=== PATIENT | male | born 1975 | race Caucasian/White ===

== ENCOUNTER 2022-02-25 16:25 | Outpatient (CLI) | payer OTHER, SELFPAY ==
--- OUTSIDE RECORDS SUMMARY | 2022-03-08 08:38 | XMS_ITS | Encounter Summary ---
:1975 Author Organization [facility] Address [address] [place] [address]. [place] [address] Care Team Providers Name Role Phone Peggy Hammer MD Primary Care Provider Alvaro Denise MD Unavailable [phone] Reason for Visit Reason Onset Date Comments Medication Question 03/29/2021 Encounter Details Date Type Department Care Team Description 03/29/2021 Telephone [facility] Ear Vijay Denise edication Question [facility] Clinic Alvaro ojeda MD [address] [place] [address] [place], [place] [phone] (Wo rk) [address] [phone] Social History Tobacco Use Types Packs/Day Years Used Date Passive Smoke Exposure - Cigarettes, Cigars 0.5 10 Started: 12/28/1993 Never Smoker Smokeless Tobacco: Never Used Comments: weekends Alcohol Use Standard Drinks/Week Comments Yes 0 (1 standard drink = 0.6 oz pure alcoho l) 1-2 drinks a a week Alcohol Habits Answer Date Recorded How often do you have a drink containing alcohol? Not asked How many drinks containing alcohol do you have on a Not aske d typical day when you are drinking? How often do you have six or more drinks on one Not asked occasion? Comment: 1-2 drinks a a week 09/09/2019 Sex Assigned at Date Recorded Not on file documented as of this encounter Miscellaneous Notes Telephone Encounter - Marixa Nazario LPN - 03/29/2021 12:[address] Hodge to refill meds. Sent Augmentin to his pharmacy. Marixa Nazario LPN Telephone Encounter - Gustavo Roca - 03/29/2021 7:46 AM CDT Health Call Center Phone Message May a detailed message be left on voicemail: yes Reason for Call: Medication Question or concern regarding medication Prescription Clarification Name of Medication: ANTIBODIES FOR SINUS INFECTION or AMOXICILLIN Prescribing Provider: AYESHA Pharmacy: [id number] [place], [place] - [address] [facility]. What on the order needs clarification? Pt has developed a sinus infection since Friday and would like rx for it. Please follow-up. Action Taken: Other: ent Travel Screening: Not Applicable documented in this encounter Plan of Treatment Not on filedocumented as of this encounter Visit Diagnoses Diagnosis Mucocele of frontal sinus Other diseases of nasal cavity and sinus es documented in this encounter Care Teams Ends Down Checker Relationship Specialty Start Date End Date Peggy Hammer MD PCP - General Family Practice 09/10/19 [facility] [facility] [address] [place] [address] Ayesha-Alvaro Hammond Assigned Surgical Provider MD Kaushik [address] [place] [address] [address] [place] [address] documented as of this encounter
--- OUTSIDE RECORDS SUMMARY | 2022-03-08 08:38 | XMS_ITS | Clinical Summary ---
:1975 Author Organization [facility] [place] [address] Care Team Providers Name Role Phone Nadja Manjarrez MD Primary Care Provider Allergies No known active allergies Medications Medication Sig Dispensed Refills Start Date End Date Status buPROPion Take 150 mg by mouth 0 Active (WELLBUTRIN SR; 2 times daily. ZYBAN) 150 mg Indications: SMOKING Sustained-Release CESSATION tabletIndications: smoking cessation gabapentin Take 1 capsule by 30 capsule 0 06/12/2019 Active (NEURONTIN) 100 mg mouth 3 times daily capsule ibuprofen (ADVIL; Take 1 tablet by 60 tablet 1 06/12/2019 Active MOTRIN) 600 mg mouth 3 times daily tablet with food multivitamin (MVI) 0 A ctive tablet omega by Not Applicable 0 Ac tive 4-fht-dwh-fish oil route. (FISH OIL) 100-160-1,000 mg cap varenicline Take 1 mg by mouth. 0 09/10/2018 Active (CHANTIX) 1 mg tablet HYDROcodone-acetami Take 1 tablet at 3 tablet 0 01/12/2020 Active nophen, 5-325 mg, bedtime as needed (NORCO) per for severe back tabletIndications: pain. Max Acute myofascial acetaminophen dose: strain of lumbar 4000 mg in 24 hrs. 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 Tobacco use disorder 02/04/2008 Hypospadias 02/04/2008 Immunizations Name Administration Dates Next Due Td (Age >=7 Years) 06/30/2001 Family History Medical History Relation Name Comments Hypertension Maternal Grandfather Cancer-prostate Paternal Grandfather prostate re moved-70 Relation Name Status Comments Maternal Grandfather Paternal Grandfather Social History Tobacco Use Types Packs/Day Years Used Date Current Every Day Smoker Cigarettes 0.25 Bernardo t: 05/30/2012 Smokeless Tobacco: Never Used Tobacco Cessation: Ready to Quit: No Comments: advised to quit Alcohol Use Standard Drinks/Week Comments Yes 0 (1 standard drink = 0.6 oz pure alcoho l) once every two weeks-rare Sex Assigned at Date Recorded Not on file Obstetrics History Last Filed Vital Signs Vital Sign Reading Time Taken Comments Blood Pressure 122/78 09/09/2018 9:55 AM CDT Pulse 74 09/09/2018 9:55 AM CDT Temperature 37.1 ??C (98.7 ??F) 09/09/2018 9:55 AM CDT Respiratory Rate 18 05/27/2018 12:22 PM BUS PERSON Oxygen Saturation 98% 09/09/2018 9:55 AM CDT Inhaled Oxygen Concentration - - Weight 86.5 kg (190 lb 12.8 oz) 05/27/2018 12:22 PM BUS PERSON Height 180.3 cm (5' 11) 05/27/2018 12:22 PM BUS PERSON Body Mass Index 26.61 05/27/2018 12:22 PM BUS PERSON Plan of Treatment Health Maintenance Due Date Last Done Comments COVID-19 vaccine series (#1) 1975 Tdap 1987 Depression screening for age 12+ 1988 Tetanus booster 06/30/2011 06/30/2001 BMI (ht and wt on same day) for 05/27/2019 05/27/2018 age 18+ Colonoscopy through age 75 2021 Lipids for age 45-75 2021 02/04/2008, 02/04/2008, 07/23/2006, Additional history exists Influenza for age 9-49 02/28/2022 Hepatitis C screening for age Completed 02/09/2008, 2007, 18-79 02/04/2008 Results Not on filefrom Last 3 Months Advance Directives Latest Code Status on File Code Status Date Activated Date Inactivated Comments Full Code 06/17/2012 6:07 AM 06/24/2012 4:24 PM Care Teams Examination Supervisor Relationship Specialty Start Date End Date Nadja Manjarrez MD PCP - General 06/15/12
--- OUTSIDE RECORDS SUMMARY | 2022-03-08 08:38 | XMS_ITS | Encounter Summary ---
:1975 Author Organization [place] Address [address] [place] [address] Care Team Providers Name Role Phone Peggy Hammer MD Primary Care Provider Alvaro Denise MD Unavailable Reason for Visit Reason Onset Date Comments Medication Request 05/15/2021 amoxicillin-clavulan ate (AUGMENTIN) 875-125 MG tablet Encounter Details Date Type Department Care Team Description 05/15/2021 Telephone [facility] Ear Vijay Denise edication Request Nose and Throat Clinic Alvaro ojeda MD (amoxicillin-clavulana [place] [address] [facility] te (AUGMENTIN) 875-125 909 [facility] 396 MG tablet) 4th [address] [place], [place] [address] [phone] Social History Tobacco Use Types Packs/Day Years [...] Telephone Encounter - Marixa Nazario LPN - 05/15/2021 3:20 PM CST Per last OV- standing order for antibiotics. Reordered medication and ok'd by Mia BARRAGAN. Marixa Nazario LPN ING CLERK Telephone Encounter - Lili Trejo - 05/15/2021 7:52 AM CST [facility] Phone Message May a detailed message be left on voicemail: yes Reason for Call: Medication Refill Request Has the patient contacted the pharmacy for the refill? Yes Name of medication being requested: amoxicillin-clavulanate (AUGMENTIN) 875-125 MG tablet Provider who prescribed the medication: dr etienne Pharmacy: [facility] [address] Date medication is needed: now-pt feels like he is getting sinus condition that he has in the past. He is stuffed up, etc. Please call the pt with the status. Thanks. Action Taken: Message routed to: [facility] driss ent` Travel Screening: Not Applicable ING CLERK documented in this encounter Plan of Treatment Not on filedocumented as of this encounter Visit Diagnoses Diagnosis Mucocele of frontal sinus Other diseases of nasal cavity and sinus es documented in this encounter Care Teams [employer] Mill Supervisor Relationship Specialty Start Date End Date Peggy Hammer MD PCP - General Family Practice 09/10/19 [facility] [address] [place] [address] Ayesha-Alvaro Hammond Assigned Surgical Provider MD Kaushik [address] [facility] [address] [place] [address] documented as of this encounter
--- OUTSIDE RECORDS SUMMARY | 2022-03-08 08:38 | XMS_ITS | Encounter Summary ---
:1975 Author Organization [place] Address [address] [place] [address] Care Team Providers Name Role Phone Peggy Hammer MD Primary Care Provider Alvaro Denise MD Unavailable [phone] Reason for Visit Reason Comments Medication Refill AMOXICILLIN-CLAV 875-125MG T AB Encounter Details Date Type Department Care Team Description 05/12/2021 Refill [facility] Ear Vijay Denise edication Refill Nose and Throat Clinic Alvaro ojeda MD (AMOXICILLIN-CLAV [place] [address] [facility] 875-125MG TAB) [address] [facility] [address] [place] [address] [place], [place] [phone] (Wo rk) [address] [phone] Social History Tobacco Use Types Packs/Day Years [...] this encounter Miscellaneous Notes Telephone Encounter - Crista Willams RN - 05/14/2021 11:58 AM CST AMOXICILLIN-CLAV 875-125MG TAB Last Written Prescription Date: 03/29/2021 Last Fill Quantity: 20, # refills: 0 Last Office Visit : 08/31/2020 Future Office visit: None Routing refill request to provider for review/approval because: Drug not on the [facility], P or Health refill protocol or controlled substance Crista Willams RN Central Triage Red Flags/Med Refills DRIER OPERATOR documented in this encounter Plan of Treatment Not on filedocumented as of this encounter Visit Diagnoses Diagnosis Mucocele of frontal sinus Other diseases of nasal cavity and sinus es documented in this encounter Care Teams Lpn Rn Relationship Specialty Start Date End Date Peggy Hammer MD PCP - General Family Practice 09/10/19 [facility] [address] [place] [address] Alvaro Denise Assigned Surgical Provider MD Kaushik [address] [place] [address] [address] [place] [address] documented as of this encounter
--- OUTSIDE RECORDS SUMMARY | 2022-03-08 08:38 | XMS_ITS | Clinical Summary ---
:1975 Author Organization [place] Address [address] [place] [address] Care Team Providers Name Role Phone Peggy Hammer MD Primary Care Provider Alvaro Denise MD Unavailable [phone] Allergies No known active allergies Medications Medication Sig Dispensed Refills Start Date End Date Status FISH OIL 0 Active fluticasone (FLONASE) [place] 1 spray 15 mL 0 06/14/2019 Active 50 MCG/ACT nasal spray into both nostrils daily acetaminophen Take 2 tablets 50 tablet 0 09/10/2019 Active (TYLENOL) 325 MG (650 mg) by mouth tabletIndications: every 4 hours as Mucocele of frontal needed for mild sinus pain varenicline (CHANTIX 1 wk before you 0 09/11/2018 Active DEBORAH) 0.5 MG X 11 & 1 stop smoking take MG X 42 tablet 0.5mg daily on days 1-3, 0.5mg 2 times each day on days 4-7, then 1mg 2 times daily Multiple Take 1 tablet by 0 Act bertha Vitamins-Minerals mouth daily (MULTIVITAMIN ADULT PO) VITAMIN D, Take by mouth 0 Activ e CHOLECALCIFEROL, PO daily acetaminophen Take 2 tablets 100 tablet 0 06/02/2020 Active (TYLENOL) 325 MG (650 mg) by mouth tabletIndications: S/P every 4 hours as nasal septoplasty needed for other (mild pain) oxyCODONE (ROXICODONE) Take 1 tablet (5 15 tablet 0 06/05/2020 Active 5 MG mg) by mouth tabletIndications: S/P every 6 hours as nasal septoplasty needed (Moderate to Severe Pain) amoxicillin-clavulanat Take 1 tablet by 20 tablet 0 05/15/2021 Active e (AUGMENTIN) 875-125 mouth 2 times MG tabletIndications: daily Mucocele of frontal sinus Active Problems Problem Noted Date 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 Overview: Added automatically from request for jena montague [id number] CARDIOVASCULAR SCREENING; LDL GOAL LESS THAN 160 02/01 Immunizations Name Administration Dates Next Due TDAP Vaccine (Adacel) 02/01/2011 Family History Medical History Relation Comments Bleeding Disorder Maternal Grandmother Blood Disease Maternal Grandmother Cancer Maternal Grandmother Cerebrovascular Disease Maternal Grandmother Breast Cancer Paternal Grandmother Cancer Paternal Grandmother uterine Cerebrovascular Disease Paternal Grandmother Relation Status Comments Father Alive Maternal Grandfather Maternal Grandmother Mother Alive Paternal Grandfather Alive Paternal Grandmother Alive Social History Tobacco Use Types Packs/Day Years Used Date Passive Smoke Exposure - Cigarettes, Cigars 0.5 10 Started: 12/28/1993 Never Smoker Smokeless Tobacco: Never Used Tobacco Cessation: Ready to Quit: Yes Comments: weekends Alcohol Use Standard Drinks/Week Comments [...] Assigned at Date Recorded Not on file Last Filed Vital Signs Vital Sign Reading Time Taken Comments Blood Pressure 134/78 06/02/2020 5:51 PM WEB SERVICES DEVELOPER Pulse 72 08/31/2020 1:40 PM WEB SERVICES DEVELOPER Temperature 36.9 ??C (98.4 ??F) 08/31/2020 1:40 PM WEB SERVICES DEVELOPER Respiratory Rate 16 06/02/2020 5:51 PM WEB SERVICES DEVELOPER Oxygen Saturation 98% 08/31/2020 1:40 PM WEB SERVICES DEVELOPER Inhaled Oxygen Concentration - - Weight 83.5 kg (184 lb) 08/31/2020 1:40 PM WEB SERVICES DEVELOPER Height 182.9 cm (6') 08/31/2020 1:40 PM WEB SERVICES DEVELOPER Body Mass Index 24.95 08/31/2020 1:40 PM WEB SERVICES DEVELOPER Plan of Treatment Health Maintenance Due Date Last Done Comments ADVANCE CARE PLANNING 1975 ANNUAL REVIEW OF HM ORDERS 1976 CT COLONOGRAPHY 1976 FIT-DNA (Cologuard) 1975 FIT 1975 FLEX SIG 1975 COVID-19 Vaccine (#1) 1975 COLONOSCOPY 1986 COLORECTAL CANCER SCREENING 1986 HIV SCREENING 1991 HEPATITIS C SCREENING 1994 PREVENTIVE CARE VISIT 02/02/2012 02/01/2011 LIPID 02/02/2016 02/01/2011 DTAP/TDAP/TD IMMUNIZATION 02/01/2021 02/01/2011 (2 - Td or Tdap) PHQ-2 (once per calendar 06/30/2021 08/31/2020, 06/15/2020, year) 04/13/2020, Additional history exists INFLUENZA VACCINE (#1) 2022 04/11/2019, 04/25/2018, 03/30/2018, Additional history exists HEPATITIS B IMMUNIZATION Aged Out 07/08/2013, 03/02/2013, No longer eligible 06/12/2012 based on patient 's age to complete this topic IPV IMMUNIZATION Aged Out No longer eligi ble based on patient 's age to complete this topic MENINGITIS IMMUNIZATION Aged Out No longe r eligible based on patient 's age to complete this topic Pneumococcal Vaccine: Aged Out No longer eligible Pediatrics (0 to 5 Years) based on patient's age and At-Risk Patients (6 to to co mplete this topic 64 Years) Medical Devices Implanted Type Area Smoke Room Operator Device Shelf Model / Identifier Expiration Serial / Lot Date Stent Frontal Sinus [place] Lg Stent Left: OLYMPUS MANUEL 02/29/2024 [id number] / Implanted: Qty: 1 on 09/10/2019 by Alvaro Chong MD at [facility] Sinus / [id number] Description: Left Frontal Sinus Insurance Payer Benefit Plan / Subscriber ID Effective Dates Phone Addre ss Type Group UCARE UCARE INDIVIDUAL [id number] 2019-Present [phone] [address] [place] [address] Care Teams Stone Derrickman And Rigger Relationship Specialty Start Date End Date Peggy Hammer MD PCP - General Family Practice 09/10/19 [facility] [address] [place] [address] Alvaro Denise Assigned Surgical Provider MD Kaushik [address] [place] [address] [address] [place], [place] [id number]
--- OUTSIDE RECORDS SUMMARY | 2022-03-08 08:39 | XMS_ITS | Encounter Summary ---
:1975 Author Organization [place] Address [address] [place] [address] Care Team Providers Name Role Phone Peggy Hammer MD Primary Care Provider Alvaro Denise MD Unavailable [phone] Reason for Visit Reason Onset Date Comments Refill Request 06/05/2020 oxyCODONE (ROXICODON E) 5 MG tablet Encounter Details Date Type Department Care Team Description 06/05/2020 Telephone [facility] Ear Eugenia Denise efill Request Nose and Throat Clinic Alvaro ojeda MD (oxyCODONE [place] [address] [facility] (ROXICODONE) 5 MG [address] [facility] [address] tablet ) [address] [place], [place] [address] [phone] Social History Tobacco Use Types Packs/Day Years [...] Assigned at Date Recorded Not on file COVID-19 Exposure Response Date Recorded In the last month, have you been in contact with No / Unsure 06/02/2020 1:27 PM SHIPMASTER someone who was confirmed or suspected to have Coronavirus / COVID-19? documented as of this encounter Miscellaneous Notes Telephone Encounter - Joanie Zuniga - 06/05/2020 8:48 AM CST [facility] Call Center Phone Message May a detailed message be left on voicemail: yes Reason for Call: Medication Refill Request Has the patient contacted the pharmacy for the refill? Yes Name of medication being requested: oxyCODONE (ROXICODONE) 5 MG tablet Provider who prescribed the medication: Jose Godfrey MD Pharmacy: [facility][id number] [place], [place] - [address] [facility] Date medication is needed: HEATHER Pt called stating he is still in some pain and was wondering if he could get this Rx refilled. Please advise, thank you! Action Taken: Message routed to: [facility] ENT Travel Screening: Not Applicable MASTER documented in this encounter Plan of Treatment Not on filedocumented as of this encounter Visit Diagnoses Not on filedocumented in this encounter Care Teams Matrix Worker Relationship Specialty Start Date End Date Peggy Hammer MD PCP - General Family Practice 09/10/19 [facility] [address] [place] [address] Alvaro Denise Assigned Surgical Provider MD Kaushik [address] [facility] [address] [place] [address] documented as of this encounter
--- OUTSIDE RECORDS SUMMARY | 2022-03-08 08:39 | XMS_ITS | Encounter Summary ---
:1975 Author Organization [facility] Address [address] [place] [address] Care Team Providers Name Role Phone Peggy Hammer MD Primary Care Provider Alvaro Denise MD Unavailable [phone] Encounter Details Date Type Department Care Team Description 08/31/[address] [facility] Ear Vijay Denise ucocele of frontal Nose and Throat Alvaro Faulkner MD sinus (Primary Dx) Clinic [address] [place] [address] [id number] [phone] Social History Tobacco Use Types Packs/Day Years [...] been in contact with No / Unsure 08/31/2020 1:38 PM CONTROL AREA OPERATOR someone who was confirmed or suspected to have Coronavirus / COVID-19? documented as of this encounter Last Filed Vital Signs Vital Sign Reading Time Taken Comments Blood Pressure - - Pulse 72 08/31/2020 1:40 PM CONTROL AREA OPERATOR Temperature 36.9 ??C (98.4 ??F) 08/31/2020 1:40 PM CONTROL AREA OPERATOR Respiratory Rate - - Oxygen Saturation 98% 08/31/2020 1:40 PM CONTROL AREA OPERATOR Inhaled Oxygen Concentration - - Weight 83.5 kg (184 lb) 08/31/2020 1:40 PM CONTROL AREA OPERATOR Height 182.9 cm (6') 08/31/2020 1:40 PM CONTROL AREA OPERATOR Body Mass Index 24.95 08/31/2020 1:40 PM CONTROL AREA OPERATOR documented in this encounter Patient Instructions Patient InstructionsRossana Berrios LPN - 08/31/2020 1:40 PM CST 1. You were seen in the ENT Clinic today by . If you have any questions or concerns after your appointment, please call - Option 1: ENT Clinic: [phone] 2. Please call us if you are have any questions or concerns. If you begin to have signs of infection(sinusitis) we may have to proceed with surgery, call us right away. Rossana Gonzales LPN [facility] [phone] ROL AREA OPERATOR documented in this encounter Progress Notes Alvaro Denise MD - 08/31/2020 1:40 PM CST DX: LEFT FRONTAL SINUS MUCOCELE TREATMENT:.??1.??Stealth-guided endoscopic transnasal incision and drainage of left frontal sinus mucocele. 2. Left maxillary antrostomy.??3. ??Placement of Rain stent ON 09/10/2019 4. SEPTOPLASTY AND REVISION LEFT FRONTAL SINUS DRAF 2 PROCEDURE ON 06/02/2020 History of Present Illness: Patient here for follow-up. He is doing well. No symptoms. MEDICATIONS: Current Outpatient Medications Medication Sig Dispense Refill ??? acetaminophen (TYLENOL) 325 MG tablet Take 2 tablets (650 mg) by mouth every 4 hours as needed for other (mild pain) 100 tablet 0 ??? acetaminophen (TYLENOL) 325 MG tablet Take 2 tablets (650 mg) by mouth every 4 hours as needed for mild pain 50 tablet 0 ??? FISH OIL ??? fluticasone (FLONASE) 50 MCG/ACT nasal spray [place] 1 spray into both nostrils daily 15 mL 0 ??? Multiple Vitamins-Minerals (MULTIVITAMIN ADULT PO) Take 1 tablet by mouth daily ??? oxyCODONE (ROXICODONE) 5 MG tablet Take 1 tablet (5 mg) by mouth every 6 hours as needed (Moderate to Severe Pain) 15 tablet 0 ? ? varenicline (CHANTIX DEBORAH) 0.5 MG X 11 & 1 MG X 42 tablet 1 wk before you stop smoking take 0.5mg daily on days 1-3, 0.5mg 2 times each day on days 4-7, then 1mg 2 times daily ??? VITAMIN D, CHOLECALCIFEROL, PO Take by mouth daily ALLERGIES: No Known Allergies HABITS/SOCIAL HISTORY: Unchanged PAST MEDICAL HISTORY: Past Medical History: Diagnosis Date ??? Gastroesophageal reflux disease 09/06/2018 FAMILY HISTORY: Family History Problem Relation Age of Onset ??? Blood Disease Maternal Grandmother ??? Cancer Maternal Grandmother ??? Cerebrovascular Disease Maternal Grandmother ??? Bleeding Disorder Maternal Grandmother ??? Breast Cancer Paternal Grandmother ??? Cancer Paternal Grandmother uterine ??? Cerebrovascular Disease Paternal Grandmother REVIEW OF SYSTEMS: 12 point ROS was negative other than the symptoms noted above in the HPI. NasalEndoscopy: Consent for nasal endoscopy was obtained, and we confirmed correctness of procedure and identity of patient. Nasal endoscopy was indicated due to frontal mucocele. The nose was topically decongested and anesthetized. The fiberoptic laryngoscope was passed under endoscopic vision. The turbinates were normal. The inferior and middle meati were clear bilaterally without purulence, masses, or polyps. The nasopharynx was clear. The left frontal outflow tract is once more obstructed by scar tissue. IMPRESSION AND PLAN: Today we had a long discussion with the patient regarding the next steps. At this point, surgically, he will need a frontal sinus cranialization procedure. We discussed the procedure, complications and benefits. We also discussed observation and early management of sinusitis. The p atient wants to observe for now. Will be happy to prescribe antibiotics if symptoms of sinus infections. Alvaro Denise MD, M.D. Otolaryngology- Head & Neck Surgery [phone] ROL AREA OPERATOR documented in this encounter Plan of Treatment Not on filedocumented as of this encounter Procedures Procedure Name Priority Date/Time Associated Diagnosis Comme nts AR NASAL ENDOSCOPY,DX Routine 08/31/2020 4:17 PM CONTROL AREA OPERATOR Mucocele of frontal sinus documented in this encounter Visit Diagnoses Diagnosis Mucocele of frontal sinus - Primary Other diseases of nasal cavity and sinus es documented in this encounter Care Teams Photonic Laboratory Technician Relationship Specialty Start Date End Date Peggy Hammer MD PCP - General Family Practice 09/10/19 [facility] [address] [place] [address] Alvaro Denise Assigned Surgical Provider MD [facility] [address] [facility] [place] [address] [place] [address] documented as of this encounter
--- OUTSIDE RECORDS SUMMARY | 2022-03-08 08:39 | XMS_ITS | Encounter Summary ---
:1975 Author Organization [facility] Address [address] [place] [address] Care Team Providers Name Role Phone Peggy Hammer MD Primary Care Provider Alvaro Denise MD Unavailable [phone] Encounter Details Date Type Department Care Team Description 05/30/2020 Travel Social History Tobacco Use Types Packs/Day Years [...] been in contact with No / Unsure 05/30/2020 9:57 AM FINANCIAL AID COORDINATOR someone who was confirmed or suspected to have Coronavirus / COVID-19? documented as of this encounter Plan of Treatment Not on filedocumented as of this encounter Visit Diagnoses Not on filedocumented in this encounter Care Teams Graphic Arts Instructor Relationship Specialty Start Date End Date Peggy Hammer MD PCP - General Family Practice 09/10/19 [facility] [address] [place] [address] Alvaro Denise Assigned Surgical Provider MD Kaushik [address] [place] [address] [address] [place], [place] [id number] documented as of this encounter
--- OUTSIDE RECORDS SUMMARY | 2022-03-08 08:39 | XMS_ITS | Encounter Summary ---
:1975 Author Organization [facility] Address [address] [place] [address]. 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] Uu Periop Procedures HC NASAL ENDOSCOPY, DIAGNOSTIC HC NASAL/SINUS ENDOSCOPY DIAG, W MAX SINUSOSCOPY [facility] NASAL/SPHENOID SINUS ENDOSCOPY,DX HC NASAL/SINUS SCOPE W BIOPSY POLYPECT OR DEBRIDEMENT HC NASAL/SINUS SCOPE W CONTROL NASAL HEMORRHAGE [address] HC NASAL/SINUS SCOPY,SURG TE AR DUCT HC NASAL/SINUS SCOPY,RMV LUIS BULL [facility] NASAL/SINUS ENDOSC W/LIG SPHENOPALATINE ARTERY HC NASAL/SINUS ENDOSC TOT W/FRNT SINS EXPL TISS REMOVAL HC NASAL SCOPY,REMV PART ETHMOID HC NASAL SCOPY,[place] [address] HC NASAL SCOPY,OPEN MAXILL SINUS HC NASAL/SINUS ENDOSC TOTAL WITH SPHENOIDOTOMY HC NASAL/SINUS ENDOSC W/ETHM;TOTAL W/SPHENDTMY W/SPHEN TISS REMOVAL HC NASAL/SINUS SCOPE W REMOVAL TISSUE MAX SINUS HC NASAL SCOPY,EXPLOR FRONTAL SINUS HC NASAL/SINUS SCOPE W SPHEN OIDOTOMY HC NASAL SCOPY,REMV TISS SPHENOID HC NASAL/SINUS ENDOSCOPY,REPAIR CSF LEAK,ETHMOID ZZC NASAL SCOPY,REPR CSF LEAK,SPHENOID HC NASAL SCOPY,MED/INF ORBIT DECOMPRES ZZC NASAL SCOPY,MED+INF ORBIT DECOMPRES ZZ[facility] NASAL SCOPY,OPTIC NERV D ECOMPRESS HC NASAL/SINUS ENDOSCOPY,W/DILAT MAXILLARY SINUS OSTIUM HC NASAL/SINUS ENDOSCOPY,W/DILAT FRONTAL SINUS OSTIUM HC NASAL/SINUS ENDOSCOPY,W/DILAT SPHENOID SINUS OSTIUM ZZC NASAL/SINUS ENDOSC; W/FR ONTAL & SPHEN SINUS DILATION HC STEREOTACTIC COMP ASSIST PROC, CRANIAL, EXTRADURAL Stealth guided revision endoscopic sinus surgery, revision draft two with septoplasty Referral ID Status Reason Start Date Expiration Date Visits Requ ested Visits Authorized [id number] 1 1 Encounter Details Date Type Department Care Team Description 06/02/2020 [facility] Same Day Alvaro Faulkner MD Mucocele of frontal sinus Surgery [address] [facility] [address] [place] [address] [place], [place] [phone] [id number] Social History Tobacco Use Types Packs/Day Years [...] with No / Unsure 06/02/2020 1:27 PM OIL OPERATOR someone who was confirmed or suspected to have Coronavirus / COVID-19? documented as of this encounter Last Filed Vital Signs Vital Sign Reading Time Taken Comments Blood Pressure 134/78 06/02/2020 5:51 PM OIL OPERATOR Pulse 68 06/02/2020 5:51 PM OIL OPERATOR Temperature 36.5 ??C (97.7 ??F) 06/02/2020 5:51 PM OIL OPERATOR Respiratory Rate 16 06/02/2020 5:51 PM OIL OPERATOR Oxygen Saturation 99% 06/02/2020 5:51 PM OIL OPERATOR Inhaled Oxygen Concentration - - Weight 80.6 kg (177 lb 11.1 oz) 06/02/2020 1:42 PM OIL OPERATOR Height 182.2 cm (5' 11.75) 06/02/2020 1:42 PM OIL OPERATOR Body Mass Index 24.27 06/02/2020 1:42 PM OIL OPERATOR documented in this encounter Discharge Instructions Discharge InstructionsChiara King RN - 06/02/2020 5:53 PM OIL OPERATOR [facility] Same-Day Surgery Adult Discharge Orders & Instructions For 24 hours after surgery 1. Get plenty of rest. A responsible adult must stay with you for at least 24 hours after you leave the hospital. 2. Do not drive or use heavy equipment. If you have weakness or tingling, don't drive or use heavy equipment until this feeling goes away. 3. Do not drink alcohol. 4. Avoid strenuous or risky activities. Ask for help when climbing stairs. 5. You may feel lightheaded. IF so, sit for a few minutes before standing. Have someone help you getup. 6. If you have nausea (feel sick to your stomach): Drink only clear liquids such as apple juice, kyree tiffanie, broth or 7-Up. Rest may also help. Be sure to drink enough fluids. Move to a regular diet asyou feel able. 7. You may have a slight fever. Call the doctor if your fever is over 100??F (37.7??C) (taken under the tongue) or lasts longer than 24 hours. 8. You may have a dry mouth, a sore throat, muscle aches or trouble sleeping. These should go away after 24 hours. 9. Do not make important or legal decisions. Call your doctor for any of the followin. Signs of infection (fever, growing tenderness at the surgery site, a large amount of drainage or bleeding, severe pain, foul-smelling drainage, redness, swelling). 2. It has been over 8 to 10 hours since surgery and you are still not able to urinate (pass water). 3. Headache for over 24 hours. 4. Numbness, tingling or weakness the day after surgery (if you had spinal anesthesia). To contact a doctor, call Dr Daniels's office at [phone] during office hours or: ??? After hours and weekends call [phone] and ask for the resident environmental remediation specialist for ENT (answered 24hours a day) ??? Emergency Department: [facility]: [phone] (TTY for hearing impaired: [phone]) [facility]: [phone] (TTY for hearing impaired: [phone]) OPERATOR documented in this encounter Medications at Time of Discharge Medication Sig Dispensed Refills Start Date End Date acetaminophen (TYLENOL) Take 2 tablets (650 100 tablet 0 09/2019 325 MG tabletIndications: mg) by mouth every S/P nasal septoplasty 4 hours as needed for other (mild pain) acetaminophen (TYLENOL) Take 2 tablets (650 50 tablet 0 325 MG tabletIndications: mg) by mouth every Mucocele of frontal sinus 4 hours as needed for mild pain FISH OIL 0 fluticasone (FLONASE) 50 [place] 1 spray into 15 mL 0 MCG/ACT nasal spray both nostrils daily Multiple Take 1 tablet by 0 Vitamins-Minerals mouth daily (MULTIVITAMIN ADULT PO) varenicline (CHANTIX DEBORAH) 1 wk before you 0 09/11 0.5 MG X 11 & 1 MG X 42 stop smoking take tablet 0.5mg daily on days 1-3, 0.5mg 2 times each day on days 4-7, then 1mg 2 times daily VITAMIN D, Take by mouth daily 0 CHOLECALCIFEROL, PO sodium chloride (OCEAN) [place] 2 sprays in 1 Bottle 3 06/0206/23/2020 0.65 % nasal nostril every 2 sprayIndications: S/P hours (while awake) nasal septoplasty for 21 days Use in EACH nostril. oxyCODONE (ROXICODONE) 5 Take 1 tablet (5 10 tablet 0 06/0206/05/2020 MG tabletIndications: S/P mg) by mouth every nasal septoplasty 6 hours as needed (Moderate to Severe Pain) documented as of this encounter Miscellaneous Notes Op Note - Jose Godfrey MD - 06/02/2020 4:38 PM CST Date 06/02/2020 SURGEON: Alvaro Hodge MD ? REWIND OPERATOR SURGEON: Jose Godfrey MD PREOPERATIVE DIAGNOSES: 1. Septal deviation. 2. frontal sinus opacification 3. Nasal congestion. ? POSTOPERATIVE DIAGNOSES: 1. Septal deviation. 2. frontal sinus opacification 3. Nasal congestion. ? OPERATIVE PROCEDURES: 1. Septoplasty. 2. stealth guided frontal sinusotomy ? ANESTHESIA: General endotracheal. ? SPECIMENS REMOVED: None. ? COMPLICATIONS: None. ? ESTIMATED BLOOD LOSS: Approximately 30 mL. ? INDICATIONS: Patient is a 44 year old male who presented to clinic with difficulty breathing throughhis nose and hx of trauma with prior surgery and frontal sinus opacification suspicious for mucocele. After describing risks benefits and alternatives the patient elected to proceed. ? FINDINGS: Intraoperatively, the patient had a deviation of the septum to the right. frontal sinus had thin scar blocking the frontal sinus ostomy and this was canalized. ? DESCRIPTION: The patient was brought into the operating room and placed on the operating table in a supine position. A member of the Department of Anesthesia was present and intubated the patient without difficulty. The tube was secured, and the table was turned 180 degrees. Approximately 6 mL of 1% lidocaine with epinephrine was injected into the septum bilaterally. Afrin pledgets were placed for hemostasis and decongestion. The patient was then prepped and draped in our normal sterile fashion. Image guidance was utilized and registered for the frontal sinus portion. A time-out was taken to correctly identify the patient and procedure. The Afrin pledgets were removed. A #15 blade was used to make a left-sided sergei-transfixion incision. The septal cartilage was identified, and a mucoperichondrial flap was then elevated on the patient's left side all the way back to the bony cartilaginous junction. The junction was then with a [place] elevator. Once this wascompleted, an incision was made in the anterior portion of the septal cartilage, making sure to leave a 1 cm anterior strut. A mucoperichondrial flap was then elevated on the patient's right side. There was a large perforation that occurred over the patients right septal deviation. The deviated portion of the septum was then removed. The patient's left flap was intact. The right side had a moderate sized mid septal rent. The septal flaps were then secured and coapted back together using a 4-0 plain gut on a Vadim needle for a quilting stitch. The incision was closed using a 4-0 chromic. We then turned our attention to performing the frontal sinusotomy. using 0 and 30 degree scopes and image guidance the left nasal cavity was inspected. Scarring was seen and divided the frontal recess was then seen and the frontal sinus ostomy was seen to have a band of scar blocking the outflow. Using curved suction this was opened. There was no post obstructive fluid and the frontal sinus was irrigated. This ended the procedure. Mccullough splints were placed and sutured. Dr. Hodge was present for the entirety of the procedure. Jose Godfrey MD OPERATOR Associated attestation - Alvaro Denise MD - 06/07/2020 1:07 PM OIL OPERATOR Physician Attestation I was present for the entire procedure between opening and closing. Alvaro Denise Date of Service (when I saw the patient): 06/07/20 documented in this encounter Plan of Treatment Not on filedocumented as of this encounter Procedures Procedure Name Priority Date/Time Associated Comments Diagnosis GLUCOSE BY METER Routine 06/02/2020 1:47 PM Mucocele of fronta l Results for this OIL OPERATOR sinus procedure are i n the results section. OPTICAL TRACKING Routine 06/02/2020 1:29 PM Mucocele of fronta l SYSTEM ENDOSCOPIC OIL OPERATOR sinus SINUS SURGERY documented in this encounter Results Glucose by meter (06/02/2020 1:47 PM OIL OPERATOR) P athologist Signature Glucose 87 70 - 99 06/02/2020 POINT OF CARE mg/dL 1:54 PM OIL OPERATOR TEST, GLUCOSE Specimen Anatomical Collection Method Collection Time Receive d Time (Source) Location / / Volume Laterality 06/02/2020 1:47 PM 0 1:54 OIL OPERATOR PM OIL OPERATOR [facility] Performing Organization Address City/State/ZIP Code Phon e Number [facility] POINT OF CARE TEST, GLUCOSE POINT OF CARE TEST, GLUCOSE documented in this encounter Visit Diagnoses Diagnosis Mucocele of frontal sinus - Primary Other diseases of nasal cavity and sinus es S/P nasal septoplasty Other postprocedural status documented in this encounter Admitting Diagnoses Diagnosis Mucocele of frontal sinus Other diseases of nasal cavity and sinus es documented in this encounter Administered Medications Inactive Administered Medications - up to 3 most recent administrations Medication Order MAR Action Action Date Dose Rate Site HYDROmorphone (PF) (DILAUDID) Given 06/02/2020 5:35 PM OIL OPERATOR 0.3 m g injection 0.3-0.5 mg 0.3-0.5 mg, Intravenous, EVERY 5 MIN PRN, other, acute pain. ??May administer if Respiratory Rate is greater than 10, Starting on Fri06/02/20 at 1658, Max cumulative dose = 2 mg If fentaNYL (SUBLIMAZE) is also ordered, use HYDROmorphone (DILAUDID) if pain control insufficient with fentaNYL (SUBLIMAZE) or a longer acting agent is needed. For ordered IV doses 0.1-4 mg give IV Push undiluted. Administer each 2mg over 2-5 minutes., PACU naloxone (NARCAN) injection 0.2 mg 0.2 mg, Intravenous, EVERY 2 MIN PRN, op ioid reversal, Starting on Fri06/02/20 at 1700, For 24 hours, Administer intraveno us route when available and notify provider when administered. For unintended sedati on or respiratory depression if all of the below criteria are met: ~ respiratory ra te LESS than or EQUAL to 8. ~SaO2 less than 92% and or/end-tidal CO2 is greater than 50. ~ the patient is receiving an opioid, has unintended sedations assessed as EVA S (-3), and is currently not on mechanical ventilation. RASS scale moderate (-3) is movement or eye opening to voice but no eye contact. Patient Monitoring Once the patient has demonstrated a response to the naloxone, continue to monitor respiratory rate, depth, oxygen saturation and end-tidal CO2 (if available) every 15 mi nutes x 2, then every 30 minutes x 2, then every 1 hour x 1 after each naloxone dose. Consider tr ansfer to ICU if patient respiratory parameters have not improved after 4 nalox one doses. For ordered IV doses 0.1-2mg give IVP. Give each 0.4mg over 15 seconds in emergency situations. For non-emergent situations further dilu te in 9mL of NS to facilitate titration of response., Post-procedure naloxone (NARCAN) injection 0.2 mg 0.2 mg, Intramuscular, EVERY 2 MIN PRN, opioid reversal, Starting on Fri06/02/20 at 1700, For 24 hours, Administer intramuscular if an int ravenous route is not available and notify provider when administered. For u nintended sedation or respiratory depression if all of the below criteria ar e met: ~ respiratory rate LESS than or EQUAL to 8. ~SaO2 less than 92% and or/end-tidal CO2 is greater than 50. ~ the patient is receiving an opioid , has unintended sedations assessed as RASS (-3), and is currently not on mechanical ventilation. RASS scale moderate (-3) is movement or eye opening to voice but no eye contact. Patient Monitoring Once the patient has demonstrated a response to the naloxone, c ontinue to monitor respiratory rate, depth, oxygen saturati on and end-tidal CO2 (if available) every 15 minutes x 2, then every 30 minutes x 2, then every 1 hour x 1 after each naloxone dose. Consider transfer to ICU if patient respiratory parameters have not improved after 4 naloxone doses. For ord ered IV doses 0.1-2mg give IVP. Give each 0.4mg over 15 seconds in emergency situa tions. For non-emergent situations further dilute in 9mL of NS to facilitate titration of respons e., Post-procedure naloxone (NARCAN) injection 0.4 mg 0.4 mg, Intravenous, EVERY 2 MIN PRN, op ioid reversal, Starting on Fri06/02/20 at 1700, For 24 hours, Administer intraveno us route when available and notify provider when administered. For unintended sedati on or respiratory depression if all of the below criteria are met: ~ respiratory rate LESS than o r EQUAL to 8. ~ SaO2 less than 92% and or/end-tidal CO2 is greater than 50. ~ th e patient is receiving an opioid, has unintended sedation assessed as RASS (-4) or (-5) and patient is currently not on mechanical ventilation. RASS scale (-4) is deep sedation with no response to voice but movement or eye op ening to physical stimulation. RASS scale (-5) is unarousable. Patient Monitoring Once the patie nt has demonstrated a response to the naloxone, continue to monitor respirat ory rate, depth, oxygen saturation and end-tidal CO2 (if available) every 15 m inutes x 2, then every 30 minutes x 2, then every 1 hour x 1 after each naloxone dose. Consider transfer to ICU if patient respiratory parameters blair ve not improved after 4 naloxone doses. For ordered IV doses 0.1-2mg give IVP. Give each 0.4mg ove r 15 seconds in emergency situations. For non-emergent situations further dilute in 9mL of NS to facilitate titration of response., Post-procedure naloxone (NARCAN) injection 0.4 mg 0.4 mg, Intramuscular, EVERY 2 MIN PRN, opioid reversal, Starting on Fri06/02/20 at 1700, For 24 hours, Administer intramuscular if an int ravenous route is not available and notify provider when administered. For u nintended sedation or respiratory depression if all of the below criteria ar e met: ~ respiratory rate LESS than or EQUAL to 8. ~ SaO2 less camelia n 92% and or/end-tidal CO2 is greater than 50. ~ the patient is receiving an opioid , has unintended sedation assessed as RASS (-4) or (-5) and patient is currently not on mechanica l ventilation. RASS scale (-4) is deep sedation with no response to voice but mo vement or eye opening to physical stimulation. RASS scale (-5) is unarousable. Patient Monitoring Once the patient has demonstrated a response to the naloxone, c ontinue to monitor respiratory rate, depth, oxygen saturati on and end-tidal CO2 (if available) every 15 minutes x 2, then every 30 minutes x 2, then every 1 hour x 1 after each naloxone dose. Consider transfer to ICU if patient respiratory parameters have not improved after 4 naloxone doses. For ord ered IV doses 0.1-2mg give IVP. Give each 0.4mg over 15 seconds in emergency situa tions. For non-emergent situations further dilute in 9mL of NS to facilitate titration of respons e., Post-procedure documented in this encounter Active and Recently Administered Medications Times are shown in OIL OPERATOR. Scheduled Medication Order 05/31/2020 06/01/2020 06/02/2020 dexamethasone (DECADRON) injection 10 mg (COMPLETED) 1530 (Given - Provider: Luzmaria Pelayo APRN CRNA) 10 mg, Intravenous, ONCE, Administer ove r 1 Minutes, 06/02/20 at 1400, For 1 dose, Give dose upon induction. For IV doses 1-20 mg, give IV Push undiluted over 1 minute., Pre-procedure Continuous Medication Order 05/31/2020 06/01/2020 06/02/2020 lactated ringers infusion (CANCELED) 1448 (New Bag - Provider: Luzmaria Pelayo APRN CRNA)1600 (Anesthesia Volume Adjustment - Provider: Luzmaria Pelayo APRN CRNA)1650 (Anesthesia Volume Adjustment - Provider: Luzmaria Pelayo APRN CRNA) at 25 mL/hr, Intravenous, CONTINUOUS, IF patient NOT on dialysis., Pre- procedure, Starting Fri06/02/20 at 1400, Until Fri06/02/20 at 1654 Provider ordered ALTERNATE pre op antibiotic. (CANCELED) 1510 (Given - Provider: Luzmaria Pelayo APRN CRNA) CONTINUOUS, Starting Fri06/02/20 at 1400 , Until Fri06/02/20 at 1654, Pre-procedure PRN Medication Order 05/31/2020 06/01/2020 06/02/2020 HYDROmorphone (PF) (DILAUDID) injection 0.3-0.5 mg (CANCELED) 1735 (Given - Provider: Svetlana Manjarrez, LAUREL) 0.3-0.5 mg, Intravenous, EVERY 5 MIN PRN , other, acute pain. ??May administer if Respiratory Rate is greater than 10, Starting Fri06/02/20 at 1658, Max cumulative dose = 2 mg If fentaNYL (SUBLIMAZE) is also ordered, use HYDROmorphone (DILAUDI D) if pain control insufficient with fentaNYL (SUBLIMAZE) or a longer acting agent is needed. For ordered IV doses 0.1-4 mg give IV Push undiluted. Administer each 2mg over 2-5 minutes., PACU lidocaine 1% with EPINEPHrine 1:100,000 injection (CANCELED) 1515 (Given - Provider: Jose Godfrey MD) PRN, Starting Fri06/02/20 at 1515, Intra-procedure naloxone (NARCAN) injection 0.2 mg 0.2 mg, Intravenous, EVERY 2 MIN PRN, op ioid reversal, Starting Fri06/02/20 at 1700, For 24 hours, Administer intravenous route when available and notify provider when administered. For unintended sedat ion or respiratory depression if all of the below criteria are met: ~ respiratory rate LESS than or EQUAL to 8. ~SaO2 less than 92% and or/end-tidal CO2 is greater than 50. ~ the patient is receiving an opioid, has unintended sedations assess ed as RASS (-3), and is currently not on mechanical ventilation. RASS scale moderate (-3) is movement or eye opening to voice but no eye contact. Patient Monitori ng Once the patient has demonstrated a r esponse to the naloxone, continue to monitor respiratory rate, depth, oxygen saturation and end-tidal CO2 (if available) every 15 minutes x 2, then every 30 minut es x 2, then every 1 hour x 1 after each naloxone dose. Consider transfer to ICU if patient respiratory parameters have not improved after 4 naloxone doses. For ordered IV doses 0.1-2mg give IVP. Give e ach 0.4mg over 15 seconds in emergency s ituations. For non-emergent situations further dilute in 9mL of NS to facilitate titration of response., Post-procedure naloxone (NARCAN) injection 0.2 mg 0.2 mg, Intramuscular, EVERY 2 MIN PRN, opioid reversal, Starting Fri06/02/20 at 1700, For 24 hours, Administer intramuscular if an intravenous route is not available and notify provider when administer ed. For unintended sedation or respirato ry depression if all of the below criteria are met: ~ respiratory rate LESS than or EQUAL to 8. ~SaO2 less than 92% and or/end-tidal CO2 is greater than 50. ~ the patient is receiving an opioid, has uni ntended sedations assessed as RASS (-3), and is currently not on mechanical ventilation. RASS scale moderate (-3) is movement or eye opening to voice but no eye c ontact. Patient Monitoring Once the umer ent has demonstrated a response to the naloxone, continue to monitor respiratory rate, depth, oxygen saturation and end-tidal CO2 (if available) every 15 minutes x 2, then every 30 minutes x 2, then hayley ry 1 hour x 1 after each naloxone dose. Consider transfer to ICU if patient respiratory parameters have not improved after 4 naloxone doses. For ordered IV doses 0.1-2mg give IVP. Give each 0.4mg over 1 5 seconds in emergency situations. For non-emergent situations further dilute in 9mL of NS to facilitate titration of response., Post-procedure naloxone (NARCAN) injection 0.4 mg 0.4 mg, Intravenous, EVERY 2 MIN PRN, op ioid reversal, Starting Fri06/02/20 at 1700, For 24 hours, Administer intravenous route when available and notify provider when administered. For unintended sedat ion or respiratory depression if all of the below criteria are met: ~ respiratory rate LESS than or EQUAL to 8. ~ SaO2 less than 92% and or/end-tidal CO2 is greater than 50. ~ the patient is receiving a n opioid, has unintended sedation assess ed as RASS (-4) or (-5) and patient is currently not on mechanical ventilation. RASS scale (-4) is deep sedation with no response to voice but movement or eye ope isrrael to physical stimulation. RASS scale (-5) is unarousable. Patient Monitoring Once the patient has demonstrated a response to the naloxone, continue to monitor respiratory rate, depth, oxygen saturat ion and end-tidal CO2 (if available) hayley ry 15 minutes x 2, then every 30 minutes x 2, then every 1 hour x 1 after each naloxone dose. Consider transfer to ICU if patient respiratory parameters have not improved after 4 naloxone doses. For ord ered IV doses 0.1-2mg give IVP. Give each 0.4mg over 15 seconds in emergency situations. For non-emergent situations further dilute in 9mL of NS to facilitate titration of response., Post-procedure naloxone (NARCAN) injection 0.4 mg 0.4 mg, Intramuscular, EVERY 2 MIN PRN, opioid reversal, Starting Fri06/02/20 at 1700, For 24 hours, Administer intramuscular if an intravenous route is not available and notify provider when administer ed. For unintended sedation or respirato ry depression if all of the below criteria are met: ~ respiratory rate LESS than or EQUAL to 8. ~ SaO2 less than 92% and or/end-tidal CO2 is greater than 50. ~ th e patient is receiving an opioid, has un intended sedation assessed as RASS (-4) or (-5) and patient is currently not on mechanical ventilation. RASS scale (-4) is deep sedation with no response to voice but movement or eye opening to physical stimulation. RASS scale (-5) is unarousable. Patient Monitoring Once the patient has demonstrated a response to the naloxone, continue to monitor respiratory rat e, depth, oxygen saturation and end-tida l CO2 (if available) every 15 minutes x 2, then every 30 minutes x 2, then every 1 hour x 1 after each naloxone dose. Consider transfer to ICU if patient respirat ory parameters have not improved after 4 naloxone doses. For ordered IV doses 0.1-2mg give IVP. Give each 0.4mg over 15 seconds in emergency situations. For non-emergent situations further dilute in 9mL of NS to facilitate titration of response., Post-procedure oxymetazoline (AFRIN) 0.05 % spray (CANCELED) 1532 (Given - Provider: Jose Godfrey MD - Comment: Topically applied with cottonoids) PRN, Starting Fri06/02/20 at 1532, Intra-procedure documented in this encounter Care Teams Manager Mall Relationship Specialty Start Date End Date Peggy Hammer MD PCP - General Family Practice 09/10/19 [facility] [address] [place] [address] Ayesha-Alvaro Hammond Assigned Surgical Provider MD Kaushik [address] [facility] [address] [place] [address] documented as of this encounter
--- OUTSIDE RECORDS SUMMARY | 2022-03-08 08:39 | XMS_ITS | Encounter Summary ---
:1975 Author Organization [facility] Address [address] [place] [address]. [place] [address] Care Team Providers Name Role Phone Peggy Hammer MD Primary Care Provider Alvaro Denise MD Unavailable [phone] Encounter Details Date Type Department Care Team Description 05/12/2020 Orders Only [facility] Howie, Encounter for [address] Alvaro Faulkner [place] [id number] [address] [facility] viral diseases [phone] (Primary Dx) [place], [place] [id number] (Wo rk) Social History Tobacco Use Types Packs/Day Years [...] been in contact with No / Unsure 05/11/2020 9:36 AM POSTER someone who was confirmed or suspected to have Coronavirus / COVID-19? documented as of this encounter Plan of Treatment Not on filedocumented as of this encounter Results Asymptomatic COVID-19 Virus (Coronavirus) by PCR (05/30/2020 10:10 AM POSTER) [facility] Method Time Signature COVID-19 Nasopharyngeal 05/30/2020 [facility] Virus PCR to 10:04 AM [facility] - [facility] AND [facility] [place] COVID-19 Not Detected 05/30/2020 [facility] Virus PCR to 9:31 PM [facility] RESEARCH AND [facility] - DIAGNOSTIC Result LABORATORY, [facility] Comment: Collection of multiple specimens from th e same patient may be necessary to detect the virus. The possibility of a f alse negative should be considered if the patient's recent exposure or clinica l presentation suggests 2019 nCOV infection and diagnostic tests for other causes of illness are negative. Repeat testing may be considered in this setting. Patient sample was heat inactivated and amplified using the HDPCR SARS-CoV-2 assay ([employer] The HDPCRTM BRYCE S-CoV-2 assay is a reverse 3d technologist real-time polymerase chain reaction (qRT-PCR) test intended for the qualitative detection of nucleic aci d from SARS-CoV-2 in human nasopharyngeal swabs, oropharyngeal swabs, anterior nasal swabs, mid-turbinate nasal swabs a s well as nasal aspirate, nasal wash, and bronchoalveolar lavage (BAL) specime ns from individuals who are suspected of COVID-19 by their healthcare provider . A negative result does not rule out the presence of real-time PCR inhibitors in the specimen or COVID-19 RNA in lavell ntrations below the limit of detection of the assay. The possibility of a fals e negative should be considered if the patients recent exposure or clinical pr esentation suggests COVID-19. Additional testing or repeat testing req uires consultation with the laboratory. Nasopharyngeal specimen is the preferred choice for swab-based SARS CoV2 testing. When collection of a nasopharyn geal swab is not possible the following are acceptable alternatives: an oropharyngeal (OP) specimen collected by a healthcare professional, or a nasal mid-turbinate (NMT) swab collected by a healthcare professional or by onsite self-collection (using a flocked tapered swab), or an anterior nares specimen collected by a healthcare profe ssional or by onsite self-collection (using a round foam swab). (Centers for Disease Control) Testing performed by [facility] ([facility]) [address] [facility] [address] The test performance characteristics wer e determined by [facility]. It has not been cleared or approved by the FDA. The laboratory is regulated under the Cl inical Laboratory Improvement Amendments of 1988 (CLIA-88) as qualifie d to perform high-complexity testing. This test is used for clinical purposes. It should not be regarded as investigational or for research. Specimen (Source) Anatomical Collection Method Collection Time Re ceived Time Location / / Volume Laterality Specimen from 05/30/2020 10:10 05/30/2020 nasopharyngeal AM POSTER 10:11 AM POSTER structure (specimen) Alvaro Denise MD LAB - MICRO GENERAL OR DERABLES Performing Organization Address City/State/ZIP Code Phon e Number [facility] [address] [phone] DIAGNOSTIC LABORATORY, [facility] [address] [phone] [facility] [[email or web address]] AND [facility] documented in this encounter Visit Diagnoses Diagnosis Encounter for screening for other viral diseases - Primary documented in this encounter Care Teams Meat Process Worker Relationship Specialty Start Date End Date Peggy Hammer MD PCP - General Family Practice 09/10/19 [facility] [address] [place] [address] Alvaro Denise Assigned Surgical Provider MD Kaushik [address] [place] [address] [address] [place], [place] [id number] documented as of this encounter
--- OUTSIDE RECORDS SUMMARY | 2022-03-08 08:39 | XMS_ITS | Encounter Summary ---
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 documented as of this encounter Plan of Treatment Not on filedocumented as of this encounter Visit Diagnoses Not on filedocumented in this encounter Care Teams Psychology Clinician Relationship Specialty Start Date End Date Peggy Hammer MD PCP - General Family Practice 09/10/19 [facility] [address] [place] [address] Alvaro Denise Assigned Surgical Provider MD Kaushik [address] [place] [address] documented as of this encounter
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
--- OUTSIDE RECORDS SUMMARY | 2022-03-08 08:39 | XMS_ITS | Encounter Summary ---
:1975 Author Organization [facility] Address [address] [place] [address]. 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 documented as of this encounter Plan of Treatment Not on filedocumented as of this encounter Visit Diagnoses Diagnosis S/P nasal septoplasty Other postprocedural status documented in this encounter Care Teams Academic Support Specialist Relationship Specialty Start Date End Date Peggy Hammer MD PCP - General Family Practice 09/10/19 [facility] [address] [place] [address] Alvaro Denise Assigned Surgical Provider MD Kaushik [address] [place] [place] [address] documented as of this encounter
--- OUTSIDE RECORDS SUMMARY | 2022-03-08 08:39 | XMS_ITS | Encounter Summary ---
:1975 Author Organization [facility] Address [address] [place] [address] Care Team Providers Name Role Phone Peggy Hammer MD Primary Care Provider Alvaro Denise MD Unavailable [phone] Encounter Details Date Type Department Care Team Description 05/31/2020 Travel Social History Tobacco Use Types Packs/Day [...] been in contact with No / Unsure 05/31/2020 3:01 PM GENETICIST someone who was confirmed or suspected to have Coronavirus / COVID-19? documented as of this encounter Plan of Treatment Not on filedocumented as of this encounter Visit Diagnoses Not on filedocumented in this encounter Care Teams Teacher Resource Relationship Specialty Start Date End Date Peggy Hammer MD PCP - General Family Practice 09/10/19 [facility] [address] [address] Alvaro Denise Assigned Surgical Provider MD Kaushik [address] [place] [address] [address] [place], [place] [address] documented as of this encounter
--- OUTSIDE RECORDS SUMMARY | 2022-03-08 08:39 | XMS_ITS | Encounter Summary ---
:1975 Author Organization [facility] Address [address] [place] [address] Care Team Providers Name Role Phone Peggy Hammer MD Primary Care Provider Alvaro Denise MD Unavailable [phone] Encounter Details Date Type Department Care Team Description 06/15/2020 Travel Social History Tobacco Use Types Packs/Day [...] been in contact with No / Unsure 06/15/2020 3:21 PM SUTURE WINDER HAND someone who was confirmed or suspected to have Coronavirus / COVID-19? documented as of this encounter Plan of Treatment Not on filedocumented as of this encounter Visit Diagnoses Not on filedocumented in this encounter Care Teams Technical Support Technician Relationship Specialty Start Date End Date Peggy Hammer MD PCP - General Family Practice 09/10/19 [facility] [id number] [address] Alvaro Denise Assigned Surgical Provider MD Kaushik [address] [place] [address] [address] [place], [place] [address] documented as of this encounter
--- OUTSIDE RECORDS SUMMARY | 2022-03-08 08:39 | XMS_ITS | Encounter Summary ---
:1975 Author Organization [facility] Address [address] [place] [address]. [place] [address] Care Team Providers Name Role Phone Peggy Hammer MD Primary Care Provider Alvaro Denise MD Unavailable [phone] Encounter Details Date Type Department Care Team Description 05/18/2020 Telephone [facility] Ear Nose [facility] MD Kaushik [address] [place], [place] [id number] [place] [address] Floor [place] [phone] Social History Tobacco Use Types Packs/Day Years [...] with No / Unsure 05/11/2020 9:36 AM FLEXIBLE SHAFT WINDER someone who was confirmed or suspected to have Coronavirus / COVID-19? documented as of this encounter Miscellaneous Notes Telephone Encounter - Rossana Berrios LPN - 05/18/2020 9:26 AM CST Residential Lawn Specialist called patient in regards to recent voicemail that was left. Residential Lawn Specialist stated he would be contacted in the next week regarding arrival times for surgery. He was agreeable. Patient also stated that he has not gotten a call regarding scheduling a covid test prior to surgery. Residential Lawn Specialist called COVID lineand was on hold for about 6 minutes. Residential Lawn Specialist scheduled patient COVID test at [facility] for 05/30/2020 at 1000. Patient was agreeable to this time. Rossana Gonzales LPN IBLE SHAFT WINDER documented in this encounter Plan of Treatment Not on filedocumented as of this encounter Visit Diagnoses Not on filedocumented in this encounter Care Teams Occ Therapy Asst Relationship Specialty Start Date End Date Peggy Hammer MD PCP - General Family Practice 09/10/19 [facility] [address] [place] [address] Alvaro Denise Assigned Surgical Provider MD Kaushik [address] [place] [address] [address] [place] [address] documented as of this encounter
--- OUTSIDE RECORDS SUMMARY | 2022-03-08 08:39 | XMS_ITS | Encounter Summary ---
:1975 Author Organization [place] Address [address] [place] [address] Care Team Providers Name Role Phone Peggy Hammer MD Primary Care Provider Alvaro Denise MD Unavailable [phone] Encounter Details Date Type Department Care Team Description 05/30/2020 [facility] Only [facility] Lab Encoun ter for screening [place] for other viral diseases [address] [place] [place] [address] [phone] Social History Tobacco Use Types Packs/Day Years [...] with No / Unsure 06/02/2020 1:27 PM FACILITY SUPERVISOR someone who was confirmed or suspected to have Coronavirus / COVID-19? documented as of this encounter Plan of Treatment Not on filedocumented as of this encounter Procedures Procedure Name Priority Date/Time Associated Diagnosis Comme nts COVID-19 VIRUS Routine 05/30/2020 10:10 AM Encounter for Resul ts for this (CORONAVIRUS) BY FACILITY SUPERVISOR screening for other proc edure are in PCR viral diseases the results section. documented in this encounter Results Asymptomatic COVID-19 Virus (Coronavirus) by PCR (05/30/2020 10:10 AM FACILITY SUPERVISOR) [facility] Method Time Signature COVID-19 Nasopharyngeal 05/30/2020 [facility] Virus PCR to 10:04 AM [place] [facility] AND SURGERY OLA COVID-19 Not Detected 05/30/2020 [facility] Virus PCR to 9:31 PM [facility] - DIAGNOSTIC Result LABORATORY, [facility] Comment: Collection of multiple specimens from [...] and amplified using the HDPCR SARS-CoV-2 assay (Pluck.). The HDPCRTM BRYCE S-CoV-2 assay is a reverse beet end supervisor real-time polymerase chain reaction (qRT-PCR) test intended [...] (Centers for Disease Control) Testing performed by [facility] ([facility]) [address] [facility] [address] The test performance characteristics wer e determined [...] Specimen from 05/30/2020 10:10 05/30/2020 nasopharyngeal AM FACILITY SUPERVISOR 10:11 AM FACILITY SUPERVISOR structure (specimen) Alvaro Denise MD LAB - MICRO GENERAL OR DERABLES Performing Organization Address City/State/ZIP Code Phon e Number [place] [address] DIAGNOSTIC LABORATORY, [facility] [address] [phone] [facility] AND [facility] documented in this encounter Visit Diagnoses Diagnosis Encounter for screening for other viral diseases documented in this encounter Care Teams Surveyor Chain Helper Relationship Specialty Start Date End Date Peggy Hammer MD PCP - General Family Practice 09/10/19 [facility] [address] [place] [address] Alvaro Denise Assigned Surgical Provider MD Kaushik [address] [facility] [address] [place], [place] [address] documented as of this encounter
--- OUTSIDE RECORDS SUMMARY | 2022-03-08 08:39 | XMS_ITS | Encounter Summary ---
:1975 Author Organization [place] Address [address] [place] [address] Care Team Providers Name Role Phone Peggy Hammer MD Primary Care Provider Alvaro Denise MD Unavailable [phone] Reason for Referral Medication Prior Authorization (Routine) - Closed Specialty Diagnoses / Procedures Referred By Contact Refer red To Contact Diagnoses S/P nasal septoplasty Vadim Lester MD [address] [place] [id number] Referral ID Status Reason Start Date Expiration Date Visits Requ ested Visits Authorized [id number] Closed 1 1 LS AUDITOR Encounter Details Date Type Department Care Team Description 06/05/2020 Orders Only [facility] Ear Liliana Urrutia, S/ P nasal septoplasty [facility] RN [address] [address] Social History Tobacco Use Types Packs/Day [...] with No / Unsure 06/02/2020 1:27 PM SKILLS AUDITOR someone who was confirmed or suspected to have Coronavirus / COVID-19? documented as of this encounter Plan of Treatment Not on filedocumented as of this encounter Visit Diagnoses Diagnosis S/P nasal septoplasty Other postprocedural status documented in this encounter Care Teams Milk Vendor Relationship Specialty Start Date End Date Peggy Hammer MD PCP - General Family Practice 09/10/19 [facility] [address] [place] [address] Alvaro Denise Assigned Surgical Provider MD Kaushik [address] [facility] [address] [place], [place] [id number] documented as of this encounter
--- OUTSIDE RECORDS SUMMARY | 2022-03-08 08:39 | XMS_ITS | Encounter Summary ---
:1975 Author Organization [place] Address [address] [place] [address]. [place] [address] Care Team Providers Name Role Phone Peggy Hammer MD Primary Care Provider Alvaro Denise MD Unavailable [phone] Reason for Visit Reason Comments RECHECK 2 week post op Encounter Details Date Type Department Care Team Description 06/15/2020 Office Visit [facility] Ear Vijay Denise ucocele of frontal Nose and Throat Alvaro Faulkner MD sinus (Primary Dx) Clinic [address] [place] [id number] [phone] Social History Tobacco Use Types Packs/Day Years [...] with No / Unsure 06/15/2020 3:21 PM LUMBER SORTER someone who was confirmed or suspected to have Coronavirus / COVID-19? documented as of this encounter Last Filed Vital Signs Vital Sign Reading Time Taken Comments Blood Pressure - - Pulse 78 06/15/2020 3:49 PM LUMBER SORTER Temperature 36.9 ??C (98.5 ??F) 06/15/2020 3:49 PM LUMBER SORTER Respiratory Rate - - Oxygen Saturation 98% 06/15/2020 3:49 PM LUMBER SORTER Inhaled Oxygen Concentration - - Weight - - Height 182.9 cm (6') 06/15/2020 3:49 PM LUMBER SORTER Body Mass Index - - documented in this encounter Patient Instructions Patient InstructionsRossana Berrios LPN - 06/15/2020 3:40 PM CST 1. You were seen in the ENT Clinic today by . If you have any questions or concerns after your appointment, please call - Option 1: ENT Clinic: [phone] 2. Plan to return to clinic 08/31/[address] [facility] Otolaryngology [phone] ER SORTER documented in this encounter Progress Notes Alvaro Denise MD - 06/15/2020 3:40 PM CST DX: LEFT FRONTAL SINUS MUCOCELE TREATMENT:.??1.??Stealth-guided endoscopic transnasal incision and drainage of left frontal sinus mucocele. 2. Left maxillary antrostomy.??3. ??Placement of [place] stent.??ON 09/10/2019 4. Septoplasty and revision left frontal sinus draf 2 procedure on 06/02/2020 History of Present Illness: Patient here for his first post-operative visit. He is doing well. Nasalcongestion as expected. No other issues MEDICATIONS: Current Outpatient Medications Medication Sig Dispense [...] ??? fluticasone (FLONASE) 50 MCG/ACT nasal spray [place] 1 spray into both nostrils daily 15 mL 0 ??? Multiple Vitamins-Minerals (MULTIVITAMIN ADULT PO) Take 1 tablet by mouth daily ??? oxyCODONE (ROXICODONE) 5 MG tablet Take 1 tablet (5 mg) by mouth every 6 hours as needed (Moderate to Severe Pain) 15 tablet 0 ??? sodium chloride (OCEAN) 0.65 % nasal spray [place] 2 sprays in nostril every 2 hours (while awake)for 21 days Use in EACH nostril. 1 Bottle 3 ? ? varenicline (CHANTIX DEBORAH) 0.5 MG [...] the symptoms noted above in the HPI. Nasal Endoscopy: Consent for fiberoptic laryngoscopy was obtained, and we confirmed correctness of procedure and identity of patient. Nasal endoscopy was indicated due to frontal sinus mucocele. The nose was topically decongested and anesthetized. The nasal endoscope was passed under endoscopic vision. The septum is now more on the midline. No septal perforations. I was able to visualize the left frontal sinus opening. No purulence IMPRESSION AND PLAN: S/P septoplasty and revision draf 2. Doing well. Splints removed.Good nasal airflow. Left frontal sinus outflow tract is open.Plan to Follow-up in 2 months Alvaro Denise MD, M.D. Otolaryngology- Head & Neck Surgery [phone] ER SORTER documented in this encounter Nursing Notes Radha King - 06/15/2020 3:40 PM CST Chief Complaint Patient presents with ??? RECHECK 2 week post op Pulse 78, temperature 98.5 ??F (36.9 ??C), temperature source Temporal, height 1.829 m (6'), SpO2 98%. Radha King, EMT ER SORTER documented in this encounter Plan of Treatment Not on filedocumented as of this encounter Procedures Procedure Name Priority Date/Time Associated Diagnosis Comme nts [place] NASAL ENDOSCOPY,DX Routine 06/16/2020 1:40 PM LUMBER SORTER Mucocele of frontal sinus documented in this encounter Visit Diagnoses Diagnosis Mucocele of frontal sinus - Primary Other diseases of nasal cavity and sinus es documented in this encounter Care Teams Manager Mechanical Relationship Specialty Start Date End Date Peggy Hammer MD PCP - General Family Practice 09/10/19 [facility] [address] [place] [address] Alvaro Denise Assigned Surgical Provider MD Kaushik [address] [facility] [address] [place] [address] documented as of this encounter
--- OUTSIDE RECORDS SUMMARY | 2022-03-08 08:39 | XMS_ITS | Encounter Summary ---
:1975 Author Organization [place] Address [address] [place] [address] Care Team Providers Name Role Phone Peggy Hammer MD Primary Care Provider Alvaro Denise MD Unavailable [phone] Encounter Details Date Type Department Care Team Description 06/02/2020 Travel Social History Tobacco Use Types Packs/Day [...] with No / Unsure 06/02/2020 1:27 PM AUTOMOTIVE COLLISION REPAIR INSTRUCTOR someone who was confirmed or suspected to have Coronavirus / COVID-19? documented as of this encounter Plan of Treatment Not on filedocumented as of this encounter Visit Diagnoses Not on filedocumented in this encounter Care Teams Hot Pipe Gauger Relationship Specialty Start Date End Date Peggy Hammer MD PCP - General Family Practice 09/10/19 [facility] [address], [place] [address] Alvaro Denise Assigned Surgical Provider MD Kaushik [address] [place] [address] 396 [place], [place] [address] documented as of this encounter
--- OUTSIDE RECORDS SUMMARY | 2022-03-08 08:39 | XMS_ITS | Encounter Summary ---
:1975 Author Organization [place] Address [address] [place] [address]. [place] [address] Care Team Providers Name Role Phone Peggy Hammer MD Primary Care Provider Alvaro Denise MD Unavailable [phone] Reason for Visit Auth/Cert Specialty Diagnoses / [...] HC NASAL SCOPY,[place] [address] HC NASAL SCOPY,OPEN MAXILL SINUS HC NASAL/SINUS [...] Expiration Date Visits Requ ested Visits Authorized [id number] 1 1 Encounter Details Date Type Department Care Team Description 06/02/2020 Surgery [facility] Andre Denise guided revision Per[facility]Op Services Alvaro Faulkner MD endoscopic sinus [address] [place], [place] [address] 396 two with septoplasty [phone] [place], [place] [address] (Wo rk) Surgery Details Date/Time Status Location OR Service Patient Case Case Traum a Class Class Type Case? 06/02/20 3:05 Posted [facility] OR [facility] OR Otolaryngology Same Day PM 01 Surgery Panel 1 Procedure LRB Anes Op Region Wound Class Commen ts Stealth guided revision Bilateral General Nose II-Clean Con taminated endoscopic sinus surgery, revision draft two with septoplasty Surgeon Surgeon Role Service Panel Alvaro Denise MD Primary Otolaryngology 1 Jose Godfrey MD Resident - Assisting 1 Special Needs Current BMI: BMI Readings from Last 1 En counters: 04/13/20 : 24.55 kg/m?? documented in this encounter Social History Tobacco [...] with No / Unsure 06/02/2020 1:27 PM STONE RUBBER someone who was confirmed or suspected to have Coronavirus / COVID-19? documented as of this encounter Last Filed Vital Signs Vital Sign Reading Time Taken Comments Blood Pressure 134/78 06/02/2020 5:51 PM STONE RUBBER Pulse 68 06/02/2020 5:51 PM STONE RUBBER Temperature 36.5 ??C (97.7 ??F) 06/02/2020 5:51 PM STONE RUBBER Respiratory Rate 16 06/02/2020 5:51 PM STONE RUBBER Oxygen Saturation 99% 06/02/2020 5:51 PM STONE RUBBER Inhaled Oxygen Concentration - - Weight 80.6 kg (177 lb 11.1 oz) 06/02/2020 1:42 PM STONE RUBBER Height 182.2 cm (5' 11.75) 06/02/2020 1:42 PM STONE RUBBER Body Mass Index 24.27 06/02/2020 1:42 PM STONE RUBBER documented in this encounter Discharge Instructions Discharge InstructionsChiara King RN - 06/02/2020 5:53 PM STONE RUBBER [facility] Same-Day Surgery Adult Discharge Orders & [...] a doctor, call Dr Daniels's office at [phone] during office hours or: ??? After hours and weekends call [phone] and ask for the resident control systems drafting officer for ENT (answered 24hours a day) ??? Emergency Department: [facility]: [phone] (TTY for hearing impaired: [phone]) [facility]: [phone] (TTY for hearing impaired: [phone]) E RUBBER documented in this encounter Medications at Time [...] pain FISH OIL 0 fluticasone (FLONASE) 50 [place] 1 spray into 15 mL 0 MCG/ACT [...] daily 0 CHOLECALCIFEROL, PO sodium chloride (OCEAN) [place] 2 sprays in 1 Bottle 3 06/0206/23/2020 [...] Date 06/02/2020 SURGEON: Alvaro Hodge MD ? SETUP TECHNICIAN SURGEON: Jose Godfrey MD PREOPERATIVE DIAGNOSES: 1. [...] junction. The junction was then with a [place] elevator. Once this wascompleted, an incision was [...] for the entirety of the procedure. Jose Gofdrey MD E RUBBER Associated attestation - Alvaro Denise MD - 06/07/2020 1:07 PM STONE RUBBER Physician Attestation I was present for the entire procedure between opening and closing. Alvaro Denise Date of Service (when I saw the patient): 06/07/20 documented in this encounter Plan of Treatment Not on filedocumented as of this encounter Procedures Procedure Name Priority Date/Time Associated Comments Diagnosis GLUCOSE BY METER Routine 06/02/2020 1:47 PM Mucocele of fronta l Results for this STONE RUBBER sinus procedure are i n the results section. OPTICAL TRACKING Routine 06/02/2020 1:29 PM Mucocele of fronta l SYSTEM ENDOSCOPIC STONE RUBBER sinus SINUS SURGERY documented in this encounter Results Glucose by meter (06/02/2020 1:47 PM STONE RUBBER) P athologist Signature Glucose 87 70 - 99 06/02/2020 POINT OF CARE mg/dL 1:54 PM STONE RUBBER TEST, GLUCOSE Specimen Anatomical Collection Method Collection Time Receive d Time (Source) Location / / Volume Laterality 06/02/2020 1:47 PM 0 1:54 STONE RUBBER PM STONE RUBBER Alvaro Denise MD LAB - BEAKER POCT Performing Organization Address City/State/ZIP Code Phon e Number [facility] POINT OF CARE TEST, GLUCOSE POINT OF CARE TEST, GLUCOSE documented in this encounter Visit Diagnoses Diagnosis Mucocele of frontal sinus - Primary Other diseases of nasal cavity and sinus es S/P nasal septoplasty Other postprocedural status Mucocele of frontal sinus Other diseases of nasal cavity and sinus es documented in this encounter Admitting Diagnoses Diagnosis Mucocele of frontal sinus Other diseases of nasal cavity and sinus es documented in this encounter Administered Medications Inactive Administered Medications - up to 3 most recent administrations Medication Order MAR Action Action Date Dose Rate Site HYDROmorphone (PF) (DILAUDID) Given 06/02/2020 5:35 PM STONE RUBBER 0.3 m g injection 0.3-0.5 mg 0.3-0.5 [...] minutes., PACU lidocaine 1% with EPINEPHrine 1:100,000 Given 06/02/2020 3:15 PM STONE RUBBER 6 mLs injection PRN, Starting on Fri06/02/20 at 1515, Intra-procedure naloxone (NARCAN) injection [...] to facilitate titration of respons e., Post-procedure oxymetazoline (AFRIN) 0.05 % spray Given 06/02/2020 3:32 PM STONE RUBBER 10 mLs PRN, Starting on Fri06/02/20 at 1532, Intra-procedure documented in this encounter Active and Recently Administered Medications Times are shown in STONE RUBBER. Scheduled Medication Order 05/31/2020 06/01/2020 06/02/2020 dexamethasone (DECADRON) injection 10 mg (COMPLETED) 1530 (Given - Provider: Luzmaria Pelayo APRN CRNA) 10 mg, Intravenous, ONCE, Administer ove r 1 Minutes, Fri06/02/20 at 1400, For 1 dose, Give [...] mg (CANCELED) 1735 (Given - Provider: Svetlana Manjarrez RN) 0.3-0.5 mg, Intravenous, EVERY 5 MIN PRN [...] Post-procedure oxymetazoline (AFRIN) 0.05 % spray (CANCELED) 3866 (Given - Provider: Jose Godfrey MD - Comment: Topically applied with cottonoids) PRN, Starting 06/02/20 at 1532, Intra-procedure documented in this encounter Care Teams Supervisor Sewer Maintenance Relationship Specialty Start Date End Date Peggy Hammer MD PCP - General Family Practice 09/10/19 [facility] [address] [place] [address] Ayesha-Alvaro Hammond Assigned Surgical Provider MD Kaushik [address] [place] [address] [address] [place] [address] documented as of this encounter
--- OUTSIDE RECORDS SUMMARY | 2022-03-08 08:40 | XMS_ITS | Encounter Summary ---
:1975 Author Organization [place] Address [address] [place] [address] Care Team Providers Name Role Phone No Ref-Primary, Physician Primary Care Provider Encounter Details Date Type Department Care Team Description 07/08/2019 Prep for Procedure [facility] Eliecer, Muco jennifer of frontal and Throat LAUREL Khanna sinus (Primary Dx) [address] [place] [address] [address] [place] [address] Social History Tobacco Use Types Packs/Day Years Used Date Passive Smoke Exposure - Never Smoker Cigarettes Smokeless Tobacco: Never Used Comments: weekends Alcohol Use Standard Drinks/Week Comments Yes 0 (1 standard drink = 0.6 oz pure alcoho l) Sex Assigned at Date Recorded Not on file documented as of this encounter Plan of Treatment Not on filedocumented as of this encounter Visit Diagnoses Diagnosis Mucocele of frontal sinus - Primary Other diseases of nasal cavity and sinus es documented in this encounter Care Teams Electromagnet Crane Operator Relationship Specialty Start Date End Date No Ref-Primary, Physician PCP - General 06/13/19 09/09/19 documented as of this encounter
--- OUTSIDE RECORDS SUMMARY | 2022-03-08 08:40 | XMS_ITS | Encounter Summary ---
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 of nausea and vo miting management. If not resolved in 15 minutes, then go to step 2 [prochlorperazine (COMPAZINE) if ordered]. Irritant. For ordered IV doses 0.1-4 mg, give IV Push undiluted over 2-5 minutes., PACU/Phase II ondansetron (ZOFRAN-ODT) ODT tab 4 mg(Linked Group 1) 4 mg, Oral, EVERY 30 MIN PRN, nausea, vo miting, Starting Fri09/10/19 at 1915, For 2 doses, MAX total dose = 8 mg, including OR dosing. This is step 1 of nausea and vomiting management. If not resolved i n 15 minutes, then go to step 2 [prochlo rperazine (COMPAZINE) if ordered]. With dry hands, peel back foil backing and gently remove tablet. Do not push oral disintegrating tablet through foil backing. A dminister immediately on tongue and oral disintegrating tablet dissolves in seconds, then swallow with saliva. Liquid not required., PACU/Phase II ORAL Pain Medications - may administer as ordered by surgeon for take home use CONTINUOUS PRN, Starting Fri09/10/19 at 1915, Until Fri09/10/19 at 2237, May administer oral pain medications as ordered by surgeon for take home use. Discontinue IV pain medication prior to administration of oral pain medication., PACU/Phase II oxyCODONE (ROXICODONE) tablet 5 mg 1941 (Given - Provider: Yamel Diggs RN) 5 mg, Oral, EVERY 4 HOURS PRN, moderate to severe pain, Starting Fri09/10/19 at 1915, Max: 5 mg for opioid-na??ve patient., Post-procedure oxymetazoline (AFRIN) 0.05 % spray (CANCELED) 1508 (Given - Provider: Ho Velez MD - Comment: Soaked in cottnoids and applied PRN throughout the case) PRN, Starting Fri09/10/19 at 1508, Intra-procedure prochlorperazine (COMPAZINE) injection 10 mg 10 mg, Intravenous, EVERY 6 HOURS PRN, n ausea, vomiting, Administer over 1-2 Minutes, Starting Fri09/10/19 at 1915, This is Step 2 of nausea and vomiting management. If nausea not resolved in 15 minutes , give metoclopramide (REGLAN) if ordere d [step 3 of nausea and vomiting management]. For ordered IV doses 0.1-10 mg, give IV Push undiluted. Each 5mg over 1 minute., PACU/Phase II Linked Groups Order Group 1: ondansetron (ZOFRAN-ODT) ODT tab 4 mgJump to med 4 mg, Oral, EVERY 30 MIN PRN, nausea, vo miting, Starting Fri09/10/19 at 1915, For 2 doses
MAX total dose = 8 mg, including OR dosing. This is step 1 of nausea and vomiting management. If not resolved in 15 minutes, the n go to step 2 [prochlorperazine (COMPAZINE) if ordered]. With dry hands, peel back foil backing and gently remove tablet. Do not push oral disintegr ating tablet through foil backing. Admin ister immediately on tongue and oral disintegrating tablet dissolves in seconds, then swallow with saliva. Liquid not required.
PACU/Phase II Or ondansetron (ZOFRAN) injection 4 mgJump to med 4 mg, Intravenous, EVERY 30 MIN PRN, cathy sea, vomiting, Administer over 2-5 Minutes, Starting 09/10/19 at 1915, For 2 doses
MAX total dose = 8 mg, including OR dosing. This is step 1 of nause a and vomiting management. If not resolved in 15 minutes, then go to step 2 [prochlorperazine (COMPAZINE) if ordered]. Irritant. For ordered IV doses 0.1-4 mg, give IV Push undiluted over 2-5 minutes.
PACU/Phase II documented in this encounter Care Teams Lead Security Officer Relationship Specialty Start Date End Date Peggy Hammer MD PCP - General Family Practice 09/10/19 [facility] [address] [place] [address] documented as of this encounter
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
--- OUTSIDE RECORDS SUMMARY | 2022-03-08 08:40 | XMS_ITS | Encounter Summary ---
:1975 Author Organization [facility] Address [address] [place] [address] Care Team Providers Name Role Phone Peggy Hammer MD Primary Care Provider Encounter Details Date Type Department Care Team Description 09/30/2019 Travel Social History Tobacco Use Types Packs/Day [...] been in contact with No / Unsure 09/30/2019 11:33 AM CDT someone who was confirmed or suspected to have Coronavirus / COVID-19? documented as of this encounter Plan of Treatment Not on filedocumented as of this encounter Visit Diagnoses Not on filedocumented in this encounter Care Teams Driver Relationship Specialty Start Date End Date Peggy Hammer MD PCP - General Family Practice 09/10/19 [facility] [address] [place] [address] documented as of this encounter
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
--- OUTSIDE RECORDS SUMMARY | 2022-03-08 08:40 | XMS_ITS | Encounter Summary ---
:1975 Author Organization [facility] Address [address] [place] [address] Care Team Providers Name Role Phone Peggy Hammer MD Primary Care Provider Reason for Visit Reason Comments Post-op Visit DOS 09/10/19 with Ayesha Encounter Details Date Type Department Care Team Description 09/30/2019 Office Visit [facility] Ear Nose and [place], Marisol Gunter Mucocele of frontal Throat MD Temi sinus (Primary Dx) 9 [facility] [address] [place] [address] 4th Floor [place], [place] [address] [phone] Social History Tobacco Use Types Packs/Day Years [...] Taken Comments Blood Pressure - - Pulse - - Temperature 36.6 ??C (97.9 ??F) 09/30/2019 11:36 AM CDT Respiratory Rate - - Oxygen Saturation - - Inhaled Oxygen Concentration - - Weight 87.1 kg (192 lb) 09/30/2019 11:36 AM CDT Height 182.9 cm (6') 09/30/2019 11:36 AM CDT Body Mass Index 26.04 09/30/2019 11:36 AM CDT documented in this encounter Progress Notes Marisol Justin MD - 09/30/2019 11:30 AM CDT CC: Patient is status post endoscopic transnasal incision and drainage of a left frontal sinus mucocele with placement of stent as well as a left maxillary antrostomy on September 10, 2019 HPI: Patient returns to clinic today for his first postoperative visit. Surgery was done by . Patient reports that his recovery has been very smooth so far. He did have some issues with pain control for the first 2 to 3 days after surgery. Once he was able to get enough pain medications his pain has been controllable and he is not currently needing any pain medications. He has been rinsing his nose with salt water rinses 2-3 times a day. About 2 days ago he did get a very large bloody clot in the left side. He did not feel like this improved a lot of his pressure sensation in his face. PE: GEN : nad NOSE: Nose is clean.Mccullough splints were removed bilaterally. Overall the nasal mucosa looks healthy upfront. A/P: patient appears to be healing as expected after his procedure. I instructed him to continue to rinsehis nose twice a day for the next 2 to 3 weeks. We will arrange a phone follow-up with Dr. Hodge in 3 weeks. He did have some questions about the stent that was placed. I would recommend that he speak to his suregonabout that at his next follow-up. I spent a total of 10 minutes [id number] with Fabio Hodgson during today's office visit. Over 50%of this time was spent counseling the patient on and/or coordinating care as documented in my assessment and plan. documented in this encounter Nursing Notes Chandrika Alvares - 09/30/2019 11:30 AM CDT Chief Complaint Patient presents with ??? Post-op Visit DOS 09/10/19 with Ayesha Temperature 97.9 ??F (36.6 ??C), temperature source Temporal, height 1.829 m (6'), weight 87.1 kg (192 lb). Chandrika Alvares, EMT documented in this encounter Plan of Treatment Not on filedocumented as of this encounter Visit Diagnoses Diagnosis Mucocele of frontal sinus - Primary Other diseases of nasal cavity and sinus es documented in this encounter Care Teams News Editor Relationship Specialty Start Date End Date Peggy Hammer MD PCP - General Family Practice 09/10/19 [facility] [address] [place] [address] documented as of this encounter
--- OUTSIDE RECORDS SUMMARY | 2022-03-08 08:40 | XMS_ITS | Encounter Summary ---
:1975 Author Organization [facility] Address [address] [place] [address] Care Team Providers Name Role Phone No Ref-Primary, Physician Primary Care Provider Encounter Details Date Type Department Care Team Description 06/14/2019 Orders Only [facility] [place], Mary Cuevas MD Throat [address] [facility] [address] [facility] [address] [place] [address] 4th Floor [place], [place] [address] [phone] Social History Tobacco Use Types Packs/Day Years [...] on filedocumented in this encounter Care Teams Director Employment Relationship Specialty Start Date End Date No Ref-Primary, Physician PCP - General 06/13/19 09/09/19 documented as of this encounter
--- OUTSIDE RECORDS SUMMARY | 2022-03-08 08:40 | XMS_ITS | Encounter Summary ---
:1975 Author Organization [facility] Address [address] [place] [address] Care Team Providers Name Role Phone No Ref-Primary, Physician Primary Care Provider Reason for Visit Reason Onset Date Comments Schedule Surgery 07/28/2019 Encounter Details Date Type Department Care Team Description 07/28/2019 Telephone [facility] Ear Nose and Ayesha-Manish, S chedule Surgery Throat Alvaro Faulkner MD [address] [place] [address] 4th Floor [address] [place] [address] [id number] [phone] Social History Tobacco Use Types Packs/Day Years Used Date Passive Smoke Exposure - Never Smoker Cigarettes Smokeless Tobacco: Never Used Comments: weekends Alcohol Use Standard Drinks/Week Comments Yes 0 (1 standard drink = 0.6 oz pure alcoho l) Sex Assigned at Date Recorded Not on file documented as of this encounter Miscellaneous Notes Telephone Encounter - Annie Alvares - 07/30/2019 12:52 PM CST Patient was contacted and talked to regarding scheduling surgery with Dr. Hodge at [facility]. Pre-op H&P will be completed by PCP. Patient will call and get this scheduled within 30 days. Patient will return for post op appointment with Dr. Hodge, 3 weeks post op. Surgery packet was given in clinic. Additional appt/imaging: Patient has CT sinus morning of surgery. Sent to Kassidy/Daphne in Prior Authorization on 07/09/2019 Additional comments: Will wait for a phone call from [facility] for arrival and to review instructions. Annie Alvares Perioperative Coordinator Department of Otolaryngology Office: [phone] RCYCLE FABRICATOR Telephone Encounter - Annie Alvares - 07/29/2019 9:37 AM CST Talked with patient regarding scheduling surgery. Patient would like as soon as possible in August after September 07, 2019. I did inform him that I will continue to work on it, we are just waiting for an operating room to open up because Dr. Hodge is avaialble. Patient was understanding and will wait to hear back from us in regards to scheduling. Annie Alvares Perioperative Coordinator Department of Otolaryngology Office: [phone] RCYCLE FABRICATOR Telephone Encounter - Annie Alvares - 07/28/2019 4:43 PM CST Left message regarding scheduling surgery with Dr. Hodge. Call back number provided, . Annie Alvares Perioperative Coordinator Department of Otolaryngology Office: [phone] RCYCLE FABRICATOR documented in this encounter Plan of Treatment Not on filedocumented as of this encounter Visit Diagnoses Not on filedocumented in this encounter Care Teams Buffer Chrome Relationship Specialty Start Date End Date No Ref-Primary, Physician PCP - General 06/13/19 09/09/19 documented as of this encounter
--- OUTSIDE RECORDS SUMMARY | 2022-03-08 08:40 | XMS_ITS | Encounter Summary ---
:1975 Author Organization [facility] Address [address] [place] [address] Care Team Providers Name Role Phone Peggy Hammer MD Primary Care Provider Reason for Referral Diagnostic Imaging CT Scan (Routine) - Closed Specialty Diagnoses / Procedures Referred By Contact Refer red To Contact Radiology. 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] Uu Periop Procedures HC NASAL/SINUS ENDOSCOPY DIAG, W MAX SINUSOSCOPY C NASAL/SPHENOID SINUS ENDOSCOPY,DX HC NASAL ENDOSCOPY, DIAGNOSTIC stealth guided endoscopic transnasal incision and drainage of left frontal sinus mucocele 500 [place] [address] Phone: Fax: Referral ID Status Reason Start Date Expiration Date Visits Requ ested Visits Authorized [id number] 1 1 Encounter Details Date Type Department Care Team Description 09/10/2019 Hospital Encounter Bhavya Denise, Mucocele of frontal [facility] Imaging Alvaro Faulkner MD sinus [address] [id number] [place], [place] [phone] [id number] Social History Tobacco Use Types Packs/Day Years [...] on file documented as of this encounter Medications at Time of Discharge Medication Sig Dispensed Refills Start Date End Date acetaminophen (TYLENOL) Take 2 tablets (650 50 tablet 0 325 MG mg) by mouth every 4 tabletIndications: hours as needed for Mucocele of frontal mild pain sinus FISH OIL 0 fluticasone (FLONASE) 50 [place] 1 spray into 15 mL 0 MCG/ACT [...] as needed for sinus pain oxymetazoline (AFRIN [place] 2 sprays in 14.7 mL 0 09/10/19 [...] irrigation. sinus documented as of this encounter Plan of Treatment Not on filedocumented as of this encounter Procedures Procedure Name Priority Date/Time Associated Diagnosis Comme nts CT SINUS W/O Routine 09/10/2019 9:47 AM Mucocele of frontal Re sults for this CONTRAST CDT sinus procedure are i n the results section. documented in this encounter Results CT Sinus w/o Contrast (09/10/2019 9:47 AM CDT) Anatomical Region Laterality Modality Sinus, SUBRAD CT NEURO, SUBRAD CT NEURO, UMP CT NEURO, Computed Tomography RAD CT Specimen (Source) Anatomical Location Collection Method / Collectio n Time Received Time / Laterality Volume Impressions 09/10/2019 11:24 AM CDT Impression: Redemonstration of surgical repair of fr ontal sinus and maxillary sinus wall fractures. No significant nghia nge since last study. Unchanged completely opacified and sligh tly expanded frontal sinus which is compatible with a mucocele. AURE JAQUEZ MD Narrative 09/10/2019 11:[address] imaging for purposes of stereotactic evaluation Provided History: Mucocele of frontal si nus ICD-10: Mucocele of frontal sinus Comparison: 07/08/2019 Technique: CT imaging performed with axi al, sagittal, and coronal reconstructed images obtained without in travenous contrast. Contrast: None Findings: Bilateral lamina papyracea deformities f rom prior blowout fractures. Left ethmoid air cells are basically not visualized due to medial bowing of the deformed lamina papyracea. Right ethmoid air cells are small in size due to medial bowing of th e right lamina papyracea. There is dehiscence along [...] a ppearance is unchanged since prior study. This is most compatible wit h a mucocele formation. Maxillary sinuses: Prior fractures of an terior brannon of the maxillary sinuses, status post repair with surgica l plates and screws bilaterally. The hardware is in place. M inimal polypoid mucosal thickening along the floor of the left m axillary sinus is new, previously seen polypoid mucosal thicken ing in the right maxillary sinus floor has resolved. Sphenoid sinus is clear. There is right-sided nasal septal deviat ion. Otherwise nasal cavity is within normal limits. Mastoid air cells are clear. There is bi lateral enophthalmos due to prior maxillary sinus and ethmoid air ce ll lateral wall fractures. The ostiomeatal units appear patent bila terally. Procedure Note Aure Jaquez MD - 09/10/[address] imaging for purposes of stere otactic evaluation Provided History: Mucocele of frontal si nus ICD-10: Mucocele of frontal sinus Comparison: 07/08/2019 Technique: CT imaging performed with axi al, sagittal, and coronal reconstructed images obtained without in travenous contrast. Contrast: None Findings: Bilateral lamina papyracea deformities f rom prior blowout fractures. Left ethmoid air cells are basically not visualized due to medial bowing of the deformed lamina papyracea. Right ethmoid air cells are small in size due to medial bowing of th e right lamina papyracea. There is dehiscence along [...] a ppearance is unchanged since prior study. This is most compatible wit h a mucocele formation. Maxillary sinuses: Prior fractures of an terior brannon of the maxillary sinuses, status post repair with surgica l plates and screws bilaterally. The hardware is in place. M inimal polypoid mucosal thickening along the floor of the left m axillary sinus is new, previously seen polypoid mucosal thicken ing in the right maxillary sinus floor has resolved. Sphenoid sinus is clear. There is right-sided [...] fractures. No significant nghia nge since last study. Unchanged completely opacified and sligh tly expanded frontal sinus which is compatible with a mucocele. AURE JAQUEZ MD Alvaro Denise MD IMG CT ORDERABLES documented in this encounter Visit Diagnoses Diagnosis Mucocele of frontal sinus Other diseases of nasal cavity and sinus es documented in this encounter Care Teams Glassware Maker Relationship Specialty Start Date End Date Peggy Hammer MD PCP - General Family Practice 09/10/19 [facility] [address] [place] [address] documented as of this encounter
--- OUTSIDE RECORDS SUMMARY | 2022-03-08 08:40 | XMS_ITS | Encounter Summary ---
:1975 Author Organization [facility] Address [address] [place] [address]. [place] [address] Care Team Providers Name Role Phone Peggy Hammer MD Primary Care Provider Reason for Referral Diagnostic Imaging CT Scan (Routine) - Closed Specialty Diagnoses / Procedures Referred By Contact Refer red To Contact Radiology. Diagnoses Mucocele of frontal sinus Alvaro Denise Ct Scan Procedures CT Sinus w/o Contrast MD Kaushik [address] [place], [place] [address] [place] [address] Phone: Fax: Referral ID Status Reason Start Date Expiration Date Visits Requ ested Visits Authorized [id number] Closed 12/09/2019 12/08/2020 1 1 Reason for Visit Reason Comments RECHECK 3 month follow up Encounter Details Date Type Department Care Team Description 12/09/2019 Office Visit [facility] Nose and [facility] Denise ucocele of frontal Throat Alvaro Faulkner MD sinus (Primary Dx) [facility] [address] [facility] 4th Floor [address] [place] [address] [phone] (Wo rk) Social History Tobacco Use Types [...] been in contact with No / Unsure 12/09/2019 3:59 PM CDT someone who was confirmed or suspected to have Coronavirus / COVID-19? documented as of this encounter Last Filed Vital Signs Vital Sign Reading Time Taken Comments Blood Pressure - - Pulse 67 12/09/2019 4:01 PM CDT Temperature 37.2 ??C (99 ??F) 12/09/2019 4:01 PM CDT Respiratory Rate - - Oxygen Saturation 98% 12/09/2019 4:01 PM CDT Inhaled Oxygen Concentration - - Weight 86.6 kg (191 lb) 12/09/2019 4:01 PM CDT Height - - Body Mass Index 25.9 09/30/2019 11:36 AM CDT documented in this encounter Patient Instructions Patient InstructionsSchJey leong RN - 12/09/2019 4:00 PM CDT 1. You were seen in the ENT Clinic today by Dr. Hodge. If you have any questions or concerns afteryour appointment, please call - Option 1: ENT Clinic: [phone] - Option 2: Jey (Dr. Hodge's Nurse): [phone] 2. Plan to return to clinic in [address] sinus prior to your appointment Jey Gonzáles RN [facility]- Otolaryngology [phone] documented in this encounter Progress Notes Alvaro Denise MD - 12/09/2019 4:00 PM CDT Dx: Left frontal sinus mucocele TREATMENT:. 1. Stealth-guided endoscopic transnasal incision and drainage of left frontal sinus mucocele. 2. Left maxillary antrostomy. 3. Placement of Ferriday stent. ON 09/10/2019 History of Present Illness: Patient here for follow-up after surgery on 09/10/19. He states being asymptomatic. The nasal crusting has subsided. No facial pain. No visual changes MEDICATIONS: Current Outpatient Medications Medication Sig Dispense Refill ??? acetaminophen (TYLENOL) 325 MG tablet Take 2 tablets (650 mg) by mouth every 4 hours as needed for mild pain 50 tablet 0 ??? FISH OIL ??? fluticasone (FLONASE) 50 MCG/ACT nasal spray [place] 1 spray into both nostrils daily 15 mL 0 ??? ondansetron (ZOFRAN-ODT) 4 MG ODT tab Take 1-2 tablets (4-8 mg) by mouth every 8 hours as neededfor nausea 4 tablet 0 ??? oxymetazoline (AFRIN NASAL SPRAY) 0.05 % nasal spray [place] 2 sprays in nostril every 6 hours as needed for congestion DO NOT CONFUSE WITH OCEAN SALINE SPRAY. Use Afrin spray as needed for epistaxis. Do NOT use for than 5 consecutive days. 14.7 mL 0 ??? sodium chloride (OCEAN) 0.65 % nasal spray 2 sprays every 2-3 hours while awake for and as needed for nasal irrigation. 30 mL 0 ??? amoxicillin-clavulanate (AUGMENTIN) 875-125 MG tablet Take 1 tablet by mouth 2 times daily (Patient not taking: Reported on 09/30/2019) 20 tablet 0 ??? HYDROcodone-Acetaminophen (VICODIN) 5-300 MG TABS Take 1 tablet by mouth every 6 hours as needed(pain) (Patient not taking: Reported on 09/30/2019) 6 tablet 0 ??? oxyCODONE (ROXICODONE) 5 MG tablet Take 1 tablet (5 mg) by mouth every 6 hours as needed for severe pain (Patient not taking: Reported on 09/30/2019) 30 tablet 0 ALLERGIES: No Known Allergies HABITS/SOCIAL HISTORY: Unchanged PAST MEDICAL HISTORY: No past medical history on file. FAMILY HISTORY: Family History Problem Relation Age of Onset ??? Blood Disease Maternal Grandmother ??? Breast Cancer Paternal Grandmother ??? Cancer Paternal Grandmother uterine REVIEW OF SYSTEMS: 12 point ROS was negative other than the symptoms noted above in the HPI. PHYSICAL EXAMINATION: Constitutional: The patient was unaccompanied, well-groomed, and in no acute distress. Skin: Normal: warm and pink without rash Neurologic: Alert and oriented x 3. CN's III-XII within normal limits. Voice normal. Psychiatric: The patient's affect was calm, cooperative, and appropriate. Communication: Normal; communicates verbally, normal voice quality. Respiratory: Breathing comfortably without stridor or exertion of accessory muscles. Eyes: Pupils were equal and reactive. Extraocular movement intact. Nose: Sinuses were non-tender. Anterior rhinoscopy revealed midline septum and absence of purulence or polyps. Nasal Endoscopy: Consent for nasal endoscopy was obtained, and we confirmed correctness of procedureand identity of patient. Nasal endoscopy was indicated due to frontal sinus mucocele. The nose was topically decongested and anesthetized. The fiberoptic laryngoscope was passed under endoscopic vision. The turbinates were normal. The inferior and middle meati were clear bilaterally without purulence,masses, or polyps. The nasopharynx was clear. The rein stent is easily visualized on the left. It isopen, clean and functioning. IMPRESSION AND PLAN: Follow-up in [address] Will decide at that time on removing the stent Thank you very much for the opportunity to participate in the care of your patient. Alvaro Denise MD, M.D. Otolaryngology- Head & Neck Surgery [phone] documented in this encounter Nursing Notes Chandrika Alvares - 12/09/2019 4:00 PM CDT Chief Complaint Patient presents with ??? RECHECK 3 month follow up Pulse 67, temperature 99 ??F (37.2 ??C), weight 86.6 kg (191 lb), SpO2 98 %. AARON Abdi documented in this encounter Plan of Treatment Not on filedocumented as of this encounter Procedures Procedure Name Priority Date/Time Associated Diagnosis Comme [facility] NASAL ENDOSCOPY, Routine 12/09/2019 4:33 PM CDT Mucocele of frontal DIAGNOSTIC sinus documented in this encounter Results CT Sinus w/o Contrast (02/10/2020 3:56 PM CDT) Anatomical Region Laterality Modality Sinus, SUBRAD CT NEURO, SUBRAD CT NEURO, UMP CT NEURO, Computed Tomography RAD CT Specimen (Source) Anatomical Location Collection Method / Collectio n Time Received Time / Laterality Volume Impressions 02/10/2020 4:27 PM CDT Impression: ?? 1. ??Decreased mucocele post left fronta l sinus drain placement. 2. ??Otherwise stable posttraumatic and reconstructive changes to the paranasal sinuses. 3. ??Stable anterior discontinuity along the anterior cribriform plate. I have personally reviewed the examinati on and initial interpretation and I agree with the findings. WILSON MARROQUIN MD Narrative 02/10/2020 4:[address] SINUS W/O CONTRAST 02/10/2020 3:56 PM Provided History: Mucocele of frontal si nus ICD-10: Mucocele of frontal sinus Comparison: 09/10/2019 Technique: ??Using thin collimation mult idetector helical acquisition technique, axial, coronal, and sagittal thin section CT images were reconstructed through the paranasal sinu ses. Images were reviewed in bone and soft tissue windows. Findings: Stable posttraumatic and reconstructive changes of the sinuses. Bilateral lamina papyracea deformities f rom prior blowout fractures. Left ethmoid air cells are nearly comple tely absent secondary to posttraumatic medial bowing of the nelda a papyracea. Diminutive right ethmoid air cells due to posttraumatic m edial bowing of the right lamina papyracea. Intact postsurgical ch anges of reconstruction of the anterior maxillary brannon and right zygom atic process of the right maxillary bone. Maxillary sinuses are cl ear. Mild mucosal thickening of the remnant ethmoid air cells. Post s urgical changes of reconstruction of the frontal lobe with near complete opacification of the frontal sinuses. Left frontal sinus drain tip terminates anterior to the middle left turbinate. Decreased expansion of the left frontal sinus locule, now measures 11 mm in maxi mum diameter, previously 15 mm. The ostiomeatal units appear patent bila terally. Posttraumatic fragmentation of the superior orbital wa lls anteriorly, stable. Stable discontinuity on the anterior cribriform plate. Normal retromaxillary and pterygopalatin e fat. The adenoid tonsils in the nasopharynx a re unremarkable. Procedure Note Wilson Marroquin MD - 02/10/2020Form atting of this note might be different from the original. CT SINUS W/O CONTRAST 02/10/2020 3:56 PM Provided History: Mucocele of frontal si nus ICD-10: Mucocele of frontal sinus Comparison: 09/10/2019 Technique: Using thin collimation multid etector helical acquisition technique, axial, coronal, and sagittal thin section CT images were reconstructed through the paranasal sinu ses. Images were reviewed in bone and soft tissue windows. Findings: Stable posttraumatic and reconstructive changes of the sinuses. Bilateral lamina papyracea deformities f rom prior blowout fractures. Left ethmoid air cells are nearly comple tely absent secondary to posttraumatic medial bowing of the nelda a papyracea. Diminutive right ethmoid air cells due to posttraumatic m edial bowing of the right lamina papyracea. Intact postsurgical ch anges of reconstruction of the anterior maxillary brannon and right zygom atic process of the right maxillary bone. Maxillary sinuses are cl ear. Mild mucosal thickening of the remnant ethmoid air cells. Post s urgical changes of reconstruction of the frontal lobe with near complete opacification of the frontal sinuses. Left frontal sinus drain tip terminates anterior to the middle left turbinate. Decreased expansion of the left frontal sinus locule, now measures 11 mm in maxi mum diameter, previously 15 mm. The ostiomeatal units appear patent bila terally. Posttraumatic fragmentation of the superior orbital wa lls anteriorly, stable. Stable discontinuity on the anterior cribriform plate. Normal retromaxillary and pterygopalatin e fat. The adenoid tonsils in the nasopharynx a re unremarkable. Impression: 1. Decreased mucocele post left frontal sinus drain placement. 2. Otherwise stable posttraumatic and re constructive changes to the paranasal sinuses. 3. Stable anterior discontinuity along t he anterior cribriform plate. I have personally reviewed the examinati on and initial interpretation and I agree with the findings. WILSON MARROQUIN MD Alvaro Denise MD IMG CT ORDERABLES documented in this encounter Visit Diagnoses Diagnosis Mucocele of frontal sinus - Primary Other diseases of nasal cavity and sinus es Mucocele of frontal sinus Other diseases of nasal cavity and sinus es documented in this encounter Care Teams Gravity Meter Operator Relationship Specialty Start Date End Date Peggy Hammer MD PCP - General Family Practice 09/10/19 [facility] [address] [place] [address] documented as of this encounter
--- OUTSIDE RECORDS SUMMARY | 2022-03-08 08:40 | XMS_ITS | Encounter Summary ---
:1975 Author Organization [facility] Address [address] [place] [address] Care Team Providers Name Role Phone Peggy Hammer MD Primary Care Provider Encounter Details Date Type Department Care Team Description 09/10/2019 Travel Social History Tobacco Use Types Packs/Day [...] on filedocumented in this encounter Care Teams Bulk Sugar Handler Relationship Specialty Start Date End Date Peggy Hammer MD PCP - General Family Practice 09/10/19 [facility] [address] [place] [address] documented as of this encounter
--- OUTSIDE RECORDS SUMMARY | 2022-03-08 08:40 | XMS_ITS | Encounter Summary ---
:1975 Author Organization [facility] Address [address] [place] [address] Care Team Providers Name Role Phone Peggy Hammer MD Primary Care Provider Encounter Details Date Type Department Care Team Description 02/10/2020 Travel Social History Tobacco Use Types Packs/Day [...] been in contact with No / Unsure 02/10/2020 3:47 PM CDT someone who was confirmed or suspected to have Coronavirus / COVID-19? documented as of this encounter Plan of Treatment Not on filedocumented as of this encounter Visit Diagnoses Not on filedocumented in this encounter Care Teams Alcoholic Counselor Relationship Specialty Start Date End Date Peggy Hammer MD PCP - General Family Practice 09/10/19 [facility] [address] [place], [place] [id number] documented as of this encounter
--- OUTSIDE RECORDS SUMMARY | 2022-03-08 08:40 | XMS_ITS | Encounter Summary ---
:1975 Author Organization [facility] Address [address] [place] [address]. [place] [address] Care Team Providers Name Role Phone Peggy Hammer MD Primary Care Provider Reason for Visit Reason Comments RECHECK follow up Encounter Details Date Type Department Care Team Description 02/10/2020 [facility] Ayesha-Vijay Hammond ucocele of frontal Throat Alvaro Faulkner MD sinus (Primary Dx) [address] [facility] [address] [facility] 4th Floor [address] [place] [address] [phone] (Wo rk) Social History Tobacco Use Types [...] Sign Reading Time Taken Comments Blood Pressure 121/79 02/10/2020 4:20 PM CDT Pulse 67 02/10/2020 4:20 PM CDT Temperature 37.1 ??C (98.7 ??F) 02/10/2020 4:20 PM CDT Respiratory Rate 12 02/10/2020 4:20 PM CDT Oxygen Saturation 97% 02/10/2020 4:20 PM CDT Inhaled Oxygen Concentration - - Weight 87.1 kg (192 lb) 02/10/2020 4:20 PM CDT Height 182.9 cm (6') 02/10/2020 4:20 PM CDT Body Mass Index 26.04 02/10/2020 4:20 PM CDT documented in this encounter Patient Instructions Patient InstructionsRossana Berrios LPN - 02/10/2020 4:20 PM CDT 1. You were seen in the ENT Clinic today by . If you have any questions or concerns after your appointment, please call - ENT Clinic: [phone] 2. Plan to return to clinic 2 months Rossana Gonzales LPN [facility] Otolaryngology [phone] documented in this encounter Progress Notes Alvaro Denise MD - 02/10/2020 4:20 PM CDT DX: LEFT FRONTAL SINUS MUCOCELE TREATMENT:. 1.??Stealth-guided endoscopic transnasal incision and drainage of left frontal sinus mucocele. 2. Left maxillary antrostomy. 3. ??Placement of [place] stent. ON 09/10/2019 History of Present Illness: Patient doing well, no symptoms. Had CT sinus today. MEDICATIONS: Current Outpatient Medications Medication Sig Dispense Refill ??? acetaminophen (TYLENOL) 325 MG tablet Take 2 tablets (650 mg) by mouth every 4 hours as needed for mild pain 50 tablet 0 ??? FISH OIL ??? fluticasone (FLONASE) 50 MCG/ACT nasal spray [place] 1 spray into both nostrils daily 15 mL 0 ? ? varenicline (CHANTIX DEBORAH) 0.5 MG X 11 & 1 MG X 42 tablet 1 wk before you stop smoking take 0.5mg daily on days 1-3, 0.5mg 2 times each day on days 4-7, then 1mg 2 times daily ALLERGIES: No Known Allergies HABITS/SOCIAL HISTORY: [...] without stridor or exertion of accessory muscles. Head/Face: Normocephalic and atraumatic. No lesions or scars. No sinus tenderness. Salivary glands - Normal size, no tenderness, swelling, or palpable masses Eyes: Pupils were equal and reactive. Extraocular movement intact. Nose: Sinuses were non-tender. Anterior rhinoscopy revealed midline septum and absence of purulence or polyps. Oral Cavity: Normal tongue, floor of mouth, buccal mucosa, and palate. No lesions or masses on inspection or palpation. Oropharynx: Normal mucosa, palate symmetric with normal elevation. No abnormal lymph tissue in the oropharynx. Neck: Supple with normal laryngeal and tracheal landmarks. The parotid beds were without masses. No palpable thyroid. Normal range of motion Lymphatic: There is no palpable lymphadenopathy in the neck. Nasal Endoscopy: Consent for nasal endoscopy was obtained, and we confirmed correctness of procedureand identity of patient. Nasal endoscopy was indicated due to frontal mucocele. The nose was topically decongested and anesthetized. The nasal endoscope was passed under endoscopic vision. The turbinates were normal. The inferior and middle meati were clear bilaterally without purulence, masses, or polyps. I can see the stent on the left side. The stent was removed today under endoscopic visualization. He did have a vaso-vagal reaction after stent removal. He recovered quickly. CT sinus today: 1. Decreased mucocele post left frontal sinus drain placement. 2. Otherwise stable posttraumatic and reconstructive changes to the paranasal sinuses. 3. Stable anterior discontinuity along the anterior cribriform plate. ?? IMPRESSION AND PLAN: S/p incision drainage and draf frontal sinus procedure. The stent was removed today. Plan: Follow-up in 2 months. Thank you very much for the opportunity to participate in the care of your patient. Alvaro Denise MD, M.D. Otolaryngology- Head & Neck Surgery [phone] documented in this encounter Nursing Notes Phillip Chaudhari LPN - 02/10/2020 4:20 PM CDT Chief Complaint Patient presents with ??? RECHECK follow up Blood pressure 121/79, pulse 67, temperature 98.7 ??F (37.1 ??C), resp. rate 12, height 1.829 m (6'), weight 87.1 kg (192 lb), SpO2 97 %. Phillip Chaudhari LPN documented in this encounter Plan of Treatment Not on filedocumented as of this encounter Procedures Procedure Name Priority Date/Time Associated Diagnosis Comme [facility] NASAL ENDOSCOPY, Routine 02/11/2020 2:40 PM CDT Mucocele of frontal DIAGNOSTIC sinus documented in this encounter Visit Diagnoses Diagnosis Mucocele of frontal sinus - Primary Other diseases of nasal cavity and sinus es documented in this encounter Care Teams Head Waitress Relationship Specialty Start Date End Date Peggy Hammer MD PCP - General Family Practice 09/10/19 [facility] [address] [place] [address] documented as of this encounter
--- OUTSIDE RECORDS SUMMARY | 2022-03-08 08:40 | XMS_ITS | Encounter Summary ---
:1975 Author Organization [facility] Address [address] [place] [address] Care Team Providers Name Role Phone No Ref-Primary, Physician Primary Care Provider [phone] Encounter Details Date Type Department Care Team Description 09/07/2019 Prep for [facility] N[facility] and Eliecer, Tressa amato RN Throat [address] [place] [address] 4th [place] [address] Social History Tobacco Use Types [...] on filedocumented in this encounter Care Teams Balloon Tester Relationship Specialty Start Date End Date No Ref-Primary, Physician PCP - General 06/13/19 09/09/19 documented as of this encounter
--- OUTSIDE RECORDS SUMMARY | 2022-03-08 08:40 | XMS_ITS | Encounter Summary ---
:1975 Author Organization [facility] Address [address] [place] [address] Care Team Providers Name Role Phone No Ref-Primary, Physician Primary Care Provider [phone] Encounter Details Date Type Department Care Team Description 07/08/2019 Travel Social History Tobacco Use Types Packs/Day [...] on filedocumented in this encounter Care Teams Cotton Program Technician Relationship Specialty Start Date End Date No Ref-Primary, Physician PCP - General 06/13/19 09/09/19 documented as of this encounter
--- OUTSIDE RECORDS SUMMARY | 2022-03-08 08:40 | XMS_ITS | Encounter Summary ---
:1975 Author Organization [facility] Address [address] [place] [address] Care Team Providers Name Role Phone No Ref-Primary, Physician Primary Care Provider Encounter Details Date Type Department Care Team Description 06/14/2019 Travel Social History Tobacco Use Types Packs/Day [...] on filedocumented in this encounter Care Teams Plastic Tool Maker Relationship Specialty Start Date End Date No Ref-Primary, Physician PCP - General 06/13/19 09/09/19 documented as of this encounter
--- OUTSIDE RECORDS SUMMARY | 2022-03-08 08:40 | XMS_ITS | Encounter Summary ---
:1975 Author Organization [facility] Address [address] [place] [address]. [place] [address] Care Team Providers Name Role Phone Peggy Hammer MD Primary Care Provider Alvaro Denise MD Unavailable Reason for Visit Diagnostic Imaging CT Scan (Routine) - Closed Specialty Diagnoses / Procedures Referred By Contact Refer red To Contact Radiology. Diagnoses Mucocele of frontal sinus Alvaro Denise Ct Procedures CT Sinus w/o Contrast MD Kaushik [address] [place] [address] [address] [place], [place] [address] [place] [address] Phone: Fax: Referral ID Status Reason Start Date Expiration Date Visits Requ ested Visits Authorized [id number] Closed 04/13/2020 04/13/2021 1 1 Encounter Details Date Type Department Care Team Description 05/11/2020 Ancillary [facility] Pili Denise renato of frontal Procedure Imaging Center CT V[facility] sinus Clinic [address] [place], [place] 1[address] [place] [address] [phone] [address] (Work) [phone] Social History Tobacco Use Types Packs/Day Years [...] with No / Unsure 05/11/2020 9:36 AM INTERNAL COMBUSTION ENGINE ASSEMBLER someone who was confirmed or suspected to have Coronavirus / COVID-19? documented as of this encounter Plan of Treatment Not on filedocumented as of this encounter Procedures Procedure Name Priority Date/Time Associated Diagnosis Comme nts CT SINUS W/O Routine 05/11/2020 10:02 AM Mucocele of frontal R esults for this CONTRAST INTERNAL COMBUSTION ENGINE ASSEMBLER sinus procedure are i n the results section. documented in this encounter Results CT Sinus w/o Contrast (05/11/2020 10:02 AM INTERNAL COMBUSTION ENGINE ASSEMBLER) Anatomical Region Laterality Modality Sinus, SUBRAD CT NEURO, SUBRAD CT NEURO, UMP CT NEURO, Computed Tomography RAD CT Specimen (Source) Anatomical Location Collection Method / Collectio n Time Received Time / Laterality Volume Impressions 05/11/2020 12:10 PM INTERNAL COMBUSTION ENGINE ASSEMBLER Impression: 1. Limited imaging performed primarily f or the purposes of stereotactic localization. 2. Posttraumatic surgical repair of the frontal sinus with interval removal of the frontal sinus drain. Stab le residual tissue in the left frontal sinus with unchanged adjacent co rtical erosion of the inner and outer tables. I have personally reviewed the examinati on and initial interpretation and I agree with the findings. WILSON MARROQUIN MD Narrative 05/11/2020 12:10 PM INTERNAL COMBUSTION ENGINE ASSEMBLER Stealth CT imaging for purposes of stereotactic evaluation Provided History: Mucocele of frontal si nus ICD-10: Mucocele of frontal sinus Comparison: CT head 02/10/2020, 07/08/2019, 06/13/2019. Technique: CT imaging performed with axi al, sagittal, and coronal reconstructed images obtained without in travenous contrast. Findings: Limited imaging for stereotactic localiz ation. No overt mass effect, midline shift, or acute intracranial hem orrhage. The ventricles are not enlarged, and there is no evidence o f hydrocephalus. Posttraumatic surgical repair changes of the face. Plate and screw fixation along the maxillary sinuses danelle aterally as well as the right zygomatic process. Surgical mesh extends along the frontal sinus with stable bony erosion along the left inner and outer tables with complete opacification of the sinus. Scl erosis of the right frontal sinus. Frontal sinus measures 11 mm in m aximal diameter, unchanged. Interval removal of left frontal sinus d rain. 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 Compression of the ri ght ethmoid air cells with near absence of the left ethmoid air pamela ls. Maxillary sinuses are clear. Mastoid air cells are clear. The ostiomeatal units are patent bilater ally. Stable bony fragments of the superior orbital brannon. Stable defor mity and discontinuity of the anterior curve formed plate. Orbits are normal. Procedure Note Wilson Marroquin MD - 05/11/2020Form atting of this note might be different from the original. Stealth CT imaging for purposes of stere otactic evaluation Provided History: Mucocele of frontal si nus ICD-10: Mucocele of frontal sinus Comparison: CT head 02/10/2020, 07/08/2019, 06/13/2019. Technique: CT imaging performed with axi al, sagittal, and coronal reconstructed images obtained without in travenous contrast. Findings: Limited imaging for stereotactic localiz ation. No overt mass effect, midline shift, or acute intracranial hem orrhage. The ventricles are not enlarged, and there is no evidence o f hydrocephalus. Posttraumatic surgical repair changes of the face. Plate and screw fixation along the maxillary sinuses danelle aterally as well as the right zygomatic process. Surgical mesh extends along the frontal sinus with stable bony erosion along the left inner and outer tables with complete opacification of the sinus. Scl erosis of the right frontal sinus. Frontal sinus measures 11 mm in m aximal diameter, unchanged. Interval removal of left frontal sinus d rain. 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 Compression of the ri ght ethmoid air cells with near absence of the left ethmoid air pamela ls. Maxillary sinuses are clear. Mastoid air cells are clear. The ostiomeatal units are patent bilater ally. Stable bony fragments of the superior orbital brannon. Stable defor mity and discontinuity of the anterior curve formed plate. Orbits are normal. Impression: 1. Limited imaging performed primarily f or the purposes of stereotactic localization. 2. Posttraumatic surgical repair of the frontal sinus with interval removal of the frontal sinus drain. Stab le residual tissue in the left frontal sinus with unchanged adjacent co rtical erosion of the inner and outer tables. I have personally reviewed the examinati on and initial interpretation and I agree with the findings. WILSON MARROQUIN MD Alvaro Denise MD IMG CT ORDERABLES documented in this encounter Visit Diagnoses Diagnosis Mucocele of frontal sinus Other diseases of nasal cavity and sinus es documented in this encounter Care Teams Student Teaching Coordinator Relationship Specialty Start Date End Date Peggy Hammer MD PCP - General Family Practice 09/10/19 [facility] [address] [place] [address] Alvaro Denise Assigned Surgical Provider MD Kaushik [address] [facility] [address] [place], [place] [address] documented as of this encounter
--- OUTSIDE RECORDS SUMMARY | 2022-03-08 08:40 | XMS_ITS | Encounter Summary ---
:1975 Author Organization [facility] Address [address] [place] [address] Care Team Providers Name Role Phone Peggy Hammer MD Primary Care Provider Encounter Details Date Type Department Care Team Description 10/21/2019 Virtual Visit [facility] Ear Nose and Ayesha-Hammond, Mucocele of frontal Throat Alvaro Faulkner MD sinus (Primary Dx) [address] [facility] [address] [facility] 4th Floor [facility] [address] [place] [address] [phone] Social History Tobacco Use Types Packs/Day Years [...] / COVID-19? documented as of this encounter Patient Instructions Patient Jey Hathaway RN - 10/21/2019 2:20 PM CDT 1. You were seen in the ENT Clinic today by Dr. Hodge. If you have any questions or concerns afteryour appointment, please call - Option 1: ENT Clinic: [phone] - Option 2: Jey (Dr. Hodge's Nurse): [phone] 2. Plan to return to clinic 12/08 at 4pm Jey Gonzáles RN [facility]- Otolaryngology [phone] documented in this encounter Progress Notes Alvaro Denise MD - 10/21/2019 2:20 PM CDT Fabio Hodgson is a 44 year old male who is being evaluated via a billable telephone visit. The patient has been notified of following: This telephone visit will be conducted via a call between you and your physician/provider. We have found that certain health care needs can be provided without the need for a physical exam. This service lets us provide the care you need with a short phone conversation. If a prescription is necessary we can send it directly to your pharmacy. If lab work is needed we can place an order for that and you can then stop by our lab to have the test done at a later time. Telephone visits are billed at different rates depending on your insurance coverage. During this emergency period, for some insurers they may be billed the same as an in-person visit. Please reach out to your insurance provider with any questions. If during the course of the call the physician/provider feels a telephone visit is not appropriate, you will not be charged for this service. Patient has given verbal consent for Telephone visit? Yes How would you like to obtain your AVS? Milindt Phone call duration: 12 minutes yngology Clinic at your request. History of Present Illness: Patient s/p Draft II procedure on 09/10/2019 with placement of [place] stent. He is doing really well. No pain, no discomfort. Occasional Nasal crusts coming out. MEDICATIONS: Current Outpatient Medications Medication Sig Dispense Refill ??? acetaminophen (TYLENOL) 325 MG tablet Take 2 tablets (650 mg) by mouth every 4 hours as needed for mild pain 50 tablet 0 ??? amoxicillin-clavulanate (AUGMENTIN) 875-125 MG tablet Take 1 tablet by mouth 2 times daily (Patient not taking: Reported on 09/30/2019) 20 tablet 0 ??? FISH OIL ??? fluticasone (FLONASE) 50 MCG/ACT nasal spray [place] 1 spray into both nostrils daily 15 mL 0 ??? HYDROcodone-Acetaminophen (VICODIN) 5-300 MG TABS Take 1 tablet by mouth every 6 hours as needed(pain) (Patient not taking: Reported on 09/30/2019) 6 tablet 0 ??? ondansetron (ZOFRAN-ODT) 4 MG ODT tab Take 1-2 tablets (4-8 mg) by mouth every 8 hours as neededfor nausea 4 tablet 0 ??? oxyCODONE (ROXICODONE) 5 MG tablet Take 1 tablet (5 mg) by mouth every 6 hours as needed for severe pain (Patient not taking: Reported on 09/30/2019) 30 tablet 0 ??? oxymetazoline (AFRIN NASAL SPRAY) 0.05 % nasal spray [place] 2 sprays in nostril every 6 hours as needed for congestion DO NOT CONFUSE WITH OCEAN SALINE SPRAY. Use Afrin spray as needed for epistaxis. Do NOT use for than 5 consecutive days. 14.7 mL 0 ??? sodium chloride (OCEAN) 0.65 % nasal spray 2 sprays every 2-3 hours while awake for and as needed for nasal irrigation. 30 mL 0 ALLERGIES: No Known Allergies PAST MEDICAL HISTORY: No past medical history on file. FAMILY HISTORY: Family History Problem Relation Age of Onset ??? Blood Disease Maternal Grandmother ??? Breast Cancer Paternal Grandmother ??? Cancer Paternal Grandmother uterine REVIEW OF SYSTEMS: 12 point ROS was negative other than the symptoms noted above in the HPI. IMPRESSION AND PLAN: Patient doing well. Will plan to see him in mid November for nasal endoscopy for evaluation of his stent. Will possibly removed in clinic if possible Alvaro Denise MD, M.D. Otolaryngology- Head & Neck Surgery [phone] documented in this encounter Plan of Treatment Not on filedocumented as of this encounter Visit Diagnoses Diagnosis Mucocele of frontal sinus - Primary Other diseases of nasal cavity and sinus es documented in this encounter Care Teams Director Of Athletics Relationship Specialty Start Date End Date Peggy Hammer MD PCP - General Family Practice 09/10/19 [facility] [address] [place] [address] documented as of this encounter
--- OUTSIDE RECORDS SUMMARY | 2022-03-08 08:40 | XMS_ITS | Encounter Summary ---
:1975 Author Organization [place] Address [address] [place] [address]. [place] [address] Care Team Providers Name Role Phone Peggy [...] drainage of left frontal sinus mucocele [address] [place] [address] Phone: Fax: Referral ID Status Reason Start Date Expiration Date Visits Requ ested Visits Authorized [id number] 1 1 Encounter Details Date Type Department Care Team Description 09/10/2019 Hospital Encounter [facility] Howie, Mucocele of frontal sinus; [facility] Same Day Alvaro Faulkner MD Mucocele of frontal sinus Surgery [address] [facility] [address] [place] [address] [place], [place] [phone] Social History Tobacco Use Types Packs/Day Years [...] Sign Reading Time Taken Comments Blood Pressure 144/89 09/10/2019 8:20 PM CDT Pulse 97 09/10/2019 7:30 PM CDT Temperature 36.8 ??C (98.3 ??F) 09/10/2019 8:20 PM CDT Respiratory Rate 14 09/10/2019 8:20 PM CDT Oxygen Saturation 98% 09/10/2019 8:20 PM CDT Inhaled Oxygen Concentration - - Weight 90.3 kg (199 lb 1.2 oz) 09/10/2019 10:02 AM CDT Height 182.9 cm (6') 09/10/2019 10:02 AM CDT Body Mass Index 27 09/10/2019 10:02 AM CDT documented in this encounter Discharge Instructions Discharge InstructionsTori Krishnamurthy RN - 09/10/2019 7:59 PM CDT [facility], [place] Same-Day Surgery Adult Discharge Orders & Instructions [...] call. To contact a doctor, call Dr Kim' office at [phone] or: ' [phone] and ask for the resident freezer person for ENT (this is the hospital and is answered 24 hours a day) ' Emergency Department: [facility]: [phone] (TTY for hearing impaired: [phone]) documented in this encounter Medications at Time of Discharge Medication Sig Dispensed Refills Start Date End Date acetaminophen (TYLENOL) Take 2 tablets (650 50 tablet 0 325 MG mg) by mouth every 4 tabletIndications: hours as needed for Mucocele of frontal mild pain sinus FISH OIL 0 fluticasone (FLONASE) 50 [place] 1 spray into 15 mL 0 MCG/ACT [...] as needed for sinus pain oxymetazoline (AFRIN [place] 2 sprays in 14.7 mL 0 09/10/19 [...] 2. Left maxillary antrostomy 3. Placement of Yermo stent. PRIMARY SURGEON: Alvaro Kim MD AB INITIO ETL DEVELOPER SURGEON: Ho Velez MD, Resident ANESTHESIA: General. [...] and draped in theusual clean fashion. The [employer] Dx image guidance system was registered and used [...] The middle turbinate was medialized using a [place]. A left maxillary antrostomy was first performed. [...] orbit on the left in the stenotic ione outflow tract. The nasal root and ascending [...] placed around the exposed bone, and a Yermo stent was placed inside the opening into [...] COMPLICATIONS: None. IMPLANTS: Stent, left frontal sinus, Yermo. Dr. Alvaro Kim was present and scrubbed for all portions of the case. ALVARO KIM MD As dictated by HO VELEZ MD MT: ADAN Name: FABIO HOFFMAN Account: [id number] : 1975 Procedure Date: 09/10/2019 Document: [id number] Carlos, Alvaro Kim MD, was present during the entire procedure between opening and closing. Associated attestation - Alvaro Kim MD - 09/15/2019 9:51 AM CDT Physician Attestation Carlos was present for the entire procedure between opening and closing. 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 Complications: None. Implants: Implant Name Type Inv. Item Serial No. Pedal Assembler Lot No. LRB No. Used Action STENT FRONTAL SINUS RAINS LG Stent STENT FRONTAL SINUS RAINS LG [employer] [facility] [id number] Left 1 Implanted documented in this encounter [...] CDT sinus ENDONASAL SURGERY LAB RESULT - [facility] 08/19/2019 12:00 AM SCAN EMBLEM DRAWER IN LAB RESULT - [facility] 08/19/2019 12:00 AM SCAN EMBLEM DRAWER IN EKG CARDIAC - [facility] 08/19/2019 12:00 AM SCAN EMBLEM DRAWER IN documented in this encounter Results Glucose by meter (09/10/2019 10:06 AM CDT) P athologist Signature Glucose 90 70 - 99 09/10/2019 POINT OF CARE mg/dL 11:35 AM CDT TEST, GLUCOSE Comment: /RN Notified Specimen Anatomical Collection Method Collection Time Receive d Time (Source) Location / / Volume Laterality 09/10/2019 10:06 09/10/2019 AM CDT 11:35 AM CDT Alvaro LEE - JAIRO POCT Performing Organization Address City/State/ZIP Code Phon e Number FV POINT OF CARE TEST, GLUCOSE POINT OF CARE TEST, GLUCOSE LAB RESULT - HIM SCAN (08/19/2019 12:00 AM EMBLEM DRAWER IN) Specimen (Source) Anatomical Location Collection Method / Collectio n Time Received Time / Laterality Volume 08/19/2019 Narrative This result has an attachment that is no t available. Provider Outside NON-BEAKER LAB TESTING LAB RESULT - HIM SCAN (08/19/2019 12:00 AM EMBLEM DRAWER IN) Specimen (Source) Anatomical Location Collection Method / Collectio n Time Received Time / Laterality Volume 08/19/2019 Narrative This result has an attachment that is no t available. Provider Outside NON-BEAKER LAB TESTING EKG CARDIAC - HIM SCAN (08/19/2019 12:00 AM EMBLEM DRAWER IN) Specimen (Source) Anatomical Location Collection Method / [...] Fri09/10/19 at 1930, Until Fri09/10/19 at 2237 meperidine (DEMEROL) injection 12.5 mg 12.5 mg, [...] Max: 5 mg for opioid-na??ve patient., Post-procedure prochlorperazine (COMPAZINE) injection 1 0 mg 10 [...] 09/10/2019 acetaminophen (TYLENOL) tablet 975 mg (COMPLETED) 1036 (Given - Provider: Ronit Lobo RN) 975 [...] Pre-procedure gabapentin (NEURONTIN) capsule 300 mg (COMPLETED) 1036 (Given - Provider: Ronit Lobo RN) 300 mg, Oral, ONCE, Fri09/10/19 at 1030, For 1 dose, Give ONLY ONCE in pre-op. Confirm that patient has not already received a PRE OP dose of gabapentin (NEURONTIN). This dose is in addition to patient's home medication dose, if any., Pre-procedure Continuous Medication Order 09/08/2019 09/09/2019 09/10/2019 lactated ringers infusion 190 ( Rate/Dose Verify - Provider: Yamel Diggs RN) at 100 mL/hr, Intravenous, CONTINUOUS, C ontinue until IV catheter is weaned, PACU/Phase II, Starting Fri09/10/19 at 1930, Until Fri09/10/19 at 2237 PRN Medication Order 09/08/2019 09/09/2019 09/10/2019 HYDROmorphone (PF) (DILAUDID) injection 0.3-0.5 mg 0.3-0.5 mg, Intravenous, EVERY 10 MIN UT N, Starting Fri09/10/19 at 1915, Until Fri09/10/19 at 2236, other, acute pain. May administer if Respiratory [...] lidocaine 1% with EPINEPHrine 1:100,000 injection (CANCELED) 1514 (Given - Provider: Ho Velez MD)1814 (Given - Provider: Alvaro Kim MD) PRN, Starting Fri09/10/19 at 1514, Intra-procedure [...] Starting Fri09/10/19 at 1915, Until Fri09/10/19 at 2236, May administer oral pain medications as ordered [...] 30 MIN PRN, nausea, vo miting, Starting 09/10/19 at 1915, For 2 doses
[...] II documented in this encounter Care Teams Glassware Maker Relationship Specialty Start Date End Date Peggy Hammer MD PCP - General [facility] 09/10/19 [facility] [address] [place] [address] documented as of this encounter
--- OUTSIDE RECORDS SUMMARY | 2022-03-08 08:40 | XMS_ITS | Encounter Summary ---
:1975 Author Organization [place] Address [address] [place] [address]. [place] [address] Care Team Providers Name Role Phone Peggy Hammer MD Primary Care Provider Encounter Details Date Type Department Care Team Description 04/13/[address] [facility] V[place]ren, Muco jennifer of frontal Ear Nose and Throat Bisi amato RN sinus (Primary Dx) Clinic [address] [place] [address] [place] [address] [phone] Social History Tobacco Use Types Packs/Day Years [...] been in contact with No / Unsure 04/13/2020 3:37 PM CDT someone who was confirmed or suspected to have Coronavirus / COVID-19? documented as of this encounter Plan of Treatment Not on filedocumented as of this encounter Visit Diagnoses Diagnosis Mucocele of frontal sinus - Primary Other diseases of nasal cavity and sinus es documented in this encounter Care Teams Police Justice Relationship Specialty Start Date End Date Peggy Hammer MD PCP - General Family Practice 09/10/19 [facility] [address] [place] [address] documented as of this encounter
--- OUTSIDE RECORDS SUMMARY | 2022-03-08 08:40 | XMS_ITS | Encounter Summary ---
:1975 Author Organization [place] Address [address] [place] [address] Care Team Providers Name Role Phone Peggy Hammer MD Primary Care Provider Reason for Visit Diagnostic Imaging CT Scan (Routine) - Closed Specialty Diagnoses / Procedures Referred By Contact Refer red To Contact Radiology. Diagnoses Mucocele of frontal sinus Alvaro Denise Ct Scan Procedures CT Sinus w/o Contrast MD Kaushik [address] [place] [address] [address] [place], [place] [address] [place] [address] Phone: Fax: Referral ID Status Reason Start Date Expiration Date Visits Requ ested Visits Authorized [id number] Closed 12/09/2019 12/08/2020 1 1 Encounter Details Date Type Department Care Team Description 02/10/2020 [facility] Yoni Denise le of frontal Procedure Center CT Alvaro Faulkner MD sinus [address] [facility] [address] [place], [place] [address] Social History Tobacco Use Types Packs/Day [...] Diagnosis Comme nts CT SINUS W/O Routine 02/10/2020 3:56 PM Mucocele of frontal Re sults for this [...] es documented in this encounter Care Teams Environmental Conservation Officer Relationship Specialty Start Date End Date Peggy Hammer MD PCP - General Family Practice 09/10/19 [facility] [address] [place] [address] documented as of this encounter
--- OUTSIDE RECORDS SUMMARY | 2022-03-08 08:40 | XMS_ITS | Encounter Summary ---
:1975 Author Organization [place] Address [address] [place] [address] Care Team Providers Name Role Phone No Ref-Primary, Physician Primary Care Provider [phone] Reason for Visit Reason Onset Date Comments Clinic Care Coordination - Follow-up 09/09/2019 Encounter Details Date Type Department Care Team Description 09/09/2019 Telephone [facility] Ear Nose and Jey Gonzáles Cli mariia Care Coordination Throat RN - Follow-up [address] [place] [address] Social History Tobacco Use Types Packs/Day [...] this encounter Miscellaneous Notes Telephone Encounter - Jey Gonzáles RN - 09/09/2019 3:49 PM CDT Voicemail received from pt asking if Dr. Hodge would be fixing his deviated septum during his procedure tomorrow. Consulted with Dr. Hodge; states if he needs to correct it to gain access he will, otherwise this would need to be a separate procedure. Pt called back; no answer. Voicemail left with details above. Direct line given for additional questions/concerns. Jey Gonzáles SHELL SORTER documented in this encounter Plan of Treatment Not on filedocumented as of this encounter Visit Diagnoses Not on filedocumented in this encounter Care Teams Heating And Ventilating Worker Relationship Specialty Start Date End Date No Ref-Primary, Physician PCP - General 06/13/19 09/09/19 documented as of this encounter
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
--- OUTSIDE RECORDS SUMMARY | 2022-03-08 08:40 | XMS_ITS | Encounter Summary ---
:1975 Author Organization [place] Address [address] [place] [address]. [place] [address] Care Team Providers Name Role Phone Peggy Hammer MD Primary Care Provider Encounter Details Date Type Department Care Team Description 04/14/2020 Telephone [facility] Ear Nose [facility], [facility] Clinic MD Kaushik [address] [place] [phone] Social History Tobacco Use Types Packs/Day Years [...] Telephone Encounter - Rossana Berrios LPN - 04/14/2020 10:17 AM CDT Interventional Sale Consultant called patient and notified him that stealth guided CT scan has been scheduled for 05/11/2020at 0940. Patient agreed to time and date. Rossana Gonzales LPN documented in this encounter Plan of Treatment Not on filedocumented as of this encounter Visit Diagnoses Not on filedocumented in this encounter Care Teams Cook Pickled Meat Relationship Specialty Start Date End Date Peggy Hammer MD PCP - General Family Practice 09/10/19 [facility] [address] [place] [address] documented as of this encounter
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
--- OUTSIDE RECORDS SUMMARY | 2022-03-08 08:40 | XMS_ITS | Encounter Summary ---
:1975 Author Organization [facility] Address [address] [place] [address] Care Team Providers Name Role Phone Peggy Hammer MD Primary Care Provider Encounter Details Date Type Department Care Team Description 09/14/2019 Telephone [facility] Ear Nose an d Throat Jey Gonzáles, LAUREL [address] [place] [address] [phone] Social History Tobacco Use Types Packs/Day [...] Telephone Encounter - Jey Gonzáles RN - 09/14/2019 9:53 AM CDT ENT Discharge Follow-Up Responsible Attending Physician: Dr. Hodge Date of Discharge: 09/09 Discharge to: Home Current Status: Pt is a 44 y/o Male s/p stealth guided endoscopic transnasal incision and drainage of left frontal sinus mucocele, placement of rain stent on 09/09. Reports pre-op symptoms improved. Operative pain is decreasing. Ambulating without assistance. Pain well controlled with current meds, ample supply. Reports incision CDI without signs of infection. Denies redness, swelling, increased tenderness, or elevated temp. Denies current bowel or bladder issues. No visible sutures/casey in place. Discharge instructions and medication use were reviewed. bagging salvager/physician relations specialist number given: [phone] or after hours and w/e - [phone]. Patient verbalized understanding and agreement with current plan. Follow up appointments/imaging/tests needed: Pt reports increased pain with the inability to sleep d/t pain. After consulting with Dr. Hodge, arefill of Oxycodone was sent to local pharmacy. Direct line given for additional questions/concerns. Jey Gonzáles RN BSN documented in this encounter Plan of Treatment Not on filedocumented as of this encounter Visit Diagnoses Diagnosis Mucocele of frontal sinus - Primary Other diseases of nasal cavity and sinus es documented in this encounter Care Teams Land Resource Specialist Relationship Specialty Start Date End Date Peggy Hammer MD PCP - General Family Practice 09/10/19 [facility] [address] [place] [address] documented as of this encounter
--- OUTSIDE RECORDS SUMMARY | 2022-03-08 08:40 | XMS_ITS | Encounter Summary ---
:1975 Author Organization [facility] Address [address] [place] [address]. [place] [address] Care Team Providers Name Role Phone Peggy Hammer MD Primary Care Provider Reason for Referral Diagnostic Imaging CT Scan (Routine) - Closed Specialty Diagnoses / Procedures Referred By Contact Refer red To Contact Radiology. Diagnoses Mucocele of frontal sinus Alvaor Denise [facility] Procedures CT Sinus w/o Contrast MD Kaushik [address] [place] [address] [address] [place], [place] [address] [place] [address] Phone: Fax: Referral ID Status Reason Start Date Expiration Date Visits Requ ested Visits Authorized [id number] Closed 04/13/2020 04/13/2021 1 1 Reason for Visit Reason Comments RECHECK 2 month follow up Encounter Details Date Type Department Care Team Description 04/13/[address] [facility] Ear Vijay Denise ucocele of frontal Nose and Throat Alvaro Faulkner MD sinus (Primary Dx) Clinic [address] [place] [address] [phone] Social History Tobacco Use Types Packs/Day Years [...] Taken Comments Blood Pressure - - Pulse 74 04/13/2020 3:56 PM CDT Temperature 36.6 ??C (97.9 ??F) 04/13/2020 3:56 PM CDT Respiratory Rate - - Oxygen Saturation 99% 04/13/2020 3:56 PM CDT Inhaled Oxygen Concentration - - Weight 82.1 kg (181 lb) 04/13/2020 3:56 PM CDT Height 182.9 cm (6') 04/13/2020 3:56 PM CDT Body Mass Index 24.55 04/13/2020 3:56 PM CDT documented in this encounter Patient Instructions Patient InstructionsGoRossana severino LPN - 04/13/2020 4:00 PM CDT 1. You were seen in the ENT Clinic today by . If you have any questions or concerns after your appointment, please call - Option 1: ENT Clinic: [phone] 2. Plan to get CT in april 3. Plan for surgery in may Rossana Gonzales LPN [facility] Otolaryngology [phone] Or LAUREL Mathews Vat [facility] Otolaryngology [phone] documented in this encounter Progress Notes Alvaro Denise MD - 04/13/2020 4:00 PM CDT DX: LEFT FRONTAL SINUS MUCOCELE TREATMENT:.??1.??Stealth-guided endoscopic transnasal incision and drainage of left frontal sinus mucocele. 2. Left maxillary antrostomy.??3. ??Placement of [place] stent.??ON 09/10/2019 Stent removed on 02/10/2020 History of Present Illness: Patient doing well, Asymptomatic. Here for follow-up regarding draf 11 procedure in August, MEDICATIONS: Current Outpatient Medications Medication Sig Dispense Refill ??? acetaminophen (TYLENOL) 325 MG tablet Take 2 tablets (650 mg) by mouth every 4 hours as needed for mild pain 50 tablet 0 ??? FISH OIL ??? fluticasone (FLONASE) 50 MCG/ACT nasal spray [place] 1 spray into both nostrils daily 15 mL 0 ? ? varenicline (CHANTIX DEBORAH) 0.5 MG X 11 & 1 MG X 42 tablet 1 wk before you stop smoking take 0.5mg daily on days 1-3, 0.5mg 2 times each day on days 4-7, then 1mg 2 times daily ALLERGIES: No Known Allergies HABITS/SOCIAL HISTORY: Reviewed and unchanged PAST MEDICAL HISTORY: Past Medical History: Diagnosis [...] in the neck. Nasal Endoscopy: Consent for Nasal endoscopy was obtained, and we confirmed correctness of procedureand identity of patient. Nasal endoscopy was indicated due to recent sinus surgery. The nose was topically decongested and anesthetized. I used a fiberoptic laryngoscope. It was passed under endoscopic vision. The turbinates were normal. The inferior and middle meati were clear bilaterally without purulence, masses, or polyps. The nasopharynx was clear. The Eustachian tubes were clear. The outflow tract created is open. I do see which appears to be a thin membrane obstructing the frontal sinus drainage. I don't see purulence. IMPRESSION AND PLAN: Patient is doing well. Frontal sinus outflow tract partially open. Recommendingrevision of frontal sinus draf. Will obtain CT prior to surgery. Thank you very much for the opportunity to participate in the care of your patient. Alvaro Denise MD, M.D. Otolaryngology- Head & Neck Surgery [phone] documented in this encounter Nursing Notes Radha King - 04/13/2020 4:00 PM CDT Chief Complaint Patient presents with ??? RECHECK 2 month follow up Pulse 74, temperature 97.9 ??F (36.6 ??C), height 1.829 m (6'), weight 82.1 kg (181 lb), SpO2 99 %. Radha King, EMT documented in this encounter Plan of Treatment Not on filedocumented as of this encounter Procedures Procedure Name Priority Date/Time Associated Diagnosis Comme nts [place] NASAL ENDOSCOPY,DX Routine 04/14/2020 8:08 AM CDT Mucocele of frontal sinus documented in this encounter Results CT Sinus w/o Contrast (05/11/2020 10:02 AM BRIAR CUTTER) Anatomical Region Laterality Modality Sinus, SUBRAD CT NEURO, SUBRAD CT NEURO, UMP CT NEURO, Computed Tomography RAD CT Specimen (Source) Anatomical Location Collection Method / Collectio n Time Received Time / Laterality Volume Impressions 05/11/2020 12:10 PM BRIAR CUTTER Impression: 1. Limited imaging performed primarily f [...] WILSON MARROQUIN MD Narrative 05/11/2020 12:10 PM BRIAR CUTTER Stealth CT imaging for purposes of stereotactic [...] es documented in this encounter Care Teams Applied Psychology Teacher Relationship Specialty Start Date End Date Peggy Hammer MD PCP - General Family Practice 09/10/19 [facility] [address], [place] [address] documented as of this encounter
--- OUTSIDE RECORDS SUMMARY | 2022-03-08 08:40 | XMS_ITS | Encounter Summary ---
:1975 Author Organization [facility] Address [address] [place] [address] Care Team Providers Name Role Phone No Ref-Primary, Physician Primary Care Provider Reason for Visit Reason Onset Date Comments Appointment 06/15/2019 Encounter Details Date Type Department Care Team Description 06/15/2019 Telephone [facility] Ear Nose and Ayesha-Cheryl Hammond Appointment Throat MD Kaushik [address] [place] [address] [address] [place] [address] [phone] Social History Tobacco Use Types Packs/Day Years Used Date Passive Smoke Exposure - Never Smoker Cigarettes Smokeless Tobacco: Never Used Comments: weekends Alcohol Use Standard Drinks/Week Comments Yes 0 (1 standard drink = 0.6 oz pure alcoho l) Sex Assigned at Date Recorded Not on file documented as of this encounter Miscellaneous Notes Telephone Encounter - Martha Miguel - 06/15/2019 8:42 AM CST Called patient and left a VM. Informed him that he is scheduled for a CT scan and an ED follow up appointment with Dr. Hodge on 07/08/2019. I also informed him that the doctors would like for him to obtain an MRI prior to this appointment; and provided the [facility] # as he lives closer to that location. Provided my direct line to call back with any questions. TH CAREERS INSTRUCTOR documented in this encounter Plan of Treatment Not on filedocumented as of this encounter Visit Diagnoses Not on filedocumented in this encounter Care Teams Car Dryer Relationship Specialty Start Date End Date No Ref-Primary, Physician PCP - General 06/13/19 09/09/19 documented as of this encounter
--- OUTSIDE RECORDS SUMMARY | 2022-03-08 08:40 | XMS_ITS | Encounter Summary ---
:1975 Author Organization [facility] Address [address] [place] [address] Care Team Providers Name Role Phone Peggy Hammer MD Primary Care Provider Encounter Details Date Type Department Care Team Description 04/13/2020 Travel Social History Tobacco Use Types Packs/Day [...] on filedocumented in this encounter Care Teams Water Purification Chemist Relationship Specialty Start Date End Date Peggy Hammer MD PCP - General Family Practice 09/10/19 [facility] [address] [place], [place] [id number] documented as of this encounter
--- OUTSIDE RECORDS SUMMARY | 2022-03-08 08:40 | XMS_ITS | Encounter Summary ---
:1975 Author Organization [facility] Address [address] [place] [address] Care Team Providers Name Role Phone No Ref-Primary, Physician Primary Care Provider [phone] Encounter Details Date Type Department Care Team Description 06/15/2019 Orders Only [facility] Nose and [place], Mary Cuevas MD Acute non-recurrent Throat [address] [facility] frontal sinusitis [address] [facility] [address] (Primary Dx) 4th [place] [address] [phone] Social History Tobacco Use Types Packs/Day Years [...] as of this encounter Visit Diagnoses Diagnosis Acute non-recurrent frontal sinusitis - Primary documented in this encounter Care Teams Regional Airline Pilot Relationship Specialty Start Date End Date No Ref-Primary, Physician PCP - General 06/13/19 09/09/19 documented as of this encounter
--- OUTSIDE RECORDS SUMMARY | 2022-03-08 08:40 | XMS_ITS | Encounter Summary ---
:1975 Author Organization [facility] Address [address] [place] [address] Care Team Providers Name Role Phone Peggy Hammer MD Primary Care Provider Alvaro Denise MD Unavailable [phone] Encounter Details Date Type Department Care Team Description 05/11/2020 Travel Social History Tobacco Use Types Packs/Day [...] with No / Unsure 05/11/2020 9:36 AM FIELD SPECIALIST someone who was confirmed or suspected to have Coronavirus / COVID-19? documented as of this encounter Plan of Treatment Not on filedocumented as of this encounter Visit Diagnoses Not on filedocumented in this encounter Care Teams Information Systems Security Officer Relationship Specialty Start Date End Date Peggy Hammer MD PCP - General Family Practice 09/10/19 [facility] [address], [place] [address] Alvaro Denise Assigned Surgical Provider MD Kaushik [address] [place] [address] [address] [place], [place] [address] documented as of this encounter
--- OUTSIDE RECORDS SUMMARY | 2022-03-08 08:40 | XMS_ITS | Encounter Summary ---
:1975 Author Organization [facility] Address [address] [place] [address]. [place] [address] Care Team Providers Name Role Phone No Ref-Primary, Physician Primary Care Provider Reason for Visit Reason Onset Date Comments Previsit 07/08/2019 Encounter Details Date Type Department Care Team Description 07/08/2019 PRE VISIT [facility] and Ayesha-Hammond, E awa Previsit Throat MD Kaushik [address] [facility] [address] [facility] [address] [place], [place] [address] [place] [address] 5[address] [phone] Social History Tobacco Use Types Packs/Day Years Used Date Passive Smoke Exposure - Never Smoker Cigarettes Smokeless Tobacco: Never Used Comments: weekends Alcohol Use Standard Drinks/Week Comments Yes 0 (1 standard drink = 0.6 oz pure alcoho l) Sex Assigned at Date Recorded Not on file documented as of this encounter Miscellaneous Notes Telephone Encounter - Yamel Nassar - 06/15/2019 9:24 AM CST FUTURE VISIT INFORMATION FUTURE VISIT INFORMATION: ?? Date: 07/08/19 ?? Time: 4:40 PM, CT 4 PM ?? Location: [facility] REFERRAL INFORMATION: ?? Referring provider: Dr. Chad Thao ?? Referring providers clinic: [facility] - ED ?? Reason for visit/diagnosis: Acute sinusitis RECORDS REQUESTED FROM: Clinic name Comments Records Status Imaging Status [facility] - ED 06/14/19 - ED OV with Dr. Anusha Dixon (Consult done by Dr. Tammy Lou with Dr. Radford for ENT) [facility] - ED 06/13/19 - ED [facility] 07/08/19 - CT Sinus W/WO 06/13/19 - CT Orbital W [facility] [place] 10/16/18 - ENT OV with JUDY [facility] 01/08/1995 - OP Note for Facial Reconstruction with Dr. Ranulfo Gutierrez 06/15 Sent to Scan * 06/15/19 9:42 AM Faxed Urgent request to [facility] for Op note from 1994 facial reconstruction - Yamel * 06/15/19 11:44 AM Received fax from [facility] with OP Note, sent to HIM to be scanned into chart - Yamel VISION PROGRAM DIRECTOR documented in this encounter Plan of Treatment Not on filedocumented as of this encounter Visit Diagnoses Not on filedocumented in this encounter Care Teams Superintendent Concrete Mixing Plant Relationship Specialty Start Date End Date No Ref-Primary, Physician PCP - General 06/13/19 09/09/19 documented as of this encounter
--- OUTSIDE RECORDS SUMMARY | 2022-03-08 08:40 | XMS_ITS | Encounter Summary ---
:1975 Author Organization [facility] Address [address] [place] [address]. [place] [address] Care Team Providers Name Role Phone Peggy Hammer MD Primary Care Provider Alvaro Denise MD Unavailable [phone] Reason for Visit Reason Onset Date Comments Schedule Surgery 05/11/2020 Encounter Details Date Type Department Care Team Description 05/11/2020 Telephone [facility] Stacey Denise chedule Surgery Nose and Throat Clinic MD Helena Garza [address] [place] [address] [place], [place] [phone] (Wo rk) [address] [phone] Social History Tobacco Use Types Packs/Day Years [...] with No / Unsure 05/11/2020 9:36 AM MEMORANDUM STATEMENT CLERK someone who was confirmed or suspected to have Coronavirus / COVID-19? documented as of this encounter Miscellaneous Notes Telephone Encounter - Annie Alvares - 05/11/2020 12:13 PM CST Called patient to schedule surgery with Dr. Hodge Date of Surgery: 06/02/2020 Location: [place] [facility] or PCP: PCP Post op: 3 weeks Imaging: Stealth CT scheduled Surgery packet given: Mailed 05/11/2020 with information regarding covid19 testing Surgery teaching completed: Unknown Sent to Prior Authorization Team: 05/11/2020 Additional comments: Patient knows that pre-op RN will call 2-3 days prior and a project controls scheduler will reach out 1-2 weeks priorto scheduled surgery for covid19 testing. Annie Alvares Perioperative Coordinator Department of Otolaryngology P: [phone] RANDUM STATEMENT CLERK documented in this encounter Plan of Treatment Not on filedocumented as of this encounter Visit Diagnoses Not on filedocumented in this encounter Care Teams Acoustical Logging Engineer Relationship Specialty Start Date End Date Peggy Hammer MD PCP - General Family Practice 09/10/19 [facility] [address] [place] [address] Ayesha-Alvaro Hammond Assigned Surgical Provider MD Kaushik [address] [place] [address] 396 [place], [place] [address] documented as of this encounter
--- OUTSIDE RECORDS SUMMARY | 2022-03-08 08:40 | XMS_ITS | Encounter Summary ---
:1975 Author Organization [facility] Address [address] [place] [address] Care Team Providers Name Role Phone Peggy Hammer MD Primary Care Provider Encounter Details Date Type Department Care Team Description 12/09/2019 Travel Social History Tobacco Use Types Packs/Day [...] on filedocumented in this encounter Care Teams Crate Maker Relationship Specialty Start Date End Date Peggy Hammer MD PCP - General Family Practice 09/10/19 [facility] [address] [place] [address] documented as of this encounter
--- OUTSIDE RECORDS SUMMARY | 2022-03-08 08:41 | XMS_ITS | Clinical Summary ---
:1975 Author Organization [facility] Address [address], [place] [address] Care Team Providers Name Role Phone Nadja Manjarrez MD Primary Care Provider Source Comments You are receiving this document as you are listed as the primary care provider,follow-up provider, or the patient has been referred to you for consultation.This is in compliance with the Medicare and Medicaid EHR Incentive Program,which states Providers who transition their patient to another setting of careor provider of care or refers their patient to another provider of care shouldprovide summarycare record for each transition of care or referral. [employer] Allergies No known active allergies Medications Medication Sig Dispensed Refills Start Date End Date Status LORazepam (ATIVAN) 0.5 Take one tablet 30 10 Tablet 0 03/19/20 18 Active MG tabletIndications: minutes to one Fear of flying (HRC) hour prior to travel buPROPion (WELLBUTRIN Take 1 Tablet by 60 Tablet 3 03/19/2018 Active SR) 150 MG 12 hour mouth two times a release tablet day. traZODone (DESYREL) 50 Take 1 Tablet by 30 Tablet 11 03/19/2018 Active MG tablet mouth at bedtime as needed. omega-3 fatty acids Take 2 g by mouth 0 Active (MAXEPA,FISHOIL) 1000 daily. MG capsule Multiple Vitamins-Iron 0 Active (MULTIVITAMIN/IRON OR) Varenicline Tartrate 1 wk before you 53 Tablet 0 09/11/2018 Active (CHANTIXPAK) 0.5 MG X stop smoking take 11 & 1 MG X 42 tablet 0.5mg daily on days 1-3, 0.5mg 2 times each day on days 4-7, then 1mg 2 times daily Additional Information Patient not taking. Reported on 08/04/2019 varenicline (CHANTIX) 1 MG Take 1 Tablet by mouth two 180 Tablet 0 09/10/2018 Active tabletIndications: times a day. Take after Encounter for smoking eating with a full glass cessation counseling (HRC) of water.NOTE:Dispense as maintenance for refills only. omeprazole (PRILOSEC) 20 Take 1 Capsule by mouth 30 Capsule 2 10/16/2018 Active MG capsule daily for 30 days. Take 1 hour before a meal. Cholecalciferol 1.25 MG Take by mouth. 0 Active (89930 UT) TABS Probiotic Product 0 Ac tive (PROBIOTIC DAILY OR) sodium fluoride dental Apply thin ribbon to teeth 60 g 6 06/09/2020 Active (PREVIDENT) 1.1 % gel with toothbrush or mouthpiece tray for at least 1 minute. Spit out gel and rinse mouth thoroughly. Active Problems Problem Noted Date SI (sacroiliac) joint dysfunction 08/23/2016 Overview: R SI joint pain, takes norco 5# tablets sparingly for this, needs to be seen at clinic prior to further refills. Nadja Manjarrez MD 08/23/2016, 11:21 AM Folliculitis 02/23/2016 Hand dysfunction 06/15/2015 Family history of colon cancer 05/08/2015 Corneal rust ring of right eye 03/17/2015 Other musculoskeletal symptoms referable to limbs(729. 89) 08/26/2014 Fear of flying 07/08/2013 Chronic low back pain 05/05/2012 Resolved Problems Problem Noted Date Resolved Date Centralized Behavioral Health Case Management 08/30/2014 09/09/2014 Overview: Background: Diagnosis: Alcohol abuse, Chronic Low Back Pain, Tobacco Dependence Current situation: Patient agreed to beh avioral health care coordination and healthy lifestyle education information. Providers outside of [facility]: [facility] Reha vbilitation Goals/Recommendations: Outpatient Behavioral Health Case Manage r Contact Information: TOM Stock/[facility] Action Plan: Identify Patients behaviora l health care goals, give education/coaching and resources to achieve his goals, coordinate care with providers as needed. Tobacco dependence 05/05/2012 06/26/2016 Immunizations Name Administration Dates Next Due Flu Vac (3+ yrs) 03/30/2018, 05/05/2012, 04/30/2011 HepA Adult (19+ yrs) 06/26/2016, 07/08/2013 HepB Adult (Engerix-B, 20+ yrs, 3 dose 07/08/2013, 3, 06/12/2012 series) Influenza IIV4 (Quadrivalent) 0.5mL 06/26/2016, 05/08/2015 (06724) Influenza, Unspecified Formulation 05/02/2017, 05/14/2013 Td 06/30/2001 Tdap 02/01/2011 Family History Medical History Relation Name Comments Cancer, Colon Father Cancer, Colon Maternal Grandfather Cancer, Prostate Maternal Grandfather Cancer, Ovary Maternal Grandmother Bleeding Disorder Other 1 Grandmother no t specified Cancer, Ovary Other 2 Grandmother not specified Relation Name Status Comments Father Alive Mother Alive Brother Alive Maternal Grandfather Alive Natural Maternal Grandmother Alive Surgery Paternal Grandfather Alive Natural Paternal Grandmother Sister Alive Other 1 Other 2 Social History Tobacco Use Types Packs/Day Years Used Date Smoking Tobacco: Former Cigarettes Quit : 04/13/2019 Smokeless Tobacco: Never Tobacco Cessation: Counseling Given: Yes Alcohol Use Standard Drinks/Week Comments Yes 2 (1 standard drink = 0.6 oz pure alcoho l) Sex Assigned at Date Recorded Not on file Last Filed Vital Signs Vital Sign Reading Time Taken Comments Blood Pressure 130/81 09/10/2018 11:41 AM CDT Pulse 81 07/24/2021 10:10 AM MANAGER COMMERCIAL SALES Temperature 37.2 ??C (98.9 ??F) 09/10/2018 11:09 AM CDT Respiratory Rate 18 06/24/2018 8:10 AM MANAGER COMMERCIAL SALES Oxygen Saturation 99% 07/19/2015 11:35 AM MANAGER COMMERCIAL SALES Inhaled Oxygen Concentration - - Weight 86.6 kg (191 lb) 06/24/2018 8:10 AM MANAGER COMMERCIAL SALES Height 180.3 cm (5' 11) 02/27/2016 3:30 PM CDT Body Mass Index 26.64 02/27/2016 3:30 PM CDT Plan of Treatment Health Maintenance Due Date Last Done Comments COVID-19 Vaccine (#1) 1975 Adult Preventive Visit 08/12/2012 08/12/2011 Colonoscopy 07/19/2020 07/19/2015 DTaP/Tdap/Td (2 - Tdap) 02/01/2021 02/01/2011, 06/30/2001 Cholesterol 08/23/2021 08/23/2016, 08/09/2011 Influenza (#1) 2022 04/11/2019, 04/25/2018, 03/30/2018, Additional history exists Zoster/Shingles (1 of 2) 2026 HepB Completed 07/08/2013, 03/02/2013, 06/12/2012 HepA Aged Out 06/26/2016, 07/08/2013 No longer eligible based on patient 's age to complete this topic HIV Screening (Preventive Completed 06/24/2018 Services) Hep C Screening (Preventive Completed 06/24/2018, 08/12/19 12 Services) HPV Vaccine Aged Out No longer eligib le based on patient 's age to complete this topic Hib Aged Out No longer eligib le based on patient 's age to complete this topic IPV (Polio) Aged Out No longer eligib le based on patient 's age to complete this topic MCV4 Aged Out No longer eligib le based on patient 's age to complete this topic Pneumococcal Aged Out No longer eligib le based on patient 's age to complete this topic Medical Devices Implanted Type Area Ceiling Installer Device Shelf Model / Identifier Expiration Serial / Lot Date [id number] - [id number] DEVICE [employer] [id number] / Implanted: Qty: 1 on 09/08/2014 by Meaghan Rasmussen MD at [facility] Same Day [facility] / [id number] Description: jean pierre passive tendon impla nt Insurance Payer Benefit Plan / Subscriber ID Effective Phone Address T ype Group Dates [facility] COMM FULLY [id number] 2019-Pres Commercial DENTAL PLAN INSURED DENTAL ent UCARE UCARE [id number] 2019-Pres Commer ciakeith INDIVIDUAL AND ent FAMILY Care Teams Cna Relationship Specialty Start Date End Date Nadja Manjarrez MD PCP - General Family Practice 08/20/11 [address] [place], [place] [id number]
--- OUTSIDE RECORDS SUMMARY | 2022-03-08 08:41 | XMS_ITS | Encounter Summary ---
:1975 Author Organization [facility] Address [address] [place] [address] Care Team Providers Name Role Phone No Ref-Primary, Physician Primary Care Provider [phone] Encounter Details Date Type Department Care Team Description 06/13/2019 Travel Social History Tobacco Use Types Packs/Day [...] on filedocumented in this encounter Care Teams Analytical Engineer Relationship Specialty Start Date End Date No Ref-Primary, Physician PCP - General 06/13/19 09/09/19 documented as of this encounter
--- OUTSIDE RECORDS SUMMARY | 2022-03-08 08:41 | XMS_ITS | Encounter Summary ---
:1975 Author Organization [facility] Address [address] [place] [id number] Care Team Providers Name Role Phone Nadja Manjarrez MD Primary Care Provider Reason for Visit Reason Comments Dental Exam none Dental Hygiene Encounter Details Date Type Department Care Team Description 06/09/2020 Office Visit [facility] Svetlana Davis, Amari al Exam (none); Dentistry [facility] Dental Hygiene [address] [place] [phone] Social History Tobacco Use Types Packs/Day Years Used Date Smoking Tobacco: Former Cigarettes Quit : 04/13/2019 Smokeless Tobacco: Never Alcohol Use Standard Drinks/Week Comments Yes 2 (1 standard drink = 0.6 oz pure alcoho l) Sex Assigned at Date Recorded Not on file documented as of this encounter Last Filed Vital Signs Vital Sign Reading Time Taken Comments Blood Pressure - - Pulse 70 06/09/2020 10:21 AM FISHING GUIDE Temperature - - Respiratory Rate - - Oxygen Saturation - - Inhaled Oxygen Concentration - - Weight - - Height - - Body Mass Index - - documented in this encounter Patient Instructions Patient InstructionsSvetlana Davis, [facility] - 06/09/2020 10:10 AM CST Your next hygiene recall is due 06/09/2021 YOUR PERSONAL DENTAL RISK REPORT CARIES (TOOTH DECAY) PERIODONTAL (GUM) DISEASE ORAL CANCER LOW mod high low MOD high low ELEVATED ^ ^ ^ Risk Level: LOW How to Maintain Your Low Risk: Congratulations on your low risk for tooth decay. Making healthy life style choices including brushing twice a day; daily flossing; and healthy dietary choices should help you maintain this low risk. Risk Level: MODERATE Risk Factors: Have had a diagnosis of gum disease either with or without past treatment. Use of tobacco in cigarettes, cigars, or pipes. How to Reduce Your Risk: Consider quitting tobacco habit. Participate in [facility] program ([phone]) or other means of quitting. Risk Level: ELEVATED Risk Factors: Incidence of oral cancer increases with age. Use of tobacco. How to Reduce Your Risk: Consider quitting tobacco habit. Participate in [facility] program ([phone]) or other means of quitting. Fabio, we look forward to seeing you at your next visit! Thank you for choosing [facility]. ING GUIDE documented in this encounter Progress Notes Sirena Lockwood DDS - 06/09/2020 10:10 AM CST HYGIENE PROPHY NOTE COLLABORATIVE AGREEMENT: The patient consents to have charting and prophylaxis by the dental hygienist performed with the understanding that this care is not a substitute for an examination by a dentist. These activities were performed under a collaborating agreement with Alyssia Jara DDS (License #: [id number]) PRESENTATION: Oral Hygiene: Fair Plaque: Generalized, light supra-gingival and sub-gingival Calculus: Localized, moderate supra-gingival , sub-gingival, mandibular anterior and posterior buccal Stain: Localized, light coffee/tea Bleeding: Generalized moderate Gingival tissue: Inflamed and Edematous Mucogingival concerns: Present recession ACTIVITIES: Hand scale, Essential selective polishing and Flossed all contacts PATIENT EDUCATION: Caries risk, Periodontal risk, Oral cancer risk, OHI and Fluoride rinse Patient given 1%-1.5% hydrogen peroxide, rinsed for 60 seconds prior to procedure. NEXT PLANNED HYGIENE VISIT: Hygiene Prophy with exam Svetlana Davis 06/09/2020, 10:58 AM --End of Note-- ING GUIDE Sirena Lockwood DDS - 06/09/2020 10:10 AM CST RECALL EXAM NOTE REASON FOR VISIT/CHIEF COMPLAINT: Fabio is a 45 y.o. male who presents for Dental Exam (none) and Dental Hygiene CHART REVIEW: Reviewed with patient: Medical history, Dental history, Problem list, Periodontal charting and Radiographs SOFT TISSUE, HEAD AND NECK EXAMINATION: Lips: Normal Tongue: Normal Palate: Normal Throat: Normal Floor of the mouth: Normal Mucosa: Normal Head and neck: Normal TMD EVALUATION: Palpation Pain: None Joint Sounds: None Pain with Range of Motion: None OCCLUSAL EXAMINATION: Unchanged COSMETIC CONCERNS: Patient's Perception: Acceptable Dentist's Perception: Acceptable TREATMENT REVIEW AND FOLLOW-UP: Discussed the Dental findings, Prognosis and Treatment options with the patient. All questions answered and informed consent was obtained. Recommended Recall Interval: Examination: 12 months : Recall prophy: 12 months Planned Recall Interval: Examination: 12 months : Recall prophy: 12 months Discussed recession, 24 has the most recession , prescribed Prevident for sensitivity Next Planned Visit: recall Sirena Lockwood DDS 06/09/2020, 10:54 AM --End of Note-- ING GUIDE documented in this encounter Plan of Treatment Not on filedocumented as of this encounter Procedures Procedure Name Priority Date/Time Associated Diagnosis Comme nts TOPICAL FLUORIDE Routine 06/09/2020 10:10 AM Localized gingiva l VARNISH FISHING GUIDE recession PERIODIC ORAL Routine 06/09/2020 10:10 AM Localized gingival EVALUATION FISHING GUIDE recession PROPHYLAXIS-ADULT Routine 06/09/2020 10:10 AM Localized gingiv al RECALL FISHING GUIDE recession documented in this encounter Visit Diagnoses Diagnosis Localized gingival recession - Primary Gingival recession, localized documented in this encounter Care Teams Cow Rider Relationship Specialty Start Date End Date Nadja Manjarrez MD PCP - General Family Practice 08/20/11 [address] [place] [address] documented as of this encounter
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
--- OUTSIDE RECORDS SUMMARY | 2022-03-08 08:41 | XMS_ITS | Encounter Summary ---
:1975 Author Organization [place] Address [address] [place] [address] Care Team Providers Name Role Phone Burak Reynolds MD Primary Care Provider Reason for Referral Office Workup No CT/MRI - Closed Specialty Diagnoses / Procedures Referred By Contact Refer red To Contact Diagnoses Atypical mole Burak Reynolds MD [facility] [phone] [place] [address] [place] [address] Phone: [phone] Fax: Referral ID Status Reason Start Date Expiration Date Visits Requ ested Visits Authorized [id number] Closed 02/01/2011 07/31/2011 1 1 Reason for Visit Reason Comments Physical pt will come fasting Pre Visit Planning - Done 01/31/11 HOSPITALIST PHYSICIAN Encounter Details Date Type Department Care Team Description 02/01/2011 Office Visit [facility] Burak Reynolds g eneral medical examination at a health care facility (Primary Dx); Clinic Emanuel Lee MD Chronic diarrhea; [address] [facility] [address] Need for drmgyrtgep-kjhcvhf-zgtakglpj (T dap) vaccine; [place], [place] CARDIOVASCULA R SCREENING; LDL GOAL LESS THAN 160; [id number] Atypical mole [phone] Social History Tobacco Use Types Packs/Day Years Used Date Passive Smoke Exposure - Never Smoker Cigarettes Smokeless Tobacco: Never Used Comments: weekends Alcohol Use Standard Drinks/Week Comments Yes 0 (1 standard drink = 0.6 oz pure alcoho l) Sex Assigned at Date Recorded Not on file documented as of this encounter Last Filed Vital Signs Vital Sign Reading Time Taken Comments Blood Pressure 128/82 02/01/2011 10:10 AM CDT Pulse 62 02/01/2011 10:10 AM CDT Temperature 36.9 ??C (98.5 ??F) 02/01/2011 10:10 AM CDT Respiratory Rate - - Oxygen Saturation 97% 02/01/2011 10:10 AM CDT Inhaled Oxygen Concentration - - Weight 79.4 kg (175 lb) 02/01/2011 10:10 AM CDT Height 180.3 cm (5' 11) 02/01/2011 10:10 AM CDT Body Mass Index 24.41 02/01/2011 10:10 AM CDT documented in this encounter Patient Instructions Patient InstructionsBurak Reynolds - 02/01/2011 10:42 AM CDT Routine Healthcare for Men Routine checkups can find treatable problems early. For many medical problems, early treatment can help prevent more serious problems. The value of checkups and how often you have them depend mainly onyour age. Your personal and family medical histories are also important. What needs to be checked and how often? The tests listed below are recommended for routine healthcare by the US Preventive Services Task Force (USPSTF) or the [place] [employer] (AAFP). They are the minimum checkup recommendations. Be sure to discuss with your healthcare provider how often you should have physical exams andhow often you need these or other tests. ?? Blood pressure measurement: every 2 years. ?? BMI: Body mass index to screen for overweight and obesity every year. ?? Cholesterol test: if you are age 45 or older. You may start having this test at an earlier age ifyou have a family history of high cholesterol. ?? Abdominal aortic aneurysm: if you are 65 years old and have ever smoked you should have an ultrasound of your abdomen. ?? Fasting blood sugar for type 2 diabetes: every 3 years if you are 45 years old or if your blood pressure, cholesterol, or weight are high or you have a family history of type 2 diabetes. ?? Colorectal cancer test: if you are 50 or older. Recommended tests include: ?? sigmoidoscopy every 5 years with a test for blood in the stool, called the fecal occult blood test (FOBT) or fecal immunochemical test (FIT) every three years. ?? Annual fecal occult blood test (FOBT) or fecal immunochemical test (FIT). ?? Colonoscopy every 10 years. You may need to start colorectal cancer screening earlier if someone in your immediate family has had colon cancer, especially if their cancer occurred before they were 50 years old. ?? Prostate cancer tests: The older way of looking for prostate cancer, the rectal exam, is no longer viewed as the best way to screen for prostate cancer. The PSA (prostate specific antigen) test is widely used to look for prostate cancer, but its use as a routine test is controversial. The test often gives misleading results and can cause undue anxiety, expense, and unnecessary medical procedures. The current recommendations are that men age 75 and older should not be screened for prostate cancer.Younger men should discuss the benefits and harms of the PSA test with their healthcare provider before being tested. ?? Hearing test: if you are 65 or older. ?? Vision test: if you are 65 or older. Remember, these are the minimum recommendations for routine tests. You and your healthcare provider must discuss what is right for you based on your symptoms and your personal and family medical history. Many other tests are often done at routine checkups, but there is no current evidence that they are helpful as routine screening tests for healthy men. Examples of such tests are a CBC (complete blood count) and urine tests. When you have no symptoms of illness, you should discuss the pros and cons ofthese and other tests with your healthcare provider. Each test involves some expense. What shots do I need? The following shots are recommended for adults: ?? Tetanus (Td) booster shot at least every 10 years. If you are under age 65, you should get the Tdap booster to protect you better against whooping cough (pertussis) as well as tetanus. If you are 65or older, this new vaccine has not yet been approved for your age. Because babies are most susceptible to complications from whooping cough, Tdap is especially recommended for adults caring for children, even if it has been less than 10 years since your last booster shot. ?? Flu shot every fall if you are 50 or older, you have a high risk for complications from the flu, you might spread the flu to others who are at high risk, or you just want to decrease your risk of getting the flu. ?? Measles, mumps, and rubella shot (MMR) if you were born after 1955 unless you have already had the shot or the diseases. Depending on when you received your measles shot, you may need a second one. Ask your healthcare provider. ?? Hepatitis A shot if you are at risk, for example, through travel or your job (including service) or if you have liver disease, use illegal drugs, have HIV, or are a man who has sex with men. ?? Hepatitis B shot for all teens and young adults, age 12 to 24 years, who have not had hepatitis or a hepatitis shot and for all adults who are at risk of infection. This includes, for example, men who have liver disease, have sex with other men, have more than 1 sex partner or whose partner has more than 1 partner, have a sexually transmitted infection, abuse IV drugs, or plan to travel where hepatitis B is common. ?? Pneumococcal pneumonia shot if you are age 65 or older. You may need the shot at a younger age ifyou have a high-risk medical condition, such as diabetes or lung, kidney, or heart disease. You may need a second pneumonia shot if you got your first shot when you were younger than 65 and it was morethan 5 years ago. ?? Varicella (chickenpox) if you have never had chickenpox. ?? Zoster (shingles) vaccine: if you are 60 or older, even if you have already had shingles. The vaccine does not always prevent shingles, but, if you have had the shot and then get shingles, it can reduce the pain caused by the infection. What other things I can do to stay healthy? You should expect your healthcare provider to advise you regularly on other ways to stay healthy. Some of these may include: ?? Substance use: Do not use tobacco or illegal drugs. Avoid using alcohol while driving, swimming, boating, etc. ?? Diet and exercise: Try to keep your weight at a comfortable, healthy level. Limit the fat and cholesterol in your diet. Eat a lot of whole grains, fruits, and vegetables. Get regular exercise. ?? Injury prevention: Use lap and shoulder belts when you drive. Use a helmet when you ride a motorcycle or bicycle. If you are around guns or other firearms, practice safe handling. Make sure to keep all firearms in locked cabinets when they are not in use. Install smoke detectors in your home. Set your hot water heater to less than 120??F (49??C). ?? Dental health: Visit your dentist regularly. [place] your teeth with fluoride toothpaste daily. Also floss your teeth daily. ?? Sexual behavior: Prevent sexually transmitted infections by avoiding high- risk sexual behavior. Use latex or polyurethane condoms every time you have sexual contact if you are not in a long-term relationship with just one partner who has no other partners. documented in this encounter Progress Yolanda Flores - 01/31/2011 2:57 PM CDT CC: Fabio Hodgson is an 35 year old male who presents for preventative health visit. Besides routine health maintenance, he would like to discuss intestinal parasites from [place] trip past winter. Had acute illness for a couple weeks at that time. Symptoms improved. Still having intermittent loose stools that he did not have previously. Healthy Habits: Do you get at least three servings of calcium containing foods daily (dairy, green leafy vegetables,etc.)? yes Outside of work or daily activities, how many days per week do you exercise for 30 minutes or longer? 3 Dietary Guidelines for Americans, 2010 USDA's MyPlate Estimated Body mass index is 24.41 kg/(m^2) as calculated from the following: Height as of this encounter: 5' 11(1.803 m). Weight as of this encounter: 175 lb(79.379 kg). Have you had an eye exam in the past two years? no Do you see a dentist twice per year? no Staff Signature Yolanda Turner PHQ-2 Over the last two weeks- Have you been bothered by little interest or pleasure in doing things? No Over the last two weeks- Have you been feeling down, depressed, or hopeless? No ABUSE: Current or Past(Physical, Sexual or Emotional)- No Do you feel safe in your environment - Yes History Substance Use Topics ??? Smoking status: Passive Smoker Types: Cigarettes ??? Smokeless tobacco: Never Used Comment: weekends ??? Alcohol Use: Yes The patient does not drink >3 drinks per day nor >7 drinks per week. Reviewed orders with patient. Reviewed health maintenance and updated orders accordingly - Yes Staff Signature Kevin Holland CMA All Histories reviewed and updated in [facility]. ROS: C: NEGATIVE for fever, chills, change in weight I: concern with mole on left cheek with crusting intermittently and changing mole E: NEGATIVE for vision changes or irritation ENT: NEGATIVE for ear, mouth and throat problems R: NEGATIVE for significant cough or SOB CV: NEGATIVE for chest pain, palpitations or peripheral edema GI: NEGATIVE for nausea, abdominal pain, heartburn, or change in bowel habits male: negative for dysuria, hematuria, decreased urinary stream, erectile dysfunction, urethral discharge M: NEGATIVE for significant arthralgias or myalgia N: NEGATIVE for weakness, dizziness or paresthesias P: NEGATIVE for changes in mood or affect OBJECTIVE: BP 128/82 Pulse 62 Temp(Src) 98.5 ??F (36.9 ??C) (Oral) Ht 5' 11 (1.803 m) Wt 175 lb (79.379 kg) BMI 24.41 kg/m2 SpO2 97% GENERAL APPEARANCE: health, alert and no distress EYES: Eyes grossly normal to inspection, PERRL and conjunctivae and sclerae normal HENT: ear canals and TM's normal, nose and mouth without ulcers or lesions, oropharynx clear and oral mucous membranes moist NECK: no adenopathy, no asymmetry, masses, or scars and thyroid normal to palpation RESP: lungs clear to auscultation - no rales, rhonchi or wheezes CV: regular rates and rhythm, normal S1 S2, no S3 or S4, no murmur, click or rub, no peripheral edema and peripheral pulses strong ABDOMEN: soft, nontender, no hepatosplenomegaly, no masses and bowel sounds normal (male): normal male genitalia without lesions or urethral discharge, no hernia RECTAL: deferred MS: no musculoskeletal defects are noted and gait is age appropriate without ataxia SKIN: left cheek with small irregularly shaped brown mole NEURO: Normal strength and tone, sensory exam grossly normal, mentation intact and speech normal PSYCH: mentation appears normal and affect normal/bright COUNSELING: regular exercise weight management healthy diet/nutrition ATP III Guidelines FRAX Risk Assessment ICSI Preventive Guidelines ASSESSMENT/PLAN: V70.0 Routine general medical examination at a health care facility (primary encounter diagnosis) Comment: Plan: 787.91H Chronic diarrhea Comment: Plan: Ova and parasites Concern with ongoing stool abnormality since [place] trip. V06.1L Need for yokhyttosj-wlrvnqq-rghmfxkdo (Tdap) vaccine Comment: Plan: TDAP (ADACEL AGES 11-64) V81.2LR CARDIOVASCULAR SCREENING; LDL GOAL LESS THAN 160 Comment: Plan: Lipid panel reflex to direct LDL 216.9GB Atypical mole Comment: Plan: DERMATOLOGY REFERRAL On face. documented in this encounter Nursing Notes 02/01/2011 10:15 AM CDT >> KEVIN HOLLAND Fri Feb 01, 2011 10:13 AM Patient presents with: Physical - pt will come fasting Pre Visit Planning - Done - 01/31/11 HOSPITALIST PHYSICIAN Initial BP 128/82 Pulse 62 Temp(Src) 98.5 ??F (36.9 ??C) (Oral) Ht 5' 11 (1.803 m) Wt 175 lb (79.379 kg) BMI 24.41 kg/m2 SpO2 97% Estimated Body mass index is 24.41 kg/(m^2) as calculated from the following: Height as of this encounter: 5' 11(1.803 m). Weight as of this encounter: 175 lb(79.379 kg).. BP completed using cuff size: large Kevin Holland MIXED ANIMAL VETERINARIAN documented in this encounter Plan of Treatment Not on filedocumented as of this encounter Procedures Procedure Name Priority Date/Time Associated Diagnosis Comme nts ADULT DERMATOLOGY Routine 03/01/2011 Atypical mole REFERRAL OVA AND PARASITES Routine 02/01/2011 4:57 Chronic diarrhea Res ults for this ([facility]) PM CDT procedure are i n the results section. LIPID REFLEX TO Routine 02/01/2011 10:48 CARDIOVASCULAR Result s for this DIRECT LDL PANEL AM CDT SCREENING; LDL GOAL proc edure are in LESS THAN 160 the results section. documented in this encounter Results DERMATOLOGY REFERRAL (03/01/2011) Narrative This result has an attachment that is no t available. Burak Reynolds MD REFERRAL Ova and parasites (02/01/2011 4:57 PM CDT) Component Value Ref Test Analysis Performed At [facility] gist Range Method Time Signature Specimen Feces KISMET Description [facility] Parasite Routine parasitology exam negative [facility] Routine Specimen received in preservative [facility] Micro Report FINAL [facility] Status 02/04/2011 [facility] Specimen Anatomical Collection Method Collection Time Receive d Time (Source) Location / / Volume Laterality Stool specimen 02/01/2011 4:57 PM 011 4:58 (specimen) CDT PM CDT Burak Reynolds MD LAB - MICRO GENERAL ORDERABL ES Performing Organization Address City/State/ZIP Code Phon e Number [address] CLINIC LAB [facility] Lipid panel reflex to direct LDL (02/01/2011 10:48 AM CDT) P athologist Signature [facility] 191 0 - 200 [facility] Comment: LDL Cholesterol is the primary guide to therapy. The NCEP recommends further evaluation of: patients with cholesterol greater than 200 mg/dL if additional risk facto rs are present, cholesterol greater than 240 mg/dL, triglycerides greater than 1 50 mg/dL, or HDL less than 40 mg/dL. Triglycerides 71 0 - 150 mg/dL [facility] HDL Cholesterol 74 40 - 110 mg/dL [facility] LDL Cholesterol Calculated 102 0 - 129 mg/dL [facility] Comment: LDL Cholesterol is the primary guide to therapy: LDL-cholesterol goal in high risk patients is <100 mg/dL and in very high risk patients is <70 mg/dL. VLDL-Cholesterol 14 0 - 30 mg/dL [facility] Cholesterol/HDL Ratio 2.6 0.0 - 5.0 [facility] Specimen Anatomical Collection Method Collection Time Receive d Time (Source) Location / / Volume Laterality Blood specimen 02/01/2011 10:48 1 (specimen) AM CDT 10:49 AM CDT Burak Reynolds MD LAB - BLOOD ORDERABLES Performing Organization Address City/State/ZIP Code Phon e Number [facility] [address] [address] [facility] documented in this encounter Visit Diagnoses Diagnosis Routine general medical examination at a health care facility - Primary Chronic diarrhea Diarrhea Need for melezztsxg-hasfhal-ztyevcfig (T dap) vaccine Need for prophylactic vaccination with c ombined kchwlyofkb-rownzmi-eusczkjxf (DTP) vaccine CARDIOVASCULAR SCREENING; LDL GOAL LESS THAN 160 Atypical mole Benign neoplasm of skin, site unspecifie d documented in this encounter Care Teams Corrugated Box 

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
--- OUTSIDE RECORDS SUMMARY | 2022-03-08 08:41 | XMS_ITS | Encounter Summary ---
:1975 Author Organization [facility] Address [address] [place] [address] Care Team Providers Name Role Phone Nadja Manjarrez MD Primary Care Provider Reason for Visit Reason Comments Dental Exam none Encounter Details Date Type Department Care Team Description 07/24/2021 Office Visit [facility] Prisca Davis [facility] Dental Exam (none) Dentistry [id number] [facility] [address] [place], [place] [address] [phone] (Wo rk) Social History Tobacco Use Types [...] Taken Comments Blood Pressure - - Pulse 81 07/24/2021 10:10 AM [employer] Temperature - - Respiratory Rate - - Oxygen Saturation - - Inhaled Oxygen Concentration - - Weight - - Height - - Body Mass Index - - documented in this encounter Patient Instructions Patient InstructionsSvetlana Davis [facility] - 07/24/2021 10:10 AM CST Your next hygiene recall is due 07/24/2022 YOUR PERSONAL DENTAL RISK REPORT CARIES (TOOTH [...] or pipes. How to Reduce Your Risk: Congratulations on quitting tobacco. This can have a positive impact on risk for periodontal (gum) disease. Risk Level: ELEVATED Risk Factors: Incidence of oral cancer increases with age. Use of tobacco. How to Reduce Your Risk: Congratulations on quitting tobacco. This can have a positive impact on risk for oral cancer. Fabio, we look forward to seeing you at your next visit! Thank you for choosing [facility]. [employer] documented in this encounter Progress Notes Sirena Lockwood DDS - 07/24/2021 10:10 AM CST HYGIENE PROPHY NOTE COLLABORATIVE AGREEMENT: The patient consents to have charting, radiographs and prophylaxis by the dental hygienist performed with the understanding that this care is not a substitute for an examination by a dentist. These activities were performed under a collaborating agreement with Meaghan Bey DDS (License #: [id number]) PROCEDURAL PAUSE: Patient identity verified: Yes Treatment plan/site verified with the patient: Yes Instruments/equipment verified: Yes Any medication/allergy contraindications: No PRESENTATION: Oral Hygiene: Fair Plaque: Generalized, light supra-gingival and sub-gingival Calculus: Localized, moderate supra-gingival , sub-gingival and mandibular anterior and Generalized,light supra-gingival and sub-gingival Stain: None Bleeding: Generalized light Gingival tissue: Inflamed and Edematous Mucogingival concerns: Present recession ACTIVITIES: Hand scale, Essential selective polishing and Flossed all contacts PATIENT EDUCATION: Caries risk, Periodontal risk, Oral cancer risk, OHI and Fluoride rinse NEXT PLANNED HYGIENE VISIT: Hygiene Prophy with exam Svetlana Davis RDH 07/24/2021, 10:42 AM --End of Note-- [employer] Sirena Lockwood DDS - 07/24/2021 10:10 AM CST RECALL EXAM NOTE REASON FOR VISIT/CHIEF COMPLAINT: Fabio is a 46 y.o. male who presents for Dental Exam (none) CHART REVIEW: Reviewed with patient: Medical history, [...] 12 months : Recall prophy: 12 months Recession #24 and recession, and wear, Pt not using Prevident and using Sensodyne Next Planned Visit: recall Sirena Lockwood DDS 07/24/2021, 10:39 AM --End of Note-- [employer] documented in this encounter Plan of Treatment Scheduled Orders Name Type Priority Associated Order Schedule Diagnoses PROPHYLAXIS-ADULT Dental Procedures Routine 1 Occ urrences RECALL starting 2021 PERIODIC ORAL Dental Procedures Routine 1 Occurre nces EVALUATION starting 2021 [id number] Dental Procedures Routine 1 Oc currences starting 2021 TOPICAL FLUORIDE Dental Procedures Routine 1 Occu rrences VARNISH starting 2021 documented as of this encounter Procedures Procedure Name Priority Date/Time Associated Diagnosis Comme nts [id number] Routine 07/24/2021 10:10 AM Localized gingi edy [employer] recession PERIODIC ORAL Routine 07/24/2021 10:10 AM Localized gingival EVALUATION [employer] WORK recession PROPHYLAXIS-ADULT Routine 07/24/2021 10:10 AM Localized gingiv al RECALL [employer] WORK recession documented in this encounter Visit Diagnoses Diagnosis Localized gingival recession - Primary Gingival recession, localized documented in this encounter Care 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
--- OUTSIDE RECORDS SUMMARY | 2022-03-08 08:41 | XMS_ITS | Encounter Summary ---
:1975 Author Organization [facility] Address [address] [place] [address]. [place] [address] Care Team Providers Name Role Phone Burak Reynolds MD Primary Care Provider Reason for Visit Reason Onset Date Comments Outreach 10/21/2012 Reattribution Encounter Details Date Type Department Care Team Description 10/21/2012 Telephone [facility] Burak Reynolds, Out[facility] Emanuel PENALOZA (Reattribution) [id number] [place] [id number] [place] [phone] Social History Tobacco Use Types Packs/Day Years Used Date Passive Smoke Exposure - Never Smoker Cigarettes Smokeless Tobacco: Never Used Comments: weekends Alcohol Use Standard Drinks/Week Comments Yes 0 (1 standard drink = 0.6 oz pure alcoho l) Sex Assigned at Date Recorded Not on file documented as of this encounter Miscellaneous Notes Telephone Encounter - Laura Buchanan - 10/21/2012 10:04 AM CDT 10/21/2012 Call Regarding ReattributionPhysical Attempt 1 Message reached pt Comments: Pt states is no longer a [facility] pt documented in this encounter Plan of Treatment Not on filedocumented as of this encounter Visit Diagnoses Not on filedocumented in this encounter 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
--- OUTSIDE RECORDS SUMMARY | 2022-03-08 08:41 | XMS_ITS | Encounter Summary ---
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 orbits. 4. There is incomplete bony covering of the anterior medial wall of the anterior cranial fossa. As a conservative measure further evaluation with contrast- enhanced MRI is suggested. 5. Paranasal sinus mucosal thickening as noted with dependent air-fluid level right maxillary sinus compatible with active sinus disease. Findings were discussed with Dr. Thao at 1:58 AM. Chad Thao MD IMG CT ORDERABLES Creatinine POCT (06/13/2019 11:41 PM PSYCHOLOGIST MILITARY PERSONNEL) athologist Signature Creatinine 1.0 0.66 - 06/13/2019 POINT OF CARE 1.25 mg/dL 11:45 PM PSYCHOLOGIST MILITARY PERSONNEL TEST, HANDHELD METER GFR Estimate 82 >60 06/13/2019 POINT OF CARE mL/min/{1. 11:45 PM PSYCHOLOGIST MILITARY PERSONNEL TEST, HANDHELD 73_m2} METER GFR Estimate If >90 >60 06/13/2019 POINT OF CARE Black mL/min/{1. 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) Unspecified osteomyelitis, other specifi ed site Acute sinusitis, recurrence not specifie d, unspecified location documented in this encounter Administered Medications Inactive Administered Medications - up to 3 most recent administrations Medication Order MAR Action Action Date Dose Rate Site ampicillin-sulbactam (UNASYN) 3 g New Bag 06/14/2019 4:42 AM PSYCHOLOGIST MILITARY PERSONNEL 3 g vial to attach to NS 100 mL bag STAT, 3 g, Intravenous, ONCE, On 06/14/19 at 0303, For 1 dose, Indications: Skin and Soft Tissue Infection iopamidol (ISOVUE-370) solution 500 mL Given 06/13/2019 11:59 PM PSYCHOLOGIST MILITARY PERSONNEL 50 mLs 500 mL, Intravenous, ONCE, On 06/13/19 at 2359, For 1 dose ketorolac (TORADOL) injection 10 mg Given 06/14/2019 12:08 AM PSYCHOLOGIST MILITARY PERSONNEL 10 mg 10 mg, Intravenous, ONCE, On 06/13/19 at 2317, For 1 dose, Can cause pain on injection. If ordered intravenously (IV) : administer through a running maintenance fluid over 1 minute followed by a flush. If patient complains of pain on injection, may dilute 15-30 mg in 5 mL and push over 1 to 2 minutes. lidocaine (LMX4) cream Topical, EVERY 1 HOUR PRN, pain, with VA D insertion or accessing implanted port., Starting on 06/13/19 at 2312, Do NOT give if patient has a history of allergy to any local anesthetic or any nba p roduct. Apply at least 30 minutes prior to VAD insertion or port access. In divided doses as need ed for size of site for insertion with MAX Dose: 2.5 g (?? of 5 g tube) lidocaine 1 % 0.1-1 mL 0.1-1 mL, Other, EVERY 1 HOUR PRN, mild pain with VAD insertion., Starting on 06/13/19 at 2312, Do NOT give if patient has a history of allergy to any local anesthetic or any nba product. MAX dose 1 mL subcu taneous OR intradermal in divided doses as needed for VAD insertion. sodium chloride (PF) 0.9% PF flush 3 mL 3 mL, Intracatheter, EVERY 1 MIN PRN, li ne flush, for peripheral IV flush post IV meds, Starting on 06/13/19 at 2312 sodium chloride (PF) 0.9% PF flush 3 mL 3 mL, Intracatheter, EVERY 8 HOURS, First dose on 06/13/19 at 2314, And Q1H PRN, to lock peripheral IV dormant line. sodium chloride 0.9 % bag 100mL for CT scan Given 05/30 11:59 PM PSYCHOLOGIST MILITARY PERSONNEL 25 mLs flush use Intravenous, 100 mL, ONCE, On Dun[place] 06/13/19 at 2359, For 1 dose, This entry is for use by Radiology to intermittently used as a flush in patients receiving a CT scan. documented in this encounter Active and Recently Administered Medications Times are shown in PSYCHOLOGIST MILITARY PERSONNEL. Scheduled Medication Order 06/12/2019 06/13/2019 06/14/2019 ampicillin-sulbactam (UNASYN) 3 g vial to attach to NS 100 mL ba g 0442 (New Bag - Provider: Carey Krueger RN) STAT, 3 g, Intravenous, ONCE, Mon at 0303, For 1 dose, Indications: Skin and Soft Tissue Infection gadobutrol (GADAVIST) injection 7.5 mL 0409 (Not Given - Provider: Sinai Flowers - Reason: Other) 7.5 mL, Intravenous, ONCE, 06/14/19 at 0359, For 1 dose iopamidol (ISOVUE-370) solution 500 mL (COMPLETED) 2358 (Given - Provider: Anita Leiva) 500 mL, Intravenous, ONCE, [place] 06/13/19 at 2359, For 1 dose ketorolac (TORADOL) injection 10 mg (COMPLETED) 0008 (Given - Provider: Angelica Durham RN) 10 mg, Intravenous, ONCE, Dunbar 06/13/19 a t 2317, For 1 dose, Can cause pain on injection. If ordered intravenously (IV) : administer through a running maintenance fluid over 1 minute followed by a flush. If patient complains of pain on injecti on, may dilute 15-30 mg in 5 mL and push over 1 to 2 minutes. sodium chloride (PF) 0.9% PF flush 3 mL 2314 (Canceled Entry - Provider: Orders Generic Provider - Comment: Automatically canceled at discontinue of medication order) 3 mL, Intracatheter, EVERY 8 HOURS, Firs t dose on 06/13/19 at 2314, And Q1H PRN, to lock peripheral IV dormant line. sodium chloride 0.9 % bag 100mL for CT scan flush use (COMPL ETED) 2358 (Given - Provider: Anita Leiva) Intravenous, 100 mL, ONCE, [place] 06/13/19 at 2359, For 1 dose, This entry is for use by Radiology to intermittently used as a flush in patients receiving a CT scan. PRN Medication Order 06/12/2019 06/13/2019 06/14/2019 lidocaine (LMX4) cream Topical, EVERY 1 HOUR PRN, pain, with VA D insertion or accessing implanted port., Starting 06/13/19 at 2312, Do NOT give if patient has a history of allergy to any local anesthetic or any nba pr oduct. Apply at least 30 minutes prior t o VAD insertion or port access. In divided doses as needed for size of site for insertion with MAX Dose: 2.5 g (?? of 5 g tube) lidocaine 1 % 0.1-1 mL 0.1-1 mL, Other, EVERY 1 HOUR PRN, mild pain with VAD insertion., Starting 06/13/19 at 2312, Do NOT give if patient has a history of allergy to any local anesthetic or any nba product. MAX dose 1 mL subcutaneous OR intradermal in divided doses as needed for VAD insertion. sodium chloride (PF) 0.9% PF flush 3 mL 3 mL, Intracatheter, EVERY 1 MIN PRN, li ne flush, for peripheral IV flush post IV meds, Starting 06/13/19 at 2312 documented in this encounter Care Teams Polisher Balance Screwhead Relationship Specialty Start Date End Date No Ref-Primary, Physician PCP - General 06/13/19 09/09/19 documented as of this encounter
--- OUTSIDE RECORDS SUMMARY | 2022-03-08 08:41 | XMS_ITS | Continuity of Care Document ---
:1975 Author Organization [facility] Address [address] [place] [address] Care Team Providers Name Role Phone [facility] Unavailable Unavailable Procedures Procedure Date NEEDLE LOCALIZATION BY XRAY DRAIN/INJECT, JOINT/BURSA Without Ultrasound Advance Directives Directive Yes / No Effective Date File Name No Information Encounters Encounter Practice Location Reason(s) Diagnoses Date Provider Provide rs Description For Visit Copied on Encounter [facility] Provider: Surgery Surgery Surgery [facility]. [place], [address] [facility] [address] [facility] [place], [place], [place], [id number], [place], [address]. [id number], tel:[phone]. [phone] tel:[phone] Family History Family Member Type Diagnosis Age At Onset No Information Payers Payer name Insurance type Covered green party ID Authorization(s ) [employer] [id number] Social History Type Description Quantity Date Captured Comments Sex Male Smoking Status No Information Chief Complaint And Reason For Visit No Information Reason For Referral Reason For Referral No Information Plan Of Treatment Date Type Action Status No Information History Of Present Illness Encounter Date Complaint History Of Present I llness No Information Functional Status Date Functional Assessment No Information Instructions Date Instruction Additional Informati on No Information Assessments Type Assessment Date No Information Patient Care Teams Name Effective Dates (start - stop) Status M embers No Information
--- OUTSIDE RECORDS SUMMARY | 2022-03-08 08:42 | XMS_ITS | Encounter Summary ---
:1975 Author Organization [employer] Address [address] [place] [address] Care Team Providers Name Role Phone Nadja Manjarrez MD Primary Care Provider Reason for Visit Reason Comments Dental Conversion [facility] to [place] convers ion Encounter Details Date Type Department Care Team Description 12/05/2016 Dental Conversion [facility] [facility] Sirena [facility], [facility] [address] [address] [place], [place] [phone] [address] Social History Tobacco Use Types Packs/Day Years Used Date Smoking Tobacco: Former Cigarettes Quit : 03/30/2015 Smokeless Tobacco: Never Comments: 4-5 cigs/month Alcohol Use Standard Drinks/Week Comments Yes 2.5 (1 standard drink = 0.6 oz pure alco hol) Sex Assigned at Date Recorded Not on file documented as of this encounter Discharge Summaries Interface, In Edr Dental Conversion - 08/23/2013 12:00 AM CST EDR dismissed Clerical Popup Note, entered 08/23/2013: sign tx est--all forms TE SENSING RESEARCH SCIENTIST documented in this encounter Miscellaneous Notes Miscellaneous - Interface, In Edr Dental Conversion - 04/05/2016 12:00 AM CDT 04/05/2016: Online Appt Request: LM for pt to call to sched Miscellaneous - Interface, In Edr Dental Conversion - 01/26/2015 12:00 AM CDT 01/26/2015: Schedule Mgmt Call #2: offered tomorow at 7:10 unable to come in Miscellaneous - Interface, In Edr Dental Conversion - 11/28/2014 12:00 AM CDT 11/28/2014: Schedule Mgmt Call #1: lm about today Miscellaneous - Interface, In Edr Dental Conversion - 08/30/2013 12:00 AM REMOTE SENSING RESEARCH SCIENTIST 08/30/2013: Specialty Referral [facility] 1155am TE SENSING RESEARCH SCIENTIST documented in this encounter Plan of Treatment Not on filedocumented as of this encounter Visit Diagnoses Not on filedocumented in this encounter Care Teams Automation Design Engineer Relationship Specialty Start Date End Date Nadja Manjarrez MD PCP - General Family Practice 08/20/11 [address] [place] [address] documented as of this encounter
--- OUTSIDE RECORDS SUMMARY | 2022-03-08 08:42 | XMS_ITS | Encounter Summary ---
:1975 Author Organization [facility] Address [address], [place] [address] Care Team Providers Name Role Phone Nadja Manjarrez MD Primary Care Provider Reason for Referral Consult/Transfer Care (Routine) - Closed Specialty Diagnoses / Procedures Referred By Contact Refer red To Contact Diagnoses Chronic bilateral low back pain with right-sided sciatica (HRC) SI (sacroiliac) joint dysfunction (HRC) Janina Wu APRN, CNP [address] [place], [place] [address] Referral ID Status Reason Start Date Expiration Date Visits Requ ested Visits Authorized [id number] Closed 07/15/2017 10/14/2018 1 1 Scheduling Instructions Your provider has recommended an appoint ment with [facility] Spine [facility]. You may call [phone] to sc hedule your appointment. If you prefer, a scheduler conveyor will contact you within the nj xt 3 business days to assist you in setting up this appointment. CIL INSPECTOR Reason for Visit Reason Comments BACK PAIN, LOW ongoing for months, but gett ing worse HIP PAIN REFERRAL REQUEST for spine clinic Encounter Details Date Type Department Care Team Description 07/15/2017 Office Visit [facility] Janina Wu Ch ronic bilateral low back pain with right-sided sciatica (Primary Dx); Practice [facility]HA[facility] P[facility]ERS SI (sacroiliac) joint dysfunction [id number] [facility] [address] [place] [address] Social History Tobacco Use Types Packs/Day Years Used Date Smoking Tobacco: Former Cigarettes Quit : 03/30/2015 Smokeless Tobacco: Never Comments: 4-5 cigs/month Alcohol Use Standard Drinks/Week Comments Yes 2 (1 standard drink = 0.6 oz pure alcoho l) Sex Assigned at Date Recorded Not on file documented as of this encounter Last Filed Vital Signs Vital Sign Reading Time Taken Comments Blood Pressure 134/84 07/15/2017 4:07 PM STENCIL INSPECTOR Pulse 82 07/15/2017 4:07 PM STENCIL INSPECTOR Temperature - - Respiratory Rate 16 07/15/2017 4:07 PM STENCIL INSPECTOR Oxygen Saturation - - Inhaled Oxygen Concentration - - Weight - - Height - - Body Mass Index - - documented in this encounter Patient Instructions Patient InstructionsJanina Wu APRN, MICHAEL - 07/15/2017 4:00 PM STENCIL INSPECTOR Images from the original note were not included. Ibuprofen 3-4 tabs (600-800 mg) every 6-8 hours for inflammation. norco for severe pain Flexeril 1 tab up to 3 times a day. Sacroiliac Pain: Exercises Your Care Instructions Here are some examples of typical rehabilitation exercises for your condition. Start each exercise slowly. Ease off the exercise if you start to have pain. Your doctor or physical therapist will tell you when you can start these exercises and which ones will work best for you. How to do the exercises Wtey-ie-tinsw stretch Do not do the twym-ky-lzcxj exercise if it causes or increases back or leg pain. 1. Lie on your back with your knees bent and your feet flat on the floor. You can put a small pillowunder your head and neck if it is more comfortable. 2. Grasp your hands under one knee and bring the knee to your chest, keeping the other foot flat on the floor. 3. Keep your lower back pressed to the floor. Hold for at least 15 to 30 seconds. 4. Relax and lower the knee to the starting position. Repeat with the other leg. 5. Repeat 2 to 4 times with each leg. 6. To get more stretch, keep your other leg flat on the floor while pulling your knee to your chest. Bridging 1. Lie on your back with both knees bent. Your knees should be bent about 90 degrees. 2. Tighten your belly muscles by pulling in your belly button toward your spine. Then push your feetinto the floor, squeeze your buttocks, and lift your hips off the floor until your shoulders, hips, and knees are all in a straight line. 3. Hold for about 6 seconds as you continue to breathe normally, and then slowly lower your hips back down to the floor and rest for up to 10 seconds. 4. Repeat 8 to 12 times. Hip extension 1. Get down on your hands and knees on the floor. 2. Keeping your back and neck straight, lift one leg straight out behind you. When you lift your leg, keep your hips level. Don't let your back twist, and don't let your hip drop toward the floor. 3. Hold for 6 seconds. Repeat 8 to 12 times with each leg. 4. If you feel steady and strong when you do this exercise, you can make it more difficult. To do this, when you lift your leg, also lift the opposite arm straight out in front of you. For example, lift the left leg and the right arm at the same time. (This is sometimes called the bird dog exercise.) Hold for 6 seconds, and repeat 8 to 12 times on each side. Clamshell 1. Lie on your side with a pillow under your head. Keep your feet and knees together and your knees bent. 2. Raise your top knee, but keep your feet together. Do not let your hips roll back. Your legs should open up like a clamshell. 3. Hold for 6 seconds. 4. Slowly lower your knee back down. Rest for 10 seconds. 5. Repeat 8 to 12 times. 6. Switch to your other side and repeat steps 1 through 5. Hamstring wall stretch 1. Lie on your back in a doorway, with one leg through the open door. 2. Slide your affected leg up the wall to straighten your knee. You should feel a gentle stretch down the back of your leg. ?? Do not arch your back. ?? Do not bend either knee. ?? Keep one heel touching the floor and the other heel touching the wall. Do not point your toes. 3. Hold the stretch for at least 1 minute to begin. Then try to lengthen the time you hold the stretch to as long as 6 minutes. 4. Switch legs, and repeat steps 1 through 3. 5. Repeat 2 to 4 times. If you do not have a place to do this exercise in a doorway, there is another way to do it: 1. Lie on your back, and bend one knee. 2. Loop a towel under the ball and toes of that foot, and hold the ends of the towel in your hands. 3. Straighten your knee, and slowly pull back on the towel. You should feel a gentle stretch down the back of your leg. 4. Switch legs, and repeat steps 1 through 3. 5. Repeat 2 to 4 times. Lower abdominal strengthening 1. Lie on your back with your knees bent and your feet flat on the floor. 2. Tighten your belly muscles by pulling your belly button in toward your spine. 3. Lift one foot off the floor and bring your knee toward your chest, so that your knee is straight above your hip and your leg is bent like the letter L. 4. Lift the other knee up to the same position. 5. Lower one leg at a time to the starting position. 6. Keep alternating legs until you have lifted each leg 8 to 12 times. 7. Be sure to keep your belly muscles tight and your back still as you are moving your legs. Be sureto breathe normally. Piriformis stretch 1. Lie on your back with your legs straight. 2. Lift your affected leg, and bend your knee. With your opposite hand, reach across your body, and then gently pull your knee toward your opposite shoulder. 3. Hold the stretch for 15 to 30 seconds. 4. Switch legs and repeat steps 1 through 3. 5. Repeat 2 to 4 times. Follow-up care is a duff part of your treatment and safety. Be sure to make and go to all appointments, and call your doctor if you are having problems. It's also a good idea to know your test results and keep a list of the medicines you take. Where can you learn more? 1. Go to [employer] or [employer]. 2. Enter T635 in the search box. Current as of: September 17, 2016 Content Version: 11.3 ?? [id number] [employer] CIL INSPECTOR documented in this encounter Progress Notes Janina Wu APRN, CNP - 07/15/2017 4:00 PM CST Historical: Chief Complaint Patient presents with ??? BACK PAIN, LOW ongoing for months, but getting worse ??? HIP PAIN ??? REFERRAL REQUEST for spine clinic Band-like Low Back Pain, Follow-up visit: (going into rt hip) How long have you had these symptoms: 6 month(s) Since your last visit has your pain: worsened and how frequent is your pain: Constant How severe is your pain (1-10): 7 and does your pain keep you awake at night? YES What have you tried for pain: Chiropractor: Relief: YES Ice: Relief: No Medications: Advil/Ibuprofen: Relief: YES Rest Relief: YES Do you have radiating pain: YES, into rt hip Since our last visit has the radiating pain become: worse Do you have weakness? No Do you have limited Range of Motion: YES Since your last visit has your Range of Motion:worse Does this limit work or activities? YES Have you had any recent bowel or bladder changes? No Pt has history of fusion. He notes he has some low grade chronic pain and gets flares a couple timesa year. 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 This flare started 8 days ago and despite hisusual treatments it is not resolving like usual and feels different this time. Pain is worse; he really only gets relief laying flat. He gets sciatica into the right upper thigh. No numbness or tingling, no loss of control of bowels or bladder. He is also getting shooting pain up his right back to about the mid thoracic region. He does personal training at the gym; sees a chiropractor on a regular bases, does stretches regularily. Bending forward is difficult and painful, can not get far and has to sit down to get socks on; resuming upright position is also painful. Complete Review of Systems is negative, unless noted in HPI I have personally reviewed the patient's allergies, medications and past medical history in detail and updated the patient record as necessary. Observed: BP 134/84 Pulse 82 Resp 16 Physical Exam: General Appearance: alert, well appearing, in no apparent distress and restless Musculoskeletal: Back, can only bend about 4 inches forward before pain; further back exam deferred today secondary to level of pain Neurolgic: normal speech, no facial droop, alert and oriented x 3 and cranial nerves 2 -12 intact Psychiatric: affect/mood normal, cooperative, normal judgement/insight and memory intact Assessment/Plan: Chronic bilateral low back pain with right-sided sciatica (HRC) - SPINE - MEDICAL CONSULT - HYDROcodone-acetaminophen (NORCO) 5-325 MG tablet; One tab qhs as needed for pain - cyclobenzaprine (FLEXERIL) 10 MG tablet; Take 1 Tab by mouth three times a day as needed for Muscle Spasms for up to 10 days. SI (sacroiliac) joint dysfunction (HRC) - SPINE - MEDICAL CONSULT - HYDROcodone-acetaminophen (NORCO) 5-325 MG tablet; One tab qhs as needed for pain - cyclobenzaprine (FLEXERIL) 10 MG tablet; Take 1 Tab by mouth three times a day as needed for Muscle Spasms for up to 10 days. Please see orders and patient instructions Janina Wu APRN, MICHAEL CIL INSPECTOR documented in this encounter Plan of Treatment Scheduled Referrals Name Type Priority Associated Diagnoses [facility] - MEDICAL Referral Routine Chronic bilateral low Ord ered: 07/15/2017 CONSULT back pain with right-sided scia margarito SI (sacroiliac) joint dysfunction documented as of this encounter Visit Diagnoses Diagnosis Chronic bilateral low back pain with rig ht-sided sciatica (HRC) - Primary SI (sacroiliac) joint dysfunction (HRC) Disorders of sacrum documented in this encounter Care Teams Programming Director Relationship Specialty Start Date End Date Nadja Manjarrez MD PCP - General Family Practice 08/20/11 [address] [place] [address] documented as of this encounter
--- OUTSIDE RECORDS SUMMARY | 2022-03-08 08:42 | XMS_ITS | Encounter Summary ---
:1975 Author Organization [facility] Address [address] [place] [address] Care Team Providers Name Role Phone Nadja Manjarrez MD Primary Care Provider Encounter Details Date Type Department Care Team Description 06/24/2018 Lab Visit [facility]; [address] [facility] Routine screening for STI (s exually transmitted infection) [place], [place] [address] Social History Tobacco Use Types Packs/Day Years Used Date Smoking Tobacco: Some Days Cigarettes L ast attempted to quit: 03/30/2015 Smokeless Tobacco: Never Comments: 4-5 cigs/month Alcohol Use Standard Drinks/Week Comments Yes 2 (1 standard drink = 0.6 oz pure alcoho l) Sex Assigned at Date Recorded Not on file documented as of this encounter Plan of Treatment Not on filedocumented as of this encounter Procedures Procedure Name Priority Date/Time Associated Diagnosis Comme nts HIV 1/2 AG/AB 4TH Routine 06/24/2018 8:31 AM Routine screening Results for this GEN SPECIFICATION WRITER for STI (sexually procedure are in transmitted the results infection) section. CHLAMYDIA & GC, Routine 06/24/2018 8:31 AM Routine screening R esults for this URINE (15 YEARS AND SPECIFICATION WRITER for STI (sexually pro cedure are in OLDER) transmitted the results infection) section. HEPATITIS C Routine 06/24/2018 8:31 AM Routine screening Resu lts for this ANTIBODY, WITH SPECIFICATION WRITER for STI (sexually procedur e are in REFLEX transmitted the results infection) section. HBSAG (HEPATITIS B Routine 06/24/2018 8:31 AM Routine screenin g Results for this SURFACE AG) SPECIFICATION WRITER for STI (sexually procedure are in transmitted the results infection) section. UA MICRO IF Waiting 06/24/2018 8:01 AM Dysuria Results f or this SPECIFICATION WRITER procedure are i n the results section. UA MICRO Waiting 06/24/2018 8:01 AM Results f or this SPECIFICATION WRITER procedure are i n the results section. documented in this encounter Results Chlamydia & GC, Urine (06/24/2018 8:31 AM SPECIFICATION WRITER) [facility] Method Time Signature C.trachomatis Negative NEG [facility] , Urine LABORATORIES Comment: Test Performed by Chief Operating Officer Mediated Amplification N. Gonorrhea, Urine Negative NEG [facility] Comment: Test Performed by Chief Operating Officer Mediated Amplification Specimen Anatomical Collection Method Collection Time Receive d Time (Source) Location / / Volume Laterality 06/24/2018 8:31 AM 8 8:33 SPECIFICATION WRITER AM SPECIFICATION WRITER Narrative [facility] - 06/24/2018 6:[address] Performed at [address] ??[id number] Mary Ribeiro APRN, CNP LAB_1 Performing Organization Address City/[facility]/ZIP Code Phon e Number [facility] [phone] Hepatitis C Antibody, with Reflex (06/24/2018 8:31 AM SPECIFICATION WRITER) [facility] Method [place] Signature Anti-HCV Negative (Non NEGNR [facility] Reactive) LABORATORIES Comment: Antibodies to HCV not detected. Does not exclude the possibility of exposure to HCV. Specimen Anatomical Collection Method Collection Time Receive d Time (Source) Location / / Volume Laterality 06/24/2018 8:31 AM 8 8:33 SPECIFICATION WRITER AM SPECIFICATION WRITER Narrative [facility] - 06/24/2018 12:01 PM SPECIFICATION WRITER Performed at [address] ??[id number] Mary Ribeiro APRN, LEASE ADMINISTRATION ANALYST LAB_1 Performing Organization Address City/[facility]/ZIP [facility] Phon e Number [facility] [phone] HBsAg (Hepatitis B Surface Antigen) (06/24/2018 8:31 AM SPECIFICATION WRITER) [facility] Method Time Signature HBsAg Negative (Non NEGNR [facility] Reactive) LABORATORIES Specimen Anatomical Collection Method Collection Time Receive d Time (Source) Location / / Volume Laterality 06/24/2018 8:31 AM 8 8:33 SPECIFICATION WRITER AM SPECIFICATION WRITER Narrative [facility] - 06/24/2018 12:14 PM SPECIFICATION WRITER Performed at [address] ??[id number] Mary Ribeiro APRN, MICHAEL LAB_1 Performing Organization Address [facility] Code Phon e Number [facility] [phone] HIV 1/2 Ag/Ab 4th Generation (06/24/2018 8:31 AM SPECIFICATION WRITER) [facility] gist Method Time Signature HIV 1/2 AG/AB Negative NEGNR [facility] 4thGEN (Non LABORATORIES Reactive) Comment: HIV-1 p24 Ag and HIV-1/HIV-2 Ab not detected. Specimen Anatomical Collection Method Collection Time Receive d Time (Source) Location / / Volume Laterality 06/24/2018 8:31 AM 8 8:33 SPECIFICATION WRITER AM SPECIFICATION WRITER Narrative [facility] - 06/24/2018 12:02 PM SPECIFICATION WRITER Performed at [address] ??[id number] Mary Ribeiro APRN, CNP LAB_1 Performing Organization Address [facility] Code Phon e Number [facility] [phone] UA MICRO (06/24/2018 8:01 AM SPECIFICATION WRITER) P athologist Signature RBC'S 0-3 0 - 3 /hpf [facility] WBC'S 0-2 0 - 5 /hpf [facility] Epith, Occ /hpf [facility] Bact Occ [facility] Casts 0 /lpf [facility] Specimen Anatomical Collection Method Collection Time Receive d Time (Source) Location / / Volume Laterality 06/24/2018 8:01 AM 8 8:03 SPECIFICATION WRITER AM SPECIFICATION WRITER Narrative [facility] - 06/24/2018 8:[address] Performed at [facility], [address] [facility], [place] [address] Mary Ribeiro APRN, MICHAEL LAB_1 Performing Organization Address City/[facility]/ZIP Code Phon e Number [facility] [phone] (ABNORMAL) UA Micro If (06/24/2018 8:01 AM SPECIFICATION WRITER) [facility] gist Method Time Signature Urine Color Yellow [facility] Urine Clarity Clear [facility] Sp Gr 1.020 1.005 - [facility] 1.030 LAB[facility]IES Leuk Sml (A) NEG [facility] Nitr Negative NEG [facility] pH 6.0 4.5 - 8.0 [facility] Prot Negative NEG mg/dl [facility] Gluc Negative NEG [facility] Ket Negative NEG [facility] Urob 0.2 0.2 - 1.0 [facility] EU/dl LABORATORIES Bili Negative NEG [facility] Blood Neg/Tr NEGTR [facility] Specimen Anatomical Collection Method Collection Time Receive d Time (Source) Location / / Volume Laterality 06/24/2018 8:01 AM 8 8:03 SPECIFICATION WRITER AM SPECIFICATION WRITER Narrative [facility] - 06/24/2018 8:[address] Performed at [facility], [address] [place] [address] Mary Ribeiro APRN, CNP LAB_1 Performing Organization Address City/State/ZIP Code Phon e Number [facility] [phone] documented in this encounter Visit Diagnoses Diagnosis Dysuria Routine screening for STI (sexually harmon smitted infection) Screening examination for venereal disea se documented in this encounter Care Teams Tool Profiling Machine Set Up Operator Relationship Specialty Start Date End Date Nadja Manjarrez MD PCP - General Family Practice 08/20/11 [address] [place] [address] documented as of this encounter
--- OUTSIDE RECORDS SUMMARY | 2022-03-08 08:42 | XMS_ITS | Encounter Summary ---
:1975 [facility] Address [address] [address] Care Team Providers Name Role Phone Nadja Manjarrez MD Primary Care Provider Encounter Details Date Type Department Care Team Description 07/20/2018 shu Miner [phone] Social History Tobacco Use Types Packs/Day Years Used Date Smoking Tobacco: Some Days Cigarettes L ast attempted to quit: 03/30/2015 Smokeless Tobacco: Never Comments: 4-5 cigs/month Alcohol Use Standard Drinks/Week Comments Yes 2 (1 standard drink = 0.6 oz pure alcoho l) Sex Assigned at Date Recorded Not on file documented as of this encounter Progress Notes FAMILY MEDICINESHU PROVIDER - 07/20/2018 12:00 AM CST shu Treatment Plan Diagnosis Viral Sinusitis Visit Date July 20, 2018 Fabio keyters Date of : 77 Provider Rebeka Mccarthy, Physician Guitar Maker Hand Note From Provider Andres Mccarthy, thank you for using Sh[facility]. The prepared treatment plan I have done for you will have you feeling better soon. Please request a callback if you have further concerns or questions. Have a great night. Connor OLIVAREZ Treatment Plan Let???s get you feeling better in the next 24 hours by using a prescription nasal steroid and an effective blend of amxe-uax-[id number] products to kick this viral infection. We???ll work to reduce your pain and inflammation, help drain that irritating mucus and prevent this from worsening. Because this infection is caused by a virus, an antibiotic won???t be effective at helping your pain or treating the virus. I sent your nasal steroid prescription to [facility] . This medication is also available [id number], so you may want to check with your pharmacy to see which option is more cost-friendly. If your symptoms don???t improve after 24 hours, or if you have questions, select Help to Request a Call Back and we???ll adjust your treatment for free. Order(s) Flonase Allergy Relief 50 mcg/actuation spray,suspension [place] 2 spray into both nostrils once a day as needed for 30 days Note: Start with 2 sprays in both nostrils daily for 1 week, then 1-2 sprays daily. Refills: 11 Sent To: [facility] [address] [place] [address] Treatment Plan Self Care Tip Topics Inflammation Relief with Ibuprofen Relieve Facial Pressure with Nasal Steroids How to Take Your Nasal Steroid Cough Expectorant Cough Suppressant Ear Pain Irrigate Your Sinuses What to Expect Let???s work on reducing your pain and inflammation, as well as promoting drainage, to help kick theviral infection and get you feeling more like yourself. Follow the recommendations on the Treatment tab and your symptoms should begin to improve over the next 24 hours. If your symptoms haven???t impro alf after 1 day, select Help to Request a Callback and we???ll adjust your treatment for free. What to Watch Out For Give us a call immediately if you experience: ??? Vision changes ??? Redness occurring in the face ??? Increasing congestion ??? Worsening pain ??? High fevers My Conditions, Orders, Allergies as of July 20, 2018 Standard condition list None Current orders Flonase Allergy Relief (fluticasone) Wellbutrin XL (bupropion HCl) Allergies None [facility] Information [email or web address] We are an online clinic open 20/01. If you have any questions or comments about this visit, please call or email [email or web address] TRIC SEALING MACHINE OPERATOR documented in this encounter Plan of Treatment Not on filedocumented as of this encounter Visit Diagnoses Not on filedocumented in this encounter Care Teams Assistance Specialist Relationship Specialty Start Date End Date Nadja Manjarrez MD PCP - General Family Practice 08/20/11 [address] [place] [address] documented as of this encounter
--- OUTSIDE RECORDS SUMMARY | 2022-03-08 08:42 | XMS_ITS | Encounter Summary ---
:1975 Author Organization [facility] Address [address], [place] [address] Care Team Providers Name Role Phone Nadja Manjarrez MD Primary Care Provider Reason for Visit Reason Comments CONGESTION COUGH Encounter Details Date Type Department Care Team Description 03/19/2018 Office Visit [facility] Milan Swanson Up er respiratory tract infection, unspecified type (Primary Dx); Practice Fred Cunningham, Fear of flying; [address] [facility] Seasonal affective disorder (HRC) [place], [place] [address] [id number] [facility] [phone] [place], [place] [address] Social History Tobacco Use Types Packs/Day Years [...] Sign Reading Time Taken Comments Blood Pressure 113/87 03/19/2018 8:58 AM CDT Pulse 76 03/19/2018 8:58 AM CDT Temperature 36.6 ??C (97.9 ??F) 03/19/2018 8:58 AM CDT Respiratory Rate 18 03/19/2018 8:58 AM CDT Oxygen Saturation - - Inhaled Oxygen Concentration - - Weight 84.8 kg (187 lb) 03/19/2018 8:58 AM CDT Height - - Body Mass Index 26.08 02/27/2016 3:30 PM CDT documented in this encounter Progress Notes Milan Swanson MD - 03/19/2018 9:10 AM CDT Historical: Chief Complaint Patient presents with ??? CONGESTION ??? COUGH Cold/Cough/Flu/Sinus/Sore Throat How long have you had these symptoms? 1 day(s) What cold symptoms are you experiencing?Cough Are you experiencing any wheezing? YES Do you have any new chest pain or shortness of breath? No Are you coughing up any mucus? YES Do you have a history of asthma? No Nose/Sinus/Ear Do you have a runny nose? YES Are you sneezing? YES Are you experiencing any nasal congestion? YES Are you experiencing any headaches?YES Do you have any facial or dental pain? YES Do you have any ear pain? YES Do you have any eye itching or irritation? No Have you had a history of sinus infections? No Have you had a fever? No Have you had any nausea/vomiting/diarrhea? No Are there any treatments you have tried? No Patient is coming in due to concerns of cough and colds. According to the patient, this has been ongoing for the last 24 hours. States that this is getting worse. Denies any episodes of wheezing, chestpain, shortness breath. Denies any myalgias. He is just looking to take a cold medication. Concern #2- seasonal affective disorder. States that he often has episodes of depression and brain fog in the wintertime. States that he is always been a outdoors person states that wintertime to tough for him and his overall mood. He had been on preprogram on in the past and did well while on the medication. Feels episodes of anhedonia currently. He is also having difficulty with falling asleep and decreasedappetite. Denies any thoughts of suicide. Concern #3-fair flying. Has a history of this. Takes Ativan 0.5 mg as needed especially on long flights. He is planning to go to [place] and [facility] this winter and is nervous about flying. He does not take Ativan on a regular basis. Otherwise, has no other subjective complaints. I have personally reviewed the patient's allergies, medications and past medical history in detail and updated the patient record as necessary. Observed: BP 113/87 Pulse 76 Temp 97.9 ??F (36.6 ??C) (Oral) Resp 18 Wt 187 lb (84.8 kg) BMI 26.08 kg/m2 Physical Exam: Gen Appearance: Alert, Cooperative, with average build. Face: No tenderness to palpation along the frontal or maxillary sinuses. Ears: No pain on pulling of the tragus. Canals appear normal. TMs are pearly white. Nose: Clear nasal discharge. Turbinates appear normal. Throat: No enlarged tonsils. Moist mucous membranes. Chest/Respiratory: No pain to palpation. Clear to auscultation bilaterally. Negative wheezing or crackles. Cardiovascular: Normal Rate and Rhythm. Normal S1/S2. No murmurs, rubs, or gallops appreciated. Abdomen: Soft. Non-tender. Normoactive bowel sounds. Extremities: Full Range of Motion in all extremities. Pedal pulses 2+. Psychiatric: Alert. Oriented x2. Normal mood and affect. Denies other visual hallucinations. Denies suicidal or homicidal ideation. PHQ-9 03/19/2018 PHQ-9 Score Total 10 Q1: Loss of Int/Pleas + Q2: Depressed mood + Q3: Sleep problems + Q4: Tired/Low Energy ++ Q5: Appetite change + Q6: Feelings of failure + Q7: Concentration Prob + Q8: Slow or Restless ++ Q9: Thought Self Harm - Date PHQ9 was completed 03/19/2018 RITA-7 Feeling nervous Can't stop worrying Worrying too much Trouble relaxing Restlessness Easily annoyed Feeling afraid How difficult? Total score Assessment/Plan: 1. Upper respiratory tract infection, unspecified type 2. Fear of flying (HRC) 3. Seasonal affective disorder (HRC) discussed with the patient that he can increase his oral fluid intake and take or use ibuprofen/Tylenol as needed for pain/fever. Did give him a prescription for Mucinex to help with his congestion. Jamey going to restart his bupropion due to his seasonal affective disorder. His PHQ9 is elevated today. We will also refill his lorazepam to be used as needed for his fear of flying. Suggest a follow up in 3-4 weeks.. Please see orders and patient instructions Milan Swanson MD This note created using speech-recognition software and may contain unintended word substitutions. documented in this encounter Plan of Treatment Not on filedocumented as of this encounter Visit Diagnoses Diagnosis Upper respiratory tract infection, unspe cified type - Primary Fear of flying (HRC) Other isolated or specific phobias Seasonal affective disorder (HRC) Other specified episodic mood disorder documented in this encounter Care Teams Adult Secondary Education Instructor Relationship Specialty Start Date End Date Nadja Manjarrez MD PCP - General Family Practice 08/20/11 [address] [place] [address] documented as of this encounter
--- OUTSIDE RECORDS SUMMARY | 2022-03-08 08:42 | XMS_ITS | Encounter Summary ---
:1975 Author [facility] Address [address] [address] Care Team Providers Name Role Phone Nadja Manjarrez MD Primary Care Provider Reason for Visit Reason Comments Refill traZODone (DESYREL) 50 MG ta blet [Pharmacy Med Name: TRAZODONE 50 MG TABLET] Encounter Details Date Type Department Care Team Description 07/16/2017 Refill [facility] Nadja Manjarrez MD Refill (traZODone Practice [address] (DESYREL) 50 MG tablet [address] [place], [place] [Pharmacy Med Name: [place], [place] [address] TRAZODONE 50 MG TABLET]) [phone] (Wo rk) Social History Tobacco Use Types Packs/Day Years Used Date Smoking Tobacco: Former Cigarettes Quit : 03/30/2015 Smokeless Tobacco: Never Comments: 4-5 cigs/month Alcohol Use Standard Drinks/Week Comments Yes 2 (1 standard drink = 0.6 oz pure alcoho l) Sex Assigned at Date Recorded Not on file documented as of this encounter Nursing Notes Anahi Rowan - 07/24/2017 2:43 PM CST Patient calling back and patient will call later to schedule. IALTY MOLDER Anahi Rowan - 07/24/2017 2:37 PM CST Left message to call back. IALTY MOLDER Nadja Manjarrez MD - 07/18/2017 12:34 PM CST Refill x one. Patient is due for clinic visit prior to further refills. Nadja Manjarrez MD 07/18/2017, 12:35 PM IALTY MOLDER Jaelyn Garces RN - 07/18/2017 9:06 AM CST Further Assistance Needed on Refill from Clinician RN reviewed. Signed order needed. Previous medication order has . The most recent order on 06/26/2017 Review pended order for accuracy. Sign if appropriate. Document if appointment is needed for furtherrefills. Route to care team to notify patient if needed. Jaelyn Garces RN 07/18/2017, 9:07 AM IALTY MOLDER Interface, Out Surescripts Prov Query - 07/16/2017 2:00 AM CST traZODone (DESYREL) 50 MG tablet [Pharmacy Med Name: TRAZODONE 50 MG TABLET] Antidepressants and Antianxiety -> The most recent order on 06/26/2017. -> Refill x 12 months (until due for an office visit) -> Calculate quantity and refills manually. They could not be estimated due to missing or unreadable information. Last qualifying visit: 07/15/2017 (in Family Practice) Next scheduled visit: None Last ordered by NADJA MANJARREZ: 06/26/2016 (385 days ago) QTY: 30, Refills: 11, Sig: take 1 tab by mouth at bedtime as needed for sleep. (unchanged) Age: 42 Powered by [employer], Reference: [id number], 07/16/2017 2:00:13 AM SPECIALTY MOLDER, Pool: ALANIZ RN ([id number]) IALTY MOLDER documented in this encounter Plan of Treatment Not on filedocumented as of this encounter Visit Diagnoses Not on filedocumented in this encounter Care Teams Spot Washer Relationship Specialty Start Date End Date Nadja Manjarrez MD PCP - General Family Practice 08/20/11 [address] [place] [address] documented as of this encounter
--- OUTSIDE RECORDS SUMMARY | 2022-03-08 08:42 | XMS_ITS | Encounter Summary ---
:1975 Author Organization [facility] Address [address], [place] [address] Care Team Providers Name Role Phone Nadja Manjarrez MD Primary Care Provider Reason for Visit Reason Comments Other has a sore area in the back of his throat that is swollen Encounter Details Date Type Department Care Team Description 10/13/2018 Telephone [facility] Sirena Lockwood O ther (has a sore area Dentistry DDS in the back of his [address] throat that is swollen) [place], [place] [address] [place], [place] [phone] (Wo rk) Social History Tobacco Use Types Packs/Day Years Used Date Smoking Tobacco: Some Days Cigarettes L ast attempted to quit: 03/30/2015 Smokeless Tobacco: Never Comments: 4-5 cigs/month Alcohol Use Standard Drinks/Week Comments Yes 2 (1 standard drink = 0.6 oz pure alcoho l) Sex Assigned at Date Recorded Not on file documented as of this encounter Nursing Notes Mildred Arriaza - 10/13/2018 4:15 PM CDT [facility] he declined the appt Mildred Arriaza - 10/13/2018 9:58 AM CDT EMERGENCY/PROBLEM FOCUS PRIOR VISIT QUESTIONNAIRE 1. Have you ever been seen in our office before? [] No [x] Yes Last Seen: [x] Less than 5 years [] 5 years or more Comments: 2. What is causing your problem? [] Accident [] Lost Amish [] Broken Tooth [] Chipped Tooth [] Toothache Location: [] Upper Left [] Lower Left [] Upper Front [] Lower Front [] Upper Right [] Lower Right Comments: 1 month ago he Noticed that the back of his tongue and the start of his throat area --his taste buds are inflamed and swollen--he takes nothing for pain.he is now FFS and he is concerned wanted to see a DDS 3. What kind of discomfort are you in? [] No Discomfort [] Awake Last Night [] Radiating Pain [] Throbbing Pain Comments: 4. When does the discomfort occur? [] Cold Sensitive [] Constantly [] Pressure Sensitive [] Hot Sensitive [] Occasionally [] Other (fill in comments) Comments: 5. How long has the degree of discomfort lasted? [] Longer Duration [] Other (enter duration in comments) Comments: Are you experiencing any other signs or symptoms? [] Bleeding/Oozing [] Fever [] Other (list other signs/symptoms in comments) Comments: Are you taking medications for this problem? [] No [] Yes (list meds in comments) Comments: 6. Have you been advised to take antibiotics prior to dental treatment? [] No [] Yes Comments: documented in this encounter Plan of Treatment Not on filedocumented as of this encounter Visit Diagnoses Not on filedocumented in this encounter Care Teams Rn Relief Charge Relationship Specialty Start Date End Date Nadja Manjarrez MD PCP - General Family Practice 08/20/11 [address] [place] [address] documented as of this encounter
--- OUTSIDE RECORDS SUMMARY | 2022-03-08 08:42 | XMS_ITS | Encounter Summary ---
:1975 Author [facility] Address [address], [place] [address] Care Team Providers Name Role Phone Nadja Manjarrez MD Primary Care Provider Encounter Details Date Type Department Care Team Description 06/13/2016 Scanned History External to Transferred Record, [facility] Provider Social History Tobacco Use Types Packs/Day Years [...] on filedocumented in this encounter Care Teams Associate Agent Insurance Sales Relationship Specialty Start Date End Date Nadja Manjarrez MD PCP - General Family Practice 08/20/11 [address] [place] [address] documented as of this encounter
--- OUTSIDE RECORDS SUMMARY | 2022-03-08 08:42 | XMS_ITS | Encounter Summary ---
:1975 Author Organization [facility] Address [address], [place] [address] Care Team Providers Name Role Phone Nadja Manjarrez MD Primary Care Provider Reason for Visit Reason Comments CONSULT globus, throat pain Consult/Transfer Care (Routine) - Closed Specialty Diagnoses / Procedures Referred By Contact Refer red To Contact Diagnoses Hand, foot, mouth disease Robert Posadas PA-C [address] [place], [place] [address] Referral ID Status Reason Start Date Expiration Date Visits Requ ested Visits Authorized [id number] Closed 10/13/2018 01/12/2020 1 1 Encounter Details Date Type Department Care Team Description 10/16/2018 Initial Consult Rj Palmer, Marty Stanley us sensation Nose, and Throat SHER Ibarra (HRC) (Primary Dx) [id number] [address] [facility] [phone] [place], [place] [address] Social History Tobacco Use Types Packs/Day Years Used Date Smoking Tobacco: Some Days Cigarettes L ast attempted to quit: 03/30/2015 Smokeless Tobacco: Never Comments: 4-5 cigs/month Alcohol Use Standard Drinks/Week Comments Yes 2 (1 standard drink = 0.6 oz pure alcoho l) Sex Assigned at Date Recorded Not on file documented as of this encounter Patient Instructions Patient InstructionsLanMarty morton PA-C - 10/16/2018 9:30 AM CDT Marty Stanley PA-C Practice Locations: Nurse: Claire [phone] [facility] [address] [facility] - [address] [facility] [address] Appointment [phone] [place] [address] [place] [facility] [address] Please take 20 mg Prilosec 30 min before your evening meal every day for one month. Laryngopharyngeal Reflux (LPR or Silent Reflux) What is Reflux? When we eat something, the food reaches the stomach by traveling down a muscular tube called the esophagus. Once the food reaches the stomach, the stomach adds acid and pepsin (a digestive enzyme) so that the food can be digested. The esophagus has two sphincters (bands of muscle fibers that close off the tube) that help keep the contents of the stomach where they belong. One sphincter is at the topof the esophagus (at the junction with the upper throat) and one is at the bottom of the esophagus (at the junction with the stomach). The term REFLUX means a ???backward return or flow,?? and it usually refers to the backward flow of stomach contents up through the sphincters and into the esophagus or throat. What is GERD and what is LPRD? Some people have an abnormal amount of reflux of stomach acid up through the lower sphincter and into the esophagus. This is referred to as GERD or Gastroesophageal Reflux Disease. If the reflux makesit all the way up through the sphincter and into the back of the throat it is called LPR or Laryngoph aryngeal Reflux. The structures in the throat (pharynx, larynx and trachea) are much more sensitive to stomach acid and digestive enzymes, so smaller amounts of reflux into the area can result in more damage. Why Don???t I have heartburn or stomach problems? This is a question that is often asked by patients with LPR. The fact is that very few patients with LPR experience significant heartburn. Heartburn occurs when the tissue in the esophagus becomes irritated. Most of the reflux events that can damage the throat happen without the patient ever knowing that they are occurring. Common Symptoms of LPR: ??? Hoarseness ??? Dry Throat ??? Chronic (ongoing) cough ??? Asthma-like Symptoms ??? Frequent throat clearing ??? Referred ear pain ??? Burning, pain or sensation in throat ??? Post nasal drip ??? Lump in the throat feeling ??? Singing: Difficulty with high notes, difficulty with soft notes, delayed onsets or decreased clarity ??? Problems while swallowing ??? Bad/bitter taste in mouth (harriett. in morning) Behavioral Strategies: 1. Stress: Take significant steps to reduce stress! Make time in your schedule to do activities thatlower your stress level. Even moderate stress can dramatically increase the amount of reflux. 2. Smoking: If you smoke, STOP! The dramatically causes reflux and many other evils to your body! 3. Tight clothing: Avoid tight belts and other restrictive clothing. 4. Body Weight: Being overweight can dramatically increase reflux. Try to maintain a healthy body weight. 5. Exercise: Exercise regularly. However, avoid exercising immediately after eating. Do not lift heavy things after eating. Sit-ups and abdominal crunches can put pressure on your lower esophageal sphincter and worsen reflux. 6. Nighttime Reflux: Elevating the head of the bed... Do not prop the body up with extra pillows. The may increase reflux by kinking the stomach. Your entire torso must be elevated from the hips up. Doelevate the head of your bed 4-6 inches with books, bricks, or boards to achieve a 10 degree slant. Or, purchase a foam wedge that is made specifically for this purpose. 7. Foods: You should pay close attention to how your system reacts to various foods. Each person will discover which foods cause an increase in reflux. The following foods have been shown to cause reflux in many people. It may be necessary to avoid or minimize some of the following foods: a. Spicy, acidic and tomato-based foods like Stateless or Burkinan food. b. Acidic fruit juices such as orange juice, grapefruit juice, cranberry juice etc. c. Fast foods and other high fat foods. d. Caffeinated beverages (coffee, tea, soft drinks) and chocolate. e. Alcohol, peppermint, nuts. f. Carbonated beverages. g. Limit dairy product consumption, especially late at night. Dairy products digest slowly, which encourages acid reflux. 8. Mealtime: a. Don???t gorge yourself at mealtime. b. Eat sensibly (moderate amount of foods) c. Eat meals several hours before bedtime. d. Avoid bedtime snacks. e. Drink at least six 8 ounce glasses of water each day, but do not drink too much before bedtime. f. If you do eat a spicy meal (e.g. pizza, tacos), don???t have alcohol or caffeine with it. Instead, drink water. g. Learn to moderate the foods that may cause reflux. You don???t have to give up ice cream forever,but if you have had heartburn all day, don???t have a bowl of ice cream just before you go to bed! Learn what your body can and cannot handle. Laryngopharyngeal Reflux (LPR or Silent Reflux) What is Reflux? When we eat something, the food reaches the stomach by traveling down a muscular tube called the esophagus. Once the food reaches the stomach, the stomach adds acid and pepsin (a digestive enzyme) so that the food can be digested. The esophagus has two sphincters (bands of muscle fibers that close off the tube) that help keep the contents of the stomach where they belong. One sphincter is at the topof the esophagus (at the junction with the upper throat) and one is at the bottom of the esophagus (at the junction with the stomach). The term REFLUX means a ???backward return or flow,?? and it usually refers to the backward flow of stomach contents up through the sphincters and into the esophagus or throat. What is GERD and what is LPRD? Some people have an abnormal amount of reflux of stomach acid up through the lower sphincter and into the esophagus. This is referred to as GERD or Gastroesophageal Reflux Disease. If the reflux makesit all the way up through the sphincter and into the back of the throat it is called LPR or Laryngoph aryngeal Reflux. The structures in the throat (pharynx, larynx and trachea) are much more sensitive to stomach acid and digestive enzymes, so smaller amounts of reflux into the area can result in more damage. Why Don???t I have heartburn or stomach problems? This is a question that is often asked by patients with LPR. The fact is that very few patients with LPR experience significant heartburn. Heartburn occurs when the tissue in the esophagus becomes irritated. Most of the reflux events that can damage the throat happen without the patient ever knowing that they are occurring. Common Symptoms of LPR: ??? Hoarseness ??? Dry Throat ??? Chronic (ongoing) cough ??? Asthma-like Symptoms ??? Frequent throat clearing ??? Referred ear pain ??? Burning, pain or sensation in throat ??? Post nasal drip ??? Lump in the throat feeling ??? Singing: Difficulty with high notes, difficulty with soft notes, delayed onsets or decreased clarity ??? Problems while swallowing ??? Bad/bitter taste in mouth (harriett. in morning) Behavioral Strategies: 9. Stress: Take significant steps to reduce stress! Make time in your schedule to do activities thatlower your stress level. Even moderate stress can dramatically increase the amount of reflux. 10. Smoking: If you smoke, STOP! The dramatically causes reflux and many other evils to your body! 11. Tight clothing: Avoid tight belts and other restrictive clothing. 12. Body Weight: Being overweight can dramatically increase reflux. Try to maintain a healthy body weight. 13. Exercise: Exercise regularly. However, avoid exercising immediately after eating. Do not lift heavy things after eating. Sit-ups and abdominal crunches can put pressure on your lower esophageal sphincter and worsen reflux. 14. Nighttime Reflux: Elevating the head of the bed... Do not prop the body up with extra pillows. The may increase reflux by kinking the stomach. Your entire torso must be elevated from the hips up. Do elevate the head of your bed 4-6 inches with books, bricks, or boards to achieve a 10 degree slant.Or, purchase a foam wedge that is made specifically for this purpose. 15. Foods: You should pay close attention to how your system reacts to various foods. Each person will discover which foods cause an increase in reflux. The following foods have been shown to cause reflux in many people. It may be necessary to avoid or minimize some of the following foods: a. Spicy, acidic and tomato-based foods like Stateless or Burkinan food. b. Acidic fruit juices such as orange juice, grapefruit juice, cranberry juice etc. c. Fast foods and other high fat foods. d. Caffeinated beverages (coffee, tea, soft drinks) and chocolate. e. Alcohol, peppermint, nuts. f. Carbonated beverages. g. Limit dairy product consumption, especially late at night. Dairy products digest slowly, which encourages acid reflux. 16. Mealtime: a. Don???t gorge yourself at mealtime. b. Eat sensibly (moderate amount of foods) c. Eat meals several hours before bedtime. d. Avoid bedtime snacks. e. Drink at least six 8 ounce glasses of water each day, but do not drink too much before bedtime. f. If you do eat a spicy meal (e.g. pizza, tacos), don???t have alcohol or caffeine with it. Instead, drink water. g. Learn to moderate the foods that may cause reflux. You don???t have to give up ice cream forever,but if you have had heartburn all day, don???t have a bowl of ice cream just before you go to bed! Learn what your body can and cannot handle. documented in this encounter Progress Notes Marty Stanley PA-C - 10/16/2018 9:30 AM CDT SUBJECTIVE: Fabio Hodgson is a very pleasant 43 y.o. male who presents for about a one month history of the sensation of lump to the back of his tongue as well as a lump sensation in his throat. He reports that since he is returned from [place], he is noticed that he is been doing more throat clearing, he has hadsome hoarseness, and he feels like he needs to do a double swallow to pass food through his esophagus. He admits to eating spicy or foods, drinking more alcohol that he normally would, draping, and smoking cigars on history. He does have a history of on and off again tobacco use, is not currently using. He denies any night sweats, unplanned weight loss, or unexplained fevers. He denies any recent illnesses. He has not been feeling any heartburn, but has had heartburn in the past. He denies any current nasal congestion. He was placed on prednisone at one point, and feels like this may be helped, but did not notice a significant change in his symptoms. He has not had any problems with food actually getting stuck when he swallows or with choking. Patient Active Problem List Diagnosis ??? Chronic low back pain ([facility]C) ??? Fear of flying ([facility]C) ??? Other musculoskeletal symptoms referable to limbs(309.85) ??? Corneal rust ring of right eye ??? Family history of colon cancer ??? Hand dysfunction ??? Folliculitis ??? SI (sacroiliac) joint dysfunction (HRC) Outpatient Medications Prior to Visit Medication Sig Note Dispense Refill ??? buPROPion (WELLBUTRIN SR) 150 MG 12 hour release tablet Take 1 Tablet by mouth two times a day. (Patient not taking: Reported on 10/16/2018) 60 Tablet 3 ??? LORazepam (ATIVAN) 0.5 MG tablet Take one tablet 30 minutes to one hour prior to travel (Patientnot taking: Reported on 10/16/2018) 09/10/2018: For travel 10 Tablet 0 ??? Multiple Vitamins-Iron (MULTIVITAMIN/IRON OR) ??? omega-3 fatty acids (MAXEPA,FISHOIL) 1000 MG capsule Take 2 g by mouth daily. ??? predniSONE (DELTASONE) 20 MG tablet Take 2 Tablets by mouth daily for 7 days. (Patient not taking: Reported on 10/16/2018) 14 Tablet 0 ??? traZODone (DESYREL) 50 MG tablet Take 1 Tablet by mouth at bedtime as needed. 30 Tablet 11 ??? varenicline (CHANTIX) 1 MG tablet Take 1 Tablet by mouth two times a day. Take after eating witha full glass of water.NOTE:Dispense as maintenance for refills only. 180 Tablet 0 ? ? Varenicline Tartrate (CHANTIXPAK) 0.5 MG X 11 & 1 MG X 42 tablet 1 wk before you stop smoking take 0.5mg daily on days 1-3, 0.5mg 2 times each day on days 4- 7, then 1mg 2 times daily 53 Tablet 0 No facility-administered medications prior to visit. No Known Allergies OBJECTIVE: GENERAL APPEARANCE: Pleasant, cooperative, no distress. HEAD AND FACE: Facies symmetric, no obvious lesions. CRANIAL NERVES: Grossly intact and symmetric. EARS: External ears normal. Normal, patent ear canals bilaterally. TM and ear canals are normal bilaterally. NOSE: External pyramid midline. Septum midline. Mucosa normal. No purulence, polyps, or crusts. ORAL CAVITY/OROPHARYNX: No mucosal lesions, masses, or pharyngeal asymmetry. I palpated the back of the tongue, where he was feeling bumps, and feel circumvallate papillae, which is normal. Tonsils areabsent. NECK: No cervical adenopathy. No palpable salivary gland mass or enlargement. THYROID: No significant thyroid abnormality by palpation. PAROTIDS: Normal to palpation. No mass, lesions or evidence of obstruction. Procedure: Diagnostic Laryngoscopy As a separate procedure Flexible Fiberoptic Laryngoscopy was performed after obtaining verbal consent. Topical intranasal anesthesia was provided with phenylephrine and lidocaine spray. The flexible laryngoscope was passed through the nasal cavity into the pharynx to visualize the larynx. Findings: ?? Nasopharynx & Fossa of [place]: Clear, pink mucosa. Eustachian openings normal. ?? Oropharynx: No significant discharge, lesions, or masses. ?? Epiglottis: [place], normal. ?? Vallecula & Piriforms: Clear. No pooling of secretion or masses. ?? Arytenoids: [place], moist, clear. ?? False vocal cords: [place], moist, clear. ?? True vocal cords: No erythema, edema, lesions, nodules, or polyps. ?? VC Motion: Symmetrical. ?? Subglottis: Clear of masses or abnormal mucosa. ?? Additional findings: None The patient tolerated the procedure well and there were no complications. IMPRESSION: Globus sensation PLAN: The lumps on the back of his tongue are consistent with circumvallate papillae, which is normal on this area of the tongue. Regarding his globus sensation, I suspect that this may be LPR-related in regards to his recent trip, which included increased alcohol, food, and cigar intake. I recommend avoiding these triggers as well as other triggers that can worsen reflux, which we discussed in detail, Jocelyn provided him a handout about other possible triggers, as well as a 1 month trial of Prilosec. He was encouraged to follow-up in one month if his symptoms do not resolve, and to call with any questions or concerns. He was also encouraged to increase water intake, to elevate the head of bed, and to avoid eating before lying flat. documented in this encounter Plan of Treatment Not on filedocumented as of this encounter Visit Diagnoses Diagnosis Globus sensation - Primary Gastrointestinal malfunction arising fro m mental factors documented in this encounter Care Teams Signs And Displays Sales Representative Relationship Specialty Start Date End Date Nadja Manjarrez MD PCP - General Family Practice 08/20/11 [address] [place] [address] documented as of this encounter
--- OUTSIDE RECORDS SUMMARY | 2022-03-08 08:42 | XMS_ITS | Encounter Summary ---
:1975 Author Organization [facility] Address [address] [place] [address] Care Team Providers Name Role Phone Nadja Manjarrez MD Primary Care Provider Reason for Visit Reason Comments Dental Hygiene cc none Encounter Details Date Type Department Care Team Description 05/22/2018 Office Visit [facility] Lenora Negrete, Ivan lady Hygiene (cc Dentistry [facility] none) [id number] [place] [phone] Social History Tobacco Use Types Packs/Day Years Used Date Smoking Tobacco: Some Days Cigarettes L ast attempted to quit: 03/30/2015 Smokeless Tobacco: Never Comments: 4-5 cigs/month Alcohol Use Standard Drinks/Week Comments Yes 2 (1 standard drink = 0.6 oz pure alcoho l) Sex Assigned at Date Recorded Not on file documented as of this encounter Patient Instructions Patient InstructionsSLenora rios, [facility] - 05/22/2018 7:10 AM CST Your next recall is due: 05/22/2019 PERSONAL DENTAL RISK REPORT FOR FABIO HOFFMAN Caries (Tooth Decay) Risk Periodontal (Gum Disease) Risk Oral Cancer Risk Your Risk Level Low High Moderate Low X This exam Your Risk Level Moderate High Moderate X Low This exam Your Risk Level Elevated Elevated X Low This exam Your Risk Factors How To Reduce Your Risk Your Risk Factors Have had a diagnosis of gum disease; with or without past treatment Use of tobacco; cigarettes/ cigars/pipe T*096,,,1: How To Reduce Your Risk Oral hygiene instruction by a dental cardiac care unit nurse. Specific information about what causes periodontal disease and what steps can be taken to help control it. Your Risk Factors Use of tobacco; either smoking or smokeless How To Reduce Your Risk Regular dental visits to assess soft tissue. CONGRATULATIONS. The results of your dental risk assessment indicate you are at low risk for tooth decay. Making healthy life style choices including brushing twice a day; daily flossing and healthy dietary choices should help you maintain this low risk. Fabio, we look forward to seeing you at your next visit! Thank you for choosing [facility]. ENTIALING COORDINATOR documented in this encounter Progress Notes Sirena Lockwood DDS - 05/22/2018 7:10 AM CST RECALL EXAM NOTE Fabio was seen today for No chief complaint on file. CHART REVIEW Reviewed (health history, dental history, periodontal charting and radiographs) with the patient. SOFT TISSUE, HEAD AND NECK EXAM Lips: normal Tongue: normal Palate: normal Throat: normal Floor of the mouth: normal Mucosa: normal Head and neck: normal TMD EVALUATION Palpation pain: none Joint sounds: none Pain with range of motion: none OCCLUSAL EXAMINATION Angle relationship: Right molar: class III Right cuspid: class I Left molar: class III Left cuspid:class I Maxillary midline: wnl Mandibular midline: wnl Overbite: 2 mm Overjet: 2 mm Crossbite: none Space loss: none Crowding: not evident Occlusion: all teeth Attrition: normal Erosion: absent Overall occlusal relationship: stable COSMETIC CONCERNS Patient's perception was acceptable. Dentist???s perception was acceptable. TREATMENT REVIEW AND FOLLOW-UP Discussed the dental findings, prognosis and treatment options with the patient and they expressed understanding. All questions were answered and informed consent was obtained. Recommended Recall Examination recommended in 6 months. Recall prophy recommended in 6 months. Planned Recall Examination planned in 12 months Recall prophy planned in 12 months Discussed Abfractions Class II molar occlusion and adv a private security guard for Clenching , Adv using sensitive tooth paste. Next planned visit is recall Sirena Lockwood DDS 05/22/2018, 7:50 AM Completed dental procedures in this visit There are no completed dental procedures in this visit. --End of Note-- ENTIALING COORDINATOR Lenora Negrete RDH - 05/22/2018 7:10 AM CST HYGIENE PROPHY NOTE COLLABORATIVE AGREEMENT Patient consents to have charting, radiographs and prophylaxis by the dental hygienist performed with the understanding that this care is not a substitute for an examination by a dentist. PRESENTATION Oral Hygiene: normal Plaque: localized; moderate; supra-gingival , sub-gingival, interproximal, mandibular anterior and posterior buccal Calculus:localized; moderate; supra-gingival , sub-gingival, interproximal, mandibular anterior and posterior buccal Stain: none Bleeding: generalized; light Gingival tissue: inflamed and edematous Mucogingival concerns: absent ACTIVITIES Treatment included OHI, hand scale, essential selective polishing and flossed all contacts. PATIENT EDUCATION Discussion topics included OHI and smoking cessation. Next planned recall visit is: recall prophy with exam Lenora Negrete 05/22/2018, 7:56 AM Completed dental procedures in this visit There are no completed dental procedures in this visit. --End of Note-- ENTIALING COORDINATOR documented in this encounter Plan of Treatment Not on filedocumented as of this encounter Procedures Procedure Name Priority Date/Time Associated Diagnosis Comme nts [id number] Routine 05/22/2018 7:10 AM Routine health CREDENTIALING COORDINATOR maintenance TOPICAL FLUORIDE Routine 05/22/2018 7:10 AM Routine health VARNISH CREDENTIALING COORDINATOR maintenance PERIODIC ORAL Routine 05/22/2018 7:10 AM Routine health EVALUATION CREDENTIALING COORDINATOR maintenance PROPHYLAXIS-ADULT Routine 05/22/2018 7:10 AM Routine health RECALL CREDENTIALING COORDINATOR maintenance documented in this encounter Visit Diagnoses Diagnosis Routine health maintenance - Primary Routine general medical examination at a health care facility documented in this encounter Care Teams Knife Glazer Relationship Specialty Start Date End Date Nadja Manjarrez MD PCP - General Family Practice 08/20/11 [address] [place] [address] documented as of this encounter
--- OUTSIDE RECORDS SUMMARY | 2022-03-08 08:42 | XMS_ITS | Encounter Summary ---
:1975 Author Organization [facility] Address [address], [place] [address] Care Team Providers Name Role Phone Nadja Manjarrez MD Primary Care Provider Reason for Visit Reason Comments Refill Chantix Encounter Details Date Type Department Care Team Description 12/31/2016 Refill [facility] Janina Wu, Re fill (Chantix) Practice DIRECTOR NICU, BUSINESS COMPUTERS TEACHER [address] [address], [place] [address] [place], [place] [id number] Social History Tobacco Use Types Packs/Day Years Used Date Smoking Tobacco: Former Cigarettes Quit : 03/30/2015 Smokeless Tobacco: Never Comments: 4-5 cigs/month Alcohol Use Standard Drinks/Week Comments Yes 2.5 (1 standard drink = 0.6 oz pure alco hol) Sex Assigned at Date Recorded Not on file documented as of this encounter Nursing Notes Renata Segal RN - 01/07/2017 11:22 AM CDT Pt. has the maintenance dose on file to be filled at [facility] already. Info relayed Jaelyn Omalley RN - 01/06/2017 10:16 AM CDT 10:16 AM Fabio Deluca (Self) [phone] (H) LMTRC to any consulting nurse Camilla Matute RN - 01/01/2017 2:15 PM CDT Left message to call any RN back. Nadja Manjarrez MD - 01/01/2017 12:14 PM CDT Please call patient-is he currently taking the maintenance dose of varenicline since 11/13-if he would like to stay on this dose OK to continue for additional 12 weeks [address] order for this strength. Nadja Manjarrez MD 01/01/2017, 12:18 PM Interface, Out Surescripts Prov Query - 12/31/2016 11:13 AM CDT CHANTIX STARTING MONTH DEBORAH 0.5 MG X 11 & 1 MG X 42 tablet [Pharmacy Med Name: CHANTIX STARTING MONTH BOX] Protocol: None Exists -> The requested strength (0.5 / 1 mg oral tablet) was last ordered on 11/26/2016. The patient is taking 1 mg oral tablet as of 11/26/2016. -> The medication is active at more than one strength (0.5 / 1 mg on 11/26/2016, 1 mg on 11/26/2016). -> The requested sig has changed from the last order. -> This medication cannot be delegated per protocol. Last qualifying visit: 08/23/2016 (in Family Practice) Next scheduled visit: None Last ordered by JANINA WU A: 11/26/2016 (35 days ago) QTY: 53, Refills: 0, Si wk before you stop smoking take 0.5mg daily on days 1-3, 0.5mg 2 times each day on days 4-7, then 1mg 2 times daily (changed) Powered by [employer], Reference: [id number], 12/31/2016 11:13:36 AM CDT, Pool: SATHISH HAMILTON RN ([id number]) documented in this encounter Plan of Treatment Not on filedocumented as of this encounter Visit Diagnoses Not on filedocumented in this encounter Care Teams Ecommerce Analyst Relationship Specialty Start Date End Date Nadja Manjarrez MD PCP - General Family Practice 08/20/11 [address] [place] [address] documented as of this encounter
--- OUTSIDE RECORDS SUMMARY | 2022-03-08 08:42 | XMS_ITS | Encounter Summary ---
:1975 Author [facility] Address [address], [place] [address] Care Team Providers Name Role Phone Nadja Manjarrez MD Primary Care Provider Reason for Referral Consult/Transfer Care (Routine) - Closed Specialty Diagnoses / Procedures Referred By Contact Refer red To Contact Orthopedics Nadja Manjarrez MD Sports Medicine [address] [facility] [address] [place], [place] [address] [place] [address] Fax: Referral ID Status Reason Start Date Expiration Date Visits Requ ested Visits Authorized [id number] Closed 08/23/2016 02/19/2017 1 1 Scheduling Instructions If scheduling assistance is needed, malaika izaguirre inquire with the medical office staff upon exiting your appointment or contact the ordering clinic for recommended locations. This recommended service/s may not be co barbi by your insurance coverage. To find out your specific benefit coverage, please c all the number on your insurance card. LE SCHOOL MUSIC TEACHER Reason for Visit Reason Comments MEDICATION CHECK Pain meds for hip pain Encounter Details Date Type Department Care Team Description 08/23/2016 Office Visit [facility] Nadja Manjarrez MD Pain of right sacroiliac joint (Primary Dx); Practice [address] [facility] Screening for lipid disorders [address] [place] [address] [id number] Social History Tobacco Use Types Packs/Day Years Used Date Smoking Tobacco: Former Cigarettes Quit : 03/30/2015 Smokeless Tobacco: Never Comments: 4-5 cigs/month Alcohol Use Standard Drinks/Week Comments Yes 2.5 (1 standard drink = 0.6 oz pure alco hol) Sex Assigned at Date Recorded Not on file documented as of this encounter Last Filed Vital Signs Vital Sign Reading Time Taken Comments Blood Pressure 130/89 08/23/2016 10:46 AM MIDDLE SCHOOL MUSIC TEACHER Pulse 64 08/23/2016 10:46 AM MIDDLE SCHOOL MUSIC TEACHER Temperature - - Respiratory Rate - - Oxygen Saturation - - Inhaled Oxygen Concentration - - Weight - - Height - - Body Mass Index - - documented in this encounter Progress Notes Nadja Manjarrez MD - 08/23/2016 11:12 AM CST Chief Complaint Patient presents with ??? MEDICATION CHECK Pain meds for hip pain 41 yo M here for f/u R hip pain. Feels better since he started PT and chiro for R hip over the last couple of months. He has been going about once weekly for the last 1.5 months. Feels that his R hip pain is improving. He is also seeing physical education professor once weekly which helps his core muscle strengthalong with R SI joint. He will take norco 5 sparingly (frequency ford about once or twice on weeks when he experiences flare up symptoms-ran out of medication yesterday). [place] 60 miles [place] in [place] and [facility] when he experienced some increased R hip pain he thinks due totravel/prolonged sitting. Denies new or worsening sx's. No Known Allergies ROS: see above for pertinents. BP 130/89 mmHg Pulse 64 General: patient appears well, alert and oriented x 3, pleasant, cooperative. No further PE performed. A/P: 1. R hip discomfort: improved over the last 2 months-he takes norco 1-2 times weekly on average for flare up symptoms mostly at night which prevent him from sleeping at times. Pelvic XR from 02/12 showsnormal pelvis, some DJD of lumbar spine. Although pain improving due to continued use of norco (patient states ibuprofen 600 mg does not help fully) advised he f/u with ortho for further suggestions, patient agrees to this. Ortho order placed. I spent a total of 25 minutes with the patient, 20 minutesspent in Counseling Risks and benefits of management or follow-up , Importance of compliance with chosen management options and Instructions for management (treatment) and/or follow up. Nadja Manjarrez MD09/05/2016, 11:31 AM LE SCHOOL MUSIC TEACHER documented in this encounter Plan of Treatment Scheduled Referrals Name Type Priority Associated Diagnoses Order S [facility] Sports Medicine Consult Referral Routine Orde red: 08/23/2016 Adult/Peds documented as of this encounter Results (ABNORMAL) Lipid Panel and Direct LDL(If Needed) (08/23/2016 11:27 AM MIDDLE SCHOOL MUSIC TEACHER) [facility] gist Method Time Signature Hours Fasting 19 hours [facility] Cholesterol 202 (H) 0 - 199 [facility] mg/dl [facility] Triglyceride 81 0 - 149 [facility]/dl [facility] HDL 54 >40 mg/dl [facility] LDL, Calc. 132 (H) 0 - 129 [facility] Non HDL Chol, 148 mg/dl [facility] Calc [facility] Specimen Anatomical Collection Method Collection Time Receive d Time (Source) Location / / Volume Laterality 08/23/2016 11:27 08/23/2016 AM MIDDLE SCHOOL MUSIC TEACHER 11:28 AM MIDDLE SCHOOL MUSIC TEACHER Narrative [facility] - 08/23/2016 3:[address] Performed at [facility], [address] [place] [address] Nadja Manjarrez MD LAB_1 Performing Organization Address City/State/ZIP Code Phon e Number [facility] [phone] documented in this encounter Visit Diagnoses Diagnosis Pain of right sacroiliac joint (HRC) - P rimary Screening for lipid disorders Screening for lipid disorders documented in this encounter Care Teams Registered Nurse Midwife Relationship Specialty Start Date End Date Nadja Manjarrez MD PCP - General Family Practice 08/20/11 [address] [place] [address] documented as of this encounter
--- OUTSIDE RECORDS SUMMARY | 2022-03-08 08:42 | XMS_ITS | Encounter Summary ---
:1975 Author Organization [facility] Address [address] [place] [address] Care Team Providers Name Role Phone Nadja Manjarrez MD Primary Care Provider Reason for Visit Reason Comments TOOTHACHE Encounter Details Date Type Department Care Team Description 04/10/2018 Telephone [facility] Stacey Lockwood DDS TOOTHACHE Dentistry [address] [facility] [address] [place] [address] [address] [address] [phone] Social History Tobacco Use Types Packs/Day Years Used Date Smoking Tobacco: Some Days Cigarettes L ast attempted to quit: 03/30/2015 Smokeless Tobacco: Never Comments: 4-5 cigs/month Alcohol Use Standard Drinks/Week Comments Yes 2 (1 standard drink = 0.6 oz pure alcoho l) Sex Assigned at Date Recorded Not on file documented as of this encounter Nursing Notes Mary Ware - 04/10/2018 3:12 PM CDT EMERGENCY/PROBLEM FOCUS PRIOR VISIT QUESTIONNAIRE 1. Have you ever been seen in our office before? [] No [x] Yes Last Seen: [x] Less than 5 years [] 5 years or more Comments: 2. What is causing your problem? [] Accident [] Lost Anglican [] Broken Tooth [] Chipped Tooth [] Toothache Location: [] Upper Left [x] Lower Left [] Upper Front [] Lower Front [] Upper Right [] Lower Right Comments: 3RD FROM BACK. WEEK AND A HALF OF PAIN. SOMETIMES HE BRUSHES HIS TEETH HARD AND KNOWS THATHE GETS SENSI FROM THAT. ALWAYS CAN FEEL IT. 3. What kind of discomfort are you in? [] No Discomfort [x] Awake Last Night [] Radiating Pain [] Throbbing Pain Comments: CONSTANT FEELING/SENSATION. 4. When does the discomfort occur? [x] Cold Sensitive [] Constantly [] Pressure Sensitive [x] Hot Sensitive [] Occasionally [] Other (fill in comments) Comments: 5. How long has the degree of discomfort lasted? [] Longer Duration [] Other (enter duration in comments) Comments: WEEK AND A HALF.... SLOWLY GETTING WORSE. Are you experiencing any other signs or symptoms? [] Bleeding/Oozing [] Fever [] Other (list other signs/symptoms in comments) Comments: NO. Are you taking medications for this problem? [x] No [] Yes (list meds in comments) Comments: 6. Have you been advised to take antibiotics prior to dental treatment? [x] No [] Yes Comments: documented in this encounter Plan of Treatment Not on filedocumented as of this encounter Visit Diagnoses Not on filedocumented in this encounter Care Teams Senior Market Intelligence Consultant Relationship Specialty Start Date End Date Nadja Manjarrez MD PCP - General Family Practice 08/20/11 [address] [place] [address] documented as of this encounter
--- OUTSIDE RECORDS SUMMARY | 2022-03-08 08:42 | XMS_ITS | Encounter Summary ---
:1975 Author Organization [facility] Address [address] [place] [address] Care Team Providers Name Role Phone Nadja Manjarrez MD Primary Care Provider Reason for Visit Reason Comments Dysuria Encounter Details Date Type Department Care Team Description 06/24/2018 Office Visit [facility] Mary Ribeiro D ysuria (Primary Dx); Practice OFFICE SERVICES MANAGER, CUFF MATCHER Routine screening for STI (sexually harmon smitted infection) [address] [facility] [address] [place] [address] [phone] (Wo rk) Social History Tobacco Use Types [...] Sign Reading Time Taken Comments Blood Pressure 122/79 06/24/2018 8:10 AM HORSE BUYER Pulse 69 06/24/2018 8:10 AM HORSE BUYER Temperature 36.4 ??C (97.5 ??F) 06/24/2018 8:10 AM HORSE BUYER Respiratory Rate 18 06/24/2018 8:10 AM HORSE BUYER Oxygen Saturation - - Inhaled Oxygen Concentration - - Weight 86.6 kg (191 lb) 06/24/2018 8:10 AM HORSE BUYER Height - - Body Mass Index 26.64 02/27/2016 3:30 PM CDT documented in this encounter Patient Instructions Patient InstructionsMary Ribeiro APRN, CNP - 06/24/2018 8:00 AM HORSE BUYER Please stop by the lab for further testing Look online for results Will send an prescription through to your pharmacy if indicated Push fluids and Call or return to clinic prn if these symptoms worsen, fail to improve as anticipated, or if new symptoms develop. Component Latest Ref Rng & Units 06/24/2018 Urine Color Yellow Urine Clarity Clear Sp Gr 1.005 - 1.030 1.020 Leuk NEG Sml (A) Nitr NEG Negative pH 4.5 - 8.0 6.0 Prot NEG mg/dl Negative Gluc NEG Negative Ket NEG Negative Urob 0.2 - 1.0 EU/dl 0.2 Bili NEG Negative Blood NEGTR Neg/Tr RBC'S 0 - 3 /hpf 0-3 WBC'S 0 - 5 /hpf 0-2 Epith, Squamous /hpf Occ Bact Occ Casts /lpf 0 E BUYER documented in this encounter Progress Notes Mary Ribeiro APRN, CNP - 06/24/2018 8:00 AM CST SUBJECTIVE: 43 y.o. old male presents to clinic concerned about Historical: Chief Complaint Patient presents with ??? Dysuria Urinary Tract Infection How long have you had these symptoms: 1 week(s) Do you have any urinary frequency? No Do you have any burning upon urination? YES-just at end of urination, slight Do you have a fever? No Do you have any back pain? No Do you have any blood in the urine? No Have you had a recent UTI in the last 6 months? No Do you have a history of kidney stones? No Are there any treatments you have tried? YES AZO Had unprotected intercourse the night before his symptoms started. No penile discharge. Is interested in STI testing. Had used an [facility] UTI testing kit which tested positive for leukocytes. I have personally reviewed the patient's allergies, medications and past medical history in detail and updated the patient record as necessary. Observed: BP 122/79 Pulse 69 Temp 97.5 ??F (36.4 ??C) (Tympanic) Resp 18 Wt 191 lb (86.6 kg) BMI 26.64 kg/m?? Physical Exam: General Appearance: alert, well appearing and in no apparent distress Component Latest Ref Rng & Units 06/24/2018 Urine Color Yellow Urine Clarity Clear Sp Gr 1.005 - 1.030 1.020 Leuk NEG Sml (A) Nitr NEG Negative pH 4.5 - 8.0 6.0 Prot NEG mg/dl Negative Gluc NEG Negative Ket NEG Negative Urob 0.2 - 1.0 EU/dl 0.2 Bili NEG Negative Blood NEGTR Neg/Tr RBC'S 0 - 3 /hpf 0-3 WBC'S 0 - 5 /hpf 0-2 Epith, Squamous /hpf Occ Bact Occ Casts /lpf 0 Assessment/Plan: Dysuria - UA Micro If; Future Routine screening for STI (sexually transmitted infection) - Chlamydia & GC, Urine; Future - Hepatitis C Antibody, with Reflex; Future - HBsAg (Hepatitis B Surface Antigen); Future - HIV 1/2 Ag/Ab 4th Generation; Future Other orders - omega-3 fatty acids (MAXEPA,FISHOIL) 1000 MG capsule; Take 2 g by mouth daily. - Multiple Vitamins-Iron (MULTIVITAMIN/IRON OR) Will check for STI also Patient Instructions Please stop by the lab for further testing Look online for results Will send an prescription through to your pharmacy if indicated Push fluids and Call or return to clinic prn if these symptoms worsen, fail to improve as anticipated, or if new symptoms develop. Please see orders and patient instructions Mary Ribeiro APRN, CNP E BUYER documented in this encounter Plan of Treatment Not on filedocumented as of this encounter Results HIV 1/2 Ag/Ab 4th Generation (06/24/2018 8:31 AM HORSE BUYER) [facility] gist Method Time Signature HIV 1/2 AG/AB Negative NEGNR [facility] 4thGEN (Non LABORATORIES Reactive) Comment: HIV-1 p24 Ag and HIV-1/HIV-2 Ab not detected. Specimen Anatomical Collection Method Collection Time Receive d Time (Source) Location / / Volume Laterality 06/24/2018 8:31 AM 8 8:33 HORSE BUYER AM HORSE BUYER Narrative [facility] - 06/24/2018 12:02 PM HORSE BUYER Performed at [facility], [address] [place] [address] [place] ??[address] Mary Ribeiro APRN, CNP LAB_1 Performing Organization Address [facility]/ZIP [facility] Phon e Number [facility] [phone] HBsAg (Hepatitis B Surface Antigen) (06/24/2018 8:31 AM HORSE BUYER) [facility] Method Time Signature HBsAg Negative (Non NEGNR [facility] Reactive) LABORATORIES Specimen Anatomical Collection Method Collection Time Receive d Time (Source) Location / / Volume Laterality 06/24/2018 8:31 AM 8 8:33 HORSE BUYER AM HORSE BUYER Narrative [facility] - 06/24/2018 12:14 PM HORSE BUYER Performed at [address] ??[address] Mary Ribeiro APRN, CNP LAB_1 Performing Organization Address [facility] Phon e Number [facility] [phone] Hepatitis C Antibody, with Reflex (06/24/2018 8:31 AM HORSE BUYER) [facility] Signature Anti-HCV Negative (Non NEGNR [facility] Reactive) LAB[facility]ATORIES Comment: Antibodies to HCV not detected. Does not exclude the possibility of exposure to HCV. Specimen Anatomical Collection Method Collection Time Receive d Time (Source) Location / / Volume Laterality 06/24/2018 8:31 AM 8 8:33 HORSE BUYER AM HORSE BUYER Narrative [facility] - 06/24/2018 12:01 PM HORSE BUYER Performed at [address] ??[id number] Mary Ribeiro APRN, CNP LAB_1 Performing Organization Address [facility] Phon e Number [facility] [phone] Chlamydia & GC, Urine (06/24/2018 8:31 AM HORSE BUYER) [facility] Method [place] Signature C.trachomatis Negative NEG [facility] Urine [facility] Comment: Test Performed by Bindery Machine Tender Mediated Amplification N. Gonorrhea, Urine Negative NEG [facility] Comment: Test Performed by Bindery Machine Tender Mediated Amplification Specimen Anatomical Collection Method Collection Time Receive d Time (Source) Location / / Volume Laterality 06/24/2018 8:31 AM 8 8:33 HORSE BUYER AM HORSE BUYER Narrative [facility] - 06/24/2018 6:[address] Performed at [facility], [address] ??[address] Mary Ribeiro APRN, MICHAEL LAB_1 Performing Organization Address [facility] Phon e Number [facility] [phone] (ABNORMAL) UA Micro If (06/24/2018 8:01 AM HORSE BUYER) [facility] Method Time Signature Urine Color Yellow [facility] [...] Volume Laterality 06/24/2018 8:01 AM 8 8:03 HORSE BUYER AM HORSE BUYER Narrative [facility] - 06/24/2018 8:[address] Performed at [facility], [address] [place] [address] Mary Ribeiro APRN, CNP LAB_1 Performing Organization Address [facility] Phon e Number [facility] [phone] documented in this encounter Visit Diagnoses Diagnosis Dysuria - Primary Routine screening for STI (sexually harmon smitted infection) Screening examination for venereal disea se Dysuria Routine screening for STI (sexually harmon smitted infection) Screening examination for venereal disea se documented in this encounter Care Teams Business Machine Mechanic Relationship Specialty Start Date End Date Nadja Manjarrez MD PCP - General Family Practice 08/20/11 [address] [place] [address] documented as of this encounter
--- OUTSIDE RECORDS SUMMARY | 2022-03-08 08:42 | XMS_ITS | Encounter Summary ---
:1975 Author Organization [facility] Address [address] [address] Care Team Providers Name Role Phone Nadja Manjarrez MD Primary Care Provider Encounter Details Date Type Department Care Team Description 08/23/2016 Lab Visit [facility] Screening for lipid [address] [facility] disorders [place], [place] [address] Social History Tobacco Use Types Packs/Day Years Used Date Smoking Tobacco: Former Cigarettes Quit : 03/30/2015 Smokeless Tobacco: Never Comments: 4-5 cigs/month Alcohol Use Standard Drinks/Week Comments Yes 2.5 (1 standard drink = 0.6 oz pure alco hol) Sex Assigned at Date Recorded Not on file documented as of this encounter Progress Notes Nadja Manjarrez MD - 09/02/2016 9:44 AM ASSOCIATE PROPERTY MANAGER Quick Note: Please mail letter: Your level of bad cholesterol, or LDL, is mildly elevated above goal of ideally<130. Cutting back on saturated fats and increasing aerobic activity to 30-40 minutes 4-5 times weekly can help with this. CIATE PROPERTY MANAGER documented in this encounter Plan of Treatment Not on filedocumented as of this encounter Procedures Procedure Name Priority Date/Time Associated Diagnosis Comme nts LIPID PANEL AND Routine 08/23/2016 11:27 AM Screening for lipi d Results for this DIRECT LDL(IF ASSOCIATE PROPERTY MANAGER disorders procedure are in NEEDED) the results section. documented in this encounter Results (ABNORMAL) Lipid Panel and Direct LDL(If Needed) (08/23/2016 11:27 AM ASSOCIATE PROPERTY MANAGER) Patholo gist Method Time Signature Hours Fasting 19 [...] / Volume Laterality 08/23/2016 11:27 08/23/2016 AM ASSOCIATE PROPERTY MANAGER 11:28 AM ASSOCIATE PROPERTY MANAGER Narrative [facility] - 08/23/2016 3:[address] Performed at [facility], [address] [place] [address] Nadja Manjarrez MD LAB_1 Performing Organization Address City/State/ZIP Code Phon e Number [facility] [phone] documented in this encounter Visit Diagnoses Diagnosis Screening for lipid disorders documented in this encounter Care Teams Vice President Of Consulting Services Relationship Specialty Start Date End Date Nadja Manjarrez MD PCP - General Family Practice 08/20/11 [address] [place] [address] documented as of this encounter
--- OUTSIDE RECORDS SUMMARY | 2022-03-08 08:42 | XMS_ITS | Encounter Summary ---
:1975 Author Organization [facility] Address [address], [place] [address] Care Team Providers Name Role Phone Nadja Manjarrez MD Primary Care Provider Reason for Visit Reason Comments Forms Encounter Details Date Type Department Care Team Description 04/09/2016 Telephone [facility] Occupational and Jay Ernst MD Forms [employer] [address] [place] [phone] Social History Tobacco Use Types Packs/Day Years Used Date Smoking Tobacco: Former Cigarettes Quit : 03/30/2015 Smokeless Tobacco: Never Comments: 4-5 cigs/month Alcohol Use Standard Drinks/Week Comments Yes 2.5 (1 standard drink = 0.6 oz pure alco hol) Sex Assigned at Date Recorded Not on file documented as of this encounter Nursing Notes Cindy Cordova RMA - 04/09/2016 1:45 PM CDT Left message for patient (personalized voicemail greeting) letting him know that all the informationthat was sent to us was reviewed and he is able to get 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 He can pick it up tomorrow at the [facility]. NORAH Dolan 04/09/2016, 1:47 PM Cindy Cordova RMA - 04/09/2016 12:09 PM CDT Information received was given to Dr. Li for review, she will let me know if we have everything we need NORAH Dolan 04/09/2016, 12:09 PM Solange Myles - 04/09/2016 8:22 AM CDT The patient called today mentioning that his record from [facility] had been sent over and he was wondering if the provider had received these documents. He said his card will on the and he is a little worried about having to come in for a new exam and pay for all of it again, if the provider doesn't get him the extended card before then. He wants to make sure they have everything they needed to clear him and then wants to know if he needs to come in for an appointment, or if we would just call him in when the card is ready. documented in this encounter Plan of Treatment Not on filedocumented as of this encounter Visit Diagnoses Not on filedocumented in this encounter Care Teams Stripping Shovel Operator Relationship Specialty Start Date End Date Nadja Manjarrze MD PCP - General Family Practice 08/20/11 [address] [place] [address] documented as of this encounter
--- OUTSIDE RECORDS SUMMARY | 2022-03-08 08:42 | XMS_ITS | Encounter Summary ---
:1975 Author Organization [facility] Address [address] [place] [address] Care Team Providers Name Role Phone Nadja Manjarrez MD Primary Care Provider Reason for Visit Reason Comments Refill traZODone (DESYREL) 50 MG ta blet [Pharmacy Med Name: TRAZODONE 50 MG TABLET] Encounter Details Date Type Department Care Team Description 08/16/[address] [facility] Nadja Manjarrez MD Refill (traZODone Practice [address] (DESYREL) 50 MG tablet [address] [place], [place] [Pharmacy Med Name: [place], [place] [id number] TRAZODONE 50 MG TABLET]) [phone] (Wo rk) Social History Tobacco Use Types Packs/Day Years Used Date Smoking Tobacco: Former Cigarettes Quit : 03/30/2015 Smokeless Tobacco: Never Comments: 4-5 cigs/month Alcohol Use Standard Drinks/Week Comments Yes 2 (1 standard drink = 0.6 oz pure alcoho l) Sex Assigned at Date Recorded Not on file documented as of this encounter Nursing Notes Nadja Manjarrez MD - 08/22/2017 10:49 AM CST Rx entered. Nadja Manjarrez MD 08/22/2017, 10:49 AM O ELECTRONICS OFFICER Camilla Almaraz CMA - 08/21/2017 2:01 PM CST Letter sent reminding pt of f/u. PCP has to either deny or accept the medication for encounter to be closed. Will leave for Nadja Manjarrez MD to review. Camilla Almaraz CMA 08/21/2017, 2:02 PM O ELECTRONICS OFFICER Anahi Rowan - 08/21/2017 9:33 AM CST Medication Refill - Overdue Visit Called patient, was: Unable to reach patient 2nd call attempted. Clinician will need to review refill request. Anahi Rowan Please route to: (HP) Care Team Pool/ (PN) Clinician O ELECTRONICS OFFICER Anahi Rowan - 08/18/2017 9:47 AM CST Medication Refill - Overdue Visit Called patient, was: Unable to reach patient 1st call attempted. Left message to call back. Anahi Rowan O ELECTRONICS OFFICER Medina Zamora RN - 08/16/2017 5:07 PM CST Further Assistance Needed on Refill from Child Development Teacher Patient is overdue for Office visit. Please see below documentation from 07/18/17 refill encounter. Anahi Rowan at 07/24/2017 ??2:43 PM Author Type: (none) Status: Signed Marine Engineering Teacher: Anahi Rowan Patient calling back and patient will call later to schedule. Anahi Rowan at 07/24/2017 ??2:37 PM Author Type: (none) Status: Signed Marine Engineering Teacher: Anahi Rowan Left message to call back. Nadja Manjarrez MD at 07/18/2017 12:34 PM Author Type: Physician Status: Signed Marine Engineering Teacher: Nadja Manjarrez MD (Physician) Refill x one. Patient is due for clinic visit prior to further refills. Nadja Manjarrez MD 07/18/2017, 12:35 PM Last qualifying visit: 07/15/2017 (in Family Practice) ? Next scheduled visit: None ? Last ordered by NADJA MANJARREZ S: 07/18/2017 (29 days ago) QTY: 30, Refills: 0, Sig: take 1 tab by mouth at bedtime as needed for sleep. (unchanged) ? Age: 42 Please call patient to schedule a Office Visit and document using .ALEJA. After attempting to schedule patient: Please route to: Clinician/Care Team Pool Medina Zamora RN 08/16/2017, 5:09 PM O ELECTRONICS OFFICER Interface, Out Surescripts Prov Query - 08/16/2017 6:37 AM CST traZODone (DESYREL) 50 MG tablet [Pharmacy Med Name: TRAZODONE 50 MG TABLET] Antidepressants and Antianxiety -> Refill x 12 months (until due for an office visit) -> Calculate quantity and refills manually. They could not be estimated due to missing or unreadable information. Last qualifying visit: 07/15/2017 (in Family Practice) Next scheduled visit: None Last ordered by NADJA MANJARREZ S: 07/18/2017 (29 days ago) QTY: 30, Refills: 0, Sig: take 1 tab by mouthat bedtime as needed for sleep. (unchanged) Age: 42 Powered by [employer], Reference: [id number], 08/16/2017 6:37:53 AM MISA, Pool: ALANIZ RN ([id number]) documented in this encounter Plan of Treatment Not on filedocumented as of this encounter Visit Diagnoses Not on filedocumented in this encounter Care Teams Manager Monitoring Relationship Specialty Start Date End Date Nadja Manjarrez MD PCP - General Family Practice 08/20/11 [address] [place] [address] documented as of this encounter
--- OUTSIDE RECORDS SUMMARY | 2022-03-08 08:42 | XMS_ITS | Encounter Summary ---
:1975 Author Organization [facility] Address [address] [place] [address] Care Team Providers Name Role Phone Nadja Manjarrez MD Primary Care Provider Reason for Visit Reason Comments Dental Hygiene no cc Encounter Details Date Type Department Care Team Description 08/04/[address] [facility] Ashley Tapia Dental Hygiene (no cc) Dentistry [address] [facility] [address] [place] [address] [phone] Social History Tobacco Use Types Packs/Day Years Used Date Smoking Tobacco: Former Cigarettes Quit : 04/13/2019 Smokeless Tobacco: Never Tobacco Cessation: Counseling Given: Yes Alcohol Use Standard Drinks/Week Comments Yes 2 (1 standard drink = 0.6 oz pure alcoho l) Sex Assigned at Date Recorded Not on file documented as of this encounter Patient Instructions Patient InstructionsHollie Tapia - 08/04/2019 10:40 AM CST Your next hygiene recall is due: 08/03/2020 YOUR PERSONAL DENTAL RISK REPORT Caries (Tooth Decay) Risk Periodontal (Gum) Disease Risk Oral Cancer Risk LOW mod high low MOD high low ELEVATED ^ ^ ^ Risk Level: LOW How to Maintain Your Low Risk: Hygiene recall at 12 to 18 months. Instruction from dental professional on brushing, flossing, and use of oral hygiene products. Radiographs to detect decay. Congratulations on your low risk for tooth decay. Making healthy life style choices including brushing twice a day; daily flossing; and healthy dietary choices should help you maintain this low risk. Risk Level: MODERATE Your Risk Factors: Use of tobacco in cigarettes, cigars, or pipes. Missing scheduled dental appointments. How to Reduce Your Risk: Return visit with the dental hygienist at 6 month intervals to assess periodontal condition and provide necessary treatment. Oral hygiene instruction by the dentist, dental hygienist, or dental school health assistant. Specific information about what causes periodontal disease and what steps can be taken to help control it. Use specific products to assist with proper oral hygiene such as electric toothbrush with timer. Risk Level: ELEVATED Risk Factors: Incidence of oral cancer increases with age. Use of tobacco. How to Reduce Your Risk: Regular dental visits to assess soft tissue. Education given on risk of oral cancer. Consider quitting tobacco habit, participate in a QuitLine program or other means of quitting. Fabio, we look forward to seeing you at your next visit! Thank you for choosing [facility]. D SERVICE TECH documented in this encounter Progress Notes Hollie Tapia - 08/04/2019 10:40 AM CST HYGIENE PROPHY NOTE COLLABORATIVE AGREEMENT: The patient consents to have charting, radiographs and prophylaxis by the dental hygienist performed with the understanding that this care is not a substitute for an examination by a dentist. PRESENTATION: Oral Hygiene: Good Plaque: Localized, light supra-gingival Calculus: Localized, moderate supra-gingival , sub-gingival, interproximal and mandibular anterior Stain: Localized, light tobacco Bleeding: Localized light Gingival tissue: Normal Mucogingival concerns: Absent ACTIVITIES: Hand scale, Ultrasonic scale, Essential selective polishing and Flossed all contacts PATIENT EDUCATION: Caries risk, Periodontal risk, Oral cancer risk, OHI, Demonstrated tooth brushing, Demonstrated flossing, Remineralization strategies and Fluoride rinse REMINERALIZATION COUNSELING: Patient's readiness for change: Preparation Caries risk factors to be addressed: Oral hygiene Patient has not been compliant with previous recommendations to address caries risk. Reviewed with patient: Remineralization Today's activities: Application of fluoride No pharmacy prescriptions or OTC meds prescribed/recommended. Health education: No handouts given to patient. Follow up plan: recall NEXT PLANNED HYGIENE VISIT: Hygiene Prophy with exam Hollie Tapia 08/04/2019, 10:58 AM --End of Note-- D SERVICE TECH Sirena Lockwood DDS - 08/04/2019 10:40 AM CST RECALL EXAM NOTE REASON FOR VISIT/CHIEF COMPLAINT: Fabio is a 44 y.o. male who presents for Dental Hygiene (no cc) CHART REVIEW: Reviewed with patient: Medical history, [...] 12 months : Recall prophy: 12 months REMIN COUNSELING: See Hygiene Note Pt was adv to use extra soft brush head for his Sonicare, recession on lower ant , pt had a consult with Perio but wants to wait on the treatment Next Planned Visit: recall, nti Sirena Lockwood DDS 08/04/2019, 11:30 AM Sirena Lockwood DDS 08/04/2019, 11:29 AM --End of Note-- D SERVICE TECH documented in this encounter Plan of Treatment Not on filedocumented as of this encounter Procedures Procedure Name Priority Date/Time Associated Diagnosis Comme nts TOPICAL FLUORIDE Routine 08/04/2019 10:40 AM Localized gingiva l VARNISH FIELD SERVICE TECH recession [id number] Routine 08/04/2019 10:40 AM Localized gingi edy FIELD SERVICE TECH recession PERIODIC ORAL Routine 08/04/2019 10:40 AM Localized gingival EVALUATION FIELD SERVICE TECH recession PROPHYLAXIS-ADULT Routine 08/04/2019 10:40 AM Localized gingiv al RECALL FIELD SERVICE TECH recession documented in this encounter Visit Diagnoses Diagnosis Localized gingival recession - Primary Gingival recession, localized documented in this encounter Care Teams Mechanical Manager Relationship Specialty Start Date End Date Nadja Manjarrez MD PCP - General Family Practice 08/20/11 [address] [place] [address] documented as of this encounter
--- OUTSIDE RECORDS SUMMARY | 2022-03-08 08:42 | XMS_ITS | Encounter Summary ---
:1975 [facility] Address [address] [place] [address] Care Team Providers Name Role Phone Nadja Manjarrez MD Primary Care Provider Reason for Visit Reason Comments Late Refill - Antidepressant Medication Encounter Details Date Type Department Care Team Description 04/22/2018 Telephone [facility] Yuan Alfaro Refill - [facility] TOM Tavares Antidepressant [address] Medication [place], [place] [id number] Social History Tobacco Use Types Packs/Day Years Used Date Smoking Tobacco: Some Days Cigarettes L ast attempted to quit: 03/30/2015 Smokeless Tobacco: Never Comments: 4-5 cigs/month Alcohol Use Standard Drinks/Week Comments Yes 2 (1 standard drink = 0.6 oz pure alcoho l) Sex Assigned at Date Recorded Not on file documented as of this encounter Nursing Notes Nori Alfaro LADC - 04/22/2018 11:17 AM CDT Contacted patient due to late refill of antidepressant medication (at least 3-5 days past the expected fill date). Patient reports still taking this medication and agreed to refill it. PHQ-9 03/19/2018 06/26/2016 08/12/2011 PHQ9 Score - Smartform 10 6 7 TOM Hernandez 04/22/2018, 11:17 AM documented in this encounter Plan of Treatment Not on filedocumented as of this encounter Visit Diagnoses Not on filedocumented in this encounter Care Teams Customer Service Sales Associate Relationship Specialty Start Date End Date Nadja Manjarrez MD PCP - General Family Practice 08/20/11 [address] [place] [address] documented as of this encounter
--- OUTSIDE RECORDS SUMMARY | 2022-03-08 08:42 | XMS_ITS | Encounter Summary ---
:1975 Author Organization [facility] Address [address], [place] [address] Care Team Providers Name Role Phone Nadja Manjarrez MD Primary Care Provider Encounter Details Date Type Department Care Team Description 06/13/2016 Scanned History External to Transferred Record, Pro vider [facility] Social History Tobacco Use Types Packs/Day Years [...] on filedocumented in this encounter Care Teams Plug Drill Operator Relationship Specialty Start Date End Date Nadja Manjarrez MD PCP - General Family Practice 08/20/11 [address] [place] [address] documented as of this encounter
--- OUTSIDE RECORDS SUMMARY | 2022-03-08 08:42 | XMS_ITS | Encounter Summary ---
:1975 Author Organization [facility] Address [address], [place] [address] Care Team Providers Name Role Phone Nadja Manjarrez MD Primary Care Provider Encounter Details Date Type Department Care Team Description 04/17/2016 Therapy External to [facility] Social History Tobacco Use Types Packs/Day Years [...] on filedocumented in this encounter Care Teams Ginger Farmer Relationship Specialty Start Date End Date Nadja Manjarrez MD PCP - General Family Practice 08/20/11 [address] [place] [address] documented as of this encounter
--- OUTSIDE RECORDS SUMMARY | 2022-03-08 08:42 | XMS_ITS | Encounter Summary ---
:1975 Author Organization [employer] Address [address] [address] Care Team Providers Name Role Phone Nadja Manjarrez MD Primary Care Provider Reason for Visit Reason Comments Medication Request Encounter Details Date Type Department Care Team Description 04/16/2018 Telephone [facility] Milan Swanson [facility] ication Request Practice Fred Cunningham MD [address] [place] [address]. [address] [facility] [place] [address] [place] [id number] (Wo rk) Social History Tobacco Use Types Packs/Day Years Used Date Smoking Tobacco: Some Days Cigarettes L ast attempted to quit: 03/30/2015 Smokeless Tobacco: Never Comments: 4-5 cigs/month Alcohol Use Standard Drinks/Week Comments Yes 2 (1 standard drink = 0.6 oz pure alcoho l) Sex Assigned at Date Recorded Not on file documented as of this encounter Nursing Notes Nadja Manjarrez MD - 04/22/2018 5:10 PM CDT Rx entered. Nadja Manjarrez MD 04/22/2018, 5:10 PM Breann Alfaro RN - 04/22/2018 12:02 PM CDT Nurse called and left a detailed message on pt's personal phone line. Nurse will pend RX for Chantix and route back to provider. Breann Alfaro RN 04/22/2018, 12:04 PM ET Nadja Manjarrez MD - 04/22/2018 11:46 AM CDT OK for him to take bupropion and chantix (no significant drug interactions). Rx for chantix entered.He should let us know if his mood worsens when he starts the varenicline. Nadja Manjarrez MD 04/22/2018, 11:47 AM Jaelyn Omalley RN - 04/22/2018 10:34 AM CDT Pt calling back. Spoke with patient. Request/Question: Pt is currently taking buPROPion (WELLBUTRIN SR) 150 MG 12 hour release tablet Take 1 Tablet by mouth two times a day. for smoking cessation. Pt was given this medication at 03/19/18 office visit. Pt states it was given to help stop smoking, but from progress note: I am going to restart his bupropion due to his seasonal affective disorder. His PHQ9 is elevated today. Pt states he stopped smoking in the past with taking bupropion. Pt states it is not working as well this time and is still smoking 1/2 pack a day. Pt is requesting a Rx for Chantix. Pt is wondering if he should continue with bupropion along with Chantix. Plan: Will route to Dr. Manjarrez for review and recommendation. Will call patient back. Per patient okay to leave detailed message at [phone] (T). Breann Carolina RN - 04/22/2018 10:29 AM CDT Lmtrc. Breann Alfaro RN 04/22/2018, 10:29 AM Breann Alfaro RN - 04/17/2018 11:51 AM CDT tr. Breann Alfaro RN 04/17/2018, 11:51 AM Nadja Manjarrez MD - 04/17/2018 11:19 AM CDT Please call patient to see if would just like a rx for varenicline or if he wants another type of medication change? (he has recent rx for bupropion from last month) Nadja Manjarrez MD 04/17/2018, 11:22 AM Ainsley Alvarado RN - 04/17/2018 8:02 AM CDT Routing to PCP. Ainsley Alvarado RN 04/17/2018, 8:02 AM Marti Han V - 04/17/2018 7:23 AM CDT Routed to RN. Marti Han Bernie Tsai - 04/16/2018 3:42 PM CDT Medications - New Medication [Appt Center: If this call is after 3 p.m., communicate to patient: If we are not able to get back to you by the end of the day and your symptoms worsen please contact the Careline at [phone] OR at .] What medication are you calling about (name or type)? CHANTAX Why are you calling for this medication? TO CHANGE CURRENT RX TO CHANTAX Have you taken this medication or type of medication before and if so, when was it last taken? Yes: LAST YEAR Is it okay to leave a detailed message on your voicemail? Yes If a prescription is needed, would you like it filled at a [facility] pharmacy? No: [facility] [place] [Appt Center: Please add the selected pharmacy to Meds & Orders] Is there anything else I can help you with today? Bernie Tsai \ documented in this encounter Plan of Treatment Not on filedocumented as of this encounter Visit Diagnoses Not on filedocumented in this encounter Care Teams Instrument Maker Apprentice Relationship Specialty Start Date End Date Nadja Manjarrez MD PCP - General Family Practice 08/20/11 [address] [place] [address] documented as of this encounter
--- OUTSIDE RECORDS SUMMARY | 2022-03-08 08:42 | XMS_ITS | Encounter Summary ---
:1975 Author Organization [facility] Address [address] [place] [address] Care Team Providers Name Role Phone Nadja Manjarrez MD Primary Care Provider Reason for Referral Consult/Transfer Care (Routine) - Closed Specialty Diagnoses / Procedures Referred By Contact Refer [place] [address] [place], [place] [address] Referral ID Status Reason Start Date Expiration Date Visits Requ ested Visits Authorized [id number] Closed 06/26/2016 09/25/2017 1 1 Scheduling Instructions Your provider has recommended an appoint ment with [facility]. You may call [phone] to schedule your appointment. If you prefer, a yardage tufting machine operator will contact you [facility] the next 3 business days to assist you in setting up this appointment. We suggest you call your health insurance company about your coverage and benefits for this appo intment. T ABSTRACTOR Reason for Visit Reason Comments HIP PAIN Seeing chiro and OT, right s gopi SHOT,FLU Encounter Details Date Type Department Care Team Description 06/26/2016 Office Visit [facility] Nadja Manjarrez MD SI (sacroiliac) joint dysfunction (Prima ry Dx); Practice [address] [facility] Need for vaccination; [address] [place], [place] Sleep disturbance; [place] [address] Right hip pain; [address] Fatigue, unspecified type; Fear of flying Social History Tobacco Use Types Packs/Day Years Used Date Smoking Tobacco: Former Cigarettes Quit : 03/30/2015 Smokeless Tobacco: Never Comments: 4-5 cigs/month Alcohol Use Standard Drinks/Week Comments Yes 2.5 (1 standard drink = 0.6 oz pure alco hol) Sex Assigned at Date Recorded Not on file documented as of this encounter Last Filed Vital Signs Vital Sign Reading Time Taken Comments Blood Pressure 129/91 06/26/2016 9:[address] ABSTRACTOR Pulse 68 06/26/2016 9:[address] ABSTRACTOR Temperature - - Respiratory Rate - - Oxygen Saturation - - Inhaled Oxygen Concentration - - Weight - - Height - - Body Mass Index - - documented in this encounter Progress Notes Nadja Manjarrez MD - 06/26/2016 9:19 AM CST Chief Complaint Patient presents with ??? HIP PAIN Seeing chiro and OT, right side ??? SHOT,FLU 41 yo M with h/o chronic LBP here for some fatigue, generalized myalgias x one month-seems to be improving. Also R hip pain x several months or longer. Thinks achiness is correlated with his work schedule and fatigue. His myalgias have improved since he stopped working around [facility] but fatigue persists. He is not sleeping well-it takes him about 2 hours or so to fall asleep and the same when he wakes up at night-feels that he gets about 6-7 hours of sleep at night when he lays in bed for 12-13 hours. He does not feel rested when he wakes up. good sleeping hygiene-staying physically active atgym and seeing chiropractor as well for ongoing R sided hip pain. He's been dealing with ongoing pain of the R hipx several months to close to a year-will wake him up at night at times which makes it even more difficult to sleep. Does daily stretches which aren't as helpful anymore. He denies joint swelling/warmth but does feel that his R hip is the most bothersome. Denies family h/o autoimmune disorders. Recent R hip Xray from 02/12 did not show remarkable DJD. He denies ETOH, illicits, herbals. Hedoes take ibuprofen 600mg four times daily which is not helping his R hip pain consistently. Denies anxious or sad thoughts. No Known Allergies ROS: see above for pertinents. BP 129/91 mmHg Pulse 68 General: patient appears well, alert and oriented x 3, pleasant, cooperative. Chest: clear to IPPA. Heart: heart sounds are normal, no murmurs. Musc: no vertebral body TTP, no paraspinalis TTP, +R SI joint TTP, no gluteal TTP, 5/5 b/l LE's, full ROM b/l hips, some TTP R greater trochanter. A/P: 1. R hip pain: x several months; may be related to R sacriliac joint dysfunction and trochanteric bursitis-advised f/u with ortho for further recommendations, order placed. norco 5 for breakthrough pain QHS per [facility] [place]. RTC after he see ortho in about 1-2 months. 2. Sleep disturbance: likely combination of #1-he does have h/o sleeping trouble prior to #1, we'll have him start trazodone per [place] [place]. RTC in 1-2 months, sooner PRN sx's worsen/new sx's develop. Warnings signs given. 3. Fatigue/muscle aches: likely combination from #1&2-we'll check some basic screening BW for now. Symptoms should improve during/after evaluation/treatment for #1 and #2 respectively. Patient also mentions at end of visit he will be traveling to [place] and then [facility] over the next 2-3 months -he has fear of flying. Lorazepam per [facility] [place]. Nadja Manjarrez MD 06/28/2016, 12:54 PM T ABSTRACTOR documented in this encounter Plan of Treatment Scheduled Referrals Name Type Priority Associated Diagnoses Order S chevy Orthopaedic Consult Referral Routine Ordered: 06/26/2016 Adult/Peds documented as of this encounter Visit Diagnoses Diagnosis SI (sacroiliac) joint dysfunction ([facility]) - Primary Disorders of sacrum Need for vaccination Need for prophylactic vaccination and in oculation against unspecified single disease Sleep disturbance Sleep disturbance, unspecified Right hip pain Pain in joint, pelvic region and thigh Fatigue, unspecified type Fear of flying ([facility]) Other isolated or specific phobias documented in this encounter Care Teams Repairer Screen Crusher Relationship Specialty Start Date End Date Nadja Manjarrez MD PCP - General Family Practice 08/20/11 [address] [place] [address] documented as of this encounter
--- OUTSIDE RECORDS SUMMARY | 2022-03-08 08:42 | XMS_ITS | Encounter Summary ---
:1975 Author Organization [employer] Address [address] [place] [address] Care Team Providers Name Role Phone Nadja Manjarrez MD Primary Care Provider Reason for Visit Reason Comments [facility] negative- sore throat is getting worse Refill chantix Encounter Details Date Type Department Care Team Description 09/10/2018 Office Visit [facility] Robert Posadas, Sor e throat (Primary Dx); Practice PAFarhana Encounter for smoking cessation counseli [id number] [place] [address] [phone] Social History Tobacco Use Types Packs/Day Years [...] Pressure 130/81 09/10/2018 11:41 AM CDT Pulse 60 09/10/2018 11:41 AM CDT Temperature 37.2 ??C (98.9 ??F) 09/10/2018 11:09 AM CDT Respiratory Rate - - Oxygen Saturation - - Inhaled Oxygen Concentration - - Weight - - Height - - Body Mass Index - - documented in this encounter Patient Instructions Patient InstructionsRobert Posadas, HEBERC - 09/10/2018 11:10 AM CDT What happens if I have strep throat? We will prescribe antibiotics. The sore throat will be gone in three to four days. It???s important to take all your medicines as directed, whether or not the symptoms go away. You do not need return to the clinic unless you have new symptoms. What is a strep rash? Sometimes you may get a rash with a strep infection. This is called ???scarletina.?? You do not need any treatment other than antibiotics to treat the rash. What should I do to care for my sore throat? Here???s what you can do to be more comfortable when you have a sore throat. ??? Drink more liquids. Drink 1-2 quarts of water or juice in addition to the 6- 8 glasses of water aday that is normally recommended. To help you keep track of how much you drink, fill 2 one-quart pitchers of water or juice and keep them in the refrigerator. ??? Gargle with warm salt water. Make a warm salt-water gargle by mixing a teaspoon of salt in a glass of warm tap water. Gargle every hour to reduce the swelling that contributes to the soreness. ??? Rest. Rest helps the body fight a sore throat. Try to get at least 7-8 hours of sleep and work alight schedule. ??? Take acetaminophen (Tylenol??). For a fever and general aches and pains, take these tablets every four hours. Follow the receivable executive???s instructions as printed on the bottle. ??? Use a cold-air vaporizer. This helps keep the throat moist and less irritated. Steam vapors fromrunning hot water in the shower or boiling water on the stove can also help create more humidity. documented in this encounter Progress Notes Maritza Bright - 09/10/2018 11:10 AM CDT Addended by: MARITZA BRIGHT on: 09/10/2018 01:32 PM Modules accepted: Orders Robert Posadas PA-C - 09/10/2018 11:10 AM CDT Historical: Chief Complaint Patient presents with ??? Sore Throat Fabio Hodgson is a 43 y.o. male who is otherwise healthy presents with a 2 day history of sore throat with bumps. He stated that he was just in [place] for 6 days and returned this last Friday. On Friday her started experiencing symptoms of sore throat and later small painless bumps started emerging.He stuck his finger down his throat and felt bumps down deep in the posterior pharynx. Denied any bleeding or pain isolated to the bumps. He went to yesterday where he had a negative rapid strep test. The bumps are worrisome for him and he would like further evaluation. Denied any changes in his voice. No dysphagia. No angioedema. Denied mouth tingling. Later in the interview he requested a refill of chantix as this is the typical time he starts craving cigarrettes and his recent trip to [place] did not help. No additional concerns were addressed, and remainder of ROS was negative. Cold/Cough/Flu/Sinus/Sore Throat How long have you had these symptoms? 2 day(s) What cold symptoms are you experiencing?Sorethroat Do you have any difficulty swallowing? YES Do you have any ear pain when swallowing? No Have you been diagnosed with strep within the last month? No Were you exposed to someone with strep throat? No Have you had a fever? No Have you had any nausea/vomiting/diarrhea? YES Are there any treatments you have tried? YES What products have you tried? Ibuprofen for pain Did the treatment help your symptoms? Has not changed Went to [facility] yesterday and strep was negative I have personally reviewed the patient's allergies, medications, past medical history, family history, social history, rooming notes, problem list, lab results and health maintenance record in detail and updated the patient record as necessary. Observed: There were no vitals taken for this visit. Physical Exam: General Appearance: alert, well appearing and in no apparent distress HEENT: lids normal, sclera clear and conjunctiva normal and posterior pharyngeal erythema. Small indurated papules on posterior tongue and pharynx. Neck: no lymphadenopathy and no thyromegaly or nodules Heart: regular rate and rhythm and no murmurs, gallops or rubs Lungs: clear to ausculation and no wheezes, rales or rhonchi Abdomen: soft, nondistended, nontender, no palpable masses and no organomegaly Assessment/Plan: Sore throat - Aerobic Culture - Herpes Simplex Virus PCR; Future Encounter for smoking cessation counseling ([facility]) - varenicline (CHANTIX) 1 MG tablet; Take 1 Tablet by mouth two times a day. Take after eating with a full glass of water.NOTE:Dispense as maintenance for refills only. MDM: Signs and symptoms were consistent with likely viral etiology of his symptoms. Elected to work up further with HSV PCR and Aerobic culture. Discussed continued symptomatic care with ice chips, ibuprofen, and benadryl. Will follow up with results and subsequent treatment plan. Possibly consideringpred burst if all results are negative. Chantix refilled. Pt was in agreement to plan with no further questions. Robert Posadas PA-C 09/10/2018 11:56 AM Robert Posadas PA-C - 09/10/2018 11:10 AM CDT Your test results are in and everything came back negative. I hope you are feeling better. documented in this encounter Plan of Treatment Not on filedocumented as of this encounter Procedures Procedure Name Priority Date/Time Associated Diagnosis Comme nts HERPES SIMPLEX Routine 09/10/2018 1:29 PM Sore throat Results for this VIRUS PCR CDT procedure are i n the results section. AEROBIC CULTURE Routine 09/10/2018 12:56 PM Sore throat Resul ts for this CDT procedure are i n the results section. documented in this encounter Results Herpes Simplex Virus PCR (09/10/2018 1:29 PM CDT) Component Value Ref Test Analysis Performed At [facility] Range Method Time Signature HS Source Vesicle Fluid [facility] Herpes Not Detected [facility] simplex [facility] Virus By PCR Herpes (NOTE) [facility] simplex NOT DETECTED - A negative result does not rule out the LABORATORIES Virus By PCR presence of PCR inhibitors in the patient specimen or ass ay specific nucleic acid in concentrations below the level of detection by the assay. INTERPRETIVE INFORMATION: Herpes Simplex Virus by PCR Test developed and characteristics determined by [facility]. See Compliance Statement B: [facility] [address] [place] [address] www.[facility], Arturo Edmonds MD, Lab. Director Specimen Anatomical Collection Method Collection Time Receive d Time (Source) Location / / Volume Laterality 09/10/2018 1:29 PM 9 1:33 CDT PM CDT Narrative [facility] - 09/12/2018 8:24 PM C DT Performed by [employer], [address], [place] [address] Robert Posadas PA-C LAB_1 Performing Organization Address City/[facility]/ZIP Code Phon e Number [facility] [phone] Aerobic Culture (09/10/2018 12:56 PM CDT) Component Value Ref Test Analysis Performed At [facility] Range Method Time Signature Specimen Swab [facility] Description Throat [facility] Special Unspecified [facility] Requests [facility] Gram Smear No PMN'S Seen [facility] Gram Smear Few [facility] Gram Positive Cocci in Chains [facility] Gram Smear Rare [facility] Gram Negative Diplococci [facility] Gram Smear Rare [facility] Gram Negative Bacilli [facility] ALLAN Culture Many [facility] Oropharyngeal Brittany [facility] ES Report Status 09/13/2018 [facility] Final [facility] Specimen Anatomical Collection Method Collection Time Receive d Time (Source) Location / / Volume Laterality [facility] / Unknown 09/10/2018 12:56 9 PM CDT 12:57 PM CDT Robert Posadas PA-C LAB_1 Performing Organization Address City/State/ZIP Code Phon e Number [facility] [phone] documented in this encounter Visit Diagnoses Diagnosis Sore throat - Primary Acute pharyngitis Encounter for smoking cessation counseli clement ([facility]) Counseling on substance use and abuse documented in this encounter Care Teams Epilepsy Physician Relationship Specialty Start Date End Date Nadja Manjarrez MD PCP - General Family Practice 08/20/11 [address] [place] [address] documented as of this encounter
--- OUTSIDE RECORDS SUMMARY | 2022-03-08 08:42 | XMS_ITS | Encounter Summary ---
:1975 Author Organization [employer] [facility] Address [address] [address] Care Team Providers Name Role Phone Nadja Manjarrez MD Primary Care Provider Reason for Visit Reason Onset Date Comments Refill 09/08/2018 Varenicline Tartrate (CHANTIXPAK) 0.5 MG X 11 & 1 MG X 42 tablet Encounter Details Date Type Department Care Team Description 09/08/2018 Refill [facility] Nadja Manjarrez MD Refill (Varenicline Practice [address] [facility] Tartrate (CHANTIXPAK) [address] [place], [place] 0.5 MG X 11 & 1 MG X 42 [place], [place] [address] tablet) [phone] (Wo rk) Social History Tobacco Use Types Packs/Day Years Used Date Smoking Tobacco: Some Days Cigarettes L ast attempted to quit: 03/30/2015 Smokeless Tobacco: Never Comments: 4-5 cigs/month Alcohol Use Standard Drinks/Week Comments Yes 2 (1 standard drink = 0.6 oz pure alcoho l) Sex Assigned at Date Recorded Not on file documented as of this encounter Nursing Notes Nadja Manjarrez MD - 09/11/2018 12:17 PM CDT Seen yesterday at clinic. Nadja Manjarrez MD 09/11/2018, 12:17 PM Interface, Out Surescripts Prov Query - 09/08/2018 7:11 PM CDT Varenicline Tartrate (CHANTIXPAK) 0.5 MG X 11 & 1 MG X 42 tablet None Exists -> Medication cannot be delegated. Last qualifying visit: 06/24/2018 [facility] Next scheduled visit: None Last ordered by NADJA MANJARREZ S: 04/22/2018 (139 days ago) QTY: 53, Refills: 0, Si wk before you stop smoking take 0.5mg daily on days 1-3, 0.5mg 2 times each day on days 4-7, then 1mg 2 times daily (unchanged) Powered by [employer], Reference: [id number], 09/08/2018 7:11:08 PM CDT, Pool: ALANIZ RN ([id number]) Beatrice Rider - 09/08/2018 7:08 PM CDT Last refilled: Qty of last refill: n/a documented in this encounter Plan of Treatment Not on filedocumented as of this encounter Visit Diagnoses Not on filedocumented in this encounter Care Teams Religion Department Chair Relationship Specialty Start Date End Date Nadja Manjarrez MD PCP - [facility] 08/20/[id number] [place] [address] documented as of this encounter
--- OUTSIDE RECORDS SUMMARY | 2022-03-08 08:42 | XMS_ITS | Encounter Summary ---
:1975 Author Organization [employer] Address [address] [address] Care Team Providers Name Role Phone Nadja Manjarrez MD Primary Care Provider Reason for Visit Reason Comments Medication Request Encounter Details Date Type Department Care Team Description 09/14/2018 [facility], [facility] ication Request Practice [facility] [address] [place] [address] [place], [place] [phone] (Wo rk) Social History Tobacco Use Types Packs/Day Years Used Date Smoking Tobacco: Some Days Cigarettes L ast attempted to quit: 03/30/2015 Smokeless Tobacco: Never Comments: 4-5 cigs/month Alcohol Use Standard Drinks/Week Comments Yes 2 (1 standard drink = 0.6 oz pure alcoho l) Sex Assigned at Date Recorded Not on file documented as of this encounter Nursing Notes Camilla Almaraz CMA - 09/14/2018 1:21 PM CDT Unable to close encounter since original user has unfinished note. Please make sure it states sign at exit of WS and close encounter. Camilla Almaraz CMA 09/14/2018, 1:22 PM Robert Posadas, [facility] - 09/14/2018 1:08 PM CDT Spoke with pt regarding persistent symptoms and as discussed in our last visit I was happy to prescribe him a one week pred burst. Administration and side effects were discussed, and all questions wereanswered. Pt was grateful for the call and will start medications today. Discussed that if his symptoms persist beyond next week I would refer him to ENT. Jaelyn Omalley RN - 09/14/2018 12:51 PM CDT 12:52 PM Fabio Deluca (Self) [phone] (H) Spoke with patient. Concern: Symptoms continue, no improvement. Pt states provider would a steroid if no improvement andtests negative. Background: 09/10/18 visit with Robert Posadas PA-C. Symptoms of sore throat, bumps in throat started last Tu. Assessment: Pt reports sore throat and bumps continue. Symptoms are the same. Pt continues to feel tired. No fever, no rash. No sinus congestion or cough, no ear pain. Pt denies and SOB, pt can swallowfine, but hurts to swallow. Pt states he is eating and drinking fine. Plan: Will route to Robert Posadas PA-C for review and recommendation. Will call pt back. Per patient okay to leave detailed message at [phone] (H). documented in this encounter Plan of Treatment Not on filedocumented as of this encounter Visit Diagnoses Diagnosis Hand, foot, mouth disease - Primary documented in this encounter Care Teams Welder Railcar Mechanic Relationship Specialty Start Date End Date Nadja Manjarrez MD PCP - General Family Practice 08/20/11 [address] [place] [address] documented as of this encounter
--- OUTSIDE RECORDS SUMMARY | 2022-03-08 08:42 | XMS_ITS | Encounter Summary ---
:1975 Author Organization [employer] Address [address], [place] [address] Care Team Providers Name Role Phone Nadja Manjarrez MD Primary Care Provider Reason for Visit Reason Comments Follow-up, NOS Encounter Details Date Type Department Care Team Description 07/02/2016 Telephone [facility] Nadja Manjarrez MD Follow-up, NOS Practice [address] [facility] [address] [place] [address] [address] [address] [phone] Social History Tobacco Use Types Packs/Day Years Used Date Smoking Tobacco: Former Cigarettes Quit : 03/30/2015 Smokeless Tobacco: Never Comments: 4-5 cigs/month Alcohol Use Standard Drinks/Week Comments Yes 2.5 (1 standard drink = 0.6 oz pure alco hol) Sex Assigned at Date Recorded Not on file documented as of this encounter Nursing Notes Dipika Quinteros CMA - 07/02/2016 11:08 AM CST Spoke with pt. Pt was having a sore left arm and had a fever on Friday of last week. Pt had receivedthe flu shot in that arm. Pt is feeling better and the soreness is decreasing. Pt would like to avoid this immunization in the future. Dipika Quinteros CMA 07/02/2016, 11:10 AM MOTIVE LUBRICATING SYSTEMS CLERK Emeli Ortiz - 07/02/2016 10:50 AM CST What is your question?: The pt was calling and he would like to speak to his care team about what shots he had done at his last appointment. His arm were he got the shots hurt and he is wondering what he got and he would like to avoid that shot in the future. No further info given when asked. When did you last see your provider for this?: [id number] MOTIVE LUBRICATING SYSTEMS CLERK documented in this encounter Plan of Treatment Not on filedocumented as of this encounter Visit Diagnoses Not on filedocumented in this encounter Care Teams Degree Clerk Relationship Specialty Start Date End Date Nadja Manjarrez MD PCP - General Family Practice 08/20/11 [address] [place] [address] documented as of this encounter
--- OUTSIDE RECORDS SUMMARY | 2022-03-08 08:42 | XMS_ITS | Encounter Summary ---
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 that this RX had already been in the system and [facility] will fill it. 11/26 Rx's issued for 0.5 mg starter #53 and maintenance 1 mg. #90 (this Rx alone should last until the end of Jan) [facility] was called , Pt. had picked up the starter but did not realize that a maintenance dose has been sent as well. Dafne Boone RN - 01/02/2017 8:24 AM CDT This was connected to refill of chantix0.5mg encounter. The system then pended meds and sent this one back to refill center. Will route back to clinic RN to help. Dafne Boone RN 01/02/2017, 8:25 AM Nadja Manjarrez MD - 01/01/2017 12:20 PM CDT COPIED FROM SPLIT REFILL ENCOUNTER Please call patient-is he currently taking the maintenance dose of varenicline since 11/13-if he would like to stay on this dose OK to continue for additional 12 [address] order for this strength. Nadja Manjarrez MD 01/01/2017, 12:18 PM Interface, Out [employer] Prov Query - 01/01/2017 12:20 PM CDT varenicline (CHANTIX) 1 MG tablet Protocol: None Exists -> The requested strength (1 mg oral tablet) was last ordered on 11/26/2016. The patient is taking 0.5 / 1 mg oral tablet as of 11/26/2016. -> The medication is active at more than one strength (1 mg on 11/26/2016, 0.5 / 1 mg on 11/26/2016). -> This medication cannot be delegated per protocol. Last qualifying visit: 08/23/2016 (in Family Practice) Next scheduled visit: None Last ordered by JANINA WU A: 11/26/2016 (36 days ago) QTY: 180, Refills: 0, Sig: take 1 tab bymouth two times a day. take after eating with a full glass of water.note:dispense as maintenance forrefills only. (unchanged) Powered by [employer], Reference: [id number], 01/01/2017 12:19:59 PM CDT, Pool: FP REFILL RN ([id number]) documented in this encounter Plan of Treatment Not on filedocumented as of this encounter Visit Diagnoses Not on filedocumented in this encounter Care Teams Digital Account Coordinator Relationship Specialty Start Date End Date Nadja Manjarrez MD PCP - General Family Practice 08/20/11 [address] [place] [address] documented as of this encounter
--- OUTSIDE RECORDS SUMMARY | 2022-03-08 08:42 | XMS_ITS | Encounter Summary ---
:[address] [address] Address [address] [address] Care Team Providers Name Role Phone Nadja Manjarrez MD Primary Care Provider Reason for Visit Reason Onset Date Comments Refill 11/22/2016 Varenicline Tartrate (AKA CHANTIX DEBORAH) 0.5 MG X 11 & 1 MG X 42 tablet Encounter Details Date Type Department Care Team Description 11/22/2016 Refill [facility] Nadja Manjarrez MD Refill (Varenicline Practice [address] [facility] Tartrate (AKA CHANTIX [address] [place], [place] DEBORAH) 0.5 MG X 11 & 1 MG [place], [place] [address] X 42 tablet) [phone] (Wo rk) Social History Tobacco Use Types Packs/Day Years Used Date Smoking Tobacco: Former Cigarettes Quit : 03/30/2015 Smokeless Tobacco: Never Comments: 4-5 cigs/month Alcohol Use Standard Drinks/Week Comments Yes 2.5 (1 standard drink = 0.6 oz pure alco hol) Sex Assigned at Date Recorded Not on file documented as of this encounter Nursing Notes Dipika Quinteros CMA - 11/26/2016 1:40 PM CDT Pt had used Chantix in the past to help quit smoking. Pt had stopped smoking 2 years ago but recently started. Pt does not want to start smoking again and would like to use Chantix to help stop again. Dipika Quinteros CMA 11/26/2016, 1:41 PM Janina Wu APRN, CNP - 11/26/2016 12:30 PM CDT Can we call pt and find out if they have been taking Chantix regularly or if he is restarting it? Janina Wu APRN, CNP 11/26/2016 12:30 PM Maritza Payan RN - 11/26/2016 11:26 AM CDT Medication was Discontinued on 02/23/16 Last Visit: 08/23/16. Routing to provider for review. Maritza Payan RN documented in this encounter Plan of Treatment Not on filedocumented as of this encounter Visit Diagnoses Not on filedocumented in this encounter Care Teams Chemist Internship Relationship Specialty Start Date End Date Nadja Manjarrez MD PCP - General Family Practice 08/20/11 [address] [place] [address] documented as of this encounter
--- OUTSIDE RECORDS SUMMARY | 2022-03-08 08:43 | XMS_ITS | Encounter Summary ---
:[address] [facility] Address [address], [place] [address] Care Team Providers Name Role Phone Nadja Manjarrez MD Primary Care Provider Reason for Visit Reason Onset Date Comments Post Op Exam DOS 06/14/15 RIGHT F LEXOR TENDON RECONSTRUCTION LONG AND RING FINGER ROUTINE, FOLLOW-UP 06/21/2015 Encounter Details Date Type Department Care Team Description 06/20/2015 Office Visit Specialty [facility] Meaghan Rasmussen Fo llow-up [facility] MD examination, Surgery [address] following other [address] [place], [place] surgery (Primary Dx) [place], [place] [phone] (Wo rk) Social History Tobacco Use Types Packs/Day Years Used Date Smoking Tobacco: Some Days Cigarettes L ast attempted to quit: 2012 Smokeless Tobacco: Never Comments: 4-5 cigs/month Alcohol Use Standard Drinks/Week Comments Yes 2.5 (1 standard drink = 0.6 oz pure alco hol) Sex Assigned at Date Recorded Not on file documented as of this encounter Patient Instructions Patient InstructionsStorsGayle milner LPN - 06/20/2015 1:43 PM CST Reason for today's visit: right hand post op Tests that you will need: none today Treatment plan: continue with therapy. Okay to have therapist remove sutures next week. LEAVE BUTTONS ON! Follow up: 2-[address] Rasmussen. Your test results are reviewed several times a day. Once they are all in, you will be sent a letter with your results and/or if you are signed up for on-line services, you will be e-mailed the results.If there are serious findings, you typically will be called. If you have any questions about your visit, your symptoms, your medication, your test results or it is not clear what your diagnosis or treatment plan is please contact me (via on-line services/e-mail)or call my office at [phone]. If you need follow-up in the future, please call [phone] for an appointment. If you cannot get a time that satisfies you, please let us know what times work for you and we will do our best to accommodate you. Your follow up appointment will be scheduled with one of the Plastic and Hand Surgery Department team members. This may be one of our physician assistants or nurse practitioners. They are always in direct communication with your physician. Thank you for continuing to trust us with your care. We are your partner. NESS SERVICES SALES AGENT documented in this encounter Progress Notes Meaghan Rasmussen MD - 06/21/2015 2:23 PM CST I saw and examined the patient today. I agree with the findings and plan of care as documented in the note by Dr. Gabriela Alvarado. Doing well. Fingers feel better than they have after any prior surgery. Off pain meds. Doing therapyas instructed. NESS SERVICES SALES AGENT Gabriela Alvarado - 06/20/2015 4:35 PM CST Hand Surgery Clinic Note HPI: 39 y/o male comes in for post op visit after 2nd stage flexor tendon reconstruction using bilateral palmaris longus tendon graft and removal of jean pierre rods to the right ring and long fingers 6 days ago. He has been doing very well. He states he has not needed any pain medications since POD #1. Healqiana feels the swelling in his long and ring fingers is decreased even from pre-op. He has been compliant with therapy. He does feel some discomfort in the volar forearm with his [id number]-[id number] exercises but no pain in the hand or fingers. Denies numbness or tingling in any digit on either hand. Physical Exam: Patient is awake and alert. Breathing is nonlabored. Wounds healing nicely and benign. Sutures in place. Passive motion of the long and ring finger within 4cm of tip-to-palm. Able to hold fingers flexed in this position. Sensation intact distally in all digits. With passive motion of the fingers, tendon gliding can be felt in the forearm. Impression: 6 days s/p 2nd stage flexor reconstruction, doing well Plan: -- Continue therapy --Ok to remove stitches in therapy in 1 week, do not remove button --Plan to remove button 6 weeks post op --Follow up 2-[address] Rasmussen saw and examined the patient and formulated the above plan. Gabriela Alvarado MD Hand Surgery Fellow [phone] NESS SERVICES SALES AGENT documented in this encounter Plan of Treatment Not on filedocumented as of this encounter Visit Diagnoses Diagnosis Follow-up examination, following other s urgery - Primary documented in this encounter Care Teams Auto Appraiser Relationship Specialty Start Date End Date Nadja Manjarrez MD PCP - General Family Practice 08/20/11 [address] [place] [address] documented as of this encounter
--- OUTSIDE RECORDS SUMMARY | 2022-03-08 08:43 | XMS_ITS | Encounter Summary ---
:1975 Author Organization [facility] Address [address], [place] [address] Care Team Providers Name Role Phone Nadja Manjarrez MD Primary Care Provider Encounter Details Date Type Department Care Team Description 02/27/2016 Correspondence [facility] ANITA Doyle [facility] EXAM REPORT Occupational Patricia Thompson MD FOR[address] [id number] Social History Tobacco Use Types Packs/Day Years [...] filedocumented in this encounter Care Teams Manager Managing Relationship Specialty Start Date End Date Nadja Manjarrez MD PCP - General Family Practice 08/20/11 [address] [place] [address] documented as of this encounter
--- OUTSIDE RECORDS SUMMARY | 2022-03-08 08:43 | XMS_ITS | Encounter Summary ---
:[address] [facility] Address [address], [place] [address] Care Team Providers Name Role Phone Nadja Manjarrez MD Primary Care Provider Encounter Details Date Type Department Care Team Description 07/19/2015 Consent for [facility] RH INFORM ED CONSENT Procedure/Treatment RECORD Social History Tobacco Use Types Packs/Day Years [...] on filedocumented in this encounter Care Teams Bench Worker Relationship Specialty Start Date End Date Nadja Manjarrez MD PCP - General Family Practice 08/20/11 [address] [place] [address] documented as of this encounter
--- OUTSIDE RECORDS SUMMARY | 2022-03-08 08:43 | XMS_ITS | Encounter Summary ---
:1975 Author Organization [facility] Address [address] [address] Care Team Providers Name Role Phone Nadja Manjarrez MD Primary Care Provider Reason for Visit Reason Comments DOT EXAM Self Pay Encounter Details Date Type Department Care Team Description 04/03/2016 Office Visit [facility] Occupational and Sasha Li, Canceled (Clinic Environmental Medici ne Request) [address] [place] [id number] Social History Tobacco Use Types Packs/Day Years Used Date Smoking Tobacco: Former Cigarettes Quit : 03/30/2015 Smokeless Tobacco: Never Comments: 4-5 cigs/month Alcohol Use Standard Drinks/Week Comments Yes 2.5 (1 standard drink = 0.6 oz pure alco hol) Sex Assigned at Date Recorded Not on file documented as of this encounter Last Filed Vital Signs Vital Sign Reading Time Taken Comments Blood Pressure 126/73 04/03/2016 1:22 PM CDT Pulse 77 04/03/2016 1:22 PM CDT Temperature - - Respiratory Rate - - Oxygen Saturation - - Inhaled Oxygen Concentration - - Weight - - Height - - Body Mass Index - - documented in this encounter Nursing Notes Sarah Gore - 04/03/2016 1:22 PM CDT Patient here for follow up from DOT exam done on 02/27/16. Patient needed more information regarding a back surgery. Sarah Gore 04/03/2016, 1:22 PM documented in this encounter Plan of Treatment Not on filedocumented as of this encounter Visit Diagnoses Not on filedocumented in this encounter Care Teams Cherry Dipper Relationship Specialty Start Date End Date Nadja Manjarrez MD PCP - General Family Practice 08/20/11 [address] [place] [address] documented as of this encounter
--- OUTSIDE RECORDS SUMMARY | 2022-03-08 08:43 | XMS_ITS | Encounter Summary ---
:[address] [facility] Address [address], [place] [address] Care Team Providers Name Role Phone Nadja Manjarrez MD Primary Care Provider Reason for Visit Reason Onset Date Comments ROUTINE, FOLLOW-UP ROUTINE, FOLLOW-UP 07/25/2015 Encounter Details Date Type Department Care Team Description 07/25/2015 Office Visit Specialty Center [facility], Mario Bhatt llow-up [facility] Hand MD examination, Surgery [address] following other [address] [place], [place] surgery (Primary Dx) [place] [address] [phone] (Wo rk) Social History Tobacco Use Types Packs/Day Years Used Date Smoking Tobacco: Some Days Cigarettes L ast attempted to quit: 2012 Smokeless Tobacco: Never Comments: 4-5 cigs/month Alcohol Use Standard Drinks/Week Comments Yes 2.5 (1 standard drink = 0.6 oz pure alco hol) Sex Assigned at Date Recorded Not on file documented as of this encounter Patient Instructions Patient InstructionsJoFranco sharma PA-C - 07/25/2015 4:02 PM CST Reason for today's visit: Right index and long. Your diagnosis: Revision flexor tendon repair. Tests that you will need: None Treatment plan: Continue occupational therapy - a/prom. OK to begin strengthening at 9 weeks post operative. Follow up: 6 weeks. Your test results are reviewed several times [...] (via on-line services/e-mail)or call my office at [phone]. If you need follow-up in the future, please call [phone] for an appointment. If you cannot get [...] with your care. We are your partner. Franco Cox PA-C 07/25/2015, 4:02 PM OPRACTIC NEUROLOGIST documented in this encounter Progress Notes Franco Cox PA-C - 07/25/2015 4:49 PM CST Chief Complaint: Right index and long finger injury HPI: Fabio Hodgson 40-year-old [id number] male follows up regarding his right hand. He underwent two stage flexor tendon repair dominant right long and ring finger. He has continued occupational therapy with active and passive motion as well as place and hold exercises. He has maintained hisgood range of motion. He does not a gauntlet significant progress inches reasonable alignment was our plan. Buttons have remained in place. Occupational therapy has been going well. He will wean out ofhis brace over the past week. Physical Exam: Patient is awake and alert. Breathing is nonlabored. Musculoskeletal examination right long and ring fingers shows about since to be in place. Sutures inplace. Diffuse swelling to the fingers as expected. He is able to flex the fingers and reach within 1 1/2 cm of distal palmar crease. Upon forming a fist he has some difficulty bending at the PIP and DIP joints unless he holds the base of each finger extended. Results Reviewed: Impression: Doing well six weeks post second stage reconstruction dominant right long and ring finger Lexer tendon. Plan: #1 the patient was seen per myself and Dr. Rasmussen. He was instructed in tape the base of each finger for stability and doing his range of motion exercises. He will continue formal occupational therapy with active and passive motion as well as place and hold exercises. They may work with extension of the fingers as well mild. They may begin strengthening in three weeks' time. #2. We discussed work. He plans to return to work duties in September. 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 He will perform limited duties. He does not plan on doing full duties at his work for at least six months possiblya year. #3. Follow-up in six weeks for reevaluation with Dr. Rasmussen. This we will possibly be his final recheck. Follow up sooner if increased pain, injury, difficulty progressing in therapy or any other concerns. OPRACTIC NEUROLOGIST documented in this encounter Plan of Treatment Not on filedocumented as of this encounter Visit Diagnoses Diagnosis Follow-up examination, following other s urgery - Primary documented in this encounter Care Teams Customer Experience Manager Relationship Specialty Start Date End Date Nadja Manjarrez MD PCP - General Family Practice 08/20/11 [address] [place] [address] documented as of this encounter
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
--- OUTSIDE RECORDS SUMMARY | 2022-03-08 08:43 | XMS_ITS | Encounter Summary ---
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 weave inthe proximal forearm in the forearm wound to secure the tendon graft proximally in the respective FDS tendons of the long and ring finger. We then used 3-0 Prolene on the distal aspect of the tendon graft in a nonlocking cross-stitch fashion. We then used a Vadim needle to drill a hole in the distal phalanx and out the middle of the nail plate. We then passed the Prolene suture ends through the Keithneedle and pulled the Vadim needle out to the dorsal aspect of the nail. The Prolene was tied over Xeroform and a button and secured over the dorsal fingertips. We then used a tendon passer to do Two additional pulvertaft weaves. We assured proper tensioning position in extension and Flexion, tenodesis was intact. The tourniquet was deflated. Wounds were irrigated. The incisions were closed with 4-0 nylon suture. The wounds were covered with Xeroform, 4x4s and a dorsal blocking splint. He returned to recovery room in stable condition. POSTOPERATIVE PLAN: RTC in 1-2 weeks for wound check and suture removal. Hand OT for flexor tendon protocol. Melissa Mchugh MD KP:douglas/[email or web address] Dictated: 06/20/2015 17:10:00 Transcribed: 06/20/2015 21:30:32 Job: [id number] Doc: [id number] cc: Meaghan Rasmussen MD, Referring Provider DER SET UP OPERATOR THREAD TOOL documented in this encounter Plan of Treatment Scheduled Referrals Name Type Priority Associated Diagnoses Order S chedule Hand Occupational Therapy Referral Routine Or dered: 06/14/2015 documented as of this encounter Procedures Procedure Name Priority Date/Time Associated Comments Diagnosis AEROBIC CULTURE Routine 06/14/2015 1:10 Results f or this PM GRINDER SET UP OPERATOR THREAD TOOL procedure are i n the results section. ANAEROBIC CULTURE Routine 06/14/2015 1:10 Results for this PM GRINDER SET UP OPERATOR THREAD TOOL procedure are i n the results section. REPAIR HAND Same Day Surgery 06/14/2015 12:24 Flexor tendon TENDON WITH PM GRINDER SET UP OPERATOR THREAD TOOL rupture of hand, JEFF CLOVER right, subsequent encounter EKG IP 06/14/2015 12:00 Results for this AM GRINDER SET UP OPERATOR THREAD TOOL procedure are i n the results section. documented in this encounter Results AEROBIC CULTURE (06/14/2015 1:10 PM GRINDER SET UP OPERATOR THREAD TOOL) JustSpotted Method Time Signature Specimen Aspirate Right [facility] Special Unspecified [facility] Gram Smear Moderate PMNs [facility] Gram Smear No Organisms [facility] Culture Rare Skin [place] [facility] Report Status Final [facility] 06/17/2015 HOSPITAL Specimen Anatomical Collection Method Collection Time Receive d Time (Source) Location / / Volume Laterality Fluid specimen 06/14/2015 1:10 PM 015 6:52 (specimen) GRINDER SET UP OPERATOR THREAD TOOL PM GRINDER SET UP OPERATOR THREAD TOOL Narrative [facility] - 06/17/2015 8:04 PM CS T Performed at [facility] , [address] [place] [address] Meaghan Rasmussen MD LAB_1 Performing Organization Address [facility]/ZIP Code Phon e Number [address] [address] ANAEROBIC CULTURE (06/14/2015 1:10 PM GRINDER SET UP OPERATOR THREAD TOOL) JustSpotted Method Time Signature Specimen Aspirate Right [facility] Special Unspecified [facility] Aerobic Cult [id number] [facility] Number [facility] Culture No Anaerobes [facility] Report Status Final [facility] 06/21/2015 HOSPITAL Specimen Anatomical Collection Method Collection Time Receive d Time (Source) Location / / Volume Laterality 06/14/2015 1:10 PM 5 6:50 GRINDER SET UP OPERATOR THREAD TOOL PM GRINDER SET UP OPERATOR THREAD TOOL Narrative [facility] - 06/21/2015 10:[address] Performed at [facility] , [address] [place] [id number] Meaghan Rasmussen MD LAB_1 Performing Organization Address City/State/ZIP Code Phon e Number [address] [address] EKG IP (06/14/2015 12:00 AM GRINDER SET UP OPERATOR THREAD TOOL) Specimen (Source) Anatomical Location Collection Method / Collectio n Time Received Time / Laterality Volume 06/14/2015 Narrative This result has an attachment that is no t available. Provider [facility] documented in this encounter Visit Diagnoses Diagnosis Flexor tendon laceration, finger, open w ound, sequela - Primary Flexor tendon rupture of hand, right, macias bsequent encounter documented in this encounter Administered Medications Inactive Administered Medications - up to 3 most recent administrations Medication Order MAR Action Action Date Dose Rate Site bupivacaine PF 0.25 % 30 mL in Given 06/14/2015 4:33 PM GRINDER SET UP OPERATOR THREAD TOOL lidocaine-EPINEPHrine 1 %-1:483937 30 mL INTRA-OP, Starting on Fri06/14/15 at 0919, For 1 dose, Verify Route and Dose with Surgeon Prior to Administration lactated ringers infusion Started 06/14/2015 9:49 AM GRINDER SET UP OPERATOR THREAD TOOL 30 mL/hr Intravenous, at 30 mL/hr, CONTINUOUS, Starting on Fri06/14/15 at 0945, Pre-op oxyCODONE-acetaminophen (aka PERCOCET) Given 06/14/2015 5:46 PM GRINDER SET UP OPERATOR THREAD TOOL 2 Tablets 5-325 MG tablet 1-2 Tab 1-2 Tablet, Oral, Q4H PRN, Pain, Starting on Fri06/14/15 at 1714, Until Latasha 06/15/15 at 0825, PACU & Post-op documented in this encounter Care Teams Director Pharmacovigilance Relationship Specialty Start Date End Date Nadja Manjarrez MD PCP - General Family Practice 08/20/11 [address] [place] [address] documented as of this encounter
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
--- OUTSIDE RECORDS SUMMARY | 2022-03-08 08:43 | XMS_ITS | Encounter Summary ---
:1975 Author Organization [facility] Address [address], [place] [address] Care Team Providers Name Role Phone Nadja Manjarrez MD Primary Care Provider Reason for Referral Consult/Transfer Care (Routine) - Closed Specialty Diagnoses / Procedures Referred By Contact Refer red To Contact Meaghan Rasmussen M D [address] [place] [address] Referral ID Status Reason Start Date Expiration Date Visits Requ ested Visits Authorized [id number] Closed 06/14/2015 08/13/2015 1 1 Scheduling Instructions Your provider has recommended an appoint ment with a [facility] Hand Occupational Therapist. Please stop at the clinic orly ck out desk for assistance with scheduling or if you prefer to call for your appointme nt you may call [facility] Outpatient Hand Occupational Therapy at [facility] at [phone] COIL CLEANER Reason for Visit Auth/Cert - Closed Specialty Diagnoses / Procedures Referred By Contact Refer red To Contact Diagnoses Flexor tendon rupture of hand . Referral ID Status Reason Start Date Expiration Date Visits Requ ested Visits Authorized [id number] Closed 1 1 Encounter Details Date Type Department Care Team Description 06/14/2015 [facility] Meaghan Altamirano tendon [facility]counter [facility] MD Vijay laceration, [address] finger, [place] [address] [place], [place] wound, sequela [phone] (Primary Dx) Social History Tobacco Use Types Packs/Day Years [...] Sign Reading Time Taken Comments Blood Pressure 148/82 06/14/2015 6:08 PM BEER COIL CLEANER Pulse 64 06/14/2015 6:08 PM BEER COIL CLEANER Temperature 36.1 ??C (97 ??F) 06/14/2015 4:54 PM BEER COIL CLEANER Respiratory Rate 18 06/14/2015 6:08 PM BEER COIL CLEANER Oxygen Saturation 98% 06/14/2015 6:08 PM BEER COIL CLEANER Inhaled Oxygen Concentration - - Weight 83.5 kg (184 lb) 06/14/2015 9:23 AM BEER COIL CLEANER Height 180.3 cm (5' 11) 06/14/2015 9:23 AM BEER COIL CLEANER Body Mass Index 25.66 06/14/2015 9:23 AM BEER COIL CLEANER documented in this encounter Discharge Instructions Discharge InstructionsJimbo Caruso RN - 06/14/2015 5:48 PM BEER COIL CLEANER Discharge Instructions for: Fabio Hodgson Thank you for choosing [facility] as your provider. A copy of [...] provider has recommended an appointment with a [facility] Hand Occupational Therapist. Please stopat the clinic check out desk for assistance with scheduling or if you prefer to call for your appointment you may call [facility] Outpatient Hand Occupational Therapy at [facility] at [phone] Reason for referral (DX) s/p flexor tendon [...] is after hours call the Careline at [phone]. Plastics/Hand, DR RASMUSSEN Follow Up Appointment 06/20 [...] it. It is our goal to make [facility] your hospital of choice and want you to feel confident in recommending [facility] to your family and friends. Thank you for choosing [facility]. COIL CLEANER documented in this encounter Medications at Time [...] Raza MD - 06/14/2015 9:27 AM CST [facility] Interval History and Physical Note The attached H&P has been reviewed. The patient was examined. No change observed. COIL CLEANER Source Note - Nadja Manjarrez MD - 05/22/2015 11:12 AM BEER COIL CLEANER Pre-operative History and Physical Assessment Name: Fabio Hodgson : 1975 Primary physician: Nadja Manjarrez MD. Historical: Fabio Hodgson is a 39 y.o. old male is here for preoperative cardiac and risk evaluation. Patient is scheduled for right hand surgery on 06/14/[address] Rasmussen at [facility] . Pertinent history: [...] flying ??? Other musculoskeletal symptoms referable to limbs(729.89) ??? Corneal rust ring of right eye [...] surgery. Nadja Manjarrez MD 05/22/2015, 1:26 PM COIL CLEANER documented in this encounter Procedure Notes Meaghan Rasmussen MD - 06/14/2015 4:53 PM CST [facility] Brief Operative Progress Note Surgery Date: 06/14/2015 Surgeon(s) and Role: * Meaghan Rasmussen MD - Primary * Melissa Mchuhg MD FELLOW-davin dodge Pre-op Diagnosis: * Flexor tendon rupture of hand, right, subsequent encounter [S66.811D] Post-op Diagnosis: * Flexor tendon rupture of hand, right, subsequent encounter [S66.811D] Procedure(s) (LRB): RIGHT FLEXOR TENDON RECONSTRUCTION LONG AND RING FINGER WITH PALMARIS LONGUS HARVEST FROM BILATERAL UPPER EXTREMITIES (Right) EBL: 20 ML Specimens: Specimen ID Type Site Comments Sent To right ring finger fluid CULTURE SPECIMEN COOLER Complications / Findings: Bilateral palmaris longus autograft harvested. Distal repair over a button through the nail. Proximal prashant tati weave into FDS proximal to the wrist crease. Meaghan Rasmussen MD COIL CLEANER Meaghan Rasmussen MD - 06/14/2015 12:00 AM [...] progression, we felt this was most likely b2b outside sales representative of a silicone synovitis orirritation from the silicone clover moving at the ring finger distal phalanx. As a precaution, in case this was b2b outside sales representative of some very indolent infection, [...] to the long finger. We used a SquareClock tendon santo to go through the FDS [...] nail for 6 weeks. Meaghan Rasmussen MD CMW:vma Dictated: 06/14/2015 17:13:42 Transcribed: 06/14/2015 20:02:21 Job: [id number] Doc: [id number] cc: Meaghan Rasmussen MD, Referring Provider COIL CLEANER Melissa Mchugh MD - 06/14/2015 12:00 AM CST DATE OF SERVICE: 06/14/2015 DATE OF SURGERY: 06/14/2015 SURGEON: Meaghan Rasmussen MD COSURGEON: Melissa Mchugh MD COFFEE SHOP MANAGER: Davin Dodge MD, Hand Fellow ANESTHESIA: General. TOURNIQUET TIME: 2 hours. PREOPERATIVE DIAGNOSIS: Right long and ring finger tendon injury after a failed repair. POSTOPERATIVE DIAGNOSIS: Right long and ring finger tendon injury after a failed repair. PROCEDURE PERFORMED: 1. Removal, right long and ring finger Jeff rods. 2. [place], bilateral palmaris longus tendon graft. 3. Reconstruction [...] Dictated: 06/20/2015 17:10:00 Transcribed: 06/20/2015 21:30:32 Job: [id number] Doc: [id number] cc: Meaghan Rasmussen MD, Referring Provider COIL CLEANER documented in this encounter Plan of Treatment Scheduled Referrals Name Type Priority Associated Diagnoses Order S chedule Hand Occupational Therapy Referral Routine Or dered: 06/14/2015 documented as of this encounter Procedures Procedure Name Priority Date/Time Associated Comments Diagnosis AEROBIC CULTURE Routine 06/14/2015 1:10 Results f or this PM BEER COIL CLEANER procedure are i n the results section. ANAEROBIC CULTURE Routine 06/14/2015 1:10 Results for this PM BEER COIL CLEANER procedure are i n the results section. REPAIR HAND Same Day Surgery 06/14/2015 12:24 Flexor tendon TENDON WITH PM BEER COIL CLEANER rupture of hand, JEFF CLOVER right, subsequent encounter EKG IP 06/14/2015 12:00 Results for this AM BEER COIL CLEANER procedure are i n the results section. documented in this encounter Results AEROBIC CULTURE (06/14/2015 1:10 PM BEER COIL CLEANER) [facility] Method Time Signature Specimen Aspirate Right [facility] Special Unspecified [facility] Gram Smear Moderate PMNs [facility] Gram Smear No Organisms [facility] Culture Rare Skin Brittany [facility] Report Status Final [facility] 06/17/2015 HOSPITAL Specimen Anatomical Collection Method Collection Time Receive d Time (Source) Location / / Volume Laterality Fluid specimen 06/14/2015 1:10 PM 015 6:52 (specimen) BEER COIL CLEANER PM BEER COIL CLEANER Narrative [facility] - 06/17/2015 8:04 PM CS T Performed at [facility] , [address] [place] [address] Meaghan Rasmussen MD LAB_1 Performing Organization Address City/State/ZIP Code Phon e Number [address] [address] ANAEROBIC CULTURE (06/14/2015 1:10 PM BEER COIL CLEANER) [facility] gist Method Time Signature Specimen Aspirate Right [facility] Special Unspecified [facility] Aerobic Cult [id number] [facility] HOSPITAL Culture No Anaerobes [facility] Report Status Final [facility] 06/21/2015 HOSPITAL Specimen Anatomical Collection Method Collection Time Receive d Time (Source) Location / / Volume Laterality 06/14/2015 1:10 PM 5 6:50 BEER COIL CLEANER PM BEER COIL CLEANER Narrative [facility] - 06/21/2015 10:[address] Performed at [facility] , [address] [place] [address] Meaghan Rasmussen MD LAB_1 Performing Organization Address City/State/ZIP Code Phon e Number [address] [address] EKG IP (06/14/2015 12:00 AM BEER COIL CLEANER) Specimen (Source) Anatomical Location Collection Method / Collectio n Time Received Time / Laterality Volume 06/14/2015 Narrative This result has an attachment that is no t available. Provider [facility] EKG documented in this encounter Visit Diagnoses Diagnosis Flexor tendon laceration, finger, open w ound, sequela - Primary documented in this encounter Administered Medications Inactive Administered Medications - up to 3 most recent administrations Medication Order MAR Action Action Date Dose Rate Site bupivacaine PF 0.25 % 30 mL in Given 06/14/2015 4:33 PM BEER COIL CLEANER lidocaine-EPINEPHrine 1 %-1:036476 30 mL INTRA-OP, Starting on Fri06/14/15 at 0919, For 1 dose, Verify Route and Dose with Surgeon Prior to Administration lactated ringers infusion Started 06/14/2015 9:49 AM BEER COIL CLEANER 30 mL/hr Intravenous, at 30 mL/hr, CONTINUOUS, Starting on Fri06/14/15 at 0945, Pre-op oxyCODONE-acetaminophen (aka PERCOCET) Given 06/14/2015 5:46 PM BEER COIL CLEANER 2 Tablets 5-325 MG tablet 1-2 Tab 1-2 Tablet, Oral, Q4H PRN, Pain, Starting on Fri06/14/15 at 1714, Until Latasha 06/15/15 at 0825, PACU & Post-op documented in this encounter Care Teams Polyethylene Bag Machine Operator Relationship Specialty Start Date End Date Nadja Manjarrez MD PCP - General Family Practice 08/20/11 [address] [place] [address] documented as of this encounter
--- OUTSIDE RECORDS SUMMARY | 2022-03-08 08:43 | XMS_ITS | Encounter Summary ---
:1975 Author Organization [email or web address] Address [address], [place] [address] Care Team Providers Name Role Phone Nadja Manjarrez MD Primary Care Provider Reason for Visit Reason Onset Date Comments ROUTINE, FOLLOW-UP ROUTINE, FOLLOW-UP 07/11/2015 Encounter Details Date Type Department Care Team Description 07/07/2015 Office Visit Special[facility] [place], Mario Bhatt llow-up [address] [facility] MD examination, Surgery [address] following other [address] [place], [place] surgery (Primary Dx) [place] [address] [phone] (Wo rk) Social History Tobacco Use Types [...] Patient Instructions Patient InstructionsJoFranco sharma PA-C - 07/07/2015 11:37 AM CST Reason for today's visit: Right hand injury. Your diagnosis: Flexor tendon repairs right long and ring finger. Tests that you will need: None Treatment plan: Continue OT. Follow up: 08/25/14 for re-evaluation and button removal. Your test results are reviewed several times [...] (via on-line services/e-mail)or call my office at [phone]. If you need follow-up in the future, please call [phone] for an appointment. If you cannot get [...] We are your partner. Franco Cox PA-C 07/07/2015, 11:38 AM documented in this encounter Progress Notes Franco Cxo PA-C - 07/11/2015 12:28 PM CST Chief Complaint: Right hand injury HPI: Fabio Hodgson 40-year-old [id number] male underwent two stage flexor tendon reconstruction. Second stage performed 06/14/2015. He was last seen 06/20/2015. At that time he had moderate finger stiffness. Finger flexion brought the tips of the fingers to 4 cm short of the distal palmar crease passively. He was able to hold this flexed position at that time. He was advised to continue occupational therapy. Since then he has done quite well. He is continued occupational therapy. His range of motion is continued to steadily improve. He states that his hand feels better now than it has since the time of injury. This includes his return visit at the office when he previously had a rupture upon beginning active motion. His motion is steadily improved. Pain has been virtually absent. He has been very diligent in following restrictions and continuing to progress his motion safely. No numbness or weakness Physical Exam: Patient is awake and alert. Breathing is nonlabored. Muscle skeletal dominant right hand shows healed incisions. He is able to gently flex and extend thefingers. Upon passive flexion the tips of the fingers can be brought to approximately 1.5 cm from the distal palmar crease which is a nice improvement. Sensation intact over the radial median and ulnarnerve distributions with capillary refill less than two seconds Results Reviewed: None Impression: Doing well three weeks post second stage flexor tendon reconstruction right index and long fingers. Plan: #1 continue having the buttons in place index and long finger. #2. Begin gentle active range of motion. Continue on flexor tendon protocol. #3. The patient was seen per myself and Dr. Rasmussen. Two week follow-up is recommended. We discussed and decided on 08/25/[address] Rasmussen. We will likely remove the retained buttons at that time. documented in this encounter Plan of Treatment Not on filedocumented as of this encounter Visit Diagnoses Diagnosis Follow-up examination, following other s urgery - Primary documented in this encounter Care Teams Service Team Leader Relationship Specialty Start Date End Date Nadja Manjarrez MD PCP - General Family Practice 08/20/11 [address] [place] [address] documented as of this encounter
--- OUTSIDE RECORDS SUMMARY | 2022-03-08 08:43 | XMS_ITS | Encounter Summary ---
:1975 [facility] Address [address] [address] Care Team Providers Name Role Phone Nadja Manjarrez MD Primary Care Provider Encounter Details Date Type Department Care Team Description 06/14/2015 Consent for [facility] RH INFORM ED [...] filedocumented in this encounter Care Teams Senior System Operator Relationship Specialty Start Date End Date Nadja Manjarrez MD PCP - General Family Practice 08/20/11 [address] [place] [address] documented as of this encounter
--- OUTSIDE RECORDS SUMMARY | 2022-03-08 08:43 | XMS_ITS | Encounter Summary ---
:1975 Author Organization [facility] Address [address], [place] [address] Care Team Providers Name Role Phone Nadja Manjarrez MD Primary Care Provider Reason for Visit Procedure/Equipment (Routine) - Incomplete Specialty Diagnoses / Procedures Referred By Contact Refer red To Contact Procedures Nadja Manjarrez MD XR Pelvis AP W AP/Lat Hip Rt [address] [place], [place] [address] Referral ID Status Reason Start Date Expiration Date Visits V isits Requested Authorized [id number] Incomplete 02/23/2016 05/24/2017 1 1 Encounter Details Date Type Department Care Team Description 02/23/2016 Imaging [facility] Nadja Manjarrez MD Radiology [address] [facility] [place] [address] [place] [address] [place], [place] [address] [phone] Social History Tobacco Use Types Packs/Day Years [...] Name Priority Date/Time Associated Diagnosis Comme nts XR PELVIS AP W Routine 02/23/2016 10:45 AM Result s for this AP/LAT HIP RT CDT procedure are in the results section. documented in this encounter Results XR Pelvis AP W AP/Lat Hip Rt (02/23/2016 10:45 AM CDT) Anatomical Region Laterality Modality Pelvis, Hip Computed Radiography Specimen (Source) Anatomical Collection Method Collection Time Re ceived Time Location / / Volume Laterality 02/23/2016 10:45 AM CDT Narrative 02/23/2016 12:59 PM CDT XR PELVIS AP W AP/LAT HIP RT 02/23/2016 10:45 AM INDICATION: Right hip pain for several m onths. No known injury. ? COMPARISON: None. FINDINGS: Negative pelvis and right hip. No fracture or dislocation. Degenerative changes lumbosacral junctio n. Procedure Note Harjinder Flowers MD - 02/23/2016Formattin g of this note might be different from the original. XR PELVIS AP W AP/LAT HIP RT 02/23/2016 10:45 AM INDICATION: Right hip pain for several m onths. No known injury. COMPARISON: None. FINDINGS: Negative pelvis and right hip. No fracture or dislocation. Degenerative changes lumbosacral junctio n. Nadja RODRIGUEZ GD documented in this encounter Visit Diagnoses Not on filedocumented in this encounter Care Teams Investor Relations Coordinator Relationship Specialty Start Date End Date Nadja Manjarrez MD PCP - General Family Practice 08/20/11 [address] [place] [address] documented as of this encounter
--- OUTSIDE RECORDS SUMMARY | 2022-03-08 08:43 | XMS_ITS | Encounter Summary ---
:1975 Author Organization [facility] Address [address] [address] Care Team Providers Name Role Phone Nadja Manjarrez MD Primary Care Provider Reason for Visit Reason Comments AFTERCARE, SURGICAL Encounter Details Date Type Department Care Team Description 06/15/2015 Telephone Upward Mobility Same Day Maritza Kwok, AFTERCARE, SURGICAL Surgery Center RN [address] [place] [phone] Social History Tobacco Use Types Packs/Day Years [...] on filedocumented in this encounter Care Teams Journeyman Tool And Die Maker Relationship Specialty Start Date End Date Nadja Manjarrez MD PCP - General Family Practice 08/20/11 [address] [place] [address] documented as of this encounter
--- OUTSIDE RECORDS SUMMARY | 2022-03-08 08:43 | XMS_ITS | Encounter Summary ---
:1975 Author Organization [facility] Address [address] [address] Care Team Providers Name Role Phone Nadja Manjarrez MD Primary Care Provider Encounter Details Date Type Department Care Team Description 03/20/2016 Therapy External to [facility] Social History Tobacco [...] on filedocumented in this encounter Care Teams Patient Coordinator Relationship Specialty Start Date End Date Nadja Manjarrez MD PCP - General Family Practice 08/20/11 [address] [place] [address] documented as of this encounter
--- OUTSIDE RECORDS SUMMARY | 2022-03-08 08:43 | XMS_ITS | Encounter Summary ---
:1975 Author Organization [facility] Address [address] [place] [address] Care Team Providers Name Role Phone Nadja Manjarrez MD Primary Care Provider Reason for Visit Procedure/Equipment (Routine) - Closed Specialty Diagnoses / Procedures Referred By Contact Refer [place] [address] [place], [place] [address] Referral ID Status Reason Start Date Expiration Date Visits Requ ested Visits Authorized [id number] Closed 05/08/2015 08/06/2016 1 1 Encounter Details Date Type Department Care Team Description 07/19/2015 Procedure Visit [facility] [address] [place] [phone] [place], [place] [address] Social History Tobacco Use Types Packs/Day Years [...] Sign Reading Time Taken Comments Blood Pressure 113/72 07/19/2015 11:30 AM [employer] Pulse 44 07/19/2015 11:35 AM [employer] Temperature - - Respiratory Rate 12 07/19/2015 11:35 AM [employer] Oxygen Saturation 99% 07/19/2015 11:35 AM [employer] Inhaled Oxygen Concentration - - Weight - - Height - - Body Mass Index - - documented in this encounter Progress Notes Prudencio Arango MD - 07/21/2015 3:07 PM [employer] Quick Note: Hyperplastic polyp Rec: F/u colonoscopy in 5 yrs RTC with PMD as scheduled. Prudencio Arango MD 07/21/2015, 3:07 PM [employer] DIST[employer] TENDER Prudencio Arango MD - 07/19/2015 11:14 AM CST CC: Colonoscopy HPI: Patient here for colonoscopy. Clinically asymptomatic. PMH: Reviewed PSH: Reviewed Social Hx: Reviewed Allergies: Reviewed Medications: Reviewed Family History: Reviewed (No history of colon cancer) Review of Systems: Pertinent ROS done. Exam: Alert, awake and oriented. Vitals: See documentation flowsheet. Head and Neck: Examined Chest: Clear to auscultation. No wheezes or rales. CVS: Regular, rate, rhythm. Abdomen: Abdomen soft, non-tender without masses or organomegaly. Extremities: Examined ASA: P2 A patient with mild systemic dz Plan: Colonoscopy Potential risks and complications of procedure have been discussed with patient. Prudencio Arango MD 07/19/2015, 11:14 AM ALT [employer]ENDER documented in this encounter Plan of Treatment Not on filedocumented as of this encounter Procedures Procedure Name Priority Date/Time Associated Diagnosis Comme nts COLONOSCOPY Routine 07/19/2015 11:09 AM Screen for colon Resu lts for this [employer] cancer procedure are i n the results section . SURGICAL PATH Routine 07/19/2015 6:00 AM Screen for colon Resu lts for this [employer] cancer procedure are i n the results section . documented in this encounter Results COLONOSCOPY [[id number]] (07/19/2015 11:09 AM [employer]) Specimen (Source) Anatomical Collection Method Collection Time Re ceived Time Location / / Volume Laterality 07/19/2015 11:09 AM [employer] Narrative [facility] - 07/19/2015 11:41 AM [employer] Patient Name: Fabio Hoffman Procedure Date: 07/19/2015 11:09 AM Date of : 1975 Age: 40 Gender: Male Note Status: Finalized Procedure: ? Colonoscopy Indications: ? Screening in pa tient at increased risk: Colorectal ? cancer in father before age 60 Providers: ? Prudencio rodriguez MD, Teresa Garay RN, Christel deleon ? PRIYA Cortes Referring MD: ?Nadja Manjarrez Medicines: ? Midazolam 3 mg IV, Fentanyl 150 micrograms IV Complications: ? No immediate com plications. Estimated blood loss: ? None. Procedure: ? Pre-Anesthesia Assessment: ? - Prior t o the procedure, a History and Physical was ? performed , and patient medications, allergies and ? sensitivi ties were reviewed. The patient's tolerance ? of previo us anesthesia was reviewed. ? - The ris ks and benefits of the procedure and the ? sedation options and risks were discussed with the ? patient. All questions were answered and informed ? consent w as obtained. ? - Mental Status Examination: alert and oriented. ? Airway Ex amination: normal oropharyngeal airway and ? neck mobi lity. Respiratory Examination: clear to ? auscultat ion. CV Examination: normal. Abdominal ? Examinati on: bowel sounds present, abdomen soft and ? non-tende r, no masses or organomegaly noted. ? - ASA Gra de Assessment: I - A normal, healthy patient. ? - After r eviewing the risks and benefits, the patient ? was deeme d in satisfactory condition to undergo the ? procedure . ? - The ane sthesia plan was to use moderate ? sedation/ analgesia (conscious sedation). ? - Immedia tely prior to administration of medications, ? the patie nt was re-assessed for adequacy to receive ? sedatives . ? - Sedatio n was administered by an endoscopy nurse. ? The sedat ion level attained was moderate. ? - The hea rt rate, respiratory rate, oxygen ? saturatio ns, blood pressure, adequacy of pulmonary ? ventilati on, and response to care were monitored ? throughou t the procedure. ? - The phy sical status of the patient was re-assessed ? after the procedure. ? After I o btained informed consent, the scope was ? passed un wilbert direct vision. Prior to sedation, ? patient i dentity and procedure was reverified. ? Throughou t the procedure, the patient's blood ? pressure, pulse, and oxygen saturations were ? monitored continuously. The [id number] was introduced ? through t he anus and advanced to the terminal ileum, ? with iden tification of the appendiceal orifice and IC ? valve. Th e colonoscopy was performed without ? difficult y. The patient tolerated the procedure well. ? The quali ty of the bowel preparation was good. Findings: ? The terminal ileum appeared elsa l. ? A 5 mm polyp was found in the pro ximal ascending colon. The polyp was ? sessile. The polyp was removed wi th a hot snare. Resection and ? retrieval were complete. ? A 1 mm polyp was found in the rec brianna. The polyp was sessile. The ? polyp was removed with a cold bio psy forceps. Resection and retrieval ? were complete. ? External and internal hemorrhoids were found. The hemorrhoids were ? small. Impression: ?- The examined portion of the ileum was normal. ? - One 5 m m polyp in the proximal ascending colon. ? Resected and retrieved. ? - One 1 m m polyp in the rectum. Resected and ? retrieved . ? - Externa l and internal hemorrhoids. Recommendation: ?- High fiber t. ? - Await p athology results. ? - Repeat colonoscopy in 5 years for surveillance ? based on pathology results. ? - Return to referring physician as previously ? scheduled . Procedure Code(s): ?? --- Professional - -- ? 29229, PT , Colonoscopy, flexible; with removal of ? tumor(s), polyp(s), or other lesion(s) by snare ? technique ? 46600, 59 ,PT, Colonoscopy, flexible; with biopsy, ? single or multiple Diagnosis Code(s): ?? --- Professional - -- ? Z12.11, E ncounter for screening for malignant ? neoplasm of colon ? Z80.0, Fa jhoan history of malignant neoplasm of ? digestive organs ? D12.2, Be nign neoplasm of ascending colon ? K62.1, Re ctal polyp ? K64.8, Ot her hemorrhoids CPT copyright 2014 [employer]. All rights reserved. The codes documented in this report are preliminary and upon fulfillment coordinator review may be revised to meet current complianc e requirements. Attending Participation: Prudencio Arango MD 07/19/2015 11:40 AM Number of Addenda: 0 Note Initiated On: 07/19/2015 11:09 AM Procedure Note Prudencio Arango MD - 07/19/2015Formatt ing of this note might be different from the original. Patient Name: Fabio Hoffman Procedure Date: 07/19/2015 11:09 AM Date of : 1975 Age: 40 Gender: Male Note Status: Finalized Procedure: Colonoscopy Indications: Screening in patient at inc reased risk: Colorectal cancer in father before age 60 Providers: Prudencio Arango MD, Teresa hill RN, Christel Cortes LPN Referring MD: Nadja Manjarrez Medicines: Midazolam 3 mg IV, Fentanyl 1 50 micrograms IV Complications: No immediate complication s. Estimated blood loss: None. Procedure: Pre-Anesthesia Assessment: - Prior to the procedure, a History and Physical was performed, and patient medications, all ergies and sensitivities were reviewed. The patien t's tolerance of previous anesthesia was reviewed. - The risks and benefits of the procedu re and the sedation options and risks were discuss ed with the patient. All questions were answered an d informed consent was obtained. - Mental Status Examination: alert and oriented. Airway Examination: normal oropharyngea l airway and neck mobility. Respiratory Examination: clear to auscultation. CV Examination: normal. A bdominal Examination: bowel sounds present, abdo men soft and non-tender, no masses or organomegaly n oted. - ASA Grade Assessment: I - A normal, h ealthy patient. - After reviewing the risks and benefit s, the patient was deemed in satisfactory condition to undergo the procedure. - The anesthesia plan was to use modera te sedation/analgesia (conscious sedation) . - Immediately prior to administration o f medications, the patient was re-assessed for adequac y to receive sedatives. - Sedation was administered by an endos copy nurse. The sedation level attained was moderat e. - The heart rate, respiratory rate, oxy gen saturations, blood pressure, adequacy o f pulmonary ventilation, and response to care were monitored throughout the procedure. - The physical status of the patient wa s re-assessed after the procedure. After I obtained informed consent, the scope was passed under direct vision. Prior to se dation, patient identity and procedure was reve rified. Throughout the procedure, the patient's blood pressure, pulse, and oxygen saturations were monitored continuously. The [id number] w as introduced through the anus and advanced to the te rminal ileum, with identification of the appendiceal orifice and IC valve. The colonoscopy was performed wi thout difficulty. The patient tolerated the p rocedure well. The quality of the bowel preparation wa s good. Findings: The terminal ileum appeared normal. A 5 mm polyp was found in the proximal ascending colon. The polyp was sessile. The polyp was removed with a h ot snare. Resection and retrieval were complete. A 1 mm polyp was found in the rectum. T he polyp was sessile. The polyp was removed with a cold biopsy fo rceps. Resection and retrieval were complete. External and internal hemorrhoids were found. The hemorrhoids were small. Impression: - The examined portion of th e ileum was normal. - One 5 mm polyp in the proximal ascend ing colon. Resected and retrieved. - One 1 mm polyp in the rectum. Resecte d and retrieved. - External and internal hemorrhoids. Recommendation: - High fiber diet. - Await pathology results. - Repeat colonoscopy in 5 years for jena veillance based on pathology results. - Return to referring physician as prev iously scheduled. Procedure Code(s): --- Professional --- 42013, PT, Colonoscopy, flexible; with removal of tumor(s), polyp(s), or other lesion(s) by snare technique 89749, 59,PT, Colonoscopy, flexible; wi biopsy, single or multiple Diagnosis Code(s): --- Professional --- Z12.11, Encounter for screening for mal ignant neoplasm of colon Z80.0, Family history of malignant neop lasm of digestive organs D12.2, Benign neoplasm of ascending col on K62.1, Rectal polyp K64.8, Other hemorrhoids CPT copyright 2014 [employer]. All rights reserved. The codes documented in this report are preliminary and upon fulfillment coordinator review may be revised to meet current complianc e requirements. Attending Participation: Prudencio Arango MD 07/19/2015 11:40 AM Number of Addenda: 0 Note Initiated On: 07/19/2015 11:09 AM rPudencio Arango MD DIGESTIVE CARE Performing Organization Address City/State/ZIP Code Phon e Number [facility] [place], [place] Surgical Path - Colonoscopy (07/19/2015 6:00 AM [employer]END[employer]) Patholo gist Method Time Signature Histology (NOTE) [facility] Patient Name: FABIO HOFFMAN Taken: 07/19/2015 Received: 07/19/2015 Reported: 07/21/2015 Physician(s): PRUDENCIO BAHADUR ? Final Pathologic Diagnosis Colon, ascending and rectum, polypectomy -- ?- Hyperplastic polyps *Electronically Signed Out By* ? Jaelyn Nolasco MD Procedures/Addenda Clinical History Screening Colon Gross Description The specimen is received in formalin and labeled with the pa silvano's name. ??The specimen consists of two peck-white to yellow irr egular soft tissue fragments averaging 0.4 cm. ??The specimen is filtere d and entirely submitted in one cassette. ??ks kjs/07/19/2015 Microscopic Description Microscopic examination is performed on three slides, includ ing immunostains for CD3 and CD20 done to evaluate two lymphoid aggregates. ??Positive and internal negative controls stain appropriately. ??The lymphoid aggregates are a mixture of CD 3+ T cells and CD20+ B cells, consistent with benign/reactive lymphoid aggregates. ?? ksa1/07/21/2015 Jaelyn Nolasco MD [facility] Department of Pathology [address] [place] [address] ??[id number] Specimen Anatomical Collection Method Collection Time Receive d Time (Source) Location / / Volume Laterality COLON STRUCTURE / 07/19/2015 6:00 AM 07/01 2:47 Unknown [employer] PM [employer] Prudencio Arango MD LAB_1 Performing Organization Address City/State/ZIP Code Phon e Number [address] [id number] [address] [phone] documented in this encounter Visit Diagnoses Diagnosis Screen for colon cancer - Primary Special screening for malignant neoplasm s, colon documented in this encounter Care Teams Md Pediatric Allergist Relationship Specialty Start Date End Date Nadja Manjarrez MD PCP - General Family Practice 08/20/11 [address] [place] [address] documented as of this encounter
--- OUTSIDE RECORDS SUMMARY | 2022-03-08 08:43 | XMS_ITS | Encounter Summary ---
:1975 Author Organization [facility] Address [address] [place] [address] Care Team Providers Name Role Phone Nadja Manjarrez MD Primary Care Provider Encounter Details Date Type Department Care Team Description 09/07/2015 Notes/Orders Specialty [facility] [address] [facility] Hand [facility] Britany, OTR/L [address] [place] [address] [place] [address] [phone] Social History Tobacco Use Types Packs/Day Years Used Date Smoking Tobacco: Some Days Cigarettes L ast attempted to quit: 2012 Smokeless Tobacco: Never Comments: 4-5 cigs/month Alcohol Use Standard Drinks/Week Comments Yes 2.5 (1 standard drink = 0.6 oz pure alco hol) Sex Assigned at Date Recorded Not on file documented as of this encounter Nursing Notes Adriana Zacarias OTR/[place] - 09/07/2015 2:22 PM CST HAND OCCUPATIONAL THERAPY DISCHARGE NOTE Fabio Hodgson [phone] 09/07/2015 Fabio Hodgson has not attended Occupational Therapy since 2014, and there are no further visits scheduled at this time. Fabio Hodgson is currently considered discharged from Occupational Therapy. Please see previous visit documentation for status at last treatment. Thank you for this referral. Please contact us if we can be of any assistance. CAITLIN Rivera/L [phone] IVIST ECONOMIC HISTORY documented in this encounter Plan of Treatment Not on filedocumented as of this encounter Visit Diagnoses Not on filedocumented in this encounter Care Teams Towel Stretcher Relationship Specialty Start Date End Date Nadja Manjarrez MD PCP - General Family Practice 08/20/11 [address] [place] [address] documented as of this encounter
--- OUTSIDE RECORDS SUMMARY | 2022-03-08 08:43 | XMS_ITS | Encounter Summary ---
:1975 Author Organization [facility] Address [address] [address] Care Team Providers Name Role Phone Nadja Manjarrez MD Primary Care Provider Encounter Details Date Type Department Care Team Description 02/27/2016 Orders Only External to Jay Ernst MD Social History Tobacco Use Types Packs/Day Years [...] Name Priority Date/Time Associated Diagnosis Comme nts SCANNED LAB 02/27/2016 12:00 AM Results for this CDT procedure are i n the results section . documented in this encounter Results SCANNED LAB (02/27/2016 12:00 AM CDT) Specimen (Source) Anatomical Location Collection Method / Collectio n Time Received Time / Laterality Volume 02/27/2016 Narrative This result has an attachment that is no t available. Jay Ernst MD LAB_1 documented in this encounter Visit Diagnoses Not on filedocumented in this encounter Care Teams Spool Winder Relationship Specialty Start Date End Date Nadja Manjarrez MD PCP - General Family Practice 08/20/11 [address] [place] [address] documented as of this encounter
--- OUTSIDE RECORDS SUMMARY | 2022-03-08 08:43 | XMS_ITS | Encounter Summary ---
:1975 Author Organization [facility] Address [address], [place] [address] Care Team Providers Name Role Phone Nadja Manjarrez MD Primary Care Provider Reason for Referral Therapies (Routine) - Closed Specialty Diagnoses / Procedures Referred By Contact Refer [place] [address] [place], [place] [address] Referral ID Status Reason Start Date Expiration Date Visits Requ ested Visits Authorized [id number] Closed 02/23/2016 04/23/2016 1 1 Scheduling Instructions If scheduling assistance is needed, malaika izaguirre inquire with the medical office staff upon exiting your appointment or contact the ordering clinic for recommended locations. This recommended service/s may not be co barbi by your i nsurance coverage. To find out your spec [facility] benefit coverage, please call the number on your insurance card. Procedure/Equipment (Routine) - Incomplete Specialty Diagnoses / Procedures Referred By Contact Refer red To Contact Procedures Nadja Manjarrez MD XR Finger Lt Little [address] [place], [place] [address] Referral ID Status Reason Start Date Expiration Date Visits V isits Requested Authorized [id number] Incomplete 02/23/2016 05/24/2017 1 1 Procedure/Equipment (Routine) - Incomplete Specialty Diagnoses / Procedures Referred By Contact Refer red To Contact Procedures Nadja Manjarrez MD XR Pelvis AP W AP/[place] Rt [address] [facility], [place] [address] Referral ID Status Reason Start Date Expiration Date Visits V isits Requested Authorized [id number] Incomplete 02/23/2016 05/24/2017 1 1 herapies (Routine) - Closed Specialty Diagnoses / Procedures Referred By Contact [place] [address] [facility], [place] [address] Referral ID Status Reason Start Date Expiration Date Visits Requ ested Visits Authorized [id number] Closed 02/23/2016 04/23/2016 1 1 Scheduling Instructions Your provider has recommended an appoint ment with a [facility] Occupational Therapist. Please stop at the clinic check out desk for assistance with scheduling or if you prefer to call for your appointment you may call [facility] at . We suggest you call your health insurance company about your coverage an d benefits for this appointment. Reason for Visit Reason Comments Lump Under Axilla Left armpit, X 10 days, pain ful PAIN, FINGER Left hand, 5th finger, pt in jured it a few months ago HIP PAIN X 5 months, progressively ge tting worse Immunizations Needed Pneumococcal and Hep A Encounter Details Date Type Department Care Team Description 02/23/2016 Office Visit [facility] Nadja Manjarrez MD Left axillary pain (Primary Dx); Practice [id number] [facility] Finger pain, left; [address] [facility], [place] Right hip pain; [place] [address] Hand dysfunction; [id number] Folliculitis Social History Tobacco Use Types Packs/Day Years Used Date Smoking Tobacco: Former Cigarettes Quit : 03/30/2015 Smokeless Tobacco: Never Comments: 4-5 cigs/month Alcohol Use Standard Drinks/Week Comments Yes 2.5 (1 standard drink = 0.6 oz pure alco hol) Sex Assigned at Date Recorded Not on file documented as of this encounter Last Filed Vital Signs Vital Sign Reading Time Taken Comments Blood Pressure 132/86 02/23/2016 9:49 AM CDT Pulse 63 02/23/2016 9:49 AM CDT Temperature - - Respiratory Rate - - Oxygen Saturation - - Inhaled Oxygen Concentration - - Weight 85.1 kg (187 lb 9.6 oz) 02/23/2016 9:49 AM CDT Height 180.3 cm (5' 11) 02/23/2016 9:49 AM CDT Body Mass Index 26.16 02/23/2016 9:49 AM CDT documented in this encounter Progress Notes Nadja Manjarrez MD - 02/23/2016 10:17 AM CDT Chief Complaint Patient presents with ??? Lump Under Axilla Left armpit, X 10 days, painful ??? PAIN, FINGER Left hand, 5th finger, pt injured it a few months ago ??? HIP PAIN X 5 months, progressively getting worse ??? Immunizations Needed Pneumococcal and Hep A 40 yo M here for pain under his L armpit starting ten days ago-felt a tender bump under his L arm on02/13/16. It felt warm and appeared red at that time-these sx's are improving but he does feel a small bump under his armpit that was not there before. Denies associated sx's including fevers, chills, tactile fevers, drainage/discharge. He does have h/o folliculitis on his scalp-has followed with outside derm for this in the past-when bumps don't heal within 2-3 days he would take bactrim DS for 1-2 days and sx's would resolve. Feels that the bump under his armpit is different from this. He would like refill for bactrim for future use if he develops bumps on his scalp that do not heal. He's had some L 5th finger pain x 5 months-some pain in DIP joint. Seems more swollen intermittentlyduring the day. He felt that he grabbed something several months ago and felt a different sensation-no pop. Denies initial bruising, redness, warmth. R sided hip pain x several months-since 09/12 or 10/13-no recent injuries or prior injuries. He doeshave h/o spinal fusion but states these sx's are different from before. Pain is localized to the R hip with he bends a certain way when he is sleeping and during the day during certain activities. Denies numbness/tingling/weakness of extremities, loss of bowel/bladder function, warmth, tenderness, swelling, long car rides, SOB, sensation of cold/skin color changes. He sees chiropractor for adjustments about once every 2 weeks-seemed to help but due to work schedule going less frequently now. No Known Allergies ROS: see above for pertinents. BP 132/86 mmHg Pulse 63 Ht 5' 11 (1.803 m) Wt 187 lb 9.6 oz (85.095 kg) BMI 26.18 kg/m2 General: patient appears well, alert and oriented x 3, pleasant, cooperative. Neck: supple and free of adenopathy, or masses. No thyromegaly. Eyes: PERRL, no conjunctival injection b/l. Mouth:MMM, no lesions. Ears: normal Throat: normal. Chest: clear to IPPA. Heart: heart sounds are normal, no murmurs, clicks, gallops or rubs. Skin:pea sized well circumscribed freely mobile nodule L axillae, no erythema/edema/drainage/discharge/warmth/TTP. LN: No palpable cervical, supraclavicular or inguinal LN's. Musc: no vertebral body TTP, no SI joint/gluteal TTP, 5/5 b/l LE strength, +dorsalis pedis pulses b/l, no TTP greater trochanter b/l, ROM WNL b/l, some tenderness with external rotation of R hip. Hand/wrist exam: attitude of b/l hands at rest and with clenching WNL, no tenderness at MCP,TTP, or PIP or DIP's; +slight prominence L 5th DIP joint, no TTP currently; no instability appreciated; ligaments intact; no scaphoid (snuffbox) tendernessb/l,radial/ulnar pulse normal, sensation normal; no evident skin breakdown seen. A/P: 1. L axillary bump: feels like shotty irritated axillary LN; advised monitoring for 2-3 weeks and RTC if this does not completely resolve; would have him complete US if bump remains for further evaluation. 2. Folliculitis: h/o bumps on scalp, asymptomatic currently; bactrim per Epic, SERD-RTC should sx's not improve/sx's worsen/new sx's develop. 3. L 5th finger pain: XR looks OK, sx's likely due to strain-advised activities as tolerated. Patient to return to clinic if symptoms worsen or fail to improve. 4. R hip pain: x several months, pelvic XR looks OK, sx's likely due to deconditioning-advised PT, order placed. Patient to return to clinic if symptoms worsen or fail to improve. 5. H/o multiple surgeries on R hand: with tendon shortening/hand dysfunction- states he did attend OTfollowing his most recent surgery in 06/13 But feels like his ROM is diminished x several months-he would like to restart OT. OT order placed. He will f/u with hand surgery if he's sx's do not improve with OT. Nadja Manjarrez MD 02/23/2016, 5:25 PM documented in this encounter Plan of Treatment Scheduled Referrals Name Type Priority Associated Diagnoses Order S [facility] Occupational Therapy Referral Routine Ordered : 02/23/2016 Physical Therapy Referral Routine Ordered: documented as of this encounter Results XR Finger Lt Little (02/23/2016 10:52 AM CDT) Anatomical Region Laterality Modality Upper Extremity, Hand Computed Radiograp hy Specimen (Source) Anatomical Collection Method Collection Time Re ceived Time Location / / Volume Laterality 02/23/2016 10:52 AM CDT Narrative 02/23/2016 1:00 PM CDT XR FINGER LT LITTLE 02/23/2016 10:52 AM INDICATION: Left fifth finger pain. ? COMPARISON: None. FINDINGS: Negative left fifth finger. No fracture or dislocation. Procedure Note Harjinder Flowers MD - 02/23/2016Formattin g of this note might be different from the original. XR FINGER LT LITTLE 02/23/2016 10:52 AM INDICATION: Left fifth finger pain. COMPARISON: None. FINDINGS: Negative left fifth finger. No fracture or dislocation. Nadja NGO XR Pelvis AP W AP/Lat Hip Rt [...] dislocation. Degenerative changes lumbosacral junctio n. Nadja NGO documented in this encounter Visit Diagnoses Diagnosis Left axillary pain - Primary Pain in limb Finger pain, left Pain in limb Right hip pain Pain in joint, pelvic region and thigh Hand dysfunction Other musculoskeletal symptoms referable to limbs Folliculitis Other specified disease of hair and hair follicles documented in this encounter Care Teams Pie Bottomer Relationship Specialty Start Date End Date Nadja Manjarrez MD PCP - General Family Practice 08/20/11 [address] [place] [address] documented as of this encounter
--- OUTSIDE RECORDS SUMMARY | 2022-03-08 08:43 | XMS_ITS | Encounter Summary ---
:1975 Author [facility] Address [address], [place] [address] Care Team Providers Name Role Phone Nadja Manjarrez MD Primary Care Provider Reason for Visit Reason Onset Date Comments ROUTINE, FOLLOW-UP ROUTINE, FOLLOW-UP 06/07/2015 Encounter Details Date Type Department Care Team Description 06/07/2015 Office Visit Specialty [facility] Franco Cox ow-up examination, [address] [facility] following other Surgery surgery (Primary Dx) [address] [place] [address] Social History Tobacco Use Types Packs/Day Years Used Date Smoking Tobacco: Some Days Cigarettes L ast attempted to quit: 2012 Smokeless Tobacco: Never Comments: 4-5 cigs/month Alcohol Use Standard Drinks/Week Comments Yes 2.5 (1 standard drink = 0.6 oz pure alco hol) Sex Assigned at Date Recorded Not on file documented as of this encounter Patient Instructions Patient InstructionsFranco Cox PA-C - 06/07/2015 11:42 AM CST Reason for today's visit: Right ring and long finger. Your diagnosis: Flexor tendon compromise right ring and long finger post first stage flexor tendon reconstruction. Tests that you will need: None. Treatment plan: Plan to proceed with surgery as scheduled 06/14/15. Follow up: On date of surgery. Your test results are reviewed several times [...] (via on-line services/e-mail)or call my office at [phone]. If you need follow-up in the future, please call [phone] for an appointment. If you cannot get [...] We are your partner. Franco Cox PA-C 06/07/2015, 11:43 AM GE PUMP OPERATOR documented in this encounter Progress Notes Franco Cox PA-C - 06/07/2015 12:11 PM CST Chief Complaint: Swelling right ring finger HPI: Fabio Hodgson 40-year-old [id number] male follows up early regarding his right ring finger. He is scheduled to undergo second stage flexor tendon reconstruction. He has Jeff rods in place presently. Upcoming surgery as scheduled for next week on 06/14/2015. He has noticed rather persistent swelling at the volar aspect of the ring finger. It has been steadily increasing. No associatedredness, no associated pain he has not noted any streaking and no skin breakdown. He specifically follows up to be reassured that we may proceed with surgery as scheduled. Physical Exam: Patient is awake and alert. Breathing is nonlabored. Musculoskeletal of the right hand shows mild swelling of the long finger greater swelling of the ring finger. No surrounding erythema. Swelling greatest over the middle phalanx. There is a slight sensation of bogginess to the area. Minimal tenderness. No streaking no drainage. Sensation intact over the radial ulnar border of the long and ring finger with capillary refill less than two seconds Results Reviewed: None Impression: Moderate swelling ring finger possible seroma. No sign of infection. Etc. two. Status post Jeff devon placement two-stage reconstruction flexor tendons right long and ring. Second stage of the reconstruction scheduled 06/14/2015 Plan: #1. The patient is reassured. I would plan on proceeding with surgery as scheduled. #2. We discussed his possibly experiencing any seroma. Reassured there is no signs of infection. #3. We will plan to proceed as scheduled on 06/14/2015. GE PUMP OPERATOR documented in this encounter Plan of Treatment Not on filedocumented as of this encounter Visit Diagnoses Diagnosis Follow-up examination, following other s urgery - Primary documented in this encounter Care Teams Computer Systems Engineer Relationship Specialty Start Date End Date Nadja Manjarrez MD PCP - General Family Practice 08/20/11 [address] [place] [address] documented as of this encounter
--- OUTSIDE RECORDS SUMMARY | 2022-03-08 08:43 | XMS_ITS | Encounter Summary ---
:1975 Author Organization [facility] Address [address], [place] [address] Care Team Providers Name Role Phone Nadja Manjarrez MD Primary Care Provider Reason for Visit Procedure/Equipment (Routine) - Incomplete Specialty Diagnoses / Procedures Referred By Contact Refer red To Contact Procedures Nadja Manjarrez MD XR Finger Lt Little [address] [place], [place] [address] Referral ID Status Reason Start Date Expiration Date Visits V isits Requested Authorized [id number] Incomplete 02/23/2016 05/24/2017 1 1 Encounter Details Date Type Department Care Team Description 02/23/2016 Imaging [facility] Nadja Manjarrez MD Radiology [address] [facility] [address] [place] [address] [place], [place] [address] [phone] Social History Tobacco Use Types Packs/Day Years [...] Priority Date/Time Associated Diagnosis Comme nts XR FINGER LT LITTLE Routine 02/23/2016 10:52 AM R esults for this 2+ VIEWS CDT procedure are i n the results section. documented in this encounter Results XR Finger Lt Little [...] fifth finger. No fracture or dislocation. Nadja Manjarrez MD RAD GD documented in this encounter Visit Diagnoses Not on filedocumented in this encounter Care Teams Automatic Nailing Machine Operator Relationship Specialty Start Date End Date Nadja Manjarrez MD PCP - General Family Practice 08/20/11 [address] [place] [address] documented as of this encounter
--- OUTSIDE RECORDS SUMMARY | 2022-03-08 08:44 | XMS_ITS | Encounter Summary ---
:1975 Author Organization [facility] Address [address] [place] [address] Care Team Providers Name Role Phone Nadja Manjarrez MD Primary Care Provider Reason for Visit Reason Comments PRE-OP EXAM Encounter Details Date Type Department Care Team Description 08/12/2014 Office Visit [facility] Aureliano Paez Other sp ecified Practice MD Jose Carlos pre-operative [address] examination (Primary [place], [place] Dx) [id number] Social History Tobacco Use Types Packs/Day Years Used Date Smoking Tobacco: Former Cigarettes Quit : 2012 Smokeless Tobacco: Never Comments: 4-5 cigs/month Alcohol Use Standard Drinks/Week Comments Yes 2.5 (1 standard drink = 0.6 oz pure alco hol) Sex Assigned at Date Recorded Not on file documented as of this encounter Last Filed Vital Signs Vital Sign Reading Time Taken Comments Blood Pressure 117/74 08/12/2014 9:10 AM PERSONNEL ADVISER Pulse 55 08/12/2014 9:10 AM PERSONNEL ADVISER Temperature 36.3 ??C (97.3 ??F) 08/12/2014 9:10 AM PERSONNEL ADVISER Respiratory Rate - - Oxygen Saturation - - Inhaled Oxygen Concentration - - Weight 88.5 kg (195 lb) 08/12/2014 9:10 AM PERSONNEL ADVISER Height 180.3 cm (5' 11) 08/12/2014 9:10 AM PERSONNEL ADVISER Body Mass Index 27.2 08/12/2014 9:10 AM PERSONNEL ADVISER documented in this encounter Progress Notes Aureliano Paez MD - 08/12/2014 8:55 AM CST Pre-operative History and Physical Assessment Name: Fabio Hodgson : 1975 Primary physician: Nadja Manjarrez MD. Historical: Fabio Hodgson is a 39 yr old male is here for preoperative cardiac and risk evaluation. Patient is scheduled for hand surgery on 08/24/16 at [facility]. Pertinent history: Has scaring left hand from prior injury. Currently feeling well. Had some mild positional vertigo a few days ago which has resolved. He has had this on occasion in past. Preoperative Screening Questions: Any problems with / [...] clotting problems for you or close relatives? YES/ grandmother clotting problem Herbal supplements or medications not on the med list being taken? YES / vit d Taking steroids or immunosuppressive medications. no Aspirin or NSAIDS taken in the last two weeks? no Anemia or taking iron pills? no Anesthesia complications for you or close relatives? no History of sleep apnea, loud snoring, daytime drowsiness or CPAP at home? no Heart attack in the last 30 days? no Recent memory problems (dementia)? no Is there a history of COPD(emphysema) or asthma? no Medications: Current Outpatient Prescriptions Medication Sig ??? LORazepam (AKA ATIVAN) 0.5 MG tablet Take 1 Tab by mouth every 6 hours as needed for Anxiety. ??? mupirocin (BACTROBAN) 2 % ointment Apply bid x 7-10 days. Patient Active Problem List Diagnosis ??? Chronic low back pain ??? Tobacco dependence ??? Fear of flying Habits: History Substance Use Topics ??? Smoking status: Former Smoker Types: Cigarettes Quit date: 2012 ??? Smokeless tobacco: Never Used Comment: 4-5 cigs/month ??? Alcohol Use: 1.5 oz/week 3 drink(s) per week Observed: Physical Examination: Vital Signs:BP 117/74 Pulse 55 Temp(Src) 97.3 ??F (36.3 ??C) (Tympanic) Ht 5' 11 (1.803 m) Wt 195 lb (88.451 kg) BMI 27.21 kg/m2 Estimated body mass index is 24.81 kg/(m^2) as calculated from the following: Height as of 07/12/14: 6' (1.829 m). Weight as of 07/12/14: 183 lb (83.008 kg). General: ambulatory, well nourished, alert. HEENT: [...] and time. Skin: No rash Data: Labs: not indicated ECG: not indicated for this procedure Assessment and Plan: Pre-op cardiac & risk evaluation: Patient is medically optimized for planned procedure. Cardiac risk for the planned procedure is LOW No active cardiac conditions. Low risk procedure - no additional cardiac evaluation is needed. Medication changes are listed in patient instructions below. Special risks: NONE Reference links: Beta-blockers, ICSI perioperative guideline Drugs to stop/continue, ICSI perioperative guideline General index, ICSI peroperative guideline Obstructive sleep apnea risk assessment Delirium risk assessment Preoperative cardiac evaluation algorithm from [facility]HA CC: ONNEL ADVISER documented in this encounter Plan of Treatment Not on filedocumented as of this encounter Visit Diagnoses Diagnosis Other specified pre-operative examinatio n - Primary documented in this encounter Care Teams Casting Agent Relationship Specialty Start Date End Date Nadja Manjarrez MD PCP - General Family Practice 08/20/11 [address] [place] [address] documented as of this encounter
--- OUTSIDE RECORDS SUMMARY | 2022-03-08 08:44 | XMS_ITS | Encounter Summary ---
:1975 Author Organization [email or web address] Address [address] [place] [address] Care Team Providers Name Role Phone Nadja Manjarrez MD Primary Care Provider Reason for Visit Reason Comments Preop Exam Encounter Details Date Type Department Care Team Description 05/22/2015 Office Visit [facility] Nadja Manjarrez MD Pre-op exam (Primary Dx); Practice [address] [place] [address] Rupture of flexor tendon of hand, right, subsequent encounter [id number] [place] [address] [phone] Social History Tobacco Use Types Packs/Day Years [...] Sign Reading Time Taken Comments Blood Pressure 128/77 05/22/2015 11:07 AM MOTOR RACER Pulse 69 05/22/2015 11:07 AM MOTOR RACER Temperature 36.7 ??C (98.1 ??F) 05/22/2015 11:07 AM MOTOR RACER Respiratory Rate - - Oxygen Saturation - - Inhaled Oxygen Concentration - - Weight 83.5 kg (184 lb) 05/22/2015 11:07 AM MOTOR RACER Height 181 cm (5' 11.25) 05/22/2015 11:07 AM MOTOR RACER Body Mass Index 25.48 05/22/2015 11:07 AM MOTOR RACER documented in this encounter Progress Notes Nadja Manjarrez MD - 05/22/2015 11:12 AM CST Pre-operative History and Physical Assessment Name: Fabio Hodgson : 1975 Primary physician: Nadja Manjarrez MD. Historical: Fabio Hodgson is a 39 y.o. old male is here for preoperative cardiac and risk evaluation. Patient is scheduled for right hand surgery on 06/14/[address] Rasmussen at [facility] . Pertinent history: Flexor tendon rupture of [...] flying ??? Other musculoskeletal symptoms referable to limbs(176.89) ??? Corneal rust ring of right eye [...] surgery. Nadja Manjarrez MD 05/22/2015, 1:26 PM R RACER documented in this encounter Nursing Notes Camilla Almaraz CMA - 05/16/2015 4:47 PM CST Preop Details: REPAIR HAND TENDON WITH CHRISTOPHE CLOVER on 06/14/[address] Meaghan Rasmussen at [facility] Camilla Almaraz CMA 05/16/2015, 4:47 PM R RACER documented in this encounter Plan of Treatment Not on filedocumented as of this encounter Visit Diagnoses Diagnosis Pre-op exam - Primary Preoperative examination, unspecified Rupture of flexor tendon of hand, right, subsequent encounter documented in this encounter Care Teams Dance Hall Hostess Relationship Specialty Start Date End Date Nadja Manjarrez MD PCP - General Family Practice 08/20/11 [address] [place] [address] documented as of this encounter
--- OUTSIDE RECORDS SUMMARY | 2022-03-08 08:44 | XMS_ITS | Encounter Summary ---
:1975 Author Organization [facility] Address [address] [place] [address] Care Team Providers Name Role Phone Nadja Manjarrez MD Primary Care Provider Reason for Visit Reason Onset Date Comments Future Appointments 06/10/2014 Encounter Details Date Type Department Care Team Description 06/10/2014 Telephone Specialty Center [address] Linares MD Future Appointments [facility] [address] [place] [address] [place] [address] [phone] Social History Tobacco Use Types Packs/Day Years Used Date Smoking Tobacco: Former Cigarettes Quit : 2012 Smokeless Tobacco: Never Comments: 4-5 cigs/month Alcohol Use Standard Drinks/Week Comments Yes 2.5 (1 standard drink = 0.6 oz pure alco hol) Sex Assigned at Date Recorded Not on file documented as of this encounter Nursing Notes Jannet Amezquita - 06/13/2014 8:34 AM CST Pt schedueld. RY PACKER Meaghan Rasmussen MD - 06/12/2014 8:23 AM CST Only thing i can offer is 12:30 on Friday. RY PACKER Marilyn Reese - 06/10/2014 4:25 PM CST Patient would like appointment with: Dr Rasmussen/Lolita, per Tosin Patient requesting appointment for: Flexor tendon lacerations right middle and ring fingers, possible digital nerve laceration. Injury happened 05/04/14. Wants/Needs to be seen within: Next soonest available. Pt is referred by Dr Skelton from [facility]. Additional Comments: Pt currently is scheduled for an appt on 07/05/[address] Mix. Please advise. Is it okay to leave detailed message on your voicemail? miguel angel Reese RY PACKER documented in this encounter Plan of Treatment Not on filedocumented as of this encounter Visit Diagnoses Not on filedocumented in this encounter Care Teams Assistant To The Vice President Relationship Specialty Start Date End Date Nadja Manjarrez MD PCP - General Family Practice 08/20/11 [address] [place] [address] documented as of this encounter
--- OUTSIDE RECORDS SUMMARY | 2022-03-08 08:44 | XMS_ITS | Encounter Summary ---
:1975 Author Organization [facility] Address [address] [place] [id number] Care Team Providers Name Role Phone Nadja Manjarrez MD Primary Care Provider Reason for Referral (Routine) - Incomplete Specialty Diagnoses / Procedures Referred By Contact Refer red To Contact Procedures Meaghan Rasmussen MD Case Request OR - [address] Plastic/Hand [place]: [place] [address] HAND TENDON WITH CHRISTOPHE CLOVER- Phone: long and ring fingers Referral ID Status Reason Start Date Expiration Date Visits V isits Requested Authorized [id number] Incomplete 09/06/2014 1 1 Reason for Visit Reason Comments Post Op Exam DOS 08/24 tenolysis R long a nd R fingers Encounter Details Date Type Department Care Team Description 09/06/2014 Office Visit [facility] Meaghan Rasmussen, Randi ntraumatic rupture 401 Plastic [facility] Hand MD of flexor tendons of Surgery [address] hand and wrist [address] [place], [place] (Primary Dx) [place] [id number] [phone] (Wo rk) Social History Tobacco Use Types [...] - Inhaled Oxygen Concentration - - Weight 88 kg (194 lb) 09/06/2014 1:55 PM CDT Height 180.3 cm (5' 11) 09/06/2014 1:55 PM CDT Body Mass Index 27.06 09/06/2014 1:55 PM CDT documented in this encounter Patient Instructions Patient InstructionsGlenroy Corona LPN - 09/06/2014 1:48 PM CDT Important information to know before your surgery You will have surgery on August. REPAIR HAND TENDON WITH CHRISTOPHE CLOVER- long and ring fingers . You will be called by the same day surgery center nursing department. You will receive a phone call from your physician's office regarding the date, and location of your surgery. Please allow two weeks for them to reach you. For certain types of surgeries, such as work comp, this may take longer. Once you know your surgery date, please contact your primary care physician to schedule a preoperative history and physical. This exam needs to be scheduled NO later than 30 days and NO sooner than 7 days prior to your surgery date. This will ensure that you are medically ready to have your surgery and anesthesia. This exam will also ensure any lab work is current and it gives us enough time if the labs are abnormal to reschedule the surgery if needed. NOTE: If you surgery is urgent with in 1 week, your pre-op physical will be scheduled by clinic staff. If your Primary Physician is located outside of our [facility] system, please have your Primary Physician fax your Pre-operative History and Physical form to our [facility] as soon as possible. [facility] Fax#: [phone] [facility] [place] [address] - Same Day Surgery [place] Fax#: [phone] We prefer that you do not take any ibuprofen, aspirin, naprosyn type products, or vitamin E seven days before your surgery. If you are taking aspirin, Coumadin, Plavix or other blood thinners for medical reasons, please consult with your prescribing physician to ensure that it is safe for you to stop. Do not take any herbal medications two weeks before your surgery. The Same Day Surgery Nurses will call you 1-3 days prior to surgery to inform you what time you should arrive for your surgery. If they do not reach you, please call if your surgery is at [facility] or for the [facility] at [address] [place] [address] on the 4th floor. Young children and adults should not smoke, eat, or drink after midnight the night before surgery. This includes chewing gum. If you eat or drink anything after midnight, your surgery will be canceled.For infants under the age of 6 months, consult with the Surgery Nurse. No use of hair products such as hair spray, gel, mousse, etc, on the day of surgery. If you are having an outpatient procedure, you will not be able to drive yourself home. Please arrange for transportation and arrange for help at home the day of the surgery. If you are staying in the hospital, please arrange for transportation for the day you will be discharged. Contact Information for Post Operative Care On between the hours of 8am-5pm, please call the Plastic and Hand Surgery Clinic at [phone] if you have any concerns related to your surgery before going to the Emergency Room, your family physician, or an Urgent Care. After hours call [phone] and ask for the on-call Plastic and Hand Surgery resident or [facility] [phone]. Washing your skin before surgery It???s important to prepare your skin for surgery to reduce the risk of a surgical wound infection. Please take a shower the night before and the morning of your surgery. Please follow these steps during your showers: The night before your surgery: ?? Take a shower, washing your body as usual. Apply plenty of Hibiclens*, a special sanitation truck cleaner, to a clean, wet washcloth. Wash from your neck to your feet. Be sure to rinse off all the soap. ?? Avoid getting Hibiclens* in your eyes, nose, ears, or mouth. ?? If Hibiclens* is not available, use an antibacterial soap such as Dial instead. ?? Apply plenty of Hibiclens* to a wet washcloth. Gently lather the area of your body where you willhave the surgery for 5 minutes. ?? Do not scrub your skin with a brush. ?? Do not shave any hair from your body. ?? Wash your hair with your usual shampoo. You can do this either in the evening or in the morning. ?? Dry your body with a newly washed towel. ?? Wear newly washed clothing and sleep in newly washed bedding. The morning of your surgery: ?? Take another shower following the steps above. ?? Dry your body with a newly washed towel. ?? Do not apply deodorant, lotions, or creams. ?? Wear newly washed clothing. *Hibiclens is Chlorhexidine, an antiseptic that you rub on your skin. It destroys germs on the skin.It is used before surgery to reduce the risk of infection. Before using it, tell your doctor if you have any other medical conditions, especially skin problems or allergies, or if you are or nu rsing. Department of Plastic and Hand Surgery If you have any questions, please call [phone] PAIN MEDICATION POLICY The Department of Plastic and Hand Surgery recognizes that appropriate pain management is an important part of your surgical and recovery process. It is therefore, important that you are aware of our policies regarding dispensing prescriptive (narcotic) pain medications. This department does not prescribe pain medications in anticipation of surgery. Your primary care physician should manage your pain medication needs until surgery. Following surgery, you will be discharged with an appropriate prescription for pain medication depending on the severity of your surgery or injury. This prescription should last until your first postoperative appointment. The amount of narcotic pain medication prescribed is related to your surgical procedure or injury and is only one part of your pain management program. Other important parts of pain control include nonsteroidal anti-inflammatory agents (NSAIDS: ibuprofen, naproxyn, celebrex, aspirin), ice, elevation, and rest. Your ability to use NSAIDS may be altered depending on other health conditions and should be discussed with your surgeon. Relaxation techniques such as deep breathing and visualization have been shown to significantly improve pain. A handout is available in our office explaining how to do relaxation techniques. Our Plastic Surgeons will manage your postoperative pain for a period of one to six weeks following your surgery depending on the type of procedure done. If you have a history of chronic pain, consultation with the pain clinic, physical therapist, or pain psychologist may be considered. If you had been receiving narcotic pain medication from another physician prior to your surgery or injury, you willneed to return to that physician for further medical management. REFILL Policy for Prescriptions: Pain management will be addressed during your physician visit. Should you need a refill between office visits, you will need to allow twenty-four hours for this to occur. Please call during clinic hours only and before noon on Fridays. We do not refill prescriptions at night or over the weekend. Under no circumstances will your prescription be refilled on a walk in basis in the clinic or duringweekend hours. RISKS of Narcotic Medications We are concerned about your overall health and the potentially negative effects of narcotic medications on it. In addition to lack of effectiveness for some types of pain, the side effects of narcoticsinclude nausea, constipation, upset stomach, sexual dysfunction, depression, fatigue, increased sensitivity to pain, addiction, and drug tolerance. Extended Recovery Patient Information What is extended recovery? Extended recovery is ordered by your doctor when the doctor thinks you need more time to safely recover. This recovery may be from an outpatient surgery or a radiology procedure. Your doctor expects that you will need more than 4-6 hours. When would I need extended recovery? The most common reasons for an extended recovery include: ??? Not being able to urinate. ??? Not being able to keep down solid foods or liquids. You need an IV (giving you fluids into a vein). ??? Uncontrolled pain. ??? Unexpected surgical bleeding. ??? Abnormal vital signs such as blood pressure or heart rate. ??? Not being able to safely move around. ??? Cardiac or respiratory monitoring. (Keeping track of your heart and breathing). Your doctor will monitor your recovery and determine a plan of care. Department of Plastic and Hand Surgery documented in this encounter Progress Notes Meaghan Rasmussen MD - 09/06/2014 4:36 PM CDT I saw and examined the patient today. I agree with the findings and plan of care as documented in the note by Dr. PRADEEP Newby. Chief Complaint: Right hand difficulty HPI: 39-year-old gchjh-thir-mbucyrha male status post most recently a tenolysis of zone two flexor tendon repairs to the right ring and long fingers. He has been working with therapy but does not feel his motion is improving as quickly as he would like. He is also having difficulty sleeping at night. Physical Exam: Patient is awake and alert. Breathing is nonlabored. On exam today the patient was initially able to demonstrate active PIP flexion of the long and active PIP and DIP flexion of the ring finger. However when I blocked the PIP joint and had the patient actively flex the DIP joint of the ring finger there was a loud audible pop and he no longer had activeDIP flexion. He did not have any pain or tenderness with palpation. Results Reviewed: none Impression: FDP rupture to the right ring finger Plan: I think that unfortunately he has ruptured his right ring finger flexor tendon. I discussed with the patient that we could attempt a primary revision repair. I would be followed by six weeks of dorsal block splinting and the usual flexor tendon protocol. Alternatively if he would prefer or if wecould not repair the flexor tendon then we would perform the first stage of a two-stage flexor tendon reconstruction. We would do this for both the ring and long fingers. The plan would be then to havehim do passive motion of the digits to regain his full passive motion and then do a second stage at some point in the future. That could be delayed for several months into the fall if he wishes. The patient would like to proceed with surgery this with an attempted primary repair if possible. Vandana Newby - 09/06/2014 1:16 PM CDT H&P update note: No changes to previous H&P done on 08/12/14 for pre-operative exam. Chief Complaint: Difficulty sleeping HPI: 39-year-old male comes in today two weeks status post tenolysis of the flexor tendons on the right long and ring fingers. He had a repair of a FDS and FDP to these two digits a weeks ago and was in a postoperative splint with no early active motion protocol. He states that his pain is improving and is not requiring pain medication anymore, however he is having difficulty sleeping. He is very anxious and worried about regaining his motion as quick as possible. He has no numbness or tingling. Physical Exam: Patient is awake and alert. Breathing is nonlabored. Wounds are well-healed and benign. Normal sensation radial and ulnar borders. Digit range of motion Long ring MP 0-90 0-75 PIP 15-60 15-55 DIP 0-0 0- 30 During the physical exam, there was a tearing sound and he no longer had active motion of the ring finger DIP or PIP joint Impression: 1. Two-week status post tenolysis right ring and long with improved motion compared to preoperatively but now with rupture likely at the repair site of the ring finger 2. Insomnia Plan: We discussed with him the surgical options of repair versus 2 stage reconstruction. He would like repair. We will plan for this on . He understands that if repair is not possible, than wewill be prepared for the [address] Rasmussen saw and examined the patient and formulated the above plan. Vandana Newby MD Hand Surgery Fellow documented in this encounter Plan of Treatment Not on filedocumented as of this encounter Visit Diagnoses Diagnosis Nontraumatic rupture of flexor tendons o f hand and wrist - Primary documented in this encounter Care Teams Mounter Saxophones Relationship Specialty Start Date End Date Nadja Manjarrez MD PCP - General Family Practice 08/20/11 [address] [place] [address] documented as of this encounter
--- OUTSIDE RECORDS SUMMARY | 2022-03-08 08:44 | XMS_ITS | Encounter Summary ---
:1975 Author Organization [facility] Address [address], [place] [address] Care Team Providers Name Role Phone Nadja Manjarrez MD Primary Care Provider Reason for Referral Therapies (Routine) - Incomplete Specialty Diagnoses / Procedures Referred By Contact Refer red To Contact Meaghan Rasmussen M D [facility] [address] [place] [id number] [facility] [place] [address] Phone: Fax: Referral ID Status Reason Start Date Expiration Date Visits V isits Requested Authorized [id number] Incomplete 09/08/2014 11/07/2014 1 1 Scheduling Instructions If scheduling assistance is needed, malaika izaguirre inquire with the medical office staff upon exiting your appointment or contact the ordering clinic for recommended locations. This recommended service/s may not be co barbi by your insurance coverage. To find out your specific benefit coverage, please c all the number on your insurance card. Reason for Visit Auth/Cert - Closed Specialty Diagnoses / Procedures Referred By Contact Refer red To Contact Diagnoses Flexor tendon laceration of finger with open wound . Referral ID Status Reason Start Date Expiration Date Visits Requ ested Visits Authorized [id number] Closed 1 1 Encounter Details Date Type Department Care Team Description 09/08/2014 - [facility] Meaghan Altamirano auchetan 09/09/2014 [facility] Vijay rupture of flexor [address] [place] [address] [place] wrist (Primary Dx) [phone] [id number] Social History Tobacco Use Types Packs/Day Years Used Date Smoking Tobacco: Former Cigarettes Quit : 2012 Smokeless Tobacco: Never Comments: 4-5 cigs/month Alcohol Use Standard Drinks/Week Comments Yes 2.5 (1 standard drink = 0.6 oz pure alco hol) Sex Assigned at Date Recorded Not on file documented as of this encounter Last Filed Vital Signs Vital Sign Reading Time Taken Comments Blood Pressure 140/78 09/08/2014 4:05 PM CDT Pulse 56 09/08/2014 4:05 PM CDT Temperature 36.7 ??C (98.1 ??F) 09/08/2014 11:51 AM CDT Respiratory Rate 16 09/08/2014 4:05 PM CDT Oxygen Saturation 99% 09/08/2014 4:05 PM CDT Inhaled Oxygen Concentration - - Weight 83.9 kg (185 lb) 09/08/2014 11:30 AM CDT Height 182.9 cm (6') 09/08/2014 11:30 AM CDT Body Mass Index 25.09 09/08/2014 11:30 AM CDT documented in this encounter Discharge Instructions Discharge InstructionsMisti Lilly RN - 09/08/2014 3:55 PM CDT Discharge Instructions for: Fabio Hodgson Thank you for choosing [facility] as your provider. A copy of your discharge instructions has been given to you. Please read the instructions carefully. The surgery nurse will review this information with you and answer your questions. General Information Surgeon(s): Meaghan Rasmussen MD Procedure(s): REPAIR HAND TENDON WITH JEFF CLOVER- long and ring fingers Surgeon Orders/Follow Up Appointment Hand Occupational Therapy Please work on PROM of digits, edema control as needed. If scheduling assistance is needed, please inquire with the medical office staff upon exiting your appointment or contact the ordering clinic for recommended locations. This recommended service/s may not be covered by your insurance coverage. To find out your specific benefit coverage, please call thenglidardo on your insurance card. Reason for referral (DX) s/p jeff clover placement long and ring fingers Appointment urgency 1 week Precautions none Requested Services Evaluation and Treatment Remove dressing Remove dressing and replace at therapy as needed with dry gauze Hand activity See hand therapist tomorrow if possible to start motion You have jeff tendon rods in place in the long and ring fingers Resume regular diet Return to clinic appointment Return to clinic appointment with Dr. Rasmussen in 10-14 days Contact Information If it is after hours call the Careline at [phone]. Plastics/Hand, Follow Up Appointment 09/13 1:30pm Anesthesia Today you received Minor Sedation: Rest in bed the day of [...] extra careful walking up and down stairs. Do not sign any legally binding papers or make any important decisions for 24 hours until the anesthesia is completely out of your system. Let's talk about the DANGER SIGNALS to watch for after you go home. I should call my clinic if I experience any of the following: ?? Temperature higher than 101 degrees Fahrenheit ?? Redness that has spread ?? Persistent bleeding ?? Purulent drainage for incision site ?? Reaction to new medications ?? Severe pain ?? Swelling Move feet and legs several times each hour (ankle pumps, thigh tightening, and straight leg raises) to prevent blood clots. If you develop any shortness of breath, chest pain, or pain in your calf or legs call 911, or go directly to the Emergency Room. These symptoms could be a sign of a blood clot after surgery. Activity/Mobility Let's talk about when you can resume your normal activities. Rest quietly the day of your surgery, then return to normal activity unless otherwise instructed by your surgeon. Did your surgeon talk to you about: When you may drive a car: when no longer taking narcotic prescription medications and after your follow up clinic appointment hen you can return to school or work: as directed by your surgeon When you can start to exercise: as directed by your surgeon I have received instructions on my diet: resume regular diet and soft diet; advance as tolerated. Avoid spicy, greasy, and fatty foods today. Also drink pleny of fluids up to 6-8 glasses over the next 24 hours. Additional Information Medications Let's talk about the purpose and side effects of the medications that you will be taking home. New Medications: when to take them, what they are for, and adverse reactions. The possible side effects are: constipation, rash, nausea and diarrhea. Please read the drug information enclosed in your pharmacy bag. ultram is the narcotic pain medication ordered for you. This may cause sleepiness, slowed reflexes, problems with concentration, nausea and constipation. Always take with food to avoid stomach upset. Your narcotic pain medication may cause constipation. You can take an over the counter stool softer (Docusate or Colace), These are available at any pharmacy. Follow directions on the bottle and use them for as long as you are taking pain medication. Also drink large amounts of liquids and increase the fiber in your diet, by eating fresh fruits, vegetables and high fiber cereals. You had your pain medication at . You can take your pain medication at . You may take over the counter medications when not using prescribed pain medication : acetaminophen (Tylenol) 325 mg 1-2 tablets every 4-6 hours as needed for pain; do not take Tylenol with your prescribed pain medication as they contain Tylenol in them and ibuprofen (Motrin) 800 mg every 8 hours with food as needed. You can resume your home medications. It [...] it. It is our goal to make [facility] your hospital of choice and want you to feel confident in recommending [facility] to your family and friends. Thank you for choosing [facility]. The nurse has reviewed the above discharge instructions with me. I understand my discharge instructions. documented in this encounter Medications at Time of Discharge Medication Sig Dispensed Refills Start Date End Date HYDROcodone-acetaminophen Take 1 Tab by mouth 20 Tab 0 0 08/24/2014 09/13/2014 (AKA NORCO) 5-325 MG every 6 hours as tablet needed for Pain (severe pain). ondansetron (AKA ZOFRAN) Take 1 Tab by mouth 10 Tab 1 09/13/2014 4 MG tablet every 8 hours as needed for Nausea. traMADol (AKA ULTRAM) 50 Take 1 Tab by mouth 20 Tab 0 09/13/2014 MG tablet every 6 hours as needed for Pain. documented as of this encounter H&P Notes Camilla Parra MD - 09/08/2014 12:15 PM CDT [facility] Interval History and Physical Note The attached H&P has been reviewed. The patient was examined. No change observed. Source Note - Aureliano Paez MD - 08/12/2014 8:55 AM [employer] Pre-operative History and Physical Assessment Name: Fabio [...] risk assessment Preoperative cardiac evaluation algorithm from [facility] CC: [employer] documented in this encounter Procedure Notes Meaghan Rasmussen MD - 09/08/2014 2:48 PM CDT [facility] Brief Operative Progress Note Surgery Date: 09/08/2014 Primary Surgeon: Surgeon(s): Meaghan Rasmussen MD Assistants: RESIDENT-william izquierdo Post-op Diagnosis: Flexor tendon laceration of finger with open wound, rupture post tenolysis Procedure: Procedure(s) (LRB): Tendon stump excision right long and ring fingers with jeff clover placement. Matrin reconstruction A2 of long finger Suture of FDS stump to FDP stump of long finger EBL: 15 ml Specimens: * No specimens in log * Complications / Findings: FDS of long finger was fraying, FDP to ring finger ruptured at primary repair site, ends shredded preventing primary repair Meaghan Rasmussen MD --- End of Report --- Meaghan Rasmussen MD - 09/08/2014 12:00 AM CDT DATE OF SERVICE: 09/08/2014 DATE OF SURGERY: 09/08/2014 PREOPERATIVE DIAGNOSIS: Flexor tendon rupture (FDS and FDP), right ring finger. POSTOPERATIVE DIAGNOSIS: Flexor tendon rupture (FDS and FDP), right ring finger. PROCEDURE PERFORMED: 1. Jeff clover placement with tendon excision, right long finger. 2. Jeff clover placement with tendon excision, right ring. 3. Martin reconstruction, right long finger A2 martin. 4. Primary suture, right long FDS to FDP (flexor digitorum profundus), AKA (also known as) a modified Jackie. INDICATIONS: The patient is a really pleasant 39-year-old male who suffered zone 2 flexor tendon lacerations that were treated at another institution in April. He had a poor functional outcome with minimal active motion. About 2 weeks ago, we did a flexor tenolysis under MAC anesthesia. The patienthad rupture of the FDP to the long finger noted at the time of the flexor tenolysis, but he did havean intact FDP to the ring finger. He has been working with rehab. In clinic on Friday when we tested his FDP to the ring finger, it ruptured. We discussed the possibility of primary repair of the right ring finger and subsequent rehab versus doing a staged reconstruction for both the ring and long, as he has only FDS to the long finger and has not actually regained a lot of PIP flexion there compared to what we saw intraoperatively at the time of the tenolysis. The patient met with his hand therapist yesterday and after discussing it with her, he felt that he actually might be best served by Jeff clover placement in both digits, working through the summer, and coming back for the second stage of reconstruction in the winter. Based on that, we opted to go in, and if the FDP to the ring finger seemed in good condition and would be easily repaired, we would do that. Otherwise, we would proceed withHunter clover placement to both digits. FINDINGS: The FDP tendon to the ring finger was ruptured and was quite frayed, especially the distalstump. I could not find the proximal stump of the FDS to the ring finger despite the fact that therehad been 1 limb of the FDS to the ring intact at the end of the flexor tenolysis. In the long finger, the FDS to the long finger was also quite frayed despite the fact that it had looked more intact at the time of the flexor tenolysis. I think unfortunately, the patient did not havegood healing at either flexor tendon repair site. DESCRIPTION OF PROCEDURE: The patient was identified and the operative site was marked in the preoperative holding area. The patient was brought to the operating room, placed in supine position on the operating table. A well-padded tourniquet was placed on the patient's right upper extremity. After induction of sedation by the anesthesia staff, the right volar hand was prepped with alcohol. 20 mL of 1 percent lidocaine with epinephrine was injected to perform digital blocks to the long and ring fingers. The right upper extremity was then prepped and draped in the usual sterile fashion. A multidisciplinary timeout was held. The arm was exsanguinated with an Esmarch and the tourniquet was inflated to 250 mmHg. The patient's prior Nena incision was re incised overlying the right ring finger. Dissection was carried down to the flexor tendon sheath. The FDP tendon had ruptured at the primary anastomosis sitefrom the prior surgery. The distal stump was extremely frayed. The FDS was also no longer intact. Infact, I could not identify the proximal stump of the FDS tendon. I could identify the proximal stumpof the FDP tendon, but did not feel there was good, healthy tissue that would be amenable to a primary repair. For that reason, I decided to proceed with excision of the tendon. I excised the remainingdistal stumps of the FDS and FDP tendons. I did leave intact the A4 martin, the A2 martin. There wasEthibond remaining in the distal stump of the FDP, which should allow us to help visualize this whenthe patient returns to the OR. We then turned our attention to the long finger. I re incised the patient's Nena incision. I was surprised to see that the FDS tendon here had also frayed substantially, compared to at the time of the tenolysis. I excised this. I also excised the residual stump of the FDP tendon from the prior surgery that had extended it from the middle phalanx down to the DIP. There was no A2 martin left when wehad performed the flexor tenolysis, so I took part of the FDP tendon and sutured this to either sideof the residual tendon sheath to re-create an A2 martin. I sutured that with 3-0 Ethibond suture. Proximally, I identified the FDP and the FDS distal stumps. The proximal stumps of the FDS and FDP were sutured together right at the end of the lumbrical in a modified Pavelva fashion. We used a 3-0 Ethibond modified cruciate suture combined with a 6-0 Prolene running epitendinous suture. We also marked this area with a couple of Ethibond sutures in the overlying soft tissue. We sized the FDS tendonand it was about 6 mm in size. We took a 6 mm Jeff clover and secured this to the distal stump of theFDP of both the ring finger and the long finger. We left it about 11 to 12 cm long and placed it through the flexor tendon sheath and posterior to the FDP tendon stump in the palm. The wounds were irrigated with saline. Tourniquet was released and hemostasis was obtained. The Jeff tendon clover glided easily underneath the martin system. The skin was closed with 4-0 nylon interrupted sutures. The wounds were dressed with sterile gauze, and the patient was aroused from sedation and transferred to the recovery room in good condition. I was present and scrubbed for the entire procedure except for woundclosure. POSTOPERATIVE PLAN: The patient will return to see his hand therapist tomorrow to begin passive motion. He may do dressing changes as needed. Follow up with me next week. Meaghan Rasmussen MD CMW:garrick Dictated: 09/09/2014 11:50:21 Transcribed: 09/09/2014 11:58:13 Job: [id number] Doc: [id number] cc: Meaghan Rasmussen MD, Referring Provider documented in this encounter Plan of Treatment Scheduled Referrals Name Type Priority Associated Diagnoses Order [facility] Hand Occupational Therapy Referral Routine Or dered: 09/08/2014 documented as of this encounter Procedures Procedure Name Priority Date/Time Associated Diagnosis Comme nts REPAIR HAND TENDON Same Day Surgery 09/08/2014 1:00 PM Flexor tendo n WITH JEFF CLOVER CDT laceration of finger with open wound, initial encounter documented in this encounter Visit Diagnoses Diagnosis Nontraumatic rupture of flexor tendons o f hand and wrist - Primary documented in this encounter Administered Medications Inactive Administered Medications - up to 3 most recent administrations Medication Order MAR Action Action Date Dose Rate Site HYDROcodone-acetaminophen (aka Given 09/08/2014 4:09 PM CDT 2 Ta blets NORCO) 5-325 MG tablet TABS 1-2 Tab 1-2 Tablet, Oral, SDS, Starting on Latasha 09/08/14 at 0843, Until Latasha 09/08/14 at 1609, For 1 dose, Once PRN lactated ringers infusion Started 09/08/2014 12:00 PM CDT 30 mL/hr 30 mL/hr 30 mL/hr, Intravenous, SDS Continuous, Starting on Latasha 09/08/14 at 1136, Pre-op lidocaine-epinephrine [id number]:[id number] % injec tion Given 09/08/2014 1:32 PM CDT 14 mL INTRA-OP, Starting on Latasha 09/08/14 at 1134, For 1 dose, Verify Route and Dose with Surgeon Prior to Administration documented in this encounter Care Teams Supervisor [employer] Relationship Specialty Start Date End Date Nadja Manjarrez MD PCP - General Family Practice 08/20/11 [address] [place] [address] documented as of this encounter
--- OUTSIDE RECORDS SUMMARY | 2022-03-08 08:44 | XMS_ITS | Encounter Summary ---
:1975 Author Organization [facility] Address [address] [place] [address] Care Team Providers Name Role Phone Nadja Manjarrez MD Primary Care Provider Reason for Referral Consult/Transfer Care (Routine) - Closed Specialty Diagnoses / Procedures Referred By Contact Refer red To Contact Meaghan Rasmussen M D [address] [place] [address] Referral ID Status Reason Start Date Expiration Date Visits Requ ested Visits Authorized [id number] Closed 08/24/2014 10/23/2014 1 1 Scheduling Instructions Your provider has recommended an appoint ment with a [facility] Hand Occupational Therapist. Please stop at the clinic orly ck out desk for assistance with scheduling or if you prefer to call for your appointme nt you may call [facility] Out[facility] Hand Occupational Therapy at [facility] at [phone] ITAL ORDERLY Reason for Visit Auth/Cert - Closed Specialty Diagnoses / Procedures Referred By Contact Refer red To Contact Diagnoses Flexor tendon laceration of finger with open wound . Referral ID Status Reason Start Date Expiration Date Visits Requ ested Visits Authorized [id number] Closed 1 1 Encounter Details Date Type Department Care Team Description 08/24/2014 [facility] Meaghan Altamirano tendon [facility]counter [facility] [place] laceration of [address] [place] [address] [place], [place] wound, initial [phone] [id number] encounter (Primary [phone] Dx) (Work) Social History Tobacco Use Types Packs/Day Years Used Date Smoking Tobacco: Former Cigarettes Quit : 2012 Smokeless Tobacco: Never Comments: 4-5 cigs/month Alcohol Use Standard Drinks/Week Comments Yes 2.5 (1 standard drink = 0.6 oz pure alco hol) Sex Assigned at Date Recorded Not on file documented as of this encounter Last Filed Vital Signs Vital Sign Reading Time Taken Comments Blood Pressure 107/61 08/24/2014 10:46 AM HOSPITAL ORDERLY Pulse 53 08/24/2014 10:46 AM [facility] Temperature 36.5 ??C (97.7 ??F) 08/24/2014 6:31 AM [facility]OSPITAL ORDER[facility] Respiratory Rate 14 08/24/2014 10:46 AM [facility]OSPITAL ORDER[facility] Oxygen Saturation 97% 08/24/2014 10:46 AM [facility] Inhaled Oxygen Concentration - - Weight 88.5 kg (195 lb) 08/24/2014 6:31 AM [facility]OSPITAL ORDER[facility] Height 180.3 cm (5' 11) 08/24/2014 6:31 AM HOSPITAL ORDER[facility] Body Mass Index 27.2 08/24/2014 6:31 AM HOSPITAL ORDERLY documented in this encounter Discharge Instructions Discharge InstructionsMisti Lilly RN - 08/24/2014 10:36 AM CST Discharge Instructions for: Fabio Hodgson Thank you for choosing [facility] as your provider. A copy of your discharge instructions has been given to you. Please read the instructions carefully. The surgery nurse will review this information with you and answer your questions. General Information Surgeon(s): Meaghan Rasmussen MD Procedure(s): TENOLYSIS RIGHT LONG AND RING FINGERS Surgeon Orders/Follow Up Appointment Hand Occupational Therapy Your provider has recommended an appointment with a [facility] Hand Occupational Therapist. Please stopat the clinic check out desk for assistance with scheduling or if you prefer to call for your appointment you may call [facility] Outpatient Hand Occupational Therapy at [facility] at [phone] Reason for referral (DX) tenolysis Appointment urgency 1-2 days tomorrow Precautions none Requested Services Evaluation and Treatment Remove dressing Remove dressing in 24 hours Hand activity Move fingers fully every one hour while awake. Resume regular diet Contact Information If it is after hours call the Careline at [phone]. Plastics/Hand, Dr. Rasmussen's office Follow Up Appointment 08/26/2014 2:15 PM Meaghan [facility]asmussen [facility] at [address] [place] [address] Anesthesia Today you received General/Minor Sedation: Rest in bed the day of surgery, then advance to normal activity the next day. Regional Anesthesia: May take 4-6 hours to completely wear off. Wear supportive garments or dressings, if needed, until it wears off and avoid extreme temperatures. When the anesthetic wears off, you will have a tingling and prickly as feeling starts to return. Let's talk about what to expect after [...] new medications ?? Severe pain ?? Swelling Activity/Mobility Let's talk about when you can resume your normal activities. Rest quietly the day of your surgery, then return to normal activity unless otherwise instructed by your surgeon. Did your surgeon talk to you about: When you may drive a car: when no longer taking narcotic prescription medications I have received instructions on my diet: resume regular diet.avoid spicy, greasy and fatty foods today to prevent nausea. Drink plenty of fluids (6-8 glasses of liquids over the next 24 hours). Additional Information To ensure good circulation check fingers or toes of the surgical extremity for the following: normalcolor, sensation, movement, and warmth. Checks should be done every 2-4 hours for 2 days. Should there be changes in any of these areas contact your doctor or call the Careline. Medications Let's talk about the purpose and side effects of the medications that you will be taking home. New Medications: when to take them, what they are for, and adverse reactions. The possible side effects are: constipation, rash, nausea and diarrhea. Please read the drug information enclosed in your pharmacy bag. norco is the narcotic pain medication ordered for [...] may take over the counter medications when NOT using prescribed medication: acetaminophen (Tylenol) 325 mg 1-2 tablets every 4-6 hours as needed for pain when you are no longertaking your prescribed pain medication. DO NOT TAKE TYLENOL (ACETAMINOPHEN) WHILE TAKING TYLENOL WITH CODEINE, VICODIN/NORCO, PERCOCET OR DARVOCET THEY ALL CONTAIN TYLENOL (ACETAMINOPHEN) Ibuprofen (Motrin) 800 mg every 8 hours with [...] it. It is our goal to make [facility] your hospital of choice and want you to feel confident in recommending [facility] to your family and friends. Thank you for choosing [facility]. The nurse has reviewed the above discharge instructions with me. I understand my discharge instructions. ITAL ORDERLY documented in this encounter Medications at Time of Discharge Medication Sig Dispensed Refills Start Date End Date HYDROcodone-acetaminophen Take 1 Tab by mouth 20 Tab 0 0 08/24/2014 09/13/2014 (AKA NORCO) 5-325 MG every 6 hours as tablet needed for Pain (severe pain). documented as of this encounter H&P Notes Jose Carlos Ferrari MD - 08/24/2014 7:06 AM CST [facility] Interval History and Physical Note The attached H&P has been reviewed. The patient was examined. No change observed. ITAL ORDERLY Source Note - Aureliano Paez MD - 08/12/2014 8:55 AM HOSPITAL ORDERLY Pre-operative History and Physical Assessment Name: Fabio [...] Preoperative cardiac evaluation algorithm from [facility] CC: ITAL ORDERLY documented in this encounter Procedure Notes Grady, Meaghan Linares MD - 08/24/2014 10:28 AM CST [facility] Brief Operative Progress Note Surgery Date: 08/24/2014 Primary Surgeon: Surgeon(s): Meaghan Rasmussen MD Assistants: FELLOW - alma newby Post-op Diagnosis: Flexor tendon laceration of finger with open wound Procedure: Procedure(s) (LRB): TENOLYSIS RIGHT LONG AND RING FINGERS (Right) EBL: * No values recorded between 08/24/2014 8:13 AM and 08/24/2014 10:28 AM * Specimens: * No specimens in log * Complications / Findings: FDP to the long finger was disrupted, about 2 cm gap and irreparable. FDS to long finger, FDP and part of FDS intact to ring finger. Obtained full active flexion of ring finger, 85 deg PIP flexion of long finger. Vandana Newby --- End of Report --- ITAL ORDERLY Meaghan Rasmussen MD - 08/24/2014 12:00 AM CST DATE OF SERVICE: 08/24/2014 DATE OF SURGERY: 08/24/2014 PREOPERATIVE DIAGNOSIS: Flexor tendon adhesions, right long and ring finger. POSTOPERATIVE DIAGNOSIS: Flexor tendon adhesions, right long and ring finger. PROCEDURE PERFORMED: Tenolysis, right long finger MP (metacarpophalangeal) joint to DIP (distal interphalangeal) joint. Tenolysis, right ring finger MP (metacarpophalangeal) joint to DIP (distal interphalangeal) joint. Findings: FDP to long finger ruptured, 2 cm gap, irreparable INDICATIONS: The patient is a 39-year-old male who originally lacerated the flexor tendons to his long and ring fingers in zone 2 in April 2014. On 05/05/2014, he underwent repair at another hospital. There was some misunderstanding or confusion and the patient did not pursue therapy after that. Hepresented to my clinic approximately 6 weeks out from his original repair having been in a dorsal block splint, but having not performed any sort of motion. The patient did then proceed to perform therapy and he was actually extremely compliant and reliable with performing therapy. He gained very little active motion at the PIP or DIP of his long and ring fingers. He has passive motion substantially improved and he is now able to bring his fingers down to nearly touch his palm passively. After discussion of treatment options, I recommended tenolysis of the digits. Risks and benefits of the procedure were discussed with the patient preoperatively. We also specifically discussed that it is possible that the tendon repairs are ruptured and would need to be re- repaired. The patient expressed understanding and wished to proceed. DESCRIPTION OF PROCEDURE: The patient was identified and the operative site was marked in the preoperative holding area. The patient was brought to the operating room and placed in a supine position onthe operating table. A well- padded tourniquet was placed on the patient's right upper extremity. After induction of sedation by the anesthesia staff, the right volar hand was prepped with alcohol. Digital blocks were performed with 1 percent lidocaine with epinephrine. The right upper extremity was then prepped and draped in the usual sterile fashion. A multidisciplinary timeout was held. The arm wasexsanguinated with an Esmarch and the tourniquet was inflated to 250 mmHg. We began with the long finger. We made a zigzag Nena-type incision extending the patient's prior surgical incision all the way down to the DIP, and up across to the distal palmar crease. Dissection was carried down to the flexor tendon sheath distally. Over the proximal phalanx, there was a large amount of scar and no apparent residual A2 aretha. For that reason, we opted to maintain the A3 aretha. Proximally, we identified and protected the A1 aretha. We began distal to the repair which appears to have been done over theproximal phalanx. We identified the FDP tendon and the FDS tendons over the middle phalanx. We freedup some adhesions there and now with traction on the FDP tendon, we could get excellent excursion atthe DIP joint. Moving proximally over the proximal phalanx, it was difficult to tell exactly what was going on. After much careful dissection, we were able to identify that the FDP tendon repair had not held up. The distal stump was scarred into the decussation of the FDS. The proximal stump was scarre d in under the A1 aretha. We carefully released all of the scar tissue and examined the end of the FDP. The distal stump especially was quite shredded. We used a #1 Ethibond in a Gigli saw method to release the tendon adhesions from proximal to the A1 aretha, all the way down to the DIP joint while preserving the A1 aretha, the A3 aretha, and A4 aretha. Once we had done this, we again examined the FDP. The proximal stump was retracted. After cleaning up the distal stump, the remaining gap was 2 cm. We felt it was not advisable to try to repair the FDP with such a large gap. For that reason, we opted to leave this long finger as an FDS only finger. We then turned our attention to the ring finger. Again, we made a zigzag Nena incision extending the patient's prior surgical incision. Again, we identified the A4 aretha and made a small window just proximal to that to identify the FDP tendon. There was much less scar over the proximal phalanx forthis finger, and we were able to much more easily identify the FDP and FDS tendons. The FDP tendon was completely intact. The FDS tendon was intact on the radial side, but not on the ulnar side. They were substantially scarred together. Again, we carefully dissected this out and again used the Gigli saw method to retain the pulleys while freeing up adhesions. We had the patient actively make a fist. T here was still a little residual adhesion in the area of the A3 aretha on the ring finger which we cleaned out. Following that when the patient made a fist, he had excellent flexion of the ring finger with his ring finger nearly touching the distal palmar crease. The long finger with active flexion, at first he only had about 70 degrees of flexion at the PIP joint, no flexion at the DIP joint. We cleaned up the adhesions again between A3 and the FDS, and now were able to get about 85 degrees of flexion at the PIP joint. We felt this was a satisfactory outcome and could not be improved given the large gap in the FDP of the long finger. The wound was irrigated with saline. The tourniquet was released. Hemostasis was obtained. We had the patient do a final test and the tendons held up well. The wounds were then closed with 4-0 nylon interrupted sutures. The wound was dressed with sterile gauze and the patient was aroused and transferred to the recovery room in good condition. I was present and scru bbed for the entire procedure. POSTOPERATIVE PLAN: The patient will see hand therapy at [facility] tomorrow to begin active motion. He will then see his local hand therapist on Friday to continue that. He was given a prescription for that today. He should follow up in about 2 weeks for suture removal. Meaghan Rasmussen MD CMW:fani Dictated: 08/24/2014 15:41:18 Transcribed: 08/24/2014 17:13:23 Job: [id number] Doc: [id number] cc: Meaghan Rasmussen MD, Referring Provider ITAL ORDERLY documented in this encounter Plan of Treatment Scheduled Referrals Name Type Priority Associated Diagnoses Order S chedule Hand Occupational Therapy Referral Routine Or dered: 08/24/2014 documented as of this encounter Procedures Procedure Name Priority Date/Time Associated Diagnosis Comme nts TENOLYSIS Same Day Surgery 08/24/2014 7:50 AM [facility] ORDER[facility] Flexor tendon laceration of finger with open wound documented in this encounter Visit Diagnoses Diagnosis Flexor tendon laceration of finger with open wound, initial encounter - Primary documented in this encounter Administered Medications Inactive Administered Medications - up to 3 most recent administrations Medication Order MAR Action Action Date Dose Rate Site lactated ringers infusion Started 08/24/2014 6:53 AM [facility]OSP[facility] 30 mL/hr Intravenous, at 30 mL/hr, CONTINUOUS, Starting on Fri08/24/14 at 0640, Pre-op lidocaine-epinephrine [id number]:[id number] % injec tion Given 08/24/2014 9:56 AM [facility]OSP[facility] ORDER[facility] 8 mL INTRA-OP, Starting on Fri08/24/14 at 0631, For 1 dose, Verify Route and Dose with Surgeon Prior to Administration Given 08/24/2014 8:41 AM [facility]OSPITAL ORDER[facility] 20 mL documented in this encounter Care Teams Daycare Assistant Relationship Specialty Start Date End Date Nadja Manjarrez MD PCP - General Family Practice 08/20/11 [address] [place] [address] documented as of this encounter
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
--- OUTSIDE RECORDS SUMMARY | 2022-03-08 08:44 | XMS_ITS | Encounter Summary ---
:1975 Author Organization [facility] Address [address], [place] [address] Care Team Providers Name Role Phone Nadja Manjarrez MD Primary Care Provider Reason for Referral Consult/Transfer Care (Routine) - Closed Specialty Diagnoses / Procedures Referred By Contact Refer [place] [address] [place] [id number] [phone] Referral ID Status Reason Start Date Expiration Date Visits Requ ested Visits Authorized [id number] Closed 05/08/2015 08/06/2016 1 1 Scheduling Instructions If scheduling assistance is needed, malaika izaguirre inquire with the medical office staff upon exiting your appointment or contact the ordering clinic for recommended locations. This recommended service/s may not be co barbi by your insurance coverage. To find out your specific benefit coverage, please c all the number on your insurance card. [employer] Procedure/Equipment (Routine) - Closed Specialty Diagnoses / Procedures Referred By Contact [place]er [place] [address] [place], [place] [address] Referral ID Status Reason Start Date Expiration Date Visits Requ ested Visits Authorized [id number] Closed 05/08/2015 08/06/2016 1 1 Scheduling Instructions Your provider has recommended an appoint ment for a screening colonoscopy with [facility] . You may call the [facility] at [phone] to schedule your colonoscopy. Screening colonoscopies are performed at [facility] in [place], as well as at [facility]. ORS MOTIVATIONAL Reason for Visit Reason Comments QUESTIONS, GENERAL family hx of cancer REFERRAL REQUEST derm LUMP,NOS L arm SMOKING CESSATION SHOT,FLU Encounter Details Date Type Department Care Team Description 05/08/2015 Office Visit [facility] Nadja Manjarrez MD Family history of colon cancer (Primary Dx); Practice [address] [facility] Need for influenza vaccination; [address] [place], [place] Atypical nevus; [place] [address] Tobacco dependence; [id number] Nevus Social History Tobacco Use Types Packs/Day Years [...] Sign Reading Time Taken Comments Blood Pressure 135/70 05/08/2015 1:20 PM [employer] Pulse 82 05/08/2015 1:20 PM [employer] Temperature 36.8 ??C (98.3 ??F) 05/08/2015 1:20 PM [employer] Respiratory Rate 14 05/08/2015 1:20 PM [employer] Oxygen Saturation - - Inhaled Oxygen Concentration - - Weight - - Height - - Body Mass Index - - documented in this encounter Progress Notes Nadja Manjarrez MD - 05/08/2015 1:44 PM CST Chief Complaint Patient presents with ??? QUESTIONS, GENERAL family hx of cancer ??? REFERRAL REQUEST derm ??? LUMP,NOS L arm ??? SMOKING CESSATION ??? SHOT,FLU 39 yo M here for f/u: 1. Father with colon cancer- from this at age 60 yo, diagnosed in in early 50's or late 40's, he's not sure. Paternal grandfather with colon cancer diagnosed in early 60's. BM's are normal for him-about every day, no BRBPR, no darkening of stools, N/V, abdominal pain, weight changes, night sweats. Wonders if he should have screening colonoscopy-he's never had one. His siblings are both under 30 yo. 2. L bump forearm: x several months, no changes in size or other associated symptoms, thinks that this bump is getting smaller. 3. Skin changes: noticed skin changes in groin region after he shaved about a week ago. Denies associated symptoms including redness, warmth, tenderness, signs or symptoms of infection. 4. H/o atypical nevus: had biopsy done a couple of years ago on his face, this was not quite normal and had two additional biopsies done of same area and was told this was a type of pre cancer. Advisedhim to go back in for routine skin checks, annually. 5. Tobacco dependence: he's quit before, currently smoking about 2 cigarettes daily, depends on stress levels. chantix worked well for him in the past. No Known Allergies ROS: see above for pertinents. BP 135/70 mmHg Pulse 82 Temp(Src) 98.3 ??F (36.8 ??C) (Tympanic) Resp 14 General: patient appears well, alert and oriented x 3, pleasant, cooperative. Neck: supple and free of adenopathy, or masses. No thyromegaly. Eyes: PERRL, no conjunctival injection b/l. Mouth:MMM, no lesions. Ears: normal Throat: normal. Chest: clear to IPPA. Heart: heart sounds are normal, no murmurs. Abdomen: soft, no tenderness, no distention, no masses or organomegaly. Skin: several small approx 2mm uniform brown macules upper groin region, approx 4mm well circumscribed mobile subcutaneous papule on ventral surface of L forearm, no erythema/TTP/warmth/drainage/discharge/skin breakdown. A/P: 1. Family h/o colon cancer: father and PGM from colon cancer at age 60 yo; believes his father was diagnosed in early 50's, perhaps earlier. Given age is close to 40 yo, advised screening colonoscopy, order placed. 2. Bump: looks most c/w lipoma. Reassurance provided, RTC should new sx's develop-ie warmth/TTP/increase in size. 3. Nevi: by groin area-advised this does not look c/w HPV warts-he will have derm take a look at this when he f/u for #4. 4. H/o atypical nevus: he is overdue for skin check, derm order placed. 5. Tobacco dependence: patient is ready to quit, varenicline order placed. Nadja Manjarrez MD 05/10/2015, 7:02 AM [employer] documented in this encounter Plan of Treatment Scheduled Referrals Name Type Priority Associated Diagnoses Order S chedule COLONOSCOPY-PREVENTATIVE Referral Routine Ord ered: 05/08/2015 DERMATOLOGY Referral Routine Ordered: 2014 CONSULT-ADULT/PEDS documented as of this encounter Visit Diagnoses Diagnosis Family history of colon cancer - Primary Family history of malignant neoplasm of gastrointestinal tract Need for influenza vaccination Need for prophylactic vaccination and in oculation against influenza Atypical nevus Benign neoplasm of skin, site unspecifie d Tobacco dependence ([facility]) Tobacco use disorder Nevus Benign neoplasm of skin, site unspecifie d documented in this encounter Care Teams Skiver Box Toe Relationship Specialty Start Date End Date Nadja Manjarrez MD PCP - General Family Practice 08/20/11 [address] [place] [address] documented as of this encounter
--- OUTSIDE RECORDS SUMMARY | 2022-03-08 08:44 | XMS_ITS | Encounter Summary ---
:1975 Author Organization [facility] Address [address] [place] [address] Care Team Providers Name Role Phone Nadja Manjarrez MD Primary Care Provider Reason for Visit Reason Onset Date Comments Post Op Exam DOS 09/08/14 Right lo ng and Ring Tenolysis ROUTINE, FOLLOW-UP 09/14/2014 Encounter Details Date Type Department Care Team Description 09/13/2014 Office Visit [facility] Meaghan Rasmussen Fo llow-up [facility] MD examination, Surgery [address] following other [address] [place], [place] surgery (Primary Dx) [place] [id number] (Wo rk) Social History Tobacco Use Types Packs/Day Years Used Date Smoking Tobacco: Former Cigarettes Quit : 2012 Smokeless Tobacco: Never Comments: 4-5 cigs/month Alcohol Use Standard Drinks/Week Comments Yes 2.5 (1 standard drink = 0.6 oz pure alco hol) Sex Assigned at Date Recorded Not on file documented as of this encounter Patient Instructions Patient InstructionsVandana Newby - 09/13/2014 1:59 PM CDT Reason for today's visit: follow up for 2 stage flexor tendon reconstruction Your diagnosis: Flexor tendon reconstruction right long and ring fingers Tests that you will need: none Treatment plan: Continue passive motion protocol to get fingers into palm prior to 2nd stage Follow up: Return in 1 month to evaluate motion Your test results are reviewed several times [...] (via on-line services/e-mail)or call my office at [phone]. If you need follow-up in the future, please call [phone] for an appointment. If you cannot get [...] with your care. We are your partner. Vandana Newby 09/13/2014, 1:59 PM documented in this encounter Progress Notes Meaghan Rasmussen MD - 09/14/2014 3:14 PM CDT I saw and examined the patient today. I agree with the findings and plan of care as documented in the note by Dr. PRADEEP Newby. Wounds healing well following silicone devon placement for two staged tendon reconstruction. Fingers pink and well perfused. Patient will continue to work on motion. Sutures can come out next week. Follow-up with me in 4-6 weeks. Vandana Newby - 09/14/2014 7:57 AM CDT Chief Complaint: Some residual pain right ring finger HPI: 39 y/o male comes in for first post op visit after 1st stage flexor tendon reconstruction usinghunter rods to the right ring and long fingers 5 days ago. He had a primary repair of FDP and FDS almost 3 months ago and did not receive therapy. He required a tenolysis 5 weeks ago and was doing great with therapy. In clinic last week, we witnessed rupturing of the ring FDS and FDP and he went to the OR two days later for Jeff rods. He is in good spirits today and has been doing his passive ROM exercises with the therapist. The long finger is no longer painful but he does have residual pain in the ring finger and he feels it is just one step behind the long finger. Physical Exam: Patient is awake and alert. Breathing is nonlabored. Wounds healing nicely and benign. Sutures in place. Passive motion of the long is within 4 cm of the palm and the ring finger 6 cm from the palm Impression: 5 days s/p 1st stage flexor reconstruction, doing well with passive motion Plan: We expect him to fully regain all his passive motion within the time frame he has set for himself. He is very motivated. His therapist can remove the sutures on 09/19/14 as it is too early to remove today. We will see him in 1 month for re-check. He would like to plan for the second stage this fall. Dr. Rasmussen saw and examined the patient and formulated the above plan. Vandana Newby MD Hand Surgery Fellow documented in this encounter Plan of Treatment Not on filedocumented as of this encounter Visit Diagnoses Diagnosis Follow-up examination, following other s urgery - Primary documented in this encounter Care Teams Snorkelling Instructor Relationship Specialty Start Date End Date Nadja Manjarrez MD PCP - General Family Practice 08/20/11 [address] [place] [address] documented as of this encounter
--- OUTSIDE RECORDS SUMMARY | 2022-03-08 08:44 | XMS_ITS | Encounter Summary ---
:1975 Author Organization [facility] Address [address] [place] [address] Care Team Providers Name Role Phone Nadja Manjarrez MD Primary Care Provider Reason for Visit Reason Comments FOREIGN BODY, EYE Encounter Details Date Type Department Care Team Description 03/16/2015 Telephone [facility] Unknown, Physician FOREIGN BODY, EYE [address] [place], [place] [address] [place], [place] [phone] (Wo rk) Social History Tobacco Use Types Packs/Day Years Used Date Smoking Tobacco: Every Day Cigarettes L ast attempted to quit: 2012 Smokeless Tobacco: Never Comments: 4-5 cigs/month Alcohol Use Standard Drinks/Week Comments Yes 2.5 (1 standard drink = 0.6 oz pure alco hol) Sex Assigned at Date Recorded Not on file documented as of this encounter Nursing Notes Angelica Shepard - 03/17/2015 8:40 AM CDT Spoke to pt. Scheduled for 1:20pm this afternoon with Dr.Janda arnav Vaca's note below. Angelica Shepard Crista Waldrop COT - 03/17/2015 8:30 AM CDT helpdesk analyst to call patient and add him to Dr. Parker's schedule for this afternoon. NELSON Can Angelica Shepard - 03/17/2015 7:43 AM CDT Pt seen last night at [facility]. Per that office note, PLAN Procedure: Verbal consent for FB removal obtained. Anesthesia with 1 drop of Proparacaine. Used sterile q-tip, with gentle touch removed FB successfully. Follow up with ophthalmology tomorrow advised. Pt will proceed to ER with increasing pain, vision changes. Questions answered. Please advise. Can this been seen in optometry as well? If not, what would be the best time to offerpatient with ophthalmology? Angelica Shepard Marisol Griffin - 03/16/2015 8:50 PM CDT Describe your symptoms (if pain, include location): Metal piece in Rt eye, referral in chart When did they start: 03/15/15 What have you tried at home: NA Have you been seen for this recently: [facility] If a prescription is needed, would you like it filled at one of our [facility] pharmacies? [Commercial Technician/Appt Center: Was the pharmacy entered into the Preferred Pharmacy field? No] Is it okay to leave detailed message on your voicemail? yes [Commercial Technician/Appt Center: If this call is after 3 p.m., communicate to patient: If we are not able to get back to you by the end of the day and your symptoms worsen please contact the Careline] documented in this encounter Plan of Treatment Not on filedocumented as of this encounter Visit Diagnoses Not on filedocumented in this encounter Care Teams Compliance Consultant Relationship Specialty Start Date End Date Nadja Manjarrez MD PCP - General Family Practice 08/20/11 [address] [place] [address] documented as of this encounter
--- OUTSIDE RECORDS SUMMARY | 2022-03-08 08:44 | XMS_ITS | Encounter Summary ---
:1975 Author Organization [facility] Address [address], [place] [address] Care Team Providers Name Role Phone Nadja Manjarrez MD Primary Care Provider Encounter Details Date Type Department Care Team Description 12/19/2014 Correspondence [facility] [address], dong Linares MD [facility] [address] [place] [address] [place] [address] [phone] Social History Tobacco Use Types Packs/Day Years [...] on filedocumented in this encounter Care Teams Datastage Developer Relationship Specialty Start Date End Date Nadja Manjarrez MD PCP - General Family Practice 08/20/11 [address] [place] [address] documented as of this encounter
--- OUTSIDE RECORDS SUMMARY | 2022-03-08 08:44 | XMS_ITS | Encounter Summary ---
:1975 Author Organization [facility] Address [address] [place] [address] Care Team Providers Name Role Phone Nadja Manjarrez MD Primary Care Provider Reason for Referral (Routine) - Incomplete Specialty Diagnoses / Procedures Referred By Contact Refer red To Contact Diagnoses Flexor tendon laceration of finger with open wound, sequela Meaghan Rasmussen MD Procedures Case Request OR - Plastic/Hand Surgery: flexor tendon repair [address] [place] [address] Referral ID Status Reason Start Date Expiration Date Visits V isits Requested Authorized [id number] Incomplete 04/07/2015 1 1 Reason for Visit Reason Comments Follow-up, NOS Encounter Details Date Type Department Care Team Description 04/07/2015 Office Visit [facility] Meaghan Rasmussen Fl exor tendon [facility] MD laceration of finger Surgery [address] with open wound, [address] [place], [place] sequela (Primary Dx) [place] [address] [phone] (Wo rk) Social History Tobacco Use Types [...] - Inhaled Oxygen Concentration - - Weight 82.6 kg (182 lb) 04/07/2015 11:31 AM CDT Height 180.3 cm (5' 11) 04/07/2015 11:31 AM CDT Body Mass Index 25.38 04/07/2015 11:31 AM CDT documented in this encounter Patient Instructions Patient InstructionsGermania Siegel LPN - 04/07/2015 11:28 AM CDT Important information to know before your surgery You will be scheduled for a flexor tendon repair. You will be called by Angelica. You will receive a phone call from [...] Primary Physician is located outside of our Critical access hospital system, please have your Primary Physician fax your Pre-operative History and Physical form to our [facility] as soon as possible. [facility] Fax#: [phone] Critical access hospital [facility] [address] - [facility] Fax#: [phone] We prefer that you do not take [...] please call if your surgery is at [facility] or for the Critical access hospital [facility] at [address] [place] [address] on the 4th floor. Young children and [...] the Plastic and Hand Surgery Clinic at [phone] if you have any concerns related to your surgery before going to the Emergency Room, your family physician, or an Urgent Care. After hours call [phone] and ask for the on-call Plastic and Hand Surgery resident or call the Critical access hospital Careline at [phone]. Washing your skin before surgery It???s important to prepare your skin for surgery to reduce the risk of a surgical wound infection. Please take a shower the night before and the morning of your surgery. Please follow these steps during your showers: The night before your surgery: ?? Take a shower, washing your body as usual. Apply plenty of Hibiclens*, a special loom cleaner, to a clean, wet washcloth. Wash [...] If you have any questions, please call [phone] PAIN MEDICATION POLICY The Department of Plastic [...] encounter Progress Notes Meaghan Rasmussen MD - 04/23/2015 7:41 PM CDT Correction: The injured side is the right hand. Meaghan Rasmussen MD 04/23/2015, 7:41 PM Meaghan Rasmussen MD - 04/18/2015 9:21 AM CDT Chief Complaint: Follow-up left hand HPI: 39-year-old [id number] male underwent first stage for a planned staged flexor tendon reconstruction on 09/08/2014. 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 He would like to gethis second stage scheduled in early May. Physical Exam: Patient is awake and alert. Breathing is nonlabored. On exam he has some tenderness over the distal incision of the ring finger. He has good passive motion of the long finger with a slight PIP flexion contracture. His PIP is more stiff on the ring finger but with just some gentle passive motion in clinic were able to improve that substantially. He does have a palmaris longus tendon on both sides. Results Reviewed: none Impression: S/p silicone devon placement for flexor tendon reconstruction Plan: We will plan to do the second stage and cooperation with Dr. Mchugh. He does have the FDP/FDS anastamosis in the palm for one tendon. We would plan to prep out both extremities in case we needed a palmaris longus from both sides. We discussed that he would need therapy immediately after this. I also encouraged him to work aggressively on his PIP passive motion of the ring finger to improve that. The patient expressed understanding. documented in this encounter Plan of Treatment Not on filedocumented as of this encounter Visit Diagnoses Diagnosis Flexor tendon laceration of finger with open wound, sequela - Primary documented in this encounter Care Teams Accounts Payable Manager Relationship Specialty Start Date End Date Nadja Manjarrez MD PCP - General Family Practice 08/20/11 [address] [place] [address] documented as of this encounter
--- OUTSIDE RECORDS SUMMARY | 2022-03-08 08:44 | XMS_ITS | Encounter Summary ---
:1975 Author Organization [facility] Address [address] [address] Care Team Providers Name Role Phone Nadja Manjarrez MD Primary Care Provider Encounter Details Date Type Department Care Team Description 11/09/2014 Therapy External to [facility] Social History Tobacco [...] filedocumented in this encounter Care Teams Rn Integrated Relationship Specialty Start Date End Date Nadja Manjarrez MD PCP - General Family Practice 08/20/11 [address] [place] [address] documented as of this encounter
--- OUTSIDE RECORDS SUMMARY | 2022-03-08 08:44 | XMS_ITS | Encounter Summary ---
:1975 Author Organization [facility] Address [address] [place] [address] Care Team Providers Name Role Phone Nadja Manjarrez MD Primary Care Provider Reason for Visit Reason Comments INFECTION, HAND Encounter Details Date Type Department Care Team Description 09/19/2014 Telephone Specialty Center [facility] dong Linares MD INFECTION, HAND Plastic [facility] Hand Surge ry [address] [place] [address] [place] [address] [phone] Social History Tobacco Use Types Packs/Day Years Used Date Smoking Tobacco: Former Cigarettes Quit : 2012 Smokeless Tobacco: Never Comments: 4-5 cigs/month Alcohol Use Standard Drinks/Week Comments Yes 2.5 (1 standard drink = 0.6 oz pure alco hol) Sex Assigned at Date Recorded Not on file documented as of this encounter Nursing Notes Meaghan Rasmussen MD - 09/20/2014 12:58 PM CDT Patient is seeing outside therapist. No need for OT with our therapists. Alexandra Cheng PA-C - 09/19/2014 4:51 PM CDT No answer. Message left. Note, hand therapy was ordered for this patient and no appointments are set up. I called OT and theywill get him scheduled. He was suppose to get sutures out this week at therapy. Alexandra Cheng PA-C Jannet Amezquita - 09/19/2014 4:24 PM CDT Pt is post-op DOS 09/08 dos 08/24, tenolysis right long and ring fingers. Pt feels something protruding out of the end of his fingers and feels this is not healing like it should . Please call Pt at # listed. Pt scheduled 10/11. documented in this encounter Plan of Treatment Not on filedocumented as of this encounter Visit Diagnoses Not on filedocumented in this encounter Care Teams Raw Material Planner Relationship Specialty Start Date End Date Nadja Manjarrez MD PCP - General Family Practice 08/20/11 [address] [place] [address] documented as of this encounter
--- OUTSIDE RECORDS SUMMARY | 2022-03-08 08:44 | XMS_ITS | Encounter Summary ---
:1975 [facility] Address [address] [place] [address] Care Team Providers Name Role Phone Nadja Manjarrez MD Primary Care Provider Reason for Visit Therapies (Routine) - Closed Specialty Diagnoses / Procedures Referred By Contact Refer red To Contact Meaghan Rasmussen M D [address] [place] [address] Referral ID Status Reason Start Date Expiration Date Visits Requ ested Visits Authorized [id number] Closed 08/24/2014 10/23/2014 1 1 Encounter Details Date Type Department Care Team Description 08/25/2014 Office Visit [facility] Karthikeyan Rasmussen MD [address] [place] [address] Other musculoskeletal 401 [facility] Janiya Martinez, OTR/L [address] [place] [id number] symptoms referable to [address] limbs(729.89) ([place], [place] Dx) [address] Social History Tobacco Use Types Packs/Day Years Used Date Smoking Tobacco: Former Cigarettes Quit : 2012 Smokeless Tobacco: Never Comments: 4-5 cigs/month Alcohol Use Standard Drinks/Week Comments Yes 2.5 (1 standard drink = 0.6 oz pure alco hol) Sex Assigned at Date Recorded Not on file documented as of this encounter Progress Notes Janiya Martinez, OTR/L - 08/25/2014 11:07 AM CST HAND THERAPY INITIAL EVALUATION REPORT 08/25/2014 Patient Name: Fabio Hodgson [id number] Payor: / Plan: [facility] [id number] / Product Type: Medicaid / Medical Diagnosis: Right s/p tenolysis right ring and long fingers. Ring with intact FDP, excellent active ROM in OR. Long finger with FDS intact active motion to 85 deg flexion at PIP. FDP was ruptured and irreperable. Treatment Diagnosis/ICD-9-code: Weakness Hand Dysfunction: 729.89 Date of Onset: 05/04/14 Date of Surgery: 08/24/14 Referring Physician: Meaghan Rasmussen Order Date(s): 08/24/14 Date of initial evaluation: 08/25/2014 QuickDASH (lower score equates to less disability): 08/25/2014 score: QuickDash Calculated Score: 38.6 Precautions: Tenolysis PO day 1 Barriers to Learning/Other Pertinent Information: none noted Hand Dominance: Right History of Injury: Building a friend build his shed - pt.'s hand was wedge between a roof sheet and lift fork. 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 Would like to lift weights again. PAIN: Intensity Level: Current 6/10, Location: palm Pain Quality: Throbbing SENSATION: Middle finger tip tingling/numbnes Index, ring and small finger tips WNL light touch EDEMA: Moderate hand and digits WOUND / INCISION: Evidence of initial healing present SCAR / SKIN: Location: Will assess when incision is healed. ACTIVE RANGE OF MOTION: (passive range of motion) Right: 08/25/2014 Middle PIP DIP 16-50 1-10 Ring PIP DIP 26-56 20-41 STRENGTH: Not tested secondary to precautions TODAY's TREATMENT / PATIENT RESPONSE / SKILLED SERVICES Evaluation completed. Therapeutic Exercises: 20 minutes, AROM range of motion of fingers and Blocking of middle PIP joint and ring PIP and DIP joints. 10 reps instructed and performed; patient was also instructed to complete exercises hourly. Hand out provided. Pt. Demonstrated understanding but required many rest breaks during exercise (s) due to lightheaded. Pt. Was also instructed to complete overhead hand pumps to decrease edema. Wound care: 5 minutes redressed middle and long fingers xeroform and surgilast lightly compressive finger tubes. Wound care supplies also issued. Pt. Tolerated this well. Skill of Service: evaluation, would care, home exercise program instruction HOME EXERCISE PROGRAM: 08/25/2014: AROM range of motion of fingers and Blocking of middle PIP joint and ring PIP and DIP joints. Overhead hand pumps for edema control. ASSESSMENT/ CLINICAL JUDGEMENT: Pt. Presents 1 day PO (s/p tenolysis right ring and long fingers). Pt. Would benefit from initiationof range of motion to prevent scarring for optimal healing and increase independence with ADL's. TREATMENT PLAN: may be modified as deemed appropriate: Pt. Would like to continue therapy closer to home in [facility]. GOALS: 08/25/2014: Fabio will call the clinic with any questions re: home program or or in order to allow future independence with self cares to be completed by visits 1 . 08/26/2014 met MINUTES SEEN: 45 Treatment Charges: Evaluations: O.T. Evaluation Qty: 1 Treatment: Therapeutic Exercises: Quantity: 1 Wound Care: Quantity: 1 Questions regarding this hand therapy evaluation can be directed to [phone]. Janiya Martinez OTR/L, CHT GING BOARD OPERATOR documented in this encounter Plan of Treatment Scheduled Referrals Name Type Priority Associated Diagnoses Order S [facility] Hand Occupational Therapy Referral Routine Or dered: 08/24/2014 HAND OCCUPATIONAL THERAPY Referral Routine Or dered: 08/24/2014 documented as of this encounter Visit Diagnoses Diagnosis Other musculoskeletal symptoms referable to limbs(729.89) - Primary Other musculoskeletal symptoms referable to limbs documented in this encounter Care Teams Copy Machine Operator Relationship Specialty Start Date End Date Nadja Manjarrez MD PCP - General Family Practice 08/20/11 [address] [place] [address] documented as of this encounter
--- OUTSIDE RECORDS SUMMARY | 2022-03-08 08:44 | XMS_ITS | Encounter Summary ---
:1975 [facility] Address [address] [place] [address] Care Team Providers Name Role Phone Nadja Manjarrez MD Primary Care Provider Reason for Referral (Routine) - Incomplete Specialty Diagnoses / Procedures Referred By Contact Refer red To Contact Diagnoses Flexor tendon rupture of hand, right, subsequent encounter Meaghan Rasmussen MD Procedures Case Request OR - Plastic/Hand Surgery: REPAIR HAND TENDON WITH CHRISTOPHE CLOVER [address] [place] [address] Referral ID Status Reason Start Date Expiration Date Visits V isits Requested Authorized [id number] Incomplete 04/23/2015 1 1 Encounter Details Date Type Department Care Team Description 04/23/2015 [facility] Meaghan Rasmussen , Flexor tendon 401 Plastic & Hand MD rupture of hand, Surgery [address] right, subsequent [address] [place], [place] encounter ([place] [address] Dx) [phone] Social History Tobacco Use Types Packs/Day Years [...] this encounter Visit Diagnoses Diagnosis Flexor tendon rupture of hand, right, macias bsequent encounter - Primary documented in this encounter Care Teams Beater Tender Relationship Specialty Start Date End Date Nadja Manjarrez MD PCP - General Family Practice 08/20/11 [address] [place] [address] documented as of this encounter
--- OUTSIDE RECORDS SUMMARY | 2022-03-08 08:44 | XMS_ITS | Encounter Summary ---
:1975 Author Organization [facility] Address [address] [address] Care Team Providers Name Role Phone Nadja Manjarrez MD Primary Care Provider Reason for Visit Auth/Cert - Closed Specialty Diagnoses / Procedures Referred By Contact Refer red To Contact Diagnoses Flexor tendon laceration of finger with open wound . Referral ID Status Reason Start Date Expiration Date Visits Requ ested Visits Authorized [id number] Closed 1 1 Encounter Details Date Type Department Care Team Description 08/24/2014 Anesthesia Event [facility] Same Day Jose Carlos Ferrari MD [address] [place] [address] Surgery Center Rajat Crook MD [address] [place] [address] [address] [place] [address] Anesthesia Record Procedure Summary Procedure Name Responsible Anesthesia Start Anesthesia Stop Time Anesthesiologist Time TENOLYSIS RIGHT Jose Carlos Ferrari MD 08/24/14 0810 08/24/14 1 035 LONG AND RING FINGERS (Right: Finger) Events Date Time Event Comment 08/24/2014 0810 0810 An Start 0814 An Start Data 0816 An Oxygen Mask Spontaneous res pirations with adequate air exc hange. 0821 An Local Anesthetic By Surgeon 0911 MD/DO Present 1029 an stop data 1033 Care Handoff Note Airway patent . Vital signs stable. Condition unchan ged. Report given according to luana icy and procedure. Electronically s igned by Adelaida M Jablonsky, RESP THER, TELEPHONE LINEMAN 1035 An Stop Care transferred . 1132 AN Close Name Total midazolam 2 mg/2 mL injection (aka VERSED) 2 mg FENTanyl injection (aka SUBLIMAZE) 4 mL propofol 10 mg/mL for procedural sedation (aka diPRIva n) 50 mg propofol 10 mg/mL for procedural sedation (aka diPRIva n) 338.51 mg glycopyrrolate injection (aka ROBINUL) 0.2 mg ondansetron injection (aka ZOFRAN) 4 mg dexamethasone 4 mg/mL injection (aka DECADRON) 4 mg ceFAZolin-dextrose (aka ANCEF) IV piggyback 2 g 2 g lactated ringer infusion 1,100 mL Agents Name O2 Blood No blood administrations on file. Lines, Drains, and Airways Type Details Placement Removal Peripheral IV Placement Date: 08/24/14 0648 by 08/24/14 1110 b miguel angel Lilly 08/24/14; Placement Mildred Ybarra RN Christine M, RN Time: 0648; Pre-existing: No; Inserted by?: RN; Size (Gauge): 20 G; Orientation: Left; Location: Hand; Site Prep: Chlorhexidine; Local Anesthetic: None; Insertion attempts: 1; Blood draw with insertion?: no; Patient Tolerance: Tolerated well; Met Standard Sterile Barrier Technique: Met Standard Sterile Barrier Technique; Removal Date: 08/24/14; Removal Time: 1110; Removal Reason: Per Protocol; Catheter Tip: Intact Incision/Surgical Site 08/24/14; 1033; Hand; 08/24/14 1033 by 1231 by Lda, Right; 08/27/14; 1231 Misti Lilly Discont inue RN documented in this encounter Social History Tobacco Use Types Packs/Day Years Used Date Smoking Tobacco: Former Cigarettes Quit : 2012 Smokeless Tobacco: Never Comments: 4-5 cigs/month Alcohol Use Standard Drinks/Week Comments Yes 2.5 (1 standard drink = 0.6 oz pure alco hol) Sex Assigned at Date Recorded Not on file documented as of this encounter Miscellaneous Notes Anesthesia Postprocedure Evaluation - Jose Carlos Ferrari MD - 08/24/2014 11:[address] [facility] Anesthesia Post-op Note Patient: Fabio Hodgson Post-Op Diagnosis: Flexor tendon laceration of finger with open wound Procedure Performed: Procedure(s): TENOLYSIS RIGHT LONG AND RING FINGERS Anesthesia type: MAC Patient location: Phase II Post-op pain control: Satisfactory PONV: None Cardiovascular Function: Satisfactory Post-op Hydration: Satisfactory Respiratory Function: Satisfactory Airway Patency: Patent Post-op vital signs: BP 107/61 Pulse 53 Temp(Src) 97.7 ??F (36.5 ??C) (Oral) Resp 14 Ht 5' 11 (1.803 m) Wt 88.451 kg (195 lb) BMI 27.21 kg/m2 SpO2 97% Pain Score: Pain Rating: Rest: (not recorded) Pain Rating: Activity: (not recorded) Level of consciousness: Awake Patient participates in evaluation: Mental status recovered: Yes Complications: No apparent anesthetic complications Post-op assessment: Patient tolerated procedure well Jose Carlos Ferrari MD 08/24/2014 11:31 AM ERVATION SCIENCE TEACHER Anesthesia Preprocedure Evaluation - Jose Carlos Ferrari MD - 08/24/2014 7:[address] [facility] Anesthesia Pre-op Evaluation Procedure: Procedure(s): TENOLYSIS RIGHT LONG AND RING FINGERS HPI: 39 yr old male with Flexor tendon laceration of finger with open wound NPO Status: Last Fluid Intake Time: 0000 Last Fluid Intake Date: 08/23/14 Last Food Intake Date: 08/23/14 Last Food Intake Time: 0000 No Known Allergies Past Medical History Diagnosis Date ??? Facial fracture Patient Active Problem List Diagnosis ??? Chronic low back pain ??? Tobacco dependence ??? Fear of flying ROS: GERD: No Smoking:No ETOH: No Recent URI: No Past Surgical History Procedure Laterality Date ??? Spinal fusion lumbar Personal/Family History of Previous Anesthetic Complications: No No outpatient prescriptions have been marked as taking for the 08/24/14 encounter (Hospital Encounter). Current Facility-Administered Medications Medication Dose Route Frequency ??? ceFAZolin-dextrose (aka ANCEF) IV piggyback 2 g 2 g IV Once (Non-Scheduled) ??? fentaNYL (aka SUBLIMAZE) injection 25 mcg 25 mcg IV SDS ??? lactated ringers infusion IV Continuous ??? lactated ringers infusion 30 mL/hr IV SDS Continuous ??? lidocaine-epinephrine 1-1:704927 % injection Intra-Op Labs: Lab Results Component Value Date/Time SODIUM 144 08/12/2011 8:58 AM K 4.8 08/12/2011 8:58 AM CHLORIDE 103 08/12/2011 8:58 AM CO2 32* 08/12/2011 8:58 AM BUN 16 08/12/2011 8:58 AM CREATININE 1.08 08/12/2011 8:58 AM GLUCOSE 69* 08/12/2011 8:58 AM Lab Results Component Value Date/Time WBC 5.3 06/12/2012 11:26 AM HGB 14.3 06/12/2012 11:26 AM HCT 41.6 06/12/2012 11:26 AM PLTS 206 06/12/2012 11:26 AM Blood Bank: No results found for this basename: ABORH, ABSCR EKG: No results found for this or any previous visit. Physical Exam: BP 122/84 Pulse 58 Temp(Src) 97.7 ??F (36.5 ??C) (Oral) Resp 16 Ht 5' 11 (1.803 m) Wt 88.451 kg (195 lb) BMI 27.21 kg/m2 SpO2 97% Mental Status: Awake, Alert, Oriented Airway: MPC2 Dentition: normal Heart:RRR Lungs:BS CTA Assessment/Plan: Updated History and Physical: H&P Reviewed and Patient examined, no change observed ASA Score: 1 Anesthesia Type: MAC Standard ASA Monitors Induction Agent: Maintenance: PONV Prophylaxis:Ondansetron Other Equipment Needed: Post-operative Care: Routine Analgesia Anesthetic Plan, Risks, Benefits and alternatives discussed with: Patient IV access Antibiotics per surgery Jose Carlos Ferrari MD 08/24/2014 7:08 AM ERVATION SCIENCE TEACHER documented in this encounter Plan of Treatment Not on filedocumented as of this encounter Visit Diagnoses Not on filedocumented in this encounter Administered Medications Inactive Administered Medications - up to 3 most recent administrations Medication Order MAR Action Action Date Dose Rate Site ceFAZolin-dextrose (aka ANCEF) IV Given 08/24/2014 8:10 AM CONSERVATION SCIENCE TEACHER 2 g piggyback 2 g 2 g, Intravenous, Administer over 30 Minutes, ONCE (NON-SCHEDULED), Starting on Fri08/24/14 at 0639, For 1 dose, For patient weight less than or equal to 119 kg PRE-OP, Pre-op dexamethasone (aka DECADRON) injection Given 08/24/2014 8:16 AM CONSERVATION SCIENCE TEACHER 4 mg Starting on Fri08/24/14 at 0816, Until Fri08/24/14 at 1035 fentaNYL (aka SUBLIMAZE) injection Given 08/24/2014 10:00 AM CONSERVATION SCIENCE TEACHER 1 mL Starting on Fri08/24/14 at 0812 Given 08/24/2014 9:30 AM CONSERVATION SCIENCE TEACHER 1 mL Given 08/24/2014 8:12 AM CONSERVATION SCIENCE TEACHER 2 mL glycopyrrolate (aka ROBINUL) injection Given 08/24/2014 8:12 AM CONSERVATION SCIENCE TEACHER 0.2 mg Starting on Fri08/24/14 at 0812, Until Fri08/24/14 at 1035 lactated ringers infusion Started 08/24/2014 10:00 AM CONSERVATION SCIENCE TEACHER Starting on Fri08/24/14 at 0810 Started 08/24/2014 8:10 AM CONSERVATION SCIENCE TEACHER midazolam (aka VERSED) injection Given 08/24/2014 8:12 AM CONSERVATION SCIENCE TEACHER 2 mg Starting on Fri08/24/14 at 0812, Until Fri08/24/14 at 1035 ondansetron (aka ZOFRAN) injection Given 08/24/2014 8:16 AM CONSERVATION SCIENCE TEACHER 4 mg Starting on Fri08/24/14 at 0816, Until Fri08/24/14 at 1035 propofol (aka diPRIvan) injection Given 08/24/2014 8:16 AM CONSERVATION SCIENCE TEACHER 50 mg Starting on Fri08/24/14 at 0816 propofol (aka diPRIvan) Restarted 08/24/2014 9:35 AM 50 mcg/kg/min 2 6.55 mL/hr injection CONSERVATION SCIENCE TEACHER Starting on Fri08/24/14 at 0816 Rate/Dose Change 08/24/2014 8:47 AM CONSERVATION SCIENCE TEACHER 50 mcg/kg/min 26.55 mL/hr Rate/Dose Change 08/24/2014 8:30 AM CONSERVATION SCIENCE TEACHER 75 mcg/kg/min 39.83 mL/hr documented in this encounter Care Teams Food Consultant Relationship Specialty Start Date End Date Nadja Manjarrez MD PCP - General Family Practice 08/20/11 [address] [place] [address] documented as of this encounter
--- OUTSIDE RECORDS SUMMARY | 2022-03-08 08:44 | XMS_ITS | Encounter Summary ---
:1975 Author Organization [facility] Address [address], [place] [address] Care Team Providers Name Role Phone Nadja Manjarrez MD Primary Care Provider Reason for Visit Auth/Cert - Closed Specialty Diagnoses / Procedures Referred By Contact Refer red To Contact Diagnoses Flexor tendon laceration of finger with open wound . Referral ID Status Reason Start Date Expiration Date Visits Requ ested Visits Authorized [id number] Closed 1 1 Encounter Details Date Type Department Care Team Description 08/24/2014 Surgery [facility] Same Day Rasmussen, BURTON B[facility]OLYSIS [facility] MD AND RING FINGERS [address] [place] [address] [place] [address] [phone] (Wo rk) Social History Tobacco Use Types [...] Sign Reading Time Taken Comments Blood Pressure 122/84 08/24/2014 6:31 AM ARCHITECTURE INTERN Pulse 58 08/24/2014 6:31 AM ARCHITECTURE INTERN Temperature 36.5 ??C (97.7 ??F) 08/24/2014 6:31 AM ARCHITECTURE INTERN Respiratory Rate 16 08/24/2014 6:31 AM ARCHITECTURE INTERN Oxygen Saturation 97% 08/24/2014 6:31 AM ARCHITECTURE INTERN Inhaled Oxygen Concentration - - Weight 88.5 kg (195 lb) 08/24/2014 6:31 AM ARCHITECTURE INTERN Height 180.3 cm (5' 11) 08/24/2014 6:31 AM ARCHITECTURE INTERN Body Mass Index 27.2 08/24/2014 6:31 AM ARCHITECTURE INTERN documented in this encounter Discharge Instructions Discharge InstructionsMisti Lilly RN - 08/24/2014 10:36 AM CST Discharge Instructions for: Fabio Cruzters Thank you for choosing [facility] as your provider. A copy of your discharge instructions has been given to you. Please read the instructions carefully. The surgery nurse will review this information with you and answer your questions. General Information Surgeon(s): Meaghan Rasmussen MD Procedure(s): TENOLYSIS RIGHT LONG AND RING FINGERS Surgeon Orders/Follow Up Appointment Hand Occupational Therapy Your provider has recommended an appointment with a [facility] Hand Occupational Therapist. Please stopat the clinic check out desk for assistance with scheduling or if you prefer to call for your appointment you may call [facility] Outpatient Hand Occupational Therapy at [facility] at [phone] Reason for referral (DX) tenolysis Appointment urgency 1-2 days tomorrow Precautions none Requested Services Evaluation and Treatment Remove dressing Remove dressing in 24 hours Hand activity Move fingers fully every one hour while awake. Resume regular diet Contact Information If it is after hours call the Careline at [phone]. Plastics/Hand, Dr. Rasmussen's office Follow Up Appointment 08/26/2014 2:15 PM Meaghan Rasmussen [facility] at [address] [place] [address] Anesthesia Today you received General/Minor Sedation: Rest [...] it. It is our goal to make [facility] your hospital of choice and want you to feel confident in recommending [facility] to your family and friends. Thank you for choosing [facility]. The nurse has reviewed the above discharge instructions with me. I understand my discharge instructions. ITECTURE INTERN documented in this encounter Medications at Time of Discharge Medication Sig Dispensed Refills Start Date End Date HYDROcodone-acetaminophen Take 1 Tab by mouth 20 Tab 0 0 08/24/2014 09/13/2014 (AKA NORCO) 5-325 MG every 6 hours as tablet needed for Pain (severe pain). documented as of this encounter H&P Notes Jose Carlos Ferrari MD - 08/24/2014 7:06 AM CST [facility] Interval History and Physical Note The attached H&P has been reviewed. The patient was examined. No change observed. ITECTURE INTERN Source Note - Aureliano Paez MD - 08/12/2014 8:55 AM ARCHITECTURE INTERN Pre-operative History and Physical Assessment Name: Fabio [...] Preoperative cardiac evaluation algorithm from [facility] CC: ITECTURE INTERN documented in this encounter Procedure Notes Meaghan Rasmussen MD - 08/24/2014 10:28 AM CST [facility] Brief Operative Progress Note Surgery [...] Vandana Newby --- End of Report --- ITECTURE INTERN Rasmussen, Meaghan Linares MD - 08/24/2014 12:00 AM CST DATE [...] The patient will see hand therapy at [facility] tomorrow to begin active motion. He will then see his local hand therapist on Friday to continue that. He was given a prescription for that today. He should follow up in about 2 weeks for suture removal. Meaghan Rasmussen MD CMW:fani Dictated: 08/24/2014 15:41:18 Transcribed: 08/24/2014 17:13:23 Job: [id number] Doc: [id number] cc: Meaghan Rasmussen MD, Referring Provider ITECTURE INTERN documented in this encounter Plan of Treatment Scheduled Referrals Name Type Priority [facility] Diagnoses [facility] Referral Routine Or dered: 08/24/2014 documented as of this encounter Procedures Procedure Name Priority Date/Time Associated Diagnosis Comme nts TENOLYSIS Same Day Surgery 08/24/2014 7:50 AM ARCHITECTURE INTERN Flexor tendon laceration of finger with open wound documented in this encounter Visit Diagnoses Diagnosis Flexor tendon laceration of finger with open wound, initial encounter - Primary Flexor tendon laceration of finger with open wound Open wound of finger(s) , with tendon in volvement documented in this encounter Administered Medications Inactive Administered Medications - up to 3 most recent administrations Medication Order MAR Action Action Date Dose Rate Site lactated ringers infusion Started 08/24/2014 6:53 AM ARCHITECTURE INTERN 30 mL/hr Intravenous, at 30 mL/hr, CONTINUOUS, Starting on Fri08/24/14 at 0640, Pre-op lidocaine-epinephrine 1-1:581480 % injec tion Given 08/24/2014 9:56 AM ARCHITECTURE INTERN 8 mL INTRA-OP, Starting on Fri08/24/14 at 0631, For 1 dose, Verify Route and Dose with Surgeon Prior to Administration Given 08/24/2014 8:41 AM ARCHITECTURE INTERN 20 mL documented in this encounter Care Teams Middleware Systems Architect Relationship Specialty Start Date End Date Nadja Manjarrez MD PCP - General Family Practice 08/20/11 [address] [place] [address] documented as of this encounter
--- OUTSIDE RECORDS SUMMARY | 2022-03-08 08:44 | XMS_ITS | Encounter Summary ---
:1975 Author Organization [facility] Address [address] [place] [address] Care Team Providers Name Role Phone Nadja Manjarrez MD Primary Care Provider Reason for Visit Reason Onset Date Comments EXAM,POSTOP dos 08/24 tenolysis R long and R finger ROUTINE, FOLLOW-UP 08/27/2014 Encounter Details Date Type Department Care Team Description 08/26/2014 Office Visit Specialty Center Meaghan Rasmussen Fo llow-up [facility] Hand MD examination, Surgery [address] following other [address] [place], [place] surgery (Primary Dx) [place] [address] [phone] (Wo rk) Social History Tobacco Use Types Packs/Day Years Used Date Smoking Tobacco: Former Cigarettes Quit : 2012 Smokeless Tobacco: Never Comments: 4-5 cigs/month Alcohol Use Standard Drinks/Week Comments Yes 2.5 (1 standard drink = 0.6 oz pure alco hol) Sex Assigned at Date Recorded Not on file documented as of this encounter Patient Instructions Patient InstructionsMeaghan Rasmussen MD - 08/26/2014 2:58 PM CST Reason for today's visit: Follow up flexor tenolysis Your diagnosis: Flexor tenolysis Tests that you will need: none Treatment plan: No splint Work on finger ROM Take ibuprofen 400 mg three times a day with food. Follow up: 10 days Your test results are reviewed several times [...] (via on-line services/e-mail)or call my office at [phone]. If you need follow-up in the future, please call [phone] for an appointment. If you cannot get [...] with your care. We are your partner. Meaghan Rasmussen MD 08/26/2014, 2:58 PM ER WRAPPER documented in this encounter Progress Notes Meaghan Rasmussen MD - 08/27/2014 4:24 PM CST Chief Complaint: F/u tenolysis HPI: 39-year-old bqybd-rmgx-kwrrbidv male status post tenolysis right ring and long fingers on 08/24/2014. He has already attended two sessions of therapy and notes that motion is improving. He notes a small amount of numbness at the tip of his long finger. Pain is tolerable but he was nauseated with the narcotic. Physical Exam: Patient is awake and alert. Breathing is nonlabored. Exam of the right hand reveals fingertips are pink and well perfused with brisk cap refill. He is able to demonstrate active PIP flexion of both digits to about 65??. He can actively flex the DIP of the ring finger to 30?? with composite fist and farther with blocking. He is able to identify light touch to both sides of the ring and both sides of the long finger. Results Reviewed: none Impression: S/p tenolysis doing well Plan: We discussed that he is making good progress. I reviewed with him that the FDP tendon to his long finger is not intact. I explained that treatment options down the road would be staged tendon grafting versus DIP fusion. The patient is happy with the plan at this time to try and maximize his current function. He will continue to work with therapy. We provided him with tramadol for pain medication instead of the narcotic. Follow-up in about 10 days for suture removal. ER WRAPPER documented in this encounter Plan of Treatment Not on filedocumented as of this encounter Visit Diagnoses Diagnosis Follow-up examination, following other s urgery - Primary documented in this encounter Care Teams Pulp Operator Relationship Specialty Start Date End Date Nadja Manjarrez MD PCP - General Family Practice 08/20/11 [address] [place] [address] documented as of this encounter
--- OUTSIDE RECORDS SUMMARY | 2022-03-08 08:44 | XMS_ITS | Encounter Summary ---
:1975 Author Organization [facility] Address [address] [place] [address] Care Team Providers Name Role Phone Nadja Manjarrez MD Primary Care Provider Reason for Visit Reason Comments Medication Request Encounter Details Date Type Department Care Team Description 09/16/2014 Telephone Specialty Center [address] dong Linares MD Medication Request Plastic & Hand Surge ry [address] [place] [address] [place] [address] [phone] Social History Tobacco Use Types Packs/Day Years Used Date Smoking Tobacco: Former Cigarettes Quit : 2012 Smokeless Tobacco: Never Comments: 4-5 cigs/month Alcohol Use Standard Drinks/Week Comments Yes 2.5 (1 standard drink = 0.6 oz pure alco hol) Sex Assigned at Date Recorded Not on file documented as of this encounter Nursing Notes Tosin Martinez RN - 09/16/2014 4:12 PM CDT LM for pt that rx was sent to pharmacy. Tosin Martinez RN Meaghan Rasmussen MD - 09/16/2014 11:54 AM CDT Okay to have ambien. Order placed in EPIC. Vincent Kaba - 09/16/2014 10:14 AM CDT Patient would like to speak to his provider's nurse Name of patient's provider: Dr. Rasmussen Summarize the patient's question or concern: Patient would like to know if he can get some medication (Ambien) to help him sleep at night. Has not been able to sleep for the last couple of nights. Please send to pharmacy or call patient if he can get this prescribed. Is it okay to leave detailed message on your voicemail? yes If after 3pm, can this wait until tomorrow? N/a Vincent Kaba documented in this encounter Plan of Treatment Not on filedocumented as of this encounter Visit Diagnoses Not on filedocumented in this encounter Care Teams Lead Systems Analyst Relationship Specialty Start Date End Date Nadja Manjarrez MD PCP - General Family Practice 08/20/11 [address] [place] [address] documented as of this encounter
--- OUTSIDE RECORDS SUMMARY | 2022-03-08 08:44 | XMS_ITS | Encounter Summary ---
:1975 Author Organization [facility] Address [address], [place] [address] Care Team Providers Name Role Phone Nadja Manjarrez MD Primary Care Provider Encounter Details Date Type Department Care Team Description 04/21/2015 Correspondence Specialty Center 401 Rasmussen, dong Linares MD [facility] Pl[facility] Hand Surge ry [address] [place] [address] [place] [address] [phone] Social History Tobacco Use Types Packs/Day Years [...] on filedocumented in this encounter Care Teams Crop Adjuster Relationship Specialty Start Date End Date Nadja Manjarrez MD PCP - General Family Practice 08/20/11 [address] [place] [address] documented as of this encounter
--- OUTSIDE RECORDS SUMMARY | 2022-03-08 08:44 | XMS_ITS | Encounter Summary ---
:1975 Author Organization [facility] Address [address], [place] [address] Care Team Providers Name Role Phone Nadja Manjarrez MD Primary Care Provider Encounter Details Date Type Department Care Team Description 11/09/2014 Correspondence External to [facility] Social History Tobacco Use Types Packs/Day Years [...] on filedocumented in this encounter Care Teams Roto Rooter Operator Relationship Specialty Start Date End Date Nadja Manjarrez MD PCP - General Family Practice 08/20/11 [address] [place] [address] documented as of this encounter
--- OUTSIDE RECORDS SUMMARY | 2022-03-08 08:44 | XMS_ITS | Encounter Summary ---
:1975 Author Organization [facility] Address [address], [place] [address] Care Team Providers Name Role Phone Nadja Manjarrez MD Primary Care Provider Reason for Visit Auth/Cert - Closed Specialty Diagnoses / Procedures Referred By Contact Refer red To Contact Diagnoses Flexor tendon laceration of finger with open wound . Referral ID Status Reason Start Date Expiration Date Visits Requ ested Visits Authorized [id number] Closed 1 1 Encounter Details Date Type Department Care Team Description 09/08/2014 Surgery [facility] Same Day Grady, Meaghan Linares , REPAIR HAND TENDON [facility] WITH JEFF CLOVER- long [address] [place] [address] [place] [address] [phone] (Wo rk) Social History Tobacco Use Types [...] Sign Reading Time Taken Comments Blood Pressure 125/86 09/08/2014 11:51 AM CDT Pulse 67 09/08/2014 11:51 AM CDT Temperature 36.7 ??C (98.1 ??F) 09/08/2014 11:51 AM CDT Respiratory Rate 16 09/08/2014 11:51 AM CDT Oxygen Saturation 95% 09/08/2014 11:51 AM CDT Inhaled Oxygen Concentration - - Weight 83.9 kg (185 lb) 09/08/2014 11:30 AM CDT Height 182.9 cm (6') 09/08/2014 11:30 AM CDT Body Mass Index 25.09 09/08/2014 11:30 AM CDT documented in this encounter Discharge Instructions Discharge InstructionsMisti Lilly RN - 09/08/2014 3:55 PM CDT Discharge Instructions for: Fabio Hodgson Thank you for choosing [facility] as your provider. A copy [...] out your specific benefit coverage, please call thenumber on your insurance card. Reason for referral [...] is after hours call the Careline at [phone]. Plastics/Hand, Follow Up Appointment 09/13 1:30pm Anesthesia [...] it. It is our goal to make [facility] your hospital of choice and want you to feel confident in recommending [facility] to your family and friends. Thank you for choosing [facility]. The nurse has reviewed the above discharge [...] Parra MD - 09/08/2014 12:15 PM CDT [facility] Interval History and Physical Note The attached H&P has been reviewed. The patient was examined. No change observed. Source Note - Aureliano Paez MD - 08/12/2014 8:55 AM TAIL BOARD WORKER Pre-operative History and Physical Assessment Name: Fabio [...] Preoperative cardiac evaluation algorithm from [facility] CC: BOARD WORKER documented in this encounter Procedure Notes Meaghan Rasmussen MD - 09/08/2014 2:48 PM CDT [facility] Brief Operative Progress Note Surgery Date: 09/08/2014 Primary Surgeon: Surgeon(s): Meaghan Rasmussen MD Assistants: RESIDENT-william izquierdo Post-op Diagnosis: Flexor tendon laceration of finger with open wound, rupture post tenolysis Procedure: Procedure(s) (LRB): Tendon stump excision right long and ring fingers with jeff clover placement. Martin reconstruction A2 of long finger Suture of [...] There was no A2 martin left when jen performed the flexor tenolysis, so I took [...] needed. Follow up with me next week. MD MITCHEL Stoddard:garrick Dictated: 09/09/2014 11:50:21 Transcribed: 09/09/2014 11:58:13 Job: [id number] Doc: [id number] cc: Meaghan Rasmussen MD, Referring Provider documented [...] o f hand and wrist - Primary Flexor tendon laceration of finger with open wound, initial encounter documented in this encounter Administered Medications [...] on Latasha 09/08/14 at 1136, Pre-op lidocaine-epinephrine 1-1:[id number] % injec tion Given 09/08/2014 1:32 PM CDT 14 mL INTRA-OP, Starting on Latasha 09/08/14 at 1134, For 1 dose, Verify Route and Dose with Surgeon Prior to Administration documented in this encounter Care Teams Room Service Food Server Relationship Specialty Start Date End Date Nadja Manjarrez MD PCP - General Family Practice 08/20/11 [address] [place] [address] documented as of this encounter
--- OUTSIDE RECORDS SUMMARY | 2022-03-08 08:44 | XMS_ITS | Encounter Summary ---
:1975 Author [facility] Address [address], [place] [address] Care Team Providers Name Role Phone Nadja Manjarrez MD Primary Care Provider Encounter Details Date Type Department Care Team Description 06/24/2014 Therapy External to [facility] Social History Tobacco [...] on filedocumented in this encounter Care Teams Clamp Jig Assembler Relationship Specialty Start Date End Date Nadja Manjarrez MD PCP - General Family Practice 08/20/11 [address] [place] [address] documented as of this encounter
--- OUTSIDE RECORDS SUMMARY | 2022-03-08 08:44 | XMS_ITS | Encounter Summary ---
:1975 Author Organization [facility] Address [address], [place] [address] Care Team Providers Name Role Phone Nadja Manjarrez MD Primary Care Provider Reason for Visit Reason Comments AFTERCARE, SURGICAL Encounter Details Date Type Department Care Team Description 09/09/2014 Telephone Get Fractal Same Day Shena Ybarra RN AFTERCARE, SURGICAL [facility] [address] [facility] [address] [place] [address] [address] [facility] [phone] [place] [address] (Wo rk) Social History Tobacco Use Types [...] on filedocumented in this encounter Care Teams Pharmacy Innovation Assistant Relationship Specialty Start Date End Date Nadja Manjarrez MD PCP - General Family Practice 08/20/11 [address] [place] [address] documented as of this encounter
--- OUTSIDE RECORDS SUMMARY | 2022-03-08 08:44 | XMS_ITS | Encounter Summary ---
:1975 Author Organization [facility] Address [address] [address] Care Team Providers Name Role Phone Nadja Manjarrez MD Primary Care Provider Encounter Details Date Type Department Care Team Description 06/09/2014 Orders Only [facility] Encounter for sperm count [id number] [facility] for fertility testing [place], [place] [address] Social History Tobacco Use Types Packs/Day Years Used Date Smoking Tobacco: Former Cigarettes Quit : 2012 Smokeless Tobacco: Never Comments: 4-5 cigs/month Alcohol Use Standard Drinks/Week Comments Yes 2.5 (1 standard drink = 0.6 oz pure alco hol) Sex Assigned at Date Recorded Not on file documented as of this encounter Progress Notes Janina Wu APRN, CNP - 06/13/2014 8:06 AM COUNSELLING PSYCHOLOGIST Quick Note: Fabio Your sperm analysis as come back completely normal which would indicate that you are fertile. Therefore, your girlfriend will need to use some sort of contraception. You two will need to discuss the options which if you are not wanting children could include the option of a vasectomy for yourself. Janina MARTINEZ-C 06/13/2014 8:06 AM SELLING PSYCHOLOGIST documented in this encounter Plan of Treatment Not on filedocumented as of this encounter Procedures Procedure Name Priority Date/Time Associated Diagnosis Comme nts SEMEN - FERTILITY Routine 06/09/2014 1:00 PM Encounter for spe rm Results for this COUNSELLING PSYCHOLOGIST count for fertility procedur e are in testing the results section. documented in this encounter Results SEMEN - FERTILITY (06/09/2014 1:00 PM COUNSELLING PSYCHOLOGIST) Component Value Ref Test Analysis Performed At [facility] gist Range Method Time Signature Abstinence 4 days [facility] Appearance Normal [facility] Semen Volume 3.0 >1.4 mL [facility] pH 7.2 >7.1 [facility] Motile/ml 68.0 >5.9 [facility] x10(6[facility] Sperm/ml 93.2 >14.9 [facility] x10([facility] Motility 73 >39 % [facility] Grade 3.0 >2.4 [facility] Motile 204.0 >8.9 [facility] Sperm/spec [facility]10([facility] Viscosity 4 >2.9 [facility] Agglutination 4.0 >2.9 [facility] Comment (NOTE) [facility] If reported, the specimen's appearance, volume, pH and vis cosity were ?? [facility] provided by referring personnel. Normal Oval 40 >14 % [facility] Other 60 % [facility] Germinal 0.00 <4 [facility] Cells/ml x10(6) [facility] WBC/ml 0.00 <1 [facility] X[facility] Comment (NOTE) [facility] Test Performed By: [facility] [address] [place] [address] LAB DIR: CARMENZA VALENTE III M.D. Comment Referred to [facility] Laboratories Partner's Name: Lb Campos [facility] CORRECTED ON 06/09 AT 1343: PREVIOUSLY REPORTED Informa tion Not Given LABORATORIES Partner's [id number] [facility] Chart#: CORRECTED ON 06/09 AT 1343: PREVIOUSLY REPORTED Information Not Given [facility]IES Specimen Anatomical Collection Method Collection Time Receive d Time (Source) Location / / Volume Laterality 06/09/2014 1:00 PM 4 1:40 COUNSELLING PSYCHOLOGIST PM COUNSELLING PSYCHOLOGIST Narrative [facility] - 06/10/2014 6:[address] Performed at [facility], [address] [place] [address] Janina Wu APRN, CNP LAB_1 Performing Organization Address City/State/ZIP Code Phon e Number [facility] [phone] documented in this encounter Visit Diagnoses Diagnosis Encounter for sperm count for fertility testing Fertility testing documented in this encounter Care Teams Pulverizer Feeder Relationship Specialty Start Date End Date Nadja Manjarrez MD PCP - General Family Practice 08/20/11 [address] [place] [address] documented as of this encounter
--- OUTSIDE RECORDS SUMMARY | 2022-03-08 08:44 | XMS_ITS | Encounter Summary ---
:1975 Author Organization [facility] Address [address] [place] [address] Care Team Providers Name Role Phone Nadja Manjarrez MD Primary Care Provider Reason for Visit Reason Comments ROUTINE, FOLLOW-UP DOS 09/08/14 Tenolysis Rt ric g and ring Encounter Details Date Type Department Care Team Description 09/21/2014 Office Visit Specialty Center Alexandra Cheng Fol low-up examination, [address] [facility] PAFarhana following other Surgery [address] surgery (Primary Dx) [address] [place] [address] [phone] Social History Tobacco Use Types Packs/Day Years Used Date Smoking Tobacco: Former Cigarettes Quit : 2012 Smokeless Tobacco: Never Comments: 4-5 cigs/month Alcohol Use Standard Drinks/Week Comments Yes 2.5 (1 standard drink = 0.6 oz pure alco hol) Sex Assigned at Date Recorded Not on file documented as of this encounter Progress Notes Alexandra Cheng PA-C - 09/21/2014 2:37 PM CDT HAND SURGERY CLINIC NOTE CHIEF COMPLAINT: residual suture right ring finger HISTORY OF PRESENT ILLNESS: Fabio Hodgson is a 39 yr old male seen in clinic today for a residual suture poking out of the distal aspect of the ring finger incision. 2 weeks ago he underwent the firststage of flexor tendon reconstruction using jean pierre rods to the right ring and long fingers done by Dr. Rasmussen. He states all the nylon sutures were removed last week, but a small piece of blue suture is poking out of the incision and he has pain in this location. He has been working with therapy on passive motion and he states therapy is going well with the long finger, but it is painful to do motion at the DIP of the ring finger. The incisions have otherwise been healing well with no erythema or drainage. PHYSICAL EXAMINATION: Estimated body mass index is 25.08 kg/(m^2) as calculated from the following: Height as of 09/08/14: 6' (1.829 m). Weight as of 09/08/14: 185 lb (83.915 kg). He is a pleasant male, alert and oriented and in no acute distress. He is well dressed and well groomed with appropriate affect. PULMONARY: Breathing comfortably on room air. SKIN: Exam of the skin shows normal color and texture. No swelling, or bruising is noted. VASCULAR: 2+ radial pulse palpated bilaterally and brisk capillary refill. MUSCULOSKELETAL: Exam of the right long and ring fingers shows the volar incisions to be healing well with no erythema or drainage. At the very distal aspect of the ring finger incision there is a small piece of Ethibond suture sticking out of the skin. No drainage or erythema. No evidence of infection. The patient is tender to palpation at the volar base of the ring finger distal phalanx in the location of the distal aspect of the jean pierre devon and the jean pierre devon is palpable. With passive ROM, the long finger is 3 1/2 cm from touching the distal palmar crease and the ring finger is 6 cm from touchingthe distal palmar crease. NEURO: Sensation is intact to light touch in the median, ulnar and radial nerve distributions. RESULTS REVIEW: None ASSESSMENT: 1. 2 weeks status post first stage flexor tendon reconstruction using jean pierre rods to the right ringand long fingers PLAN: Fabio Hodgson is a 39 yr old male who is 2 weeks out from surgery. I pulled the protruding Ethibond suture and trimmed it at the level of the skin so the remaining suture would retract. There was no evidence of infection at this location today. I discussed that his pain may be from irritation from the suture, but is more likely from the prominent jean pierre devon that he can feel. He will keep working on motion as previously instructed. Plan for the patient to follow up with Dr. Rasmussen as scheduled on 10/11/14. If he develops worsening pain or signs of infection he will follow up sooner. If the patient has any new issues or concerns in the interim they are encouraged to call or return to clinic. Thepatient voiced understanding of the plan and all questions were answered. Alexandra Cheng PA-C 09/21/2014 2:37 PM documented in this encounter Plan of Treatment Not on filedocumented as of this encounter Visit Diagnoses Diagnosis Follow-up examination, following other s urgery - Primary documented in this encounter Care Teams Clinical Admissions Manager Relationship Specialty Start Date End Date Nadja Manjarrez MD PCP - General Family Practice 08/20/11 [address] [place] [address] documented as of this encounter
--- OUTSIDE RECORDS SUMMARY | 2022-03-08 08:44 | XMS_ITS | Encounter Summary ---
:1975 Author Organization [facility] Address [address], [place] [address] Care Team Providers Name Role Phone Nadja Manjarrez MD Primary Care Provider Reason for Referral Therapies (Routine) - Closed Specialty Diagnoses / Procedures Referred By Contact Refer red To Contact Meaghan Rasmussen M D [address] [place] [address] Referral ID Status Reason Start Date Expiration Date Visits Requ ested Visits Authorized [id number] Closed 08/24/2014 10/23/2014 1 1 Scheduling Instructions Your provider has recommended an appoint ment with a [facility] Hand Occupational Therapist. Please stop at the clinic orly ck out desk for assistance with scheduling or if you prefer to call for your appointme nt you may call [facility] Outpatient Hand Occupational Therapy at [facility] at [phone] [place] Encounter Details Date Type Department Care Team Description 08/24/2014 Notes/Orders Specialty Center Meaghan Rasmussen [place] exor tendon [address] [facility] laceration of finger Surgery [address] with open wound, [address] [place] [address] (Primary Dx) [phone] (Wo rk) Social History Tobacco Use Types Packs/Day Years Used Date Smoking Tobacco: Former Cigarettes Quit : 2012 Smokeless Tobacco: Never Comments: 4-5 cigs/month Alcohol Use Standard Drinks/Week Comments Yes 2.5 (1 standard drink = 0.6 oz pure alco hol) Sex Assigned at Date Recorded Not on file documented as of this encounter Plan of Treatment Scheduled Referrals Name Type Priority Associated Diagnoses Order [facility] HAND OCCUPATIONAL THERAPY Referral Routine Or dered: 08/24/2014 documented as of this encounter Visit Diagnoses Diagnosis Flexor tendon laceration of finger with open wound, subsequent encounter - Primary documented in this encounter Care Teams Stitchdowns Toe Former Relationship Specialty Start Date End Date Nadja Manjarrez MD PCP - General Family Practice 08/20/11 [address] [place] [address] documented as of this encounter
--- OUTSIDE RECORDS SUMMARY | 2022-03-08 08:44 | XMS_ITS | Encounter Summary ---
:1975 Author Organization [facility] Address [address], [place] [address] Care Team Providers Name Role Phone Nadja Manjarrez MD Primary Care Provider Reason for Referral Consult/Transfer Care (Routine) - Closed Specialty Diagnoses / Procedures Referred By Contact Refer red To Contact Diagnoses Foreign body in cornea, right, initial encounter Jesús Daily PA-C [address] [place], [place] [address] Referral ID Status Reason Start Date Expiration Date Visits Requ ested Visits Authorized [id number] Closed 03/16/2015 06/14/2016 1 1 Scheduling Instructions Your provider [facility] You may call [phone] to schedule your a ppointment. If you prefer, a security sales consultant will contact you within the next 3 business d ays to assist you in setting up this appointment. Reason for Visit Reason Comments EYE REDNESS right eye Encounter Details Date Type Department Care Team Description 03/16/2015 Office Visit [facility] Foreign body in cornea, [place] right, initial encounter [id number] [address] (Primary Dx) [place], [place] [address] Social History Tobacco Use [...] Sign Reading Time Taken Comments Blood Pressure 132/73 03/16/2015 8:11 PM CDT Pulse 62 03/16/2015 8:11 PM CDT Temperature 37 ??C (98.6 ??F) 03/16/2015 8:11 PM CDT Respiratory Rate - - Oxygen Saturation 98% 03/16/2015 8:11 PM CDT Inhaled Oxygen Concentration - - Weight 80.3 kg (177 lb) 03/16/2015 8:11 PM CDT Height 180.3 cm (5' 11) 03/16/2015 8:11 PM CDT Body Mass Index 24.69 03/16/2015 8:11 PM CDT documented in this encounter Patient Instructions Patient InstructionsJesús Daily PA-C - 03/16/2015 8:42 PM CDT Images from the original note were not included. Object in the Eye: After Your Visit Your Care Instructions It is common for a speck of dirt or a small object, such as an eyelash or an insect, to get in the eye. Usually your tears wash the object out. But the speck can scratch the surface of the eye (cornea). If the eye surface is scratched, it can feel as if something is still in the eye. Most surface scratches are minor and heal on their own in a day or two. If the object was still in your eye, your doctor probably removed it during your exam. Sometimes these objects become stuck deep in the eye and require more treatment. For instance, a metal object may leave a rust ring. Follow-up care is a duff part of your treatment and safety. Be sure to make and go to all appointments, and call your doctor if you are having problems. It???s also a good idea to know your test resultsand keep a list of the medicines you take. How can you care for yourself at home? ?? The doctor probably used medicine to numb your eye. When it wears off in 30 to 60 minutes, your eye pain may come back. Take mgyj-rvn-deplgsy pain medicine, such as acetaminophen (Tylenol), ibuprofen (Advil, Motrin), or naproxen (Aleve), as needed. Read and follow all instructions on the label. ?? Do not take two or more pain medicines at the same time unless the doctor told you to. Many pain medicines have acetaminophen, which is Tylenol. Too much acetaminophen (Tylenol) can be harmful. ?? If your doctor prescribed antibiotics, take them as directed. Do not stop taking them just because you feel better. You need to take the full course of antibiotics. ?? The doctor may have put a patch over your injured eye. If so, keep your eye closed under the patch. This will make your eye feel better. Do not remove the patch until your doctor has told you to. ?? If you do not have a patch, keep your hurt eye closed to reduce pain. ?? Wash your hands before touching your eye. ?? Do not rub your injured eye. Rubbing can make it worse. ?? Use the prescribed eyedrops or ointment as directed. Be sure the dropper or bottle tip is clean. ?? To put in eyedrops or ointment: ?? Tilt your head back, and pull your lower eyelid down with one finger. ?? Drop or squirt the medicine inside the lower lid. ?? Close your eye for 30 to 60 seconds to let the drops or ointment move around. ?? Do not touch the ointment or dropper tip to your eyelashes or any other surface. ?? Do not use a contact lens in your hurt eye until your doctor says you can. Also, do not wear eye makeup until your eye heals. ?? Do not drive if you are wearing an eye patch. You cannot practice coordinator distances well. ?? For the first 24 to 48 hours, limit reading and other tasks that require a lot of eye movement. ?? Bright light may hurt. It may help to wear dark glasses. ?? To prevent eye injuries in the future, wear safety glasses or goggles when you work with machinesor tools, mow the lawn, or ride a bike or motorcycle. When should you call for help? Call your doctor now or seek immediate medical care if: ?? You have signs of infection in the eye, such as: ?? Pus or thick discharge coming from the eye. ?? Redness or swelling around the eye. ?? A fever. ?? You have new or increasing eye pain. ?? It feels like sand is in your eye when you blink. Watch closely for changes in your health, and be sure to contact your doctor if: ?? You are not getting better after 1 day (24 hours). Where can you learn more? Go to [employer]/MDconnectME and enter W006 in the search box. Current as of: May 13, 2014 Content Version: 10.4 ?? [id number] [place]. documented in this encounter Progress Notes Jesús Daily PA-C - 03/16/2015 9:11 PM CDT SUBJECTIVE Fabio Hodgson is a 39 y.o. male here with c/o irritation in the right eye. Pt states that yesterdayafter work he felt like there is an irritation in the right eye. He thought there might be somethingthat the wind blew into the eye. He denied any change in vision or increasing pain. Pt states that he had a Lasic procedure done in both of the his eyes and he has had some decreasing vision in the right eye, for which he has been planning a follow up appointment. The right eye has been watering, denied any purulent discharge. Denied trauma. Current Medications Current Outpatient Prescriptions Medication Sig ??? erythromycin 5 MG/GM eye ointment Apply or instill 0.5 Inches into right eye every 6 hours for 7days. ??? ketorolac (AKA ACULAR) 0.5 % eye drop solution Apply or instill 1 Drop into right eye 4 times a day for 5 days. As needed for pain Allergies Review of patient's allergies indicates no known allergies. OBJECTIVE BP 132/73 mmHg Pulse 62 Temp(Src) 98.6 ??F (37 ??C) (Tympanic) Ht 5' 11 (1.803 m) Wt 177 lb(80.287 kg) BMI 24.70 kg/m2 SpO2 98% Appearance: stated age, healthy, alert, in no distress, cooperative. Neck: no significant adenopathy. Eyes: Rt eye: 1 mm single metallic color FB present in cornea at about 8 o'clock from pupil, over iris noted. EOMs normal. Lt eye: JESSICA, EOM intact and conjunctiva clear. VIsion: 20/40 R; 20/16 left (normal for pt) Ears: both external canals and tympanic membranes free of lesions or abnormalities. Nose: normal. Throat: normal. ASSESSMENT ICD-9-CM 1. Foreign body in cornea, right, initial encounter 930.0 OPHTHALMOLOGY CONSULT-ADULT/PEDS E914 erythromycin 5 MG/GM eye ointment ketorolac (AKA ACULAR) 0.5 % eye drop solution 59592 REMOVAL FB EXT EYE; CONJUNCT SUP PLAN Procedure: Verbal consent for FB removal obtained. Anesthesia with 1 drop of Proparacaine. Used sterile q-tip, with gentle touch removed FB successfully. Follow up with ophthalmology tomorrow advised. Pt will proceed to ER with increasing pain, vision changes. Questions answered. Jesús Daily PA-C documented in this encounter Nursing Notes Vane Arias LPN - 03/16/2015 8:10 PM CDT NORAH Torres documented in this encounter Plan of Treatment Scheduled Referrals Name Type Priority Associated Diagnoses [facility] Referral Routine Foreign body in Ordered: CONSULT-ADULT/PEDS cornea, right, initial encounter documented as of this encounter Visit Diagnoses Diagnosis Foreign body in cornea, right, initial e ncounter - Primary documented in this encounter Care Teams Asphalt Worker Relationship Specialty Start Date End Date Nadja Manjarrez MD PCP - General Family Practice 08/20/11 [address] [place] [address] documented as of this encounter
--- OUTSIDE RECORDS SUMMARY | 2022-03-08 08:44 | XMS_ITS | Encounter Summary ---
:1975 Author Organization [facility] Address [address], [place] [address] Care Team Providers Name Role Phone Nadja Manjarrez MD Primary Care Provider Encounter Details Date Type Department Care Team Description 09/08/2014 Consent for [facility] Department RH INFORM ED [...] on filedocumented in this encounter Care Teams Mechanical Systems Designer Relationship Specialty Start Date End Date Nadja Manjarrez MD PCP - General Family Practice 08/20/11 [address] [place] [address] documented as of this encounter
--- OUTSIDE RECORDS SUMMARY | 2022-03-08 08:44 | XMS_ITS | Encounter Summary ---
:1975 Author Organization [facility] Address [address] [place] [address] Care Team Providers Name Role Phone Nadja Manjarrez MD Primary Care Provider Reason for Referral (Routine) - Incomplete Specialty Diagnoses / Procedures Referred By Contact Refer red To Contact Procedures Meaghan Rasmussen MD Case Request OR - [address] Plastic/Hand Surgery: [place], [place] [address] TENOLYSIS- right long and Phone: ring Referral ID Status Reason Start Date Expiration Date Visits V isits Requested Authorized [id number] Incomplete 07/12/2014 1 1 DIRECTOR Reason for Visit Reason Comments ROUTINE, FOLLOW-UP status post right dominant l rayo and ring FDS and FDP repair. Encounter Details Date Type Department Care Team Description 07/12/2014 [facility] Visit [facility] Meaghan Rasmussen Fi nger stiffness, [address] Plastic & Hand MD right (Primary Dx) Surgery [address] [place] [address] [phone] (Wo rk) Social History Tobacco Use Types [...] - Inhaled Oxygen Concentration - - Weight 83 kg (183 lb) 07/12/2014 3:14 PM LINE DIRECTOR Height 182.9 cm (6') 07/12/2014 3:14 PM LINE DIRECTOR Body Mass Index 24.82 07/12/2014 3:14 PM LINE DIRECTOR documented in this encounter Patient Instructions Patient InstructionsCaitlyn ZepedaPRIYA - 07/12/2014 2:54 PM CST Important information to know before your surgery You will be scheduled for a Tenolysis. You will be called by Carolann. You will receive a phone call from [...] Primary Physician is located outside of our [facility] system, please have your Primary Physician fax your Pre-operative History and Physical form to our Same Day Surgery Center as soon as possible. [facility] Fax#: [phone] [facility] [address] [facility] Same Day Surgery [place] Fax#: [phone] We prefer that you do not take [...] please call if your surgery is at [facility] or [phone] for the [facility] at [address] [place] [address] on the 4th floor. Young children and [...] the Plastic and Hand Surgery Clinic at [phone] if you have any concerns related to your surgery before going to the Emergency Room, your family physician, or an Urgent Care. After hours call [phone] and ask for the on-call Plastic and Hand Surgery resident or call [facility] at [phone]. Washing your skin before surgery It???s important to prepare your skin for surgery to reduce the risk of a surgical wound infection. Please take a shower the night before and the morning of your surgery. Please follow these steps during your showers: The night before your surgery: ?? Take a shower, washing your body as usual. Apply plenty of Hibiclens*, a special bobbin cleaner, to a clean, wet washcloth. Wash [...] If you have any questions, please call [phone] PAIN MEDICATION POLICY The Department of Plastic [...] care. Department of Plastic and Hand Surgery DIRECTOR documented in this encounter Progress Notes Meaghan Rasmussen MD - 07/13/2014 7:45 AM CST Chief Complaint: Follow-up flexor tendon repairs HPI: 39-year-old lkeyb-casr-etzymrqg male underwent FDS and FDP repairs to the right long and ring fingers at another institution on 05/05/2014. I first saw him at his last visit on June 14 and we initiated more formal hand therapy. He had quite a bit of stiffness and adhesions at that visit. He has been diligently doing his therapy. He notes he does get a pulling sensation over the proximal phalanx of both digits when he tries to integrated circuit ic layout designer but he is really not had any improvement in motion. Physical Exam: Patient is awake and alert. Breathing is nonlabored. Exam of the right hand reveals that he has goodactive index and small finger motion. However his long finger PIP motion actively is minimal. Ring finger PIP motion actively is minimal. I can get as strong pole through the DIP of the ring finger. A little bit less certain about the pole at the DIP of the long finger with blocking. He is skin is well-healed and supple. He is able to fully passively flex the digits down to touch his palm. He still has a small amount of numbness at the very tip of his long finger. Results Reviewed: None Impression: Adhesions following flexor tendon repair Plan: Unfortunately he has not had much improvement with therapy. At this point I think he would benefit from flexor tenolysis. I explained the nature of the surgery. I explained that we would do it with him sedated but have him actively flexing the digits to make sure we obtained enough excursion of the tendons. I explained there is a risk that the tendons are ruptured and need to be re- repaired. I explained that he would be expected to start hand therapy the day after surgery and work diligently on motion. The patient expressed understanding and wished to proceed. He is going to schedule surgery some time following a trip to the [facility] [place]. DIRECTOR documented in this encounter Plan of Treatment Not on filedocumented as of this encounter Visit Diagnoses Diagnosis Finger stiffness, right - Primary documented in this encounter Care Teams Hurl Shaker Relationship Specialty Start Date End Date Nadja Manjarrez MD PCP - General Family Practice 08/20/11 [address] [place] [address] documented as of this encounter
--- OUTSIDE RECORDS SUMMARY | 2022-03-08 08:44 | XMS_ITS | Encounter Summary ---
:1975 Author Organization [facility] Address [address] [place] [address] Care Team Providers Name Role Phone Nadja Manjarrez MD Primary Care Provider Reason for Visit Reason Comments Medication Side Effects Encounter Details Date Type Department Care Team Description 09/09/2014 Telephone Specialty Center Meaghan Rasmussen Me dication Side [address] [facility] Hand MD Effects Surgery [address] [place] [address] [place] [address] [phone] Social History Tobacco Use Types Packs/Day Years Used Date Smoking Tobacco: Former Cigarettes Quit : 2012 Smokeless Tobacco: Never Comments: 4-5 cigs/month Alcohol Use Standard Drinks/Week Comments Yes 2.5 (1 standard drink = 0.6 oz pure alco hol) Sex Assigned at Date Recorded Not on file documented as of this encounter Nursing Notes Meaghan Rasmussen MD - 09/09/2014 10:58 AM CDT Discussed surgery with patient. He was itching too much with tramadol, would like to go back to norco, but will need antinausea med as well. i also recommend ibuprofen 600 mg taken on a scheduled basis. He will come to pickler helper scrips Discussed difficulty sleeping. Would not recommend taking ambien or hypnotics while on norco. Can discuss ambien again once he is off the norco. Dianne Basurto RN - 09/09/2014 10:37 AM CDT Pt complains continued itching with Tramadol. Pt states Dr Rasmussen suggest he try z-quil to help with itching. Pt states the z-quil does not help and he did not get much sleep. Pt informed he should d/c the Rx. RN suggest taking benadryl. Pt informed we will relay the message to Dr Rasmussen and call him back. Dianne Basurto RN 09/09/2014, 10:41 AM Linda Lawrence - 09/09/2014 8:04 AM CDT Patient would like to speak to his Rasmussen Name of patient's provider: Rasmussen Summarize the patient's question or concern: Patients pain medication that was prescribed to him after surgery is making him itch. He would like something different please Is it okay to leave detailed message on your voicemail? yes If after 3pm, can this wait until tomorrow? no Linda Lawrence documented in this encounter Plan of Treatment Not on filedocumented as of this encounter Visit Diagnoses Not on filedocumented in this encounter Care Teams Benzene Worker Relationship Specialty Start Date End Date Nadja Manjarrez MD PCP - General Family Practice 08/20/11 [address] [place] [address] documented as of this encounter
--- OUTSIDE RECORDS SUMMARY | 2022-03-08 08:44 | XMS_ITS | Encounter Summary ---
:1975 Author Organization [facility] Address [address], [place] [address] Care Team Providers Name Role Phone Nadja Manjarrez MD Primary Care Provider Reason for Visit Reason Comments AFTERCARE, SURGICAL Encounter Details Date Type Department Care Team Description 08/25/2014 Telephone [employer] Same Day Jere Camacho RN AFTERCARE, SURGICAL Surgery Center [address] [place] [address] [place] [address] [place] [address] (Wo rk) Social History Tobacco Use Types [...] on filedocumented in this encounter Care Teams Studio Control Operator Relationship Specialty Start Date End Date Nadja Manjarrez MD PCP - General Family Practice 08/20/11 [address] [place], [place] [id number] documented as of this encounter
--- OUTSIDE RECORDS SUMMARY | 2022-03-08 08:44 | XMS_ITS | Encounter Summary ---
:1975 Author Organization [facility] Address [address] [place] [address] Care Team Providers Name Role Phone Nadja Manjarrez MD Primary Care Provider Reason for Visit Reason Comments Prior Authorization For Medication Encounter Details Date Type Department Care Team Description 03/20/2015 Telephone [place] Mayelin Parker, Prior Autho rization For Ophthalmology MD Medication [address] [place], [place] [address] Social History Tobacco Use Types Packs/Day Years Used Date Smoking Tobacco: Every Day Cigarettes L ast attempted to quit: 2012 Smokeless Tobacco: Never Comments: 4-5 cigs/month Alcohol Use Standard Drinks/Week Comments Yes 2.5 (1 standard drink = 0.6 oz pure alco hol) Sex Assigned at Date Recorded Not on file documented as of this encounter Nursing Notes Pamela Muir COT - 03/20/2015 11:12 AM CDT Called patient. Was already changed polytrim. Using qid and franca at bedime. Pt states eye is getting better. Will call if symptoms worsen Pamela DAMON 11:12 AM ET Marisol Browne - 03/20/2015 9:59 AM CDT Received fax from [facility] stating that a prior authorization is required for Rx Gatifloxacin 0.5%. The fax states that patient's insurance information is as follows: [employer] ID# [id number] documented in this encounter Plan of Treatment Not on filedocumented as of this encounter Visit Diagnoses Not on filedocumented in this encounter Care Teams Box Stacker Relationship Specialty Start Date End Date Nadja Manjarrez MD PCP - General Family Practice 08/20/11 [address] [place] [address] documented as of this encounter
--- OUTSIDE RECORDS SUMMARY | 2022-03-08 08:44 | XMS_ITS | Encounter Summary ---
:1975 Author [facility] Address [address] [address] Care Team Providers Name Role Phone Nadja Manjarrez MD Primary Care Provider Encounter Details Date Type Department Care Team Description 08/24/2014 Consent for [facility] Department RH INFORM ED [...] on filedocumented in this encounter Care Teams Ed Manager Relationship Specialty Start Date End Date Nadja Manjarrez MD PCP - General Family Practice 08/20/11 [address] [place] [address] documented as of this encounter
--- OUTSIDE RECORDS SUMMARY | 2022-03-08 08:44 | XMS_ITS | Encounter Summary ---
:1975 Author Organization [facility] Address [address] [place] [address] Care Team Providers Name Role Phone Nadja Manjarrez MD Primary Care Provider Reason for Visit Reason Comments QUESTIONS, GENERAL Encounter Details Date Type Department Care Team Description 09/02/2014 Telephone [facility] dong Linares MD QUESTIONS, GENERAL Plastic & Hand Surge ry [address] [place] [address] [place] [address] [phone] Social History Tobacco Use Types Packs/Day Years Used Date Smoking Tobacco: Former Cigarettes Quit : 2012 Smokeless Tobacco: Never Comments: 4-5 cigs/month Alcohol Use Standard Drinks/Week Comments Yes 2.5 (1 standard drink = 0.6 oz pure alco hol) Sex Assigned at Date Recorded Not on file documented as of this encounter Nursing Notes Franco Cox PA-C - 09/02/2014 12:36 PM CST Spoke with [facility] - relayed information below. jj E UNION SECRETARY Meaghan Rasmussen MD - 09/02/2014 12:34 PM CST He is 9 days out. If wounds look healed, okay to remove sutures. E UNION SECRETARY Marilyn Reese - 09/02/2014 10:02 AM CST Hand Therapist Melisa from [facility] is calling and would like to speak to provider's nurse in regardsto whether it is okay to take out patients sutures. She is seeing patient today. Please advise. She can be reached at ph. [phone]. Marilyn Reese 09/02/2014, 10:02 AM E UNION SECRETARY documented in this encounter Plan of Treatment Not on filedocumented as of this encounter Visit Diagnoses Not on filedocumented in this encounter Care Teams Hvac Service Tech Relationship Specialty Start Date End Date Nadja Manjarrez MD PCP - General Family Practice 08/20/11 [address] [place] [address] documented as of this encounter
--- OUTSIDE RECORDS SUMMARY | 2022-03-08 08:44 | XMS_ITS | Encounter Summary ---
:1975 [facility] Address [address] [place] [address] Care Team Providers Name Role Phone Nadja Manjarrez MD Primary Care Provider Reason for Referral Therapies (Routine) - Closed Specialty Diagnoses / Procedures Referred By Contact Refer red To Contact Diagnoses Flexor tendon laceration of finger with open wound, subsequent encounter Meaghan Rasmussen MD [address] [place] [address] Referral ID Status Reason Start Date Expiration Date Visits Requ ested Visits Authorized [id number] Closed 06/14/2014 08/13/2014 1 1 Scheduling Instructions If scheduling assistance is needed, malaika izaguirre inquire with the medical office staff upon exiting your appointment or contact the ordering clinic for recommended locations. This recommended service/s may not be co barbi by your insurance coverage. To find out your specific benefit coverage, please c all the number on your insurance card. E MAN Reason for Visit Reason Comments REFERRAL VISIT DOI 05/04/14 Rt hand crush in jury with laceration Consult/Transfer Care (Routine) - Closed Specialty Diagnoses / Procedures Referred By Contact Refer red To Contact Plastic Surgery Diagnoses Hand injuries, right, sequela Janina Wu, [facility] CLAMSHELL OPERATOR, PUBLIC SAFETY DIRECTOR Surgery [address] [place], [place] [address] [place] [address] Phone: Fax: Referral ID Status Reason Start Date Expiration Date Visits Requ ested Visits Authorized [id number] Closed 06/03/2014 09/02/2015 1 1 Encounter Details Date Type Department Care Team Description 06/14/2014 Office Visit Specialty Center Jewell Mix MD [address] [place] [address] Flexor tendon [facility] Rasmussen, Meaghan Linares MD [address] [place], [place] [phone] laceration of finger Surgery with open wound, [address] subsequent encounter BACILIO Shannon [address] (Primary Dx) [phone] Social History Tobacco Use Types Packs/Day Years [...] - Inhaled Oxygen Concentration - - Weight 83.9 kg (185 lb) 06/14/2014 12:[address] MAN Height 180.3 cm (5' 11) 06/14/2014 12:[address] MAN Body Mass Index 25.8 06/14/2014 12:[address] MAN documented in this encounter Patient Instructions Patient InstructionsGlenroy Corona LPN - 06/14/2014 12:55 PM CST Reason for today's visit: Right hand injury. Your diagnosis: Flexor tendon lacerations right ring and long finger. Tests that you will need: None. Treatment plan: Continue OT - bring new order to [facility]. Follow up: About [address] Rasmussen. Your test results are [...] (via on-line services/e-mail)or call my office at [phone]. If you need follow-up in the future, please call [phone] for an appointment. If you cannot get [...] with your care. We are your partner. Glenroy Corona LPN 06/14/2014, 12:55 PM E MAN documented in this encounter Progress Notes Franoc Cox PA-C - 06/14/2014 1:16 PM CST Chief Complaint: Right hand injury HPI: Fabio Hodgson is a 39-year-old ulvvn-[id number] male who is new to the orthopedic hand clinic. He was injured on 05/04/2014 when working with sheet metal. He cut the palmar aspect of the hand between sheet metal and a wall. He was seen and evaluated locally. This injury occurred in [place]. Surgical intervention was pursued on 05/05/2014 to include FDS and FDP repair to the long and ring finger of his dominant right hand. He is now six weeks postoperative. Since surgery he has been working in occupational therapy diligently. He has been immobilized and splinted. Currently is in a dorsal blocking splint. He has been compliant with his splinting and restrictions. He had some numbness to the long finger. There was question of a digital nerve injury at the time of surgery. Sensation has improved he has minimal numbness to the tip of the long finger presently. He notes it has been difficult to get the fingers moving. He has a significantly limited ability to form a closed fist due to stiffness. He straightens the fingers better which is expected. Past Medical/Surgical History: History of a spinal fusion. ROS: No fevers or chills. No chest pain or shortness of breath. 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 Smokes about two cigarettes per week. He drinks about two alcoholic beverages per week. Enjoys regular workouts at the gym. Physical Exam: Patient is awake and alert. Breathing is nonlabored. Exam of the right upper extremity reveals healed palmar incisions. Demonstrates gentle active motionof the fingers. Skin is intact. Sensation intact over the radial median and ulnar nerve distributionwith minimal dysesthesias to the tip of the long finger. Range of motion is as follows: Index: MP 0-90??, PIP 0-90??, DIP 0-50?? Long MP 0-90??, PIP 18-25??, DIP 0-8??. Ring MP 0-90??, PIP 20-41??, DIP 18-27?? Small MP 0-90??, PIP -10-60??, DIP 0-50??. Sensation is intact to light touch over the radial median and ulnar nerve distribution with mild dysesthesia at the tip of the long finger. Capillary refill less than two seconds. Results Reviewed: None Impression: Six weeks status post right dominant long and ring FDS and FDP repair. #2. Moderate postoperative stiffness secondary to injury surgery and appropriate immobilization. Plan: #1 the patient was seen per myself and Dr. Rasmussen. #2. Weaning of the splint is recommended. This may be Discontinued at this time. #3. Continue formal occupational therapy without restriction. Ultrasound and other modalities at thetherapist's discretion encouraged. New order was placed for him to bring to his therapy at [facility]. #4. Use the hand to tolerance and for everyday activities encouraged. Next line 5. Follow-up Dr. Rasmussen in 4-5 weeks for reevaluation. We discussed fallback treatment to include a tenosynovectomy only ifsignificant progress is difficult. E MAN documented in this encounter Plan of Treatment Scheduled Referrals Name Type Priority Associated Diagnoses Order [facility] HAND OCCUPATIONAL THERAPY Referral Routine Flexor tendon O rdered: 06/14/2014 laceration of finger with open wound, subsequent encounter documented as of this encounter Visit Diagnoses Diagnosis Flexor tendon laceration of finger with open wound, subsequent encounter - Primary documented in this encounter Care Teams Acls Nurse Relationship Specialty Start Date End Date Nadja Manjarrez MD PCP - General Family Practice 08/20/11 [address] [place] [address] documented as of this encounter
--- OUTSIDE RECORDS SUMMARY | 2022-03-08 08:44 | XMS_ITS | Encounter Summary ---
:1975 Author Organization [facility] Address [address], [place] [address] Care Team Providers Name Role Phone Nadja Manjarrez MD Primary Care Provider Reason for Visit Auth/Cert - Closed Specialty Diagnoses / Procedures Referred By Contact Refer red To Contact Diagnoses Flexor tendon laceration of finger with open wound . Referral ID Status Reason Start Date Expiration Date Visits Requ ested Visits Authorized [id number] Closed 1 1 Encounter Details Date Type Department Care Team Description 09/08/2014 Anesthesia Event [facility] Same Day Jose Carlos Ferrari MD [address] [place] [address] Surgery Center Destiny Hasy MD [address] [place] [address] [address] [place] [address] Anesthesia Record Procedure Summary Procedure Name Responsible Anesthesia Start Anesthesia Stop Time Anesthesiologist Time REPAIR HAND TENDON Jose Carlos Ferrari MD 09/08/14 1310 5 1551 WITH CHRISTOPHE CLOVER- long and ring fingers (Right: Finger) Events Date Time Event Comment 09/08/2014 1309 1310 An Start 1314 An Start Data 1318 An Oxygen Mask Spontaneous res pirations with adequate air exc hange. 1318 MD/DO Present 1319 An Local Anesthetic By Surgeon 1327 An Tourn Inflated 1440 An Tourn Deflated 1546 an stop data 1551 Care Handoff Note Airway patent . Vital signs stable. Condition unchan ged. Report given according to luana icy and procedure. Electronically s igned by Beverley Jeffries APRN, MEMBER CERTIFICATION MANAGER 1551 An Stop Care transferred . 1602 AN Close Name Total midazolam 2 mg/2 mL injection (aka VERSED) 2 mg FENTanyl injection (aka SUBLIMAZE) 4 mL lidocaine 1% PF injection aka (XYLOCAINE) 50 mg propofol 10 mg/mL for procedural sedation (aka diPRIva n) 100 mg propofol 10 mg/mL for procedural sedation (aka diPRIva n) 1,224.94 mg glycopyrrolate injection (aka ROBINUL) 0.2 mg ondansetron injection (aka ZOFRAN) 4 mg ketorolac 30 mg/mL injection (aka TORADOL) 30 mg ceFAZolin-dextrose (aka ANCEF) IV piggyback 2 g 2 g lactated ringer infusion 1,300 mL Agents Name O2 Blood No blood administrations on file. Lines, Drains, and Airways Type Details Placement Removal Peripheral IV Placement Date: 09/08/14 1135 by 09/08/14 161 ning Lilly 09/08/14; Placement Claudia Munguia Christine M, RN Time: 1135; RN Pre-existing: No; Inserted by?: RN; Size (Gauge): 20 G; Orientation: Left; Location: Hand; Site Prep: Chlorhexidine; Insertion attempts: 1; Patient Tolerance: Tolerated well; Met Standard Sterile Barrier Technique: Met Standard Sterile Barrier Technique; Removal Date: 09/08/14; Removal Time: 1613; Removal Reason: Per Protocol; Catheter Tip: Intact Incision/Surgical Site 09/08/14; 155; Hand; 09/08/14 1552 by 0512 by Allison, Right; 09/12/14; 0512 Misti Lilly Discont inue RN documented in [...] Evaluation - Jose Carlos Ferrari MD - 09/08/2014 4:02 PM CDT [facility] Anesthesia Post-op Note Patient: Fabio Hodgson Post-Op Diagnosis: Flexor tendon laceration of finger with open wound, initial encounter Procedure Performed: Procedure(s): REPAIR HAND TENDON WITH CHRISTOPHE CLOVER- long and ring fingers Anesthesia type: MAC Patient location: Phase II Post-op pain control: Satisfactory PONV: None Cardiovascular Function: Satisfactory Post-op Hydration: Satisfactory Respiratory Function: Satisfactory Airway Patency: Patent Post-op vital signs: BP 137/56 Pulse 63 Temp(Src) 98.1 ??F (36.7 ??C) (Oral) Resp 16 Ht 6' (1.829 m) Wt 83.915 kg (185 lb) BMI 25.08 kg/m2 SpO2 98% Pain Score: Pain Rating: Rest: 3 Pain Rating: Activity: (not recorded) Level of consciousness: Awake Patient participates in evaluation: Mental status recovered: Yes Complications: No apparent anesthetic complications Post-op assessment: Patient tolerated procedure well Jose Carlos Ferrari MD 09/08/2014 4:02 PM Anesthesia Preprocedure Evaluation - Camilla Parra MD - 09/08/2014 12:15 PM CDT [facility] Anesthesia Pre-op Evaluation Procedure: Procedure(s): REPAIR HAND TENDON WITH CHRISTOPHE CLOVER- long and ring fingers HPI: 39 yr old male with Flexor tendon laceration of finger with open wound, initial encounter NPO Status: Last Fluid Intake Time: 0000 Last Fluid Intake Date: 09/08/14 Last Food Intake Date: 09/08/14 Last Food Intake Time: 0000 No Known Allergies Past Medical History Diagnosis Date ??? Facial fracture Patient Active Problem List Diagnosis ??? Chronic low back pain ??? Tobacco dependence ??? Fear of flying ??? Other musculoskeletal symptoms referable to limbs(637.79) ??? Centralized Behavioral Health Case Management ROS: GERD: No Smoking:No quit 2 years ago ETOH: No Recent URI: No Past Surgical History Procedure Laterality Date ??? Spinal fusion lumbar Personal/Family History of Previous Anesthetic Complications: No Outpatient Prescriptions Marked as Taking for the 09/08/14 encounter (Hospital Encounter) Medication Sig Dispense Refill ??? ondansetron (AKA ZOFRAN) 4 MG tablet Take 1 Tab by mouth every 8 hours as needed for Nausea. 10 Tab 1 ??? traMADol (AKA ULTRAM) 50 MG tablet Take 1 Tab by mouth every 6 hours as needed for Pain. 40 Tab 0 Current Facility-Administered Medications Medication Dose Route Frequency ??? ceFAZolin-dextrose (aka ANCEF) IV piggyback 2 g 2 g IV Once (Non-Scheduled) ??? HYDROcodone-acetaminophen (aka NORCO) 5-325 MG tablet TABS 1-2 Tab 1-2 Tab Oral SDS ??? hydrOXYzine HCl (aka ATARAX) tablet 25-50 mg 25-50 mg Oral ONCE PRN ??? lactated ringers infusion IV Intra-Op Continuous ??? lactated ringers infusion 30 mL/hr IV SDS Continuous ??? lidocaine-epinephrine 1-1:141766 % injection Intra-Op Labs: Lab Results Component [...] 206 06/12/2012 11:26 AM No results found for this basename: inr No results found for this basename: hcgquant Urine : Result: (not recorded) Blood Bank: No results found for this basename: ABORH, ABSCR EKG: No results found for this or any previous visit. Physical Exam: BP 125/86 Pulse 67 Temp(Src) 98.1 ??F (36.7 ??C) (Oral) Resp 16 Ht 6' (1.829 m) Wt 83.915 kg (185 lb) BMI 25.08 kg/m2 SpO2 95% Mental Status: Awake, Alert, Oriented Airway: MPC1 Dentition: normal Heart:RRR Lungs:BS CTA Assessment/Plan: Updated History and Physical: H&P Reviewed and Patient examined, no change observed ASA Score: 1 Anesthesia Type: MAC Standard ASA Monitors Induction Agent: Maintenance: PONV Prophylaxis: Other Equipment Needed: Post-operative Care: Routine Analgesia Anesthetic Plan, Risks, Benefits and alternatives discussed with: Patient IV access Antibiotics per surgery Camilla Parra MD 09/08/2014 12:15 PM documented in this encounter Plan of Treatment Not on filedocumented as of this encounter Visit Diagnoses Not on filedocumented in this encounter Administered Medications Inactive Administered Medications - up to 3 most recent administrations Medication Order MAR Action Action Date Dose Rate Site ceFAZolin-dextrose (aka ANCEF) IV Given 09/08/2014 1:10 PM CDT 2 g piggyback 2 g 2 g, Intravenous, Administer over 30 Minutes, ONCE (NON-SCHEDULED), Starting on Latasha 09/08/14 at 1135, For 1 dose, For patient weight less than or equal to 119 kg PRE-OP, Pre-op fentaNYL (aka SUBLIMAZE) injection Given 09/08/2014 2:41 PM CDT 1 mL Starting on Latasha 09/08/14 at 1315 Given 09/08/2014 2:33 PM CDT 0.5 mL Given 09/08/2014 2:31 PM CDT 0.5 mL glycopyrrolate (aka ROBINUL) injection Given 09/08/2014 1:18 PM CDT 0.2 mg Starting on Latasha 09/08/14 at 1318, Until Latasha 09/08/14 at 1551 ketorolac (aka TORADOL) injection Given 09/08/2014 3:00 PM CDT 30 mg Starting on Latasha 09/08/14 at 1500, Until Latasha 09/08/14 at 1551 lactated ringers infusion Started 09/08/2014 1:41 PM CDT Starting on Latasha 09/08/14 at 1310 Started 09/08/2014 1:10 PM CDT lidocaine (aka XYLOCAINE) 1 % injection Given 09/08/2014 1:18 PM CDT 50 mg Starting on [place] 09/08/14 at 1318 midazolam (aka VERSED) injection Given 09/08/2014 1:10 PM CDT 2 mg Starting on Latasha 09/08/14 at 1310, Until Latasha 09/08/14 at 1551 ondansetron (aka ZOFRAN) injection Given 09/08/2014 1:23 PM CDT 4 mg Starting on Latasha 09/08/14 at 1323, Until Latasha 09/08/14 at 1551 propofol (aka diPRIvan) injection Given 09/08/2014 1:18 PM CDT 100 mg Starting on Latasha 09/08/14 at 1318 propofol (aka diPRIvan) Rate/Dose Change 09/08/2014 3:17 50 mcg/kg/ min 25.17 mL/hr injection PM CDT Starting on Latasha 09/08/14 at 1318 Rate/Dose Change 09/08/2014 3:07 PM CDT 75 mcg/kg/min 37.76 mL/hr Rate/Dose Change 09/08/2014 1:56 PM CDT 120 mcg/kg/min 60.41 mL/hr documented in this encounter Care Teams Branch Or Department Chief Librarian Relationship Specialty Start Date End Date Nadja Manjarrez MD PCP - General Family Practice 08/20/11 [address] [place] [address] documented as of this encounter
--- OUTSIDE RECORDS SUMMARY | 2022-03-08 08:45 | XMS_ITS | Encounter Summary ---
:1975 Author Organization [facility] Address [address] [address] Care Team Providers Name Role Phone Nadja Manjarrez MD Primary Care Provider Encounter Details Date Type Department Care Team Description 06/12/2012 Orders Only [facility] Other specified [id number] [facility] pre-operative examination [place], [place] [address] Social History Tobacco Use Types Packs/Day Years Used Date Smoking Tobacco: Former Cigarettes Quit : 2012 Smokeless Tobacco: Never Comments: 4-5 cigs/month Alcohol Use Standard Drinks/Week Comments Yes 2.5 (1 standard drink = 0.6 oz pure alco hol) Sex Assigned at Date Recorded Not on file documented as of this encounter Progress Notes Nadja Manjarrez MD - 06/13/2012 10:20 AM PROCESS WORKER Quick Note: Please fax pre op note, hemogram from 06/12/12 to [facility]. Thanks. Nadja Manjarrez MD 06/13/2012, 10:20 AM ' ESS WORKER documented in this encounter Plan of Treatment Not on filedocumented as of this encounter Procedures Procedure Name Priority Date/Time Associated Diagnosis Comme nts COMPLETE BLOOD Routine 06/12/2012 11:26 AM Other specified Res ults for this COUNT-NO DIFF PROCESS WORKER pre-operative procedure are in examination the results section. documented in this encounter Results HEMOGRAM/PLTS (06/12/2012 11:26 AM PROCESS WORKER) athologist Signature WBC 5.3 4.0 - 11.0 [facility] k/ul RBC 4.53 4.5 - 5.9 [facility] M/ul Hemoglobin 14.3 13.5 - 17.5 [facility] g/dl HCT 41.6 41.0 - 53.0 [facility] % MCV 91.8 80 - 100 fl [facility] MCH 31.6 26 - 34 pg [facility] MCHC 34.4 32 - 36 [facility] g/dl RDW 13.0 11.5 - 14.5 [facility] % Platelets 206 150 - 450 [facility] k/ul Specimen Anatomical Collection Method Collection Time Receive d Time (Source) Location / / Volume Laterality 06/12/2012 11:26 06/12/2012 AM PROCESS WORKER 11:28 AM PROCESS WORKER Nadja Manjarrez MD LAB_1 Performing Organization Address City/State/ZIP Code Phon e Number [facility] [phone] [facility] [address] [place] [phone] documented in this encounter Visit Diagnoses Diagnosis Other specified pre-operative examinatio n documented in this encounter Care Teams Offal Roller Relationship Specialty Start Date End Date Nadja Manjarrez MD PCP - General Family Practice 08/20/11 [address] [place], [place] [id number] documented as of this encounter
--- OUTSIDE RECORDS SUMMARY | 2022-03-08 08:45 | XMS_ITS | Encounter Summary ---
:1975 Author [facility] Address [address], [place] [address] Care Team Providers Name Role Phone Nadja Manjarrez MD Primary Care Provider Encounter Details Date Type Department Care Team Description 05/19/2014 Scanned History External to Transferred Record, [facility] Provider Social History Tobacco Use Types Packs/Day [...] on filedocumented in this encounter Care Teams Accounts Payable Bookkeeper Relationship Specialty Start Date End Date Nadja Manjarrez MD PCP - General Family Practice 08/20/11 [address] [place] [address] documented as of this encounter
--- OUTSIDE RECORDS SUMMARY | 2022-03-08 08:45 | XMS_ITS | Encounter Summary ---
:1975 Author Organization [employer] Address [address] [place] [address] Care Team Providers Name Role Phone Nadja Manjarrez MD Primary Care Provider Reason for Visit Reason Comments PRE-OP EXAM 06/[address] Kervin amato removal from spinal; fusion 2003 Encounter Details Date Type Department Care Team Description 06/12/2012 Office Visit [facility] Nadja Manjarrez MD Other specified pre-operative examinatio n (Primary Dx); Practice [address] [facility] Chronic low back pain [address] [place] [address] [phone] Social History Tobacco Use Types Packs/Day Years Used Date Smoking Tobacco: Former Cigarettes Quit : 2012 Smokeless Tobacco: Never Comments: 4-5 cigs/month Alcohol Use Standard Drinks/Week Comments Yes 2.5 (1 standard drink = 0.6 oz pure alco hol) Sex Assigned at Date Recorded Not on file documented as of this encounter Last Filed Vital Signs Vital Sign Reading Time Taken Comments Blood Pressure 130/69 06/12/2012 10:39 AM SPRAY STAINER Pulse 63 06/12/2012 10:39 AM SPRAY STAINER Temperature 36.7 ??C (98.1 ??F) 06/12/2012 10:39 AM SPRAY STAINER Respiratory Rate 12 06/12/2012 10:39 AM SPRAY STAINER Oxygen Saturation - - Inhaled Oxygen Concentration - - Weight 86.1 kg (189 lb 12.8 oz) 06/12/2012 10:39 AM SPRAY STAINER Height 179.1 cm (5' 10.5) 06/12/2012 10:39 AM SPRAY STAINER Body Mass Index 26.85 06/12/2012 10:39 AM SPRAY STAINER documented in this encounter Progress Notes Nadja Manjarrez MD - 06/12/2012 11:13 AM CST Fabio Hodgson, medical record [id number], is a 37 yr year old male who is here for presurgical risk assessment. He is scheduled for surgery at [facility] on 06/17/[address] Galeana for hardware removal, lumbar spine. HPI: 37 yo M here with intermittent lower back pain. His primary physician is Nadja Manjarrez MD. Procedure: hardware removal, lumbar spine. No Known Allergies Habits: History Substance Use Topics ??? Smoking status: Former Smoker Types: Cigarettes Quit date: 2012 ??? Smokeless tobacco: Never Used Comment: 4-5 cigs/month ??? Alcohol Use: 1.5 oz/week 3 drink(s) per week Past Medical History Diagnosis Date ??? Facial fracture Past Surgical History Procedure Date ??? Spinal fusion lumbar Patient Active Problem List Diagnoses ??? Chronic low back pain ??? Tobacco dependence Current Outpatient Prescriptions Medication Sig ??? BuPROPion HCl, Smoking Deter, (AKA ZYBAN) 150 MG 12 hour release tablet Take one tab PO Qdaily xthree days, then one tablet PO BID. not taking NSAID's, herbals or other OTC medications, bupropion. PRE-OP QUESTIONS Tightening or pressure in chest with activity: no Swelling of feet or ankles at times: no Wakes at night with shortness of breath : no Difficulty sleeping flat at night: no Troubled by shortness of breath when: Walking on the level??? no Climbing a flight of stairs: no Sleeping at night: no Get pains in the calves of the legs when walking no Chest ever sound wheezy or whistling: no Cough, runny nose, or cold symptoms??? Now: no In the last two weeks: no Have a chronic cough: no You or any relatives had a problem with bleeding: no Taken any aspirin (or products containing aspirin) in the last two weeks: no Problem with anemia or been told to take iron pills: no You or any relatives have had a problem with anesthesia: no History of sleep apnea or use of CPAP at home: no Have active tuberculosis: no Other: no PHYSICAL EXAMINATION The patient appears healthy, well nourished, in no acute distress BP 130/69 Pulse 63 Temp 98.1 ??F (36.7 ??C) Resp 12 Ht 5' 10.5 (1.791 m) Wt 189 lb 12.8 oz (86.093 kg) BMI 26.85 kg/m2 HEENT: Eyes, ears, nose and throat are unremarkable. Neck: Thyroid not enlarged. No bruits. No jugular venous distention Cardiovascular: regular rate and rhythm, normal S1 and S2 without murmur or click Chest/Lungs: clear to auscultation, no wheezes or rales Abdomen: Soft, non-tender, no masses, no hepatomegaly or splenomegaly. Extremities: No cyanosis, clubbing or edema. Pulses intact. Neurologic: Alert and oriented to person, place and time. Sensory, motor and cerebellar exams are intact. Skin: No rash EKG: EKG not indicated for patient's condition and type of surgery LAB: H/H looks OK. Assessment: No contraindication to surgery. No major medical issues for planned procedure. Patient is medically cleared for surgery pending lab results. Patient is advised to avoid aspirin for 7 days prior to surgery and avoid ibuprofen products for 5 days prior to surgery. Nadja Manjarrez MD 06/13/2012, 9:46 AM Y STAINER documented in this encounter Plan of Treatment Not on filedocumented as of this encounter Results HEMOGRAM/PLTS (06/12/2012 11:26 AM SPRAY STAINER) athologist Signature WBC 5.3 4.0 - 11.0 [facility] k/ul RBC 4.53 4.5 - 5.9 [facility] M/ul Hemoglobin 14.3 13.5 - 17.5 [facility] g/dl HCT 41.6 41.0 - 53.0 [facility] % MCV 91.8 80 - 100 fl [facility] MCH 31.6 26 - 34 pg [facility] MCHC 34.4 32 - 36 [facility] g/dl RDW 13.0 11.5 - 14.5 [facility] % Platelets 206 150 - 450 [facility] k/ul Specimen Anatomical Collection Method Collection Time Receive d Time (Source) Location / / Volume Laterality 06/12/2012 11:26 06/12/2012 AM SPRAY STAINER 11:28 AM SPRAY STAINER Nadja Manjarrez MD LAB_1 Performing Organization Address City/State/ZIP Code Phon e Number [facility] [phone] [address] documented in this encounter Visit Diagnoses Diagnosis Other specified pre-operative examinatio n - Primary Chronic low back pain Lumbago documented in this encounter Care Teams Audit Practice Intern Relationship Specialty Start Date End Date Nadja Manjarrez MD PCP - General Family Practice 08/20/11 [address] [place], [place] [id number] documented as of this encounter
--- OUTSIDE RECORDS SUMMARY | 2022-03-08 08:45 | XMS_ITS | Encounter Summary ---
:[address] [facility] Address [address], [place] [address] Care Team Providers Name Role Phone Nadja Manjarrez MD Primary Care Provider Encounter Details Date Type Department Care Team Description 05/19/2014 Scanned History External to Transferred Record, [facility] Provider Social History Tobacco Use Types Packs/Day [...] on filedocumented in this encounter Care Teams Engine Maintenance Mechanic Relationship Specialty Start Date End Date Nadja Manjarrez MD PCP - General Family Practice 08/20/11 [address] [place] [address] documented as of this encounter
--- OUTSIDE RECORDS SUMMARY | 2022-03-08 08:45 | XMS_ITS | Encounter Summary ---
:1975 [facility] Address [address], [place] [address] Care Team Providers Name Role Phone Nadja Manjarrez MD Primary Care Provider Encounter Details Date Type Department Care Team Description 05/04/2014 Scanned History External to [facility] Social History Tobacco Use Types Packs/Day Years [...] on filedocumented in this encounter Care Teams Chemical Test Engineer Relationship Specialty Start Date End Date Nadja Manjarrez MD PCP - General Family Practice 08/20/11 [address] [place] [address] documented as of this encounter
--- OUTSIDE RECORDS SUMMARY | 2022-03-08 08:45 | XMS_ITS | Encounter Summary ---
:1975 Author [facility] Address [address], [place] [address] Care Team Providers Name Role Phone Nadaj Manjarrez MD Primary Care Provider Encounter Details Date Type Department Care Team Description 06/17/2012 Outside Hospital External to [facility] DISCHARGE Social History Tobacco Use Types Packs/Day Years Used Date Smoking Tobacco: Former Cigarettes Quit : 2012 Smokeless Tobacco: Never Comments: 4-5 cigs/month Alcohol Use Standard Drinks/Week Comments Yes 2.5 (1 standard drink = 0.6 oz pure alco hol) Sex Assigned at Date Recorded Not on file documented as of this encounter Progress Notes ENRICO HUFFMAN, PROVIDER - 06/17/2012 12:00 AM CST HANDISE PICKUP/RECEIVING ASSOCIATE documented in this encounter Plan of Treatment Not on filedocumented as of this encounter Visit Diagnoses Not on filedocumented in this encounter Care Teams Principal Cloud Architect Relationship Specialty Start Date End Date Nadja Manjarrez MD PCP - General Family Practice 08/20/11 [address] [place] [address] documented as of this encounter
--- OUTSIDE RECORDS SUMMARY | 2022-03-08 08:45 | XMS_ITS | Encounter Summary ---
:1975 Author Organization [facility] Address [address] [place] [address] Care Team Providers Name Role Phone Nadja Manjarrez MD Primary Care Provider Reason for Referral Consult/Transfer Care (Routine) - Closed Specialty Diagnoses / Procedures Referred By Contact Refer red To Contact Plastic Surgery Diagnoses Hand injuries, right, sequela [facility] [address] [place], [place] [address] [place] [address] Phone: Fax: Referral ID Status Reason Start Date Expiration Date Visits Requ ested Visits Authorized [id number] Closed 06/03/2014 09/02/2015 1 1 Scheduling Instructions Your provider has recommended an appoint ment with [facility]. You may call [phone] to schedule your appointment. If you prefer, a microelectronics engineer will contact you tommy ctmorena the next 3 business days to assist you in setting up this appointment HARDENER Reason for Visit Reason Comments INFECTION, EAR possibly returning from 2 mo nths ago (had bloody discharge) Ear Pain left ear REFERRAL REQUEST for hand surgeon Refill ativan (going on trip soon- for airplane ride) Encounter Details Date Type Department Care Team Description 06/03/2014 Office Visit [facility] Janina Wu Eu stachian tube dysfunction, bilateral (Primary Dx); Practice [facility] Serous otitis media, unspecified lateral ity; [address] [facility] [address] Hand injuries, right, sequela; [place], [place] Fear of flying; [id number] Encounter for sperm count for fertility testing [phone] Social History Tobacco Use Types Packs/Day Years Used Date Smoking Tobacco: Former Cigarettes Quit : 2012 Smokeless Tobacco: Never Comments: 4-5 cigs/month Alcohol Use Standard Drinks/Week Comments Yes 2.5 (1 standard drink = 0.6 oz pure alco hol) Sex Assigned at Date Recorded Not on file documented as of this encounter Last Filed Vital Signs Vital Sign Reading Time Taken Comments Blood Pressure 151/82 06/03/2014 3:59 PM TOOL HARDENER Pulse 72 06/03/2014 3:59 PM TOOL HARDENER Temperature 36.7 ??C (98 ??F) 06/03/2014 3:59 PM TOOL HARDENER Respiratory Rate - - Oxygen Saturation - - Inhaled Oxygen Concentration - - Weight 84.8 kg (187 lb) 06/03/2014 3:59 PM TOOL HARDENER Height - - Body Mass Index 26.08 07/08/2013 10:24 AM TOOL HARDENER documented in this encounter Patient Instructions Patient InstructionsMorrchris, Janina Garg APRN, MICHAEL - 06/03/2014 4:17 PM TOOL HARDENER Images from the original note were not included. Ativan for flying Follow up with ortho for your hand - when you schedule your appointment ask if they have received your records from [place]. Eustachian Tube Dysfunction (ETD) The eustachian tube is a small tube that connects the back of the nose to the middle ear. Its purpose is to equalize air pressure across the eardrum so the middle ear can drain properly. The eustachian tube normally remains closed, and opens with movements of the throat muscles, such asduring swallowing, chewing, or yawning. Sometimes the tube can become blocked, swollen, or collapsed, making the tube difficult to open. Air and fluids then become trapped in the middle ear, causing a pressure change that affects eardrum movement. This affects hearing and causes sounds to be muffled or blocked, and can be uncomfortable. What causes eustachian tube dysfunction (ETD)? Eustachian tube dysfunction is commonly a result of upper respiratory infections (???cold?? ), or allergies. Some people who were born with a more narrow eustachian tube, or who have frequent ear infections, may also experience ETD. What are the symptoms? ?? pressure in the ear; similar to the feeling when changing altitude ?? occasional pain or discomfort ?? occasional ringing in the ears ?? mild balance disturbance; feeling dizzy or unsteady ?? nonspecific headaches or facial pain How is ETD treated? Because most symptoms are related to upper respiratory infections or a recent ear infection, ETD symptoms usually subside when the virus goes away. Antibiotics are not necessary to treat ETD. Treatments that may be beneficial include: ?? Use of an OTC nasal decongestant (Afrin??) or oral (pseudoephedrine), or if prescribed a nasal steroid (Rx) spray (such as Flonase??, Nasonex??, Rhinocort??) ?? Analgesics such as acetaminophen or ibuprofen as needed for pain relief. For older children and teenagers- several times a day: ?? chew sugarless gum ?? suck on hard candy ?? blow up stiff balloons ?? use the forced Valsalva maneuver: by creating positive pressure against a closed nasal airway- squeeze your nostrils together with your fingers and then exhale forcefully through the nose. You may feel a ???popping?? or ???crackling?? sensation which indicates that you are re-inflating the collaps ed eustachian tube. When should you consult us again? Although complications are rare, consult a clinician if any of the following is experienced: ?? Persistent, severe or increasing ear pain ?? fever over 102??F despite aspirin, acetaminophen, or ibuprofen ?? bloody or pus-like drainage from the ear canal ?? severe dizziness ?? neck stiffness What can improve ear discomfort when flying in airplanes? ?? Use of oral decongestants, antihistamines, and nasal decongestant sprays (such as Afrin ??) priorto flying may allow for easier pressure equalization. ?? Special types of ear plugs slow down the pressure changes from flying by allowing more time to equalize the pressure and may decrease ear pain. (EarPlanes??) are available in drug stores and most airports. ?? When flying, try swallowing to open the eustachian tube or creating positive pressure against a closed nasal airway by squeezing the nostrils together with the fingers and then exhaling forcefully through the nose. This usually equalizes pressure in the middle ear to the outside. Do this frequentlyduring the change in altitude (especially during the 15-30 minutes of descent for landing) to reducelarge pressure differences. Chewing gum or sucking on hard candy can also help. If your is asleep during descent, wake them and encourage a bottle or . [facility] 4-05 Middle Ear Fluid: After Your Visit Your Care Instructions Fluid often builds up inside the ear during a cold or allergies. Usually the fluid drains away, but sometimes a small tube in the ear, called the eustachian tube, stays blocked for months. Symptoms of fluid buildup may include: ?? Popping, ringing, or a feeling of fullness or pressure in the ear. ?? Trouble hearing. ?? Balance problems and dizziness. In most cases, you can treat yourself at home. Follow-up care is a duff part of your treatment and safety. Be sure to make and go to all appointments, and call your doctor if you are having problems. It's also a good idea to know your test results and keep a list of the medicines you take. How can you care for yourself at home? ?? In most cases, the fluid clears up within a few months without treatment. You may need more testsif the fluid does not clear up after 3 months. ?? If your doctor prescribed antibiotics, take them as directed. Do not stop taking them just because you feel better. You need to take the full course of antibiotics. When should you call for help? Watch closely for changes in your health, and be sure to contact your doctor if: ?? You have pain or a fever. ?? You have any new symptoms, such as hearing problems. ?? You do not get better as expected. Where can you learn more? Go to [employer] and enter S930 in the search box. Current as of: August 18, 2012 Content Version: 10.1 ?? [id number] [employer], [employer]. HARDENER documented in this encounter Progress Notes Janina Wu, WEATHERIZATION FIELD TECHNICIAN, ASSISTANT PRODUCT MANAGER - 06/03/2014 4:25 PM CST SUBJECTIVE: Fabio Hodgson is a 38 yr old male who presents to clinic with a couple things. 1 - he thinks he may have an ear infection. He had one in his left ear about 2 months ago. Recently it had felt sort of uncomfortable and maybe itchy, he was using a q-tip on Friday and noted a lot of bloody discharge. It has just been sort of tender since that time. NO fevers or actual pain and no drainage. 2 - he injured his right hand in [place] a couple weeks ago severing some tendons/ligaments and was told to follow up with ortho. He states his records were all to be sent to the speciality center but he needs the consult order to get scheduled. 3 - he has a plane trip next month for which he takes ativan when flying due to fear of flying and is requesting an Rx for this. 4 - pt's girlfriend is on OCP's for contraception, she does have a history of endometriosis but alsothe pills increase her blood pressure and she would really like to get off of them; he is requestinga sperm count analysis to see if he is even fertile so they can determine how to best handle contraception options. OBJECTIVE: BP 151/82 Pulse 72 Temp(Src) 98 ??F (36.7 ??C) (Tympanic) Wt 187 lb (84.823 kg) Ear exam - both sides normal, TM intact without perforation, hamlin shiny with good light reflex; there is mild bilateral air/fluid interface, external canal normal. No significant cerumenosis noted. ASSESSMENT: ICD-9-CM 1. Eustachian tube dysfunction, bilateral 381.81 2. Serous otitis media, unspecified laterality 381.4 3. Hand injuries, right, sequela 908.9 ORTHOPAEDIC CONSULT ADULT/PEDS 4. Fear of flying 300.29 LORazepam (AKA ATIVAN) 0.5 MG tablet 5. Encounter for sperm count for fertility testing V26.21 SEMEN - FERTILITY PLAN: Ears are not infected; given info on ETD and serous OM; he will try antihistamines or decongestants to relieve. And watch for worsening. Ortho consult order placed Ativan Rx'd Sperm count ordered - informed pt that is girlfriend does have other contraception options that are less likely to affect her bp and she can come in to discuss them. Pt verbalized understanding of and agreement with this plan. Janina Wu DOOR INSTALLER-C 06/03/2014 4:31 PM Electronically signed by Janina Wu, WEATHERIZATION FIELD TECHNICIAN, ASSISTANT PRODUCT MANAGER at 06/03/2014 4:31 PM TOOL HARDENER documented in this encounter Plan of Treatment Scheduled Referrals Name Type Priority Associated Diagnoses Order S chedule ORTHOPAEDIC CONSULT Referral Routine Hand injuries, right, Ordered: 06/03/2014 ADULT/PEDS sequela documented as of this encounter Results SEMEN - FERTILITY (06/09/2014 1:00 PM TOOL HARDENER) Component Value Ref Test Analysis Performed At [facility] Range Method Time Signature Abstinence 4 days [...] LABORATORIES Comment (NOTE) [facility] Test Performed By: [facility]ORATORIE [facility] [address] [place] [address] LAB DIR: CARMENZA VALENTE III M.D. Comment Referred to [facility] Partner's Name: Lb Campos [facility] CORRECTED ON 06/09 AT 1343: PREVIOUSLY REPORTED Informa tion Not Given LABORATORIES Partner's [id number] [facility] Chart#: CORRECTED ON 06/09 AT 1343: PREVIOUSLY REPORTED Information Not Given LABORATORIES Specimen Anatomical Collection Method Collection Time Receive d Time (Source) Location / / Volume Laterality 06/09/2014 1:00 PM 4 1:40 TOOL HARDENER PM TOOL HARDENER Narrative [facility] - 06/10/2014 6:[address] Performed at [facility], [address] [place] [address] Janina Wu APRN, MICHAEL LAB_1 Performing Organization Address City/State/ZIP Code Phon e Number [facility] [phone] documented in this encounter Visit Diagnoses Diagnosis Eustachian tube dysfunction, bilateral - Primary Serous otitis media, unspecified lateral ity Hand injuries, right, sequela Fear of flying ([facility]) Other isolated or specific phobias Encounter for sperm count for fertility testing Fertility testing Encounter for sperm count for fertility testing Fertility testing documented in this encounter Care Teams Founder And Chief Executive Officer Relationship Specialty Start Date End Date Nadja Manjarrez MD PCP - General Family Practice 08/20/11 [address] [place] [address] documented as of this encounter
--- OUTSIDE RECORDS SUMMARY | 2022-03-08 08:45 | XMS_ITS | Encounter Summary ---
:1975 Author Organization [email or web address] Address [address] [place] [address] Care Team Providers Name Role Phone Nadja Manjarrez MD Primary Care Provider Reason for Visit Reason Onset Date Comments Medication Request 05/05/2012 generic for zyban Encounter Details Date Type Department Care Team Description 05/05/2012 Telephone [facility] Nadja Manjarrez MD Medication Request Practice [id number] [place] [address] (generic for zyban) [address] [place] [address] [phone] (Wo rk) Social History Tobacco Use Types Packs/Day Years Used Date Smoking Tobacco: Every Day Cigarettes Smokeless Tobacco: Never Comments: 4-5 cigs/month Alcohol Use Standard Drinks/Week Comments Yes 2.5 (1 standard drink = 0.6 oz pure alco hol) Sex Assigned at Date Recorded Not on file documented as of this encounter Nursing Notes Nadja Manjarrez MD - 05/05/2012 5:54 PM CST Spoke with Yamel at [facility], [place] for generic of zyban. Nadja Manjarrez MD 05/05/2012, 5:56 PM OGIST MD Zaina Leslie - 05/05/2012 2:40 PM CST Sharon from [facility] Pharmacy is calling, she would like to fill the generic for Zyban. Please advise. Sharon can be reached [phone]. OGIST MD documented in this encounter Plan of Treatment Not on filedocumented as of this encounter Visit Diagnoses Not on filedocumented in this encounter Care Teams Marine Welder Relationship Specialty Start Date End Date Nadja Manjarrez MD PCP - General Family Practice 08/20/11 [address] [place] [address] documented as of this encounter
--- OUTSIDE RECORDS SUMMARY | 2022-03-08 08:45 | XMS_ITS | Encounter Summary ---
:1975 Author Organization [email or web address] Address [address], [place] [address] Care Team Providers Name Role Phone Nadja Manjarrez MD Primary Care Provider Reason for Visit Reason Comments Concerns right foot, underneath, bump like with pain, s/s 1 yr Health Maintenance Communication hep b Encounter Details Date Type Department Care Team Description 07/08/2013 Office Visit [facility], Kendall Ngo (Primary Dx); Practice MD Fear of flying [address] [place] [id number] [phone] Social History Tobacco Use Types Packs/Day Years Used Date Smoking Tobacco: Former Cigarettes Quit : 2012 Smokeless Tobacco: Never Comments: 4-5 cigs/month Alcohol Use Standard Drinks/Week Comments Yes 2.5 (1 standard drink = 0.6 oz pure alco hol) Sex Assigned at Date Recorded Not on file documented as of this encounter Last Filed Vital Signs Vital Sign Reading Time Taken Comments Blood Pressure 126/70 07/08/2013 10:24 AM BINDER CHAINSTITCH Pulse 63 07/08/2013 10:24 AM BINDER CHAINSTITCH Temperature 36.6 ??C (97.8 ??F) 07/08/2013 10:24 AM BINDER CHAINSTITCH Respiratory Rate 10 07/08/2013 10:24 AM BINDER CHAINSTITCH Oxygen Saturation - - Inhaled Oxygen Concentration - - Weight 85 kg (187 lb 6 oz) 07/08/2013 10:24 AM BINDER CHAINSTITCH Height 180.3 cm (5' 11) 07/08/2013 10:24 AM BINDER CHAINSTITCH Body Mass Index 26.13 07/08/2013 10:24 AM BINDER CHAINSTITCH documented in this encounter Progress Notes Timmy Martinez MD - 07/08/2013 10:58 AM CST SUBJECTIVE: Patient comes in with one year history of right metatarsal pad discomfort that bothers him with standing or exercising. Tries to wear very supportive shoes. Symptoms seem to fluctuate, sometimes it feels that there is a small area of swelling in the area of tenderness. Patient also requesting something for anxiety. He states he has a fear of flying, especially on [employer] flights. Usually after 2 hours he gets claustrophobic and feels like he needs to get off the plane. He is traveling to [facility] in the near future, 5 [address] ride. Has not used any medication in the past. Receiving third hepatitis B vaccine today, has never had hepatitis A vaccine. OBJECTIVE: BP 126/70 Pulse 63 Temp(Src) 97.8 ??F (36.6 ??C) (Oral) Resp 10 Ht 5' 11 (1.803 m) Wt 187lb 6 oz (84.993 kg) BMI 26.15 kg/m2 Exam of the right foot reveals local tenderness over the right second metatarsal head, plantar surface. No foot deformity and no other local tenderness. ASSESSMENT: Right second metatarsalgia Fear of flying PLAN: Discussed adding arch support, also gave him a couple of metatarsal pads to try. If not improving, consider podiatry evaluation. Prescribed lorazepam 0.5 mg, one to 2 every 6 hours for anxiety with flying. 4 tablets only were given. ER CHAINSTITCH documented in this encounter Nursing Notes 07/08/2013 10:20 AM CST >> Anita Fernandez LPN Latasha Jul 08, 2013 10:54 AM Complete documentation of the immunization administration, lot numbers, and contraindications are recorded in the Immunization Electronic Medical Record. The appropriate VIS sheets were given to the patient on 07/08/2013 . Anita Fernandez LPN documented in this encounter Plan of Treatment Not on filedocumented as of this encounter Visit Diagnoses Diagnosis Metatarsalgia - Primary Enthesopathy of ankle and tarsus, unspec ified Fear of flying ([facility]) Other isolated or specific phobias documented in this encounter Care Teams Forming Process Worker Relationship Specialty Start Date End Date Nadja Manjarrez MD PCP - General Family Practice 08/20/11 [address] [place] [address] documented as of this encounter
--- OUTSIDE RECORDS SUMMARY | 2022-03-08 08:45 | XMS_ITS | Encounter Summary ---
:1975 Author Organization [employer] Address [address] [place] [address] Care Team Providers Name Role Phone Nadja Manjarrez MD Primary Care Provider Reason for Visit Reason Comments RASH face Encounter Details Date Type Department Care Team Description 03/02/2013 [facility] Brianna Donovan Derm atitis (Primary Dx); Sandee Deluca MD Screen for STD (sexually tra nsmitted disease) [address] [place], [place] [address] Social History Tobacco Use [...] Sign Reading Time Taken Comments Blood Pressure 121/76 03/02/2013 2:20 PM CDT Pulse 75 03/02/2013 2:20 PM CDT Temperature 36.4 ??C (97.6 ??F) 03/02/2013 2:20 PM CDT Respiratory Rate - - Oxygen Saturation - - Inhaled Oxygen Concentration - - Weight 85.4 kg (188 lb 3.2 oz) 03/02/2013 2:20 PM CDT Height - - Body Mass Index 26.62 06/12/2012 10:39 AM DIRECT CARE COUNSELOR documented in this encounter Progress Notes Brianna Donovan MD - 03/02/2013 3:15 PM CDT Subjective: 37 are male comes in complaining of 2-3 month history of rash in the nasolabial fold on the right side. Itchy at times. It is worse when he is hot and sweaty. Sometimes he notes little pustules. Does not never really drained. Does not seem to spread. His only on the right side. Tries to keep it very clean. Has not really tried any chkx-pfj-hbivire preparations as yet. Also, requesting a sexually transmitted disease screen. He is in a new relationship. He has no symptoms but just wants to make sure. Objective:BP 121/76 Pulse 75 Temp(Src) 97.6 ??F (36.4 ??C) (Tympanic) Wt 188 lb 3.2 oz (85.367kg) BMI 26.61 kg/m2 He appears well. In the nasolabial fold on the right side, there is some erythema with some small erythematous papules. They are quite small and two of them have small scabs on the surface. No drainage noted. The rest of his skin looks fine. Assessment: Persistent rash. Possible impetigo versus eczema or seborrhea. Plan: I am going to try treating him with Bactroban. If this does not work after a week or two, would consider topical steroid or possibly an antifungal. He will call as needed. GC chlamydia screening today. documented in this encounter Plan of Treatment Not on filedocumented as of this encounter Results CHLAMYDIA & GC, URINE (03/02/2013 2:43 PM CDT) [facility] Method Time Signature C.trachomatis Negative NEG [facility] Comment: Test Performed by Entry Level Manager Mediated Amplification N. Gonorrhea, Urine Negative NEG [facility] Comment: Test Performed by Entry Level Manager Mediated Amplification Specimen Anatomical Collection Method Collection Time Receive d Time (Source) Location / / Volume Laterality Urine specimen 03/02/2013 2:43 PM 013 2:44 (specimen) CDT PM CDT Narrative [facility] - 03/03/2013 2:19 PM C DT Performed at [facility], [address] [place] [address] ??[id number] Brianna Donovan MD LAB_1 Performing Organization Address City/State/ZIP Code Phon e Number [facility] [phone] documented in this encounter Visit Diagnoses Diagnosis Dermatitis - Primary Contact dermatitis and other eczema, due to unspecified cause Screen for STD (sexually transmitted dis ease) Screening examination for venereal disea se Screen for STD (sexually transmitted dis ease) Screening examination for venereal disea se documented in this encounter Care Teams Wooden Frame Builder Relationship Specialty Start Date End Date Nadja Manjarrez MD PCP - General Family Practice 08/20/11 [address] [place] [address] documented as of this encounter
--- OUTSIDE RECORDS SUMMARY | 2022-03-08 08:45 | XMS_ITS | Encounter Summary ---
:1975 Author Organization [facility] Address [address], [place] [address] Care Team Providers Name Role Phone Nadja Manjarrez MD Primary Care Provider Reason for Referral Consult/Transfer Care (Routine) - Closed Specialty Diagnoses / Procedures Referred By Contact Refer red To [place] [address] Referral ID Status Reason Start Date Expiration Date Visits Requ ested Visits Authorized [id number] Closed 05/11/2012 1 1 Scheduling Instructions Your physician has recommended that you make an appointment with [facility], a member of the [facility] family of [facility]. To schedule your appointment, please call [phone]. [facility] is a participating provider for most insuranc e plans. For details about your specific benefit coverage, please call the member services phone number on the back of your insurance card. HOIST ENGINEER Encounter Details Date Type Department Care Team Description 05/11/2012 Orders Only [facility] Glenroy Hernandez, Carolyn felix low back pain [address] [facility] (Primary D x) Clinic [address] [facility], [place] [address] Social History Tobacco Use Types Packs/Day Years Used Date Smoking Tobacco: Every Day Cigarettes Smokeless Tobacco: Never Comments: 4-5 cigs/month Alcohol Use Standard Drinks/Week Comments Yes 2.5 (1 standard drink = 0.6 oz pure alco hol) Sex Assigned at Date Recorded Not on file documented as of this encounter Plan of Treatment Scheduled Referrals Name Type Priority Associated Diagnoses Order S [facility] Referral Routine Ord ered: 05/11/2012 documented as of this encounter Visit Diagnoses Diagnosis Chronic low back pain - Primary Lumbago documented in this encounter Care Teams Pacu Nurse Relationship Specialty Start Date End Date Nadja Manjarrez MD PCP - General Family Practice 08/20/11 [address] [place] [address] documented as of this encounter
--- OUTSIDE RECORDS SUMMARY | 2022-03-08 08:45 | XMS_ITS | Encounter Summary ---
:1975 Author Organization [facility] Address [address] [place] [address] Care Team Providers Name Role Phone Nadja Manjarrez MD Primary Care Provider Reason for Visit Reason Onset Date Comments Medication Questions 05/07/2012 Encounter Details Date Type Department Care Team Description 05/07/2012 Telephone [facility] Nadja Manjarrez MD Medication Questions Practice [address] [facility] [address] [place], [place] [id number] [phone] (Wo rk) Social History Tobacco Use Types Packs/Day Years Used Date Smoking Tobacco: Every Day Cigarettes Smokeless Tobacco: Never Comments: 4-5 cigs/month Alcohol Use Standard Drinks/Week Comments Yes 2.5 (1 standard drink = 0.6 oz pure alco hol) Sex Assigned at Date Recorded Not on file documented as of this encounter Nursing Notes Nadja Manjarrez MD - 05/08/2012 1:02 PM CST Spoke with Yamel at [place], [place] for generic of zyban. Nadja Manjarrez MD 05/05/2012, 5:56 PM HEALTH TRAVEL OT Zaina Leslie - 05/07/2012 4:37 PM CST Sharon from [facility] would like to clarify medication BuPROPion HCl, Smoking Deter, (AKA ZYBAN) 150 MG 12 hour release tablet. Sharon can be reached at [phone]. HEALTH TRAVEL OT documented in this encounter Plan of Treatment Not on filedocumented as of this encounter Visit Diagnoses Not on filedocumented in this encounter Care Teams Fabrication Inspector Relationship Specialty Start Date End Date Nadja Manjarrez MD PCP - General Family Practice 08/20/11 [address] [place] [address] documented as of this encounter
--- OUTSIDE RECORDS SUMMARY | 2022-03-08 08:45 | XMS_ITS | Encounter Summary ---
:1975 Author Organization [facility] Address [address] [address] Care Team Providers Name Role Phone Nadja Manjarrez MD Primary Care Provider Reason for Visit Procedure/Equipment (Routine) - Closed Specialty Diagnoses / Procedures Referred By Contact Refer red To Contact Procedures Glenroy Hernandez [place] [address] Referral ID Status Reason Start Date Expiration Date Visits Requ ested Visits Authorized [id number] Closed 05/07/2012 1 1 Encounter Details Date Type Department Care Team Description 05/08/2012 Imaging [facility] Vijay Hernandez MD CT [address] [place] [address] Social History Tobacco Use Types Packs/Day Years Used Date Smoking Tobacco: Every Day Cigarettes Smokeless Tobacco: Never Comments: 4-5 cigs/month Alcohol Use Standard Drinks/Week Comments Yes 2.5 (1 standard drink = 0.6 oz pure alco hol) Sex Assigned at Date Recorded Not on file documented as of this encounter Progress Notes Glenroy Hernandez MD - 05/11/2012 3:42 PM EXPLOSIVES ENGINEER Quick Note: The imaging shows a solid fusion with no evidence of hardware loosening. With this it would be okayto go ahead with a strengthening program. I placed an order for this. OSIVES ENGINEER documented in this encounter Plan of Treatment Not on filedocumented as of this encounter Procedures Procedure Name Priority Date/Time Associated Diagnosis Comme nts CT LUMBAR SPINE WO Routine 05/08/2012 8:47 AM Res ults for this IV CONT EXPLOSIVES ENGINEER procedure are i n the results section. documented in this encounter Results CT LUMBAR SPINE (05/08/2012 8:47 AM EXPLOSIVES ENGINEER) Anatomical Region Laterality Modality Spine, L-Spine Computed Tomography Specimen (Source) Anatomical Collection Method Collection Time Re ceived Time Location / / Volume Laterality 05/08/2012 8:47 AM EXPLOSIVES ENGINEER Narrative 05/08/2012 5:[address] LUMBAR WITHOUT CONTRAST [facility] 05/08/2012, 08:47:00 AM INDICATION: Followup spine fusion. Patie nt describes low back pain and right foot/toe numbness or tingling on t heir CT intake form. History of spinal fusion L5-S1. TECHNIQUE: Contiguous helical axial imag es were obtained through the lumbar spine without contrast. Multiplanar ref ormats were generated. CONTRAST: None. SEDATION: None. COMPARISON: None. FINDINGS: There are five nyr-mog-rlbdrzs lumbar type vertebral bodies. Patient is status post anterior and post erior fusion L5-S1. Bilateral pedicle screws are seen at the L5 and S1 levels. Left S1 pedicle screw extends approximately 5 mm ventral to th e ventral cortex. No periscrew lucency is seen to suggest hardware loos ening or failure. Paired vertically oriented stabilizing rods are seen. No cross graft. There is solid appearing anterior fusion, most evident along the right lateral and posterior margins of the interspace. An incorporated interbody fusion graft is seen slightly eccentric to the left. There is solid fusion across the facet joints bilaterally. Partial S1 hines inectomy with decompression of spinal canal. Very subtle convex right lower lumbar cu rvature is seen. Lumbar lordosis is preserved. T12-L1: Intervertebral disc space height preserved. No significant posterior disc bulge, foraminal or canal stenosis. L1-L2: Shallow interspace versus slight loss intervertebral disc space height. No significant posterior disc bu lge, foraminal or canal stenosis. Facets unremarkable. L2-L3: Intervertebral disc space height preserved. Very subtle annular disc bulging without foraminal or canal sten osis. Facets unremarkable. L3-L4: Intervertebral disc space height preserved. Shallow annular disc bulge slightly effaces the caudal neural foramina but does not result in foraminal or canal stenosis. Facets are unremarkable. L4-L5: Slight loss intervertebral disc s pace height. Shallow annular disc bulge slightly effaces the caudal neural foramina and in conjunction with minor interbody spurring and mild to mod erate facet arthropathy results in mild foraminal narrowing. No canal steno sis. Disc bulges are relatively prominent central component and the comb ination of disc bulging and degenerative facet changes results in la teral recess narrowing bilaterally. L5-S1: Anteroposterior fusion. No forami nal or canal stenosis. S1 laminectomy with decompression of the sp inal canal. Psoas muscles and dorsal paraspinal musc ulature appear robust. Iliac donor site seen on the right. IMPRESSION: 1. Solid appearing anterior and posterio r fusion L5-S1 without evidence of hardware failure or canal or foraminal s tenosis. 2. Shallow annular disc bulging at the L 3-L4 and L4-L5 levels slightly efface the caudal neural foramina and in conjunction with facet arthropathy at L4-L5 results in mild neural foramin al narrowing at these levels. Central component of the disc in conjunc tion with facet arthropathy at L4-L5 results in bilateral lateral reces s narrowing. Procedure Note Brady Christine II, MD - 05/08/2012Formatti ng of this note might be different from the original. CT LUMBAR WITHOUT CONTRAST [facility] 05/08/2012, 08:47:00 AM INDICATION: Followup spine fusion. Patie nt describes low back pain and right foot/toe numbness or tingling on t heir CT intake form. History of spinal fusion L5-S1. TECHNIQUE: Contiguous helical axial imag es were obtained through the lumbar spine without contrast. Multiplanar ref ormats were generated. CONTRAST: None. SEDATION: None. COMPARISON: None. FINDINGS: There are five zcz-ooo-yvwijsn lumbar type vertebral bodies. Patient is status post anterior and post erior fusion L5-S1. Bilateral pedicle screws are seen at the L5 and S1 levels. Left S1 pedicle screw extends approximately 5 mm ventral to th e ventral cortex. No periscrew lucency is seen to suggest hardware loos ening or failure. Paired vertically oriented stabilizing rods are seen. No cross graft. There is solid appearing anterior fusion, most evident along the right lateral and posterior margins of the interspace. An incorporated interbody fusion graft is seen slightly eccentric to the left. There is solid fusion across the facet joints bilaterally. Partial S1 hines inectomy with decompression of spinal canal. Very subtle convex right lower lumbar cu rvature is seen. Lumbar lordosis is preserved. T12-L1: Intervertebral disc space height preserved. No significant posterior disc bulge, foraminal or canal stenosis. L1-L2: Shallow interspace versus slight loss intervertebral disc space height. No significant posterior disc bu lge, foraminal or canal stenosis. Facets unremarkable. L2-L3: Intervertebral disc space height preserved. Very subtle annular disc bulging without foraminal or canal sten osis. Facets unremarkable. L3-L4: Intervertebral disc space height preserved. Shallow annular disc bulge slightly effaces the caudal neural foramina but does not result in foraminal or canal stenosis. Facets are unremarkable. L4-L5: Slight loss intervertebral disc s pace height. Shallow annular disc bulge slightly effaces the caudal neural foramina and in conjunction with minor interbody spurring and mild to mod erate facet arthropathy results in mild foraminal narrowing. No canal steno sis. Disc bulges are relatively prominent central component and the comb ination of disc bulging and degenerative facet changes results in la teral recess narrowing bilaterally. L5-S1: Anteroposterior fusion. No forami nal or canal stenosis. S1 laminectomy with decompression of the sp inal canal. Psoas muscles and dorsal paraspinal musc ulature appear robust. Iliac donor site seen on the right. IMPRESSION: 1. Solid appearing anterior and posterio r fusion L5-S1 without evidence of hardware failure or canal or foraminal s tenosis. 2. Shallow annular disc bulging at the L 3-L4 and L4-L5 levels slightly efface the caudal neural foramina and in conjunction with facet arthropathy at L4-L5 results in mild neural foramin al narrowing at these levels. Central component of the disc in conjunc tion with facet arthropathy at L4-L5 results in bilateral lateral reces s narrowing. Glenroy Hernandez MD RAD CT documented in this encounter Visit Diagnoses Not on filedocumented in this encounter Care Teams Tower Foreman Relationship Specialty Start Date End Date Nadja Manjarrez MD PCP - General Family Practice 08/20/11 [address] [place] [address] documented as of this encounter
--- OUTSIDE RECORDS SUMMARY | 2022-03-08 08:45 | XMS_ITS | Encounter Summary ---
:1975 Author Organization [facility] Address [address] [place] [address] Care Team Providers Name Role Phone Nadja Manjarrez MD Primary Care Provider Reason for Visit Reason Onset Date Comments QUESTIONS, GENERAL 02/21/2014 Encounter Details Date Type Department Care Team Description 02/21/2014 Telephone [facility] Nadja Manjarrez MD QUESTIONS, rn admit [address] [facility] [address] [place], [place] [id number] (Wo rk) Social History Tobacco Use Types Packs/Day Years Used Date Smoking Tobacco: Former Cigarettes Quit : 2012 Smokeless Tobacco: Never Comments: 4-5 cigs/month Alcohol Use Standard Drinks/Week Comments Yes 2.5 (1 standard drink = 0.6 oz pure alco hol) Sex Assigned at Date Recorded Not on file documented as of this encounter Nursing Notes Ainsley Alvarado RN - 02/21/2014 10:53 AM CDT Discussed with patient, RHM scheduled for 03/01/14. Ainsley Alvarado CMA 02/21/2014, 10:54 AM Nadja Manjarrez MD - 02/21/2014 10:42 AM CDT Early screening depends on several variables. I would recommend patient schedule a RHM as he is due for this and we can certainly discuss this at this visit. Nadja Manjarrez MD 02/21/2014, 10:44 AM Tonya Aranda - 02/21/2014 9:20 AM CDT Patient would like to speak to his provider's nurse Name of patient's provider: DR MANJARREZ Summarize the patient's question or concern: PTS FATHER WAS DX WITH COLON CA 5 YRS AGO AND PT IS WONDERING IF HE SHOULD GET A COLONOSCOPY? Is it okay to leave detailed message on your voicemail? Y If after 3pm, can this wait until tomorrow? N Tonya Aranda documented in this encounter Plan of Treatment Not on filedocumented as of this encounter Visit Diagnoses Not on filedocumented in this encounter Care Teams Sr Solutions Consultant Relationship Specialty Start Date End Date Nadja Manjarrez MD PCP - General Family Practice 08/20/11 [address] [place] [address] documented as of this encounter
--- OUTSIDE RECORDS SUMMARY | 2022-03-08 08:45 | XMS_ITS | Encounter Summary ---
:1975 Author Organization [facility] Address [address] [address] Care Team Providers Name Role Phone Nadja Manjarrez MD Primary Care Provider Reason for Visit Reason Onset Date Comments RESULTS, TEST 05/13/2012 Encounter Details Date Type Department Care Team Description 05/13/2012 Telephone [facility] [address] Glenroy Hernandez MD RESULTS, TEST [facility] [address] [place] [address] Social History Tobacco Use Types Packs/Day Years Used Date Smoking Tobacco: Every Day Cigarettes Smokeless Tobacco: Never Comments: 4-5 cigs/month Alcohol Use Standard Drinks/Week Comments Yes 2.5 (1 standard drink = 0.6 oz pure alco hol) Sex Assigned at Date Recorded Not on file documented as of this encounter Nursing Notes Molly Carias LPN - 05/13/2012 10:45 AM CST Pt notified and that [facility] would be calling to set up an appointment with him. The patient indicates understanding of these issues and agrees with the plan. IER CREDIT Molly Carias LPN - 05/13/2012 10:44 AM CST Message copied by MOLLY CARIAS on FriMay 13, 2012 10:44 AM ------ Message from: GLENROY HERNANDEZ Created: FriMay 11, 2012 3:42 PM The imaging shows a solid fusion with no evidence of hardware loosening. With this it would be okayto go ahead with a strengthening program. I placed an order for this. IER CREDIT documented in this encounter Plan of Treatment Not on filedocumented as of this encounter Visit Diagnoses Not on filedocumented in this encounter Care Teams Gang Drill Operator Relationship Specialty Start Date End Date Nadja Manjarrez MD PCP - General Family Practice 08/20/11 [address] [place] [address] documented as of this encounter
--- OUTSIDE RECORDS SUMMARY | 2022-03-08 08:45 | XMS_ITS | Encounter Summary ---
:1975 Author Organization [facility] Address [address] [address] Care Team Providers Name Role Phone Nadja Manjarrez MD Primary Care Provider Encounter Details Date Type Department Care Team Description 03/02/2013 [facility] for [facility] (sexually [address] [facility] transmitted disease) [place], [place] [address] Social History Tobacco Use [...] Name Priority Date/Time Associated Diagnosis Comme nts CHLAMYDIA & GC, Routine 03/02/2013 2:43 PM Screen for STD Resu lts for this URINE (14 YEARS AND CDT (sexually procedur e are in OLDER) transmitted disease) the res ults section. documented in this encounter Results CHLAMYDIA & GC, URINE (03/02/2013 2:43 PM CDT) [facility] gist Method Time Signature C.trachomatis Negative NEG [facility] Comment: Test Performed by Ventilator Specialist Mediated Amplification N. Gonorrhea, Urine Negative NEG [facility] Comment: Test Performed by Ventilator Specialist Mediated Amplification Specimen Anatomical Collection Method Collection Time Receive d Time (Source) Location / / Volume Laterality Urine specimen 03/02/2013 2:43 PM 013 2:44 (specimen) CDT PM CDT Narrative [facility] - 03/03/2013 2:19 PM C DT Performed at [facility], [address] ??[address] Brianna Donovan MD LAB_1 Performing Organization Address City/State/ZIP Code Phon e Number [facility] [phone] documented in this encounter Visit Diagnoses Diagnosis Screen for STD (sexually transmitted dis ease) Screening examination for venereal disea se documented in this encounter Care Teams Forest Engineer Relationship Specialty Start Date End Date Nadja Manjarrez MD PCP - General Family Practice 08/20/11 [address] [place] [address] documented as of this encounter
--- OUTSIDE RECORDS SUMMARY | 2022-03-08 08:45 | XMS_ITS | Encounter Summary ---
:1975 Author [facility] Address [address] [place] [address] Care Team Providers Name Role Phone Nadja Manjarrez MD Primary Care Provider Reason for Referral Consult/Transfer Care (Routine) - Closed Specialty Diagnoses / Procedures Referred By Contact Refer red To Contact Speech/OT/Pool Diagnoses Right forearm pain Nadja Manjarrez MD Occupational Therapy [address] [address] Referral ID Status Reason Start Date Expiration Date Visits Requ ested Visits Authorized [id number] Closed 09/24/2013 1 1 Scheduling Instructions . Reason for Visit Reason Comments Tendonitis rt elbow INFECTION, EAR Encounter Details Date Type Department Care Team Description 09/24/2013 Office Visit [facility] Nadja Manjarrez MD Right forearm pain Practice [id number] [place] [address] (Primary Dx) [address] [place] [address] [phone] Social History Tobacco Use Types Packs/Day Years Used Date Smoking Tobacco: Former Cigarettes Quit : 2012 Smokeless Tobacco: Never Comments: 4-5 cigs/month Alcohol Use Standard Drinks/Week Comments Yes 2.5 (1 standard drink = 0.6 oz pure alco hol) Sex Assigned at Date Recorded Not on file documented as of this encounter Last Filed Vital Signs Vital Sign Reading Time Taken Comments Blood Pressure 125/75 09/24/2013 8:18 AM CDT Pulse 56 09/24/2013 8:18 AM CDT Temperature 36.1 ??C (97 ??F) 09/24/2013 8:18 AM CDT Respiratory Rate 18 09/24/2013 8:18 AM CDT Oxygen Saturation - - Inhaled Oxygen Concentration - - Weight - - Height - - Body Mass Index - - documented in this encounter Patient Instructions Patient InstructionsNadja Manjarrez MD - 09/24/2013 8:35 AM CDT Tennis Elbow What is tennis elbow? Tennis elbow is soreness or pain on the outer part of the elbow. It happens when you damage the tendons that connect the muscles of your forearm to your elbow. The pain may spread down your arm to yourwrist. If you don't treat the injury, it may hurt to do simple things like turn a duff or open a door. What causes tennis elbow? Most of the time tennis elbow is caused by overuse. You probably got it from doing activities where you twist your arm over and over. This can stress the tendon, causing tiny tears that in time lead topain. A direct blow to the outer elbow can also cause tendon damage. Tennis elbow is common in tennis players, but most people get it from other activities that work thesame muscles, such as gardening, painting, or using a screwdriver. It is often the result of using equipment that is the wrong size or using it the wrong way. For example, a tennis racquet with a escapement matcher too large for your hand can lead to tendon damage. Anyone can get tennis elbow, but it usually occurs in adults between the ages of 40 and 60. How is tennis elbow diagnosed? To diagnose tennis elbow, a doctor will examine your elbow and ask questions about the elbow problem, your daily activities, and past injuries. You probably won't need to have an X-ray, but you might have one to help rule out other things that could be causing the pain. If your symptoms don't get better with treatment, you might have an imaging test, such as an MRI. This can tell your doctor whether a bone problem or tissue damage is causing your symptoms. How is it treated? You can start treating tennis elbow at home right away. o Rest your arm, and avoid any activity that makes the pain worse. o Apply ice or cold packs for 10 to 15 minutes at a time, up to 2 times an hour, for the first 3 days. Keep using ice as long as it helps. o Take peor-oor-jdrdvyt pain relievers such as ibuprofen or naproxen (NSAIDs) or acetaminophen if you need them. o Wear a counterforce brace when you need to grasp or twist something. This is a strap around yourforearm placed about an inch below your elbow. It eases the pressure on the tendon and spreads forcethroughout your arm. o After the pain eases, your doctor or physical therapist can teach you rehab exercises to stretch and strengthen your tendon. Doing these exercises at home can help your tendon heal and can prevent further injury. When you feel better, you can return to your activity, but take it easy for a while. Don't start at the same level as before your injury. Build back to your previous level slowly, and stop if it hurts.To avoid damaging your tendon again: o Take lessons or ask a chute loader or pro to check the way you are doing your activity. If the way you use a tool is the problem, try switching hands or changing your escapement matcher. Make sure you are using the right equipment for your size and strength. o Always take time to warm up before and stretch after you exercise. o After the activity, apply ice to prevent pain and swelling. o Be patient, and stick with your treatment. You will probably feel better in a few weeks, but it may take 6 to 12 months for the tendon to heal. In some cases, the pain lasts for 2 years or longer. If your symptoms don't improve after 6 to 8 weeks of home treatment, your doctor may suggest a shot of steroid medicine. This could give you some short-term relief so you can start rehab exercises. Surgery is seldom needed for tennis elbow. documented in this encounter Progress Notes Nadja Manjarrez MD - 09/24/2013 8:24 AM CDT Chief Complaint Patient presents with ??? Tendonitis rt elbow ??? INFECTION, EAR 38 yo M here for some R elbow discomfort starting around 07/13-he does lift weights at gym and feels that his symptoms started to flare when he started this new lifting regimen. He went on vacation for a week, then took another week off from weight lifting and felt that his symptoms improved. He still some soreness when he lifts weights and after day of normal functioning-he will wake up at night whenhe lays on this side at times as well. Denies skin changes/swelling, bruising, numbness/tingling/weakness of extremities. Denies prior injuries on R arm. He is R arm dominant. He will take an occasional ibuprofen which helps his symptoms No Known Allergies ROS: see above for pertinents. BP 125/75 Pulse 56 Temp(Src) 97 ??F (36.1 ??C) (Tympanic) Resp 18 General: he appears well, alert and oriented x 3, pleasant and cooperative. Neuro: screening neurological exam is normal without focal findings. Musc: no edema/TTP/skin changes b/l olecranon, humerus, forearm, epicondyle. +TTP extensor tendons Rside reproducing patient's discomfort; Radial pulses palpable bilaterally. Full ROM shoulder, elbow,wrist. There is full extension and flexion of the elbow without pain on full extension to 0??. 5/5 strength b/l UE's, including full strength with resisted pronation and supination with pain at insertion of extensor tendons. DTR's 2+ symmetric b/l UE's. A/P: 1. R forearm pain: likely extensor tendinosis; patient fitted with brace he can wear during the day,maintain minimal activitities, avoid weight lifting, start OT, order placed. RTC in one month, soonerPRN sx's persist/worsen/new sx's develop. Warning signs given. Nadja Manjarrez MD 09/25/2013, 1:23 PM documented in this encounter Plan of Treatment Scheduled Referrals Name Type Priority Associated Diagnoses Order S chedule OCCUPATIONAL THERAPY Referral Routine Right forearm pain O rdered: 09/24/2013 documented as of this encounter Visit Diagnoses Diagnosis Right forearm pain - Primary Pain in limb documented in this encounter Care Teams Setter Off Relationship Specialty Start Date End Date Nadja Manjarrez MD PCP - General Family Practice 08/20/11 [address] [place] [address] documented as of this encounter
--- OUTSIDE RECORDS SUMMARY | 2022-03-08 08:45 | XMS_ITS | Encounter Summary ---
:1975 [facility] Address [address] [address] Care Team Providers Name Role Phone Nadja Manjarrez MD Primary Care Provider Encounter Details Date Type Department Care Team Description 09/24/2013 Correspondence [facility] Nadja Manjarrez MD MEDICAL EQUIPMENT Practice [address] [facility] PROOF OF DELIVERY [address] [place] [address] [phone] Social History Tobacco Use Types Packs/Day Years Used Date Smoking Tobacco: Former Cigarettes Quit : 2012 Smokeless Tobacco: Never Comments: 4-5 cigs/month Alcohol Use Standard Drinks/Week Comments Yes 2.5 (1 standard drink = 0.6 oz pure alco hol) Sex Assigned at Date Recorded Not on file documented as of this encounter Progress Notes Nadja Manjarrez MD - 09/24/2013 12:00 AM CDT documented in this encounter Plan of Treatment Not on filedocumented as of this encounter Visit Diagnoses Not on filedocumented in this encounter Care Teams Data Processing Consultant Relationship Specialty Start Date End Date Nadja Manjarrez MD PCP - General Family Practice 08/20/11 [address] [place] [address] documented as of this encounter
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
--- OUTSIDE RECORDS SUMMARY | 2022-03-08 08:45 | XMS_ITS | Encounter Summary ---
:1975 [facility] Address [address], [place] [address] Care Team Providers Name Role Phone Nadja Manjarrez MD Primary Care Provider Encounter Details Date Type Department Care Team Description 05/04/2014 Scanned History External to [facility] Social History Tobacco Use [...] on filedocumented in this encounter Care Teams Uniform Maker Relationship Specialty Start Date End Date Nadja Manjarrez MD PCP - General Family Practice 08/20/11 [address] [place] [address] documented as of this encounter
--- OUTSIDE RECORDS SUMMARY | 2022-03-08 08:46 | XMS_ITS ---
:1975 Author Care Team Providers Name Role Phone [facility] Primary Care Provider [phone] Allergies Code Code System Name Reaction Severity Status Onset NKDA ? Medications Name Status Start Date Stop Date ? ? amoxicillin 875 mg-potassium clavulanate 125 mg tablet Completed ? 08/30/2020 bupropion HCl SR 150 mg tablet,12 hr sustained-release Active ? Not available TAKE 1 TABLET BY MOUTH TWICE DAILY bupropion HCl XL 150 mg 24 hr tablet, extended release Completed ? 08/30/2020 cephalexin 500 mg capsule Completed ? 2020 TAKE 1 CAPSULE 4 TIMES A DAY (IF CONCERN FOR CELLULITIS) Chantix Continuing Month Box 1 mg tablet Completed ? 08/30/2020 TAKE 1 TABLET BY MOUTH TWICE A DAY Chantix Starting Month Box 0.5 mg (11)-1 mg (42) tablets in dose pack Completed ? 08/30/2020 TAKE 1 TABLET BY MOUTH DIRECTED BY PACKAGING Cipro 500 mg tablet Active ? Not availabl e Take 1 tablet every 12 hours by oral route. cyclobenzaprine 10 mg tablet Completed ? 08/2020 TAKE 1/2 1 TABLET BY MOUTH THREE TIMES DAILY NEEDED DentaGel 1.1 % Completed ? 08/30/2020 PLEASE SEE ATTACHED FOR DETAILED DIRECTIONS Fish Oil Active ? Not available hydrocodone 5 mg-acetaminophen 325 mg tablet Completed ? 08/30/2020 TAKE 1 TABLET AT BEDTIME NEEDED FOR SEVERE BACK PAIN. MAX ACETAMINOPHEN DOSE 4000 MG IN 24 HRS. minocycline 100 mg capsule Completed ? 08/30 TAKE 1 CAPSULE BY MOUTH TWICE A DAY multivitamin Active ? Not available mupirocin 2 % topical ointment Completed ? 0 08/30/2020 APPLY TO AFFECTED AREA 3 TIMES A DAY ondansetron 4 mg disintegrating tablet Completed ? 08/30/2020 oxycodone 5 mg tablet Completed ? 08/30/2020 TAKE 1 TABLET (5 MG) BY MOUTH EVERY 6 H OURS NEEDED (MODERATE TO SEVERE PAIN) prednisone 10 mg tablet Completed ? 08/31/19 21 PLEASE SEE ATTACHED FOR DETAILED DIRECTIONS tamsulosin 0.4 mg capsule Completed ? 2020 TAKE 1 CAPSULE BY MOUTH EVERY DAY trazodone 50 mg tablet Completed ? TAKE 1 TABLET BY MOUTH AT BEDTIME NEEDED valacyclovir 1 gram tablet Completed ? 08/30 TAKE 1 TABLET BY MOUTH 3 TIMES A DAY Vitamin D Active ? Not available Problems None recorded. Procedures Date Name Performed by ? ? Colonoscopy Information not avai lable Results Lab Results Date Name Specimen Result Interpretation Description Value Range Status Address ? 08/30/2020 Urinalysis, ? No observation ? ? ? Dipstick recorded. ? Urinalysis, ? Color-Status Yellow ? ? [facility]: [address] [facility] [address], [place] ? ? ? Clarity-Status Clear ? ? [facility]: [address] [facility] [address], [place] ? ? ? pH-Status 6.5 ? ? [facility]: [address] [facility] [address], [place] Past Encounters None recorded. Social History Tobacco Smoking Status Former Smoker Notes: Quit May Vaccine List None recorded. Plan of Care Reminders Provider Appointments None recorded. ? ? Lab None recorded. ? ? Referral None recorded. ? ? Procedures None recorded. ? ? Surgeries None recorded. ? ? Imaging None recorded. ? ? Vitals Height Weight BMI 6 ft 180 lbs 24.4 kg/m2
--- OUTSIDE RECORDS SUMMARY | 2022-03-08 08:46 | XMS_ITS | Encounter Summary ---
:1975 Author Organization Formerly [facility], later [facility] Address [address] [address] Care Team Providers Name Role Phone Nadja Manjarrez MD Primary Care Provider Reason for Referral Consult/Transfer Care - Closed Specialty Diagnoses / Procedures Referred By Contact Refer red To Contact Diagnoses Testosterone deficiency (HRC) [place] [address] [place], [place] [address] Referral ID Status Reason Start Date Expiration Date Visits Requ ested Visits Authorized [id number] Closed 08/21/2011 1 1 Scheduling Instructions [facility] provider [facility] You may call [phone] to schedule your a ppointment. If you prefer, a pastoral assistant will contact you within the next 3 business d ays to assist you in setting up this appointment. HEARTH HELPER Reason for Visit Reason Comments FOLLOW-UP,LAB Encounter Details Date Type Department Care Team Description 08/21/2011 Office Visit [facility] Nadja Manjarrez MD Testosterone deficiency (Primary Dx); Practice [address] [facility] Erectile dysfunction; [address] [place], [place] [id number] Social History Tobacco Use Types Packs/Day Years Used Date Smoking Tobacco: Passive Smoke Exposure - Never Cigarettes Smoker Smokeless Tobacco: Never Comments: 4-5 cigs/month Alcohol Use Standard Drinks/Week Comments Yes 2.5 (1 standard drink = 0.6 oz pure alco hol) Sex Assigned at Date Recorded Not on file documented as of this encounter Last Filed Vital Signs Vital Sign Reading Time Taken Comments Blood Pressure 136/57 08/21/2011 8:10 AM OPEN HEARTH HELPER Pulse 59 08/21/2011 8:10 AM OPEN HEARTH HELPER Temperature - - Respiratory Rate 12 08/21/2011 8:10 AM OPEN HEARTH HELPER Oxygen Saturation - - Inhaled Oxygen Concentration - - Weight - - Height - - Body Mass Index - - documented in this encounter Progress Notes Nadja Manjarrez MD - 08/21/2011 8:27 AM CST Chief Complaint Patient presents with ??? FOLLOW-UP,LAB 36 yo M here for f/u mid range testosterone levels. At last visit on 08/06/11, stated he is having difficulty getting an erection, some premature ejaculation as well. Patient states this is more than an occasional problem-will occur quite frequently and seems to be worsening. No similar sx's in the past. Monogamous with GF, feels very much attracted to her. Pt went through divorce 5 years ago, this is his first partner since his divorce. Sx's about a few months ago, sx's not improving perhaps slowlygetting worse. Notes some lack libido, fatigue, minimal fogginess/memory issues. Mood OK. 2. Insomnia: Not sleeping well-falls asleep quickly, waking up intermittently at night-this has beengoing on for the couple of months-o/w not feeling. Mood is OK, no h/o mood d/o in the past. He increased melatonin 5 mg PO QHS last week. minimal Tob-3-4 Q monthly/no chewing, social ETOH, +h/o DUI-two in 20's, no recent; no illicit substances. Review of systems include CONSTITUTIONAL: Negative EYES: no visual blurring, no eye pain ENT: no abnormally frequent URIs, no decrease in hearing, no persistently sore throat, no tinnitus, no vertigo RESPIRATORY: no shortness of breath, no cough, no sputum CARDIOVASCULAR: no palpitations, no tachycardia, no irregular heart beats, no chest pain, no exertional chest pain or pressure GASTROINTESTINAL: normal appetite, no dysphagia, no nausea, no abdominal pain, no melena GENITOURINARY: no dysuria, no frequency, no hematuria MUSCULOSKELETAL: no weakness, no nocturnal cramping, no muscle pains SKIN: no rash, no itch, no scaling, no hair changes, no nail changes NEUROLOGIC: no headaches, no numbness or tingling of hands, no numbness or tingling of feet, no syncope PSYCHIATRIC: no sleep disturbances, no anxiety, no depression HEMATOLOGIC/LYMPHATIC/IMMUNOLOGIC: no fevers, no night sweats, no chills, no weight loss ENDOCRINE: no cold intolerance, no heat intolerance, no polydypsia, no polyphagia O BP 136/57 Pulse 59 Resp 12 General: He appears well, alert and oriented x 3, pleasant and cooperative. Chest: clear to IPPA. Heart: sounds are normal, no murmurs. A/P: 1. ED: testosterone mid normal range, sx's worsening x past several months. Endo order placed. Sildenafil per Epic, SERD in the meantime. RTC in one month for update, sooner PRN. Warning signs given. 2. Insomnia: x past 2-3 months, probably same duration of #2. RITA score of 6, PHQ 9 7. Mood OK, no h/o psych d/o, denies SI/HI. We'll try trazodone 50mg PO QHS PRN insomnia, SERD. RTC in one month for update, sooner PRN. Warning signs given. HEARTH HELPER documented in this encounter Plan of Treatment Scheduled Referrals Name Type Priority Associated Diagnoses Order [facility] ENDOCRINOLOGY Referral Routine Testosterone deficiency Ord ered: 08/21/2011 CONSULT-ADULTS documented as of this encounter Visit Diagnoses Diagnosis Testosterone deficiency (HRC) - Primary Other testicular hypofunction Erectile dysfunction Impotence of organic origin Insomnia Insomnia, unspecified documented in this encounter Care Teams Inspector Welded Parts Relationship Specialty Start Date End Date Nadja Manjarrez MD PCP - General Family Practice 08/20/11 [address] [place] [address] documented as of this encounter
--- OUTSIDE RECORDS SUMMARY | 2022-03-08 08:46 | XMS_ITS | Encounter Summary ---
:1975 Author Organization [facility] Address [address] [place] [id number] Care Team Providers Name Role Phone Nadja Manjarrez MD Primary Care Provider Reason for Visit Reason Comments Population Health Encounter Details Date Type Department Care Team Description 12/11/[address] [facility] Kathy Montalvo, [place] [address] [place], [place] [address] [place] [id number] [place] [id number] Social History Tobacco Use Types Packs/Day Years Used Date Smoking Tobacco: Passive Smoke Exposure - Never Cigarettes Smoker Smokeless Tobacco: Never Comments: 4-5 cigs/month Alcohol Use Standard Drinks/Week Comments Yes 2.5 (1 standard drink = 0.6 oz pure alco hol) Sex Assigned at Date Recorded Not on file documented as of this encounter Progress Notes Denise Montalvo RN - 12/11/2011 2:12 PM CDT population health tiring completed Denise Montalvo RN 12/11/2011, 2:14 PM documented in this encounter Plan of Treatment Not on filedocumented as of this encounter Visit Diagnoses Not on filedocumented in this encounter Care Teams Camp Director Relationship Specialty Start Date End Date Nadja Manjarrez MD PCP - General Family Practice 08/20/11 [address] [place], [place] [id number] documented as of this encounter
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
--- OUTSIDE RECORDS SUMMARY | 2022-03-08 08:46 | XMS_ITS | Encounter Summary ---
:1975 Author Organization [employer] Address [address] [address] Care Team Providers Name Role Phone Nadja Manjarrez MD Primary Care Provider Encounter Details Date Type Department Care Team Description 09/09/2011 Orders Only [facility] Erectile dysfunction [address] [place], [place] [address] Social History Tobacco Use Types Packs/Day Years Used Date Smoking Tobacco: Passive Smoke Exposure - Never Cigarettes Smoker Smokeless Tobacco: Never Comments: 4-5 cigs/month Alcohol Use Standard Drinks/Week Comments Yes 2.5 (1 standard drink = 0.6 oz pure alco hol) Sex Assigned at Date Recorded Not on file documented as of this encounter Progress Notes Jimbo Zaragoza RN - 09/12/2011 9:31 AM CDT Quick Note: Letter per Dr Pruett. Jimbo Zaragoza RN Barbara Carvalho MD - 09/11/2011 4:03 PM CDT Quick Note: All the testing have come back normal no Evidence Of hypogonadism. The free and bioavailable testosterone levels at the higher end of normal documented in this encounter Plan of Treatment Not on filedocumented as of this encounter Procedures Procedure Name Priority Date/Time Associated Diagnosis Comme nts TESTOSTERONE,TOTAL, Routine 09/09/2011 8:07 AM Erectile dysfun ction Results for this FREE & CDT procedure are i n BIOAVAILABLE, MALES the resu lts section. VITAMIN D Routine 09/09/2011 8:07 AM Erectile dysfunction R esults for this 25-HYDROXY, TOTAL CDT procedure are in the results section. FERRITIN Routine 09/09/2011 8:07 AM Erectile dysfunction R esults for this CDT procedure are i n the results section. PROLACTIN Routine 09/09/2011 8:07 AM Erectile dysfunction R esults for this CDT procedure are i n the results section. LH Routine 09/09/2011 8:07 AM Erectile dysfunction R esults for this CDT procedure are i n the results section. documented in this encounter Results VITAMIN D 25-HYDROXY, TOTAL (V77.99) (09/09/2011 8:07 AM CDT) athologist Signature Vitamin 43.0 30 - 80 [facility] D,25-OH, Tot ng/mL Comment: Deficiency: ??< 20 ng/mL Insufficiency: ??20-29 ng/mL Optimum Level: ??30-80 ng/mL Possible Toxicity: > 80 ng/mL Performed at [facility] Specimen Anatomical Collection Method Collection Time Receive d Time (Source) Location / / Volume Laterality 09/09/2011 8:07 AM 2 8:20 CDT AM CDT Barbara Carvalho MD LAB_1 Performing Organization Address City/[facility] Phon e Number [facility] [phone] [facility] [address] [phone] FERRITIN (09/09/2011 8:07 AM CDT) athologist Signature Ferritin 72 20 - 250 [facility] ng/ml Specimen Anatomical Collection Method Collection Time Receive d Time (Source) Location / / Volume Laterality 09/09/2011 8:07 AM 2 8:20 CDT AM CDT Barbara Carvalho MD LAB_1 Performing Organization Address [facility] Phon e Number [facility] [phone] [facility] [address] [place] [phone] PROLACTIN (09/09/2011 8:07 AM CDT) athologist Signature Prolactin 13.6 3.7 - 17.9 [facility] ng/ml Specimen Anatomical Collection Method Collection Time Receive d Time (Source) Location / / Volume Laterality 09/09/2011 8:07 AM 2 8:20 CDT AM CDT Barbara Carvalho MD LAB_1 Performing Organization Address [facility] Phon e Number [facility] [employer] [phone] [facility] [address] [place] [phone] LH (09/09/2011 8:07 AM CDT) athologist Signature LH 5.1 1.2 - 7.8 [facility] mIU/ml Specimen Anatomical Collection Method Collection Time Receive d Time (Source) Location / / Volume Laterality 09/09/2011 8:07 AM 2 8:20 CDT AM CDT Barbara Carvalho MD LAB_1 Performing Organization Address [facility] Phon e Number [employer] [phone] [facility] [address] [place] [phone] TESTOSTERONE,TOTAL,FREE & BIOAVAILABLE (09/09/2011 8:07 AM CDT) athologist Signature Sex Horm Bind 24 13 - 74 [facility] Glob nmol/L Testosterone, 376 183 - 703 [facility] Total ng/dl Testosterone, 9.0 3.8 - 12.8 [facility] Free ng/dl Testosterone, 211.0 89.0 - [facility] Bio[employer] 300.0 ng/dl Specimen Anatomical Collection Method Collection Time Receive d Time (Source) Location / / Volume Laterality 09/09/2011 8:07 AM 2 8:20 CDT AM CDT Barbara Carvalho MD LAB_1 Performing Organization Address [facility] Phon e Number [facility] [employer] [phone] [facility] [address] [place] [phone] documented in this encounter Visit Diagnoses Diagnosis Erectile dysfunction Impotence of organic origin documented in this encounter Care Teams Claim Inspector Relationship Specialty Start Date End Date Nadja Manjarrez MD PCP - General Family Practice 08/20/11 [address] [place] [address] documented as of this encounter
--- OUTSIDE RECORDS SUMMARY | 2022-03-08 08:46 | XMS_ITS | Encounter Summary ---
:1975 Author Organization [facility] Address [address], [place] [address] Care Team Providers Name Role Phone Unavailable Primary Care Provider Unavailable Reason for Visit Reason Onset Date Comments Pre-visit Planning 08/06/2011 Encounter Details Date Type Department Care Team Description 08/06/2011 Telephone [facility] Unassigned, Provider Pre-visit Planning Practice [address] [place] [id number] [place] [address] Social History Tobacco Use Types Packs/Day Years Used Date Smoking Tobacco: Never Assessed Sex Assigned at Date Recorded Not on file documented as of this encounter Nursing Notes Toya Townsend - 08/07/2011 8:07 AM CST Patient scheduled for Fasting Labs 08/09/11 TRICAL EXPERIMENTAL MECHANIC Anahi Rowan - 08/06/2011 11:50 AM CST Pt needs fasting lab done before his 08/12 physical. TRICAL EXPERIMENTAL MECHANIC documented in this encounter Plan of Treatment Not on filedocumented as of this encounter Visit Diagnoses Not on filedocumented in this encounter
--- OUTSIDE RECORDS SUMMARY | 2022-03-08 08:46 | XMS_ITS | Encounter Summary ---
:1975 Author Organization [employer] [facility] Address [address] [place] [address] Care Team Providers Name Role Phone Nadja Manjarrez MD Primary Care Provider Reason for Visit Reason Comments CONSULT Testosterone Consult/Transfer Care - Closed Specialty Diagnoses / Procedures Referred By Contact Refer red To Contact Diagnoses Testosterone deficiency (HRC) [place] [address] [place], [place] [address] Referral ID Status Reason Start Date Expiration Date Visits Requ ested Visits Authorized [id number] Closed 08/21/2011 1 1 Encounter Details Date Type Department Care Team Description 09/03/2011 Office Visit [facility] Barbara Carvalho, Erectile dys function Endocrinology (Primary Dx) [address] [place], [place] [address] [place], [place] [phone] [id number] Social History Tobacco Use Types Packs/Day Years [...] Sign Reading Time Taken Comments Blood Pressure 127/72 09/03/2011 8:57 AM COMBAT CONTROL Pulse 61 09/03/2011 8:57 AM COMBAT CONTROL Temperature - - Respiratory Rate - - Oxygen Saturation - - Inhaled Oxygen Concentration - - Weight 86.6 kg (191 lb) 09/03/2011 8:57 AM COMBAT CONTROL Height 180.3 cm (5' 11) 09/03/2011 8:57 AM COMBAT CONTROL Body Mass Index 26.64 09/03/2011 8:57 AM COMBAT CONTROL documented in this encounter Patient Instructions Patient InstructionsBarbara Carvalho MD - 09/03/2011 9:36 AM CST 1. In order to confirm hypogonadism we will recheck testosterone levels , will also check a free andbioavailable testosterone.The differential is primary hypogonadism ( unlikely in light of normal testicular exam)vs secondary hypogonadism possibly idiopathic hypogonadotropic hypogonadism . Will checkLH . Check a prolactin as hyperprolactinemia can Cause hypogonadism . Will check a ferritin to r/o Hemochromatosis. Noted normal TSH. In him the diurinal variation because of his work life schedule will make it difficult to assess hisAm testosterone level This coming weekend he is not working He will return on Friday am to repeat the testing No clinical stigmata of low testosterone Biochemical testing looks good We discussed testosterone replacement , in the form of shots, gel and patch. I have discussed the side effects associated in terms of erythrocytosis, and the unknown and controversial risk of association with prostate cancer. I will review his results and get back to him Treating physician:Barbara Carvalho MD, [facility]. PLEASE STOP AT THE CHECKOUT DESK TO MAKE YOUR APPOINTMENT OR TO PLACE IT ON WAITING LIST. For appointments call: [phone] For question call our nurses: [facility]IN ENDOCRINE NO:[phone] Care Line (after 5 PM, weekends and holidays): [phone] Mail order pharmacy: [phone] or For lab only appointments (Daily 7 a.m.-9 p.m.): [phone] TEST RESULTS: Usually we contact you and inform you of test results by either calling or sending youa letter, unless you have a follow up visit after your test. USUALLY, THIS TAKES 2 WEEKS AFTER LAB RESULTS ARE COMPLETED AND RECIEVED. It may take up to 2 weeks for some tests to be completed (send outtests). If you don't receive any information about your test within the expected time frame discussed during your visit with us, please call one of our nurses (phone numbers mentioned above) OFFICE VISITS: Kindly attempt to be on time for your appointment. This would help shortening waitingtime in clinic. Please note that your follow up visits total 40 minutes, 20 minutes with a nurse (rooming procedure)and 20 minutes with your physician CANCELLATION OF APPOINTMENTS: If you are not able to keep your appointment, please call and cancel your appointment at least 48 hour prior to your scheduled appointment or as soon as you can. This would help other patients who are waiting for an appointment and, overall, would patients access to health care. AT CONTROL documented in this encounter Progress Notes Barbara Carvalho MD - 09/03/2011 9:07 AM CST Reason for visit: Evaluation for hypogonadism. HPI: Fabio Hodgson is a 36 yr old male seen in consultation at the request of Dr.Rhea Stacey Manjarrez MDforevaluation of hypogonadism. Went in with concerns of erectile dysfunction, is currently in a relationship and intercourse has not been the same for the past 2-3 mths And it is his girlfriend who recommended that he get checked out Erectile dysfunction: occasionally issues getting an erection and at other times getting an erection Libido: Normal , though does not masturbate as often as he is worried if that is what is causing theED Secondary hair growth: Feels he needs to shave more often Muscle strength/mass: none Depression: none, however now since early jul he has been thinking about this issue and that is causing some performance stess. 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 Facial fracture :psh: Facial reconstructive surgery in 1994 Spinal fusion surgery L5-S1 in 2002 SOCIAL: Rarely smokes a pack every 2 weeks in the summer , 4-5 cigarettes a month Drinks about 2 drinks a week reports that he has been passively smoking cigarettes. He has never used smokeless tobacco. He reports that he drinks about 1.5 ounces of alcohol per week. He reports that he does not currently use illicit drugs. : Family History Problem Relation Age of Onset ??? Bleeding Disorder Grandmother not specified ??? Cancer, Ovary Grandmother not specified Physical Exam: Blood pressure 127/72, pulse 61, height 5' 11 (1.803 m), weight 191 lb (86.637 kg). Height - Weight - BMI 09/03/2011 08/12/2011 Weight 191 189 BMI 26.65 26.37 Psych: patient pleasant, appropriate, mood is good Eyes: extra-ocular movements intact, visual farias intact, no proptosis ENT: moist mucus membranes, no oral lesions Thyroid: Thyroid normal size. No thyroid nodules. No thyroid bruit. CV: Regular rate and rhythm, no murmurs, no S3, no S4 CHEST WALL no gynecomastia Abdomen: + bowel sounds, nontender, non distended, no hepatomegaly Skin: no lesions, has normal male pattern body hair distribution Musculoskeletal: normal muscle tone. No kyphosis. No bone tenderness. Neurologic: 2+ deep tendon reflexes of extremities bilaterally with normal relaxation. : Normal phallus, circumscribed penis ,left testicle approximately 20 cc, right 20 mL Labs: reviewed with patient Component Latest Ref Rng 08/12/2011 SEX HORM BIND GLOB 13 - 74 nmol/L 23 TESTOSTERONE 183 - 703 ng/dl 328 TESTOSTERONE, FREE 3.8 - 12.8 ng/dl 7.9 TESTOSTERONE, BIOAV. 89.0 - 300.0 ng/dl 185.0 Assessment and Plan: 1. Erectile Dysfunction: Concern for hypogonadism In order to confirm hypogonadism we will recheck testosterone levels .The differential is primary hypogonadism ( unlikely in light of normal testicular exam)vs secondary hypogonadism possibly idiopathic hypogonadotropic hypogonadism . Will check LH . Check a prolactin as hyperprolactinemia can Cause hypogonadism . Will check a ferritin to r/o Hemochromatosis. Noted normal TSH. I have explained to him the importance of checking serum testosterone levels in the morning because of the diurinal variation in the hormone levels during the day In him because of his work life schedule , it will make it difficult to assess his Am testosterone level This coming weekend he is not working starting Friday night He will return on Friday am to repeat the testing No clinical stigmata of low testosterone Biochemical testing looks good with three and bioavailable testosterone about the mid normal range Overall the clinical probability of meal hypogonadism is low We discussed testosterone replacement , in the form of shots, gel and patch. I have discussed the side effects associated in terms of erythrocytosis, and the unknown and controversial risk of association with prostate cancer. I will review his results and get back to him Today I have given him a prescription for Cialis. He felt that the Viagra helped however it is extremely expensive, and hence he wanted to see if Cialis would be any cheaper Treating physician:Barbara Carvalho MD, [facility]. AT CONTROL documented in this encounter Nursing Notes 09/03/2011 9:00 AM CST >> Stephenie Justice LPN [place] Sep 03, 2011 8:59 AM BP Readings from Last 3 Encounters: 08/21/11 : 136/57 08/12/11 : 124/70 Stephenie Justice LPN documented in this encounter Plan of Treatment Not on filedocumented as of this encounter Results VITAMIN D 25-HYDROXY, TOTAL (V77.99) (09/09/2011 8:07 AM CDT) athologist Signature Vitamin 43.0 30 - 80 [facility] D,25-OH, Tot ng/mL Comment: Deficiency: ??< 20 ng/mL Insufficiency: ??20-29 ng/mL Optimum Level: ??30-80 ng/mL Possible Toxicity: > 80 ng/mL Performed at [facility] Specimen Anatomical Collection Method Collection Time Receive d Time (Source) Location / / Volume Laterality 09/09/2011 8:07 AM 2 8:20 CDT AM CDT Barbara Carvalho MD LAB_1 Performing Organization Address City/[facility]/ZIP Code Phon e Number [facility] [phone] [facility] [address] [place] [phone] FERRITIN (09/09/2011 8:07 AM CDT) P athologist Signature Ferritin 72 20 - 250 [facility] ng/ml Specimen Anatomical Collection Method Collection Time Receive d Time (Source) Location / / Volume Laterality 09/09/2011 8:07 AM 2 8:20 CDT AM CDT Barbara Carvalho MD LAB_1 Performing Organization Address [facility]/ZIP Code Phon e Number [facility] [phone] [facility] [address] [place] [phone] PROLACTIN (09/09/2011 8:07 AM CDT) P athologist Signature Prolactin 13.6 3.7 - 17.9 [facility] ng/ml Specimen Anatomical Collection Method Collection Time Receive d Time (Source) Location / / Volume Laterality 09/09/2011 8:07 AM 2 8:20 CDT AM CDT Barbara Carvalho MD LAB_1 Performing Organization Address City/[facility]/ZIP Code Phon e Number [facility] [phone] [facility] [address] [place] [phone] LH (09/09/2011 8:07 AM CDT) P athologist Signature LH 5.1 1.2 - 7.8 [facility] mIU/ml Specimen Anatomical Collection Method Collection Time Receive d Time (Source) Location / / Volume Laterality 09/09/2011 8:07 AM 2 8:20 CDT AM CDT Barbara Carvalho MD LAB_1 Performing Organization Address City/[facility]/ZIP Code Phon e Number [facility] [employer] 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
--- OUTSIDE RECORDS SUMMARY | 2022-03-08 08:46 | XMS_ITS | Encounter Summary ---
:1975 Author Organization [facility] Address [address], [place] [address] Care Team Providers Name Role Phone Nadja Manjarrez MD Primary Care Provider Encounter Details Date Type Department Care Team Description 03/04/1996 Orders Only External to [facility] No Primary/Referring, Phy Social History Tobacco Use Types Packs/Day Years Used Date Smoking Tobacco: Never Assessed Sex Assigned at Date Recorded Not on file documented as of this encounter Plan of Treatment Not on filedocumented as of this encounter Procedures Procedure Name Priority Date/Time Associated Diagnosis Comme nts SCANNED LAB 03/04/1996 12:00 AM Results for this CDT procedure are i n the results section . documented in this encounter Results SC[facility]ED [facility] (03/04/1996 12:00 AM CDT) Specimen (Source) Anatomical Location Collection Method / Collectio n Time Received Time / Laterality Volume 03/04/1996 Narrative This result has an attachment that is no t available. Phy No Primary/Referring LAB_1 documented in this encounter Visit Diagnoses Not on filedocumented in this encounter Care Teams Merry Go Round Attendant Relationship Specialty Start Date End Date Nadja Manjarrez MD PCP - General Family Practice 08/20/11 [address] [place] [address] documented as of this encounter
--- OUTSIDE RECORDS SUMMARY | 2022-03-08 08:46 | XMS_ITS | Encounter Summary ---
:1975 Author Organization [facility] Address [address], [place] [address] Care Team Providers Name Role Phone Unavailable Primary Care Provider Unavailable Encounter Details Date Type Department Care Team Description 08/09/2011 Orders Only [facility] Screening for lipoid disorde rs; [address] [facility] Screening for diabetes [place], [place] [address] Social History Tobacco Use Types Packs/Day Years Used Date Smoking Tobacco: Never Assessed Sex Assigned at Date Recorded Not on file documented as of this encounter Plan of Treatment Not on filedocumented as of this encounter Procedures Procedure Name Priority Date/Time Associated Diagnosis Comme nts LIPID PANEL AND Routine 08/09/2011 5:35 PM Screening for lipoi d Results for this DIRECT LDL(IF CHIEF REVENUE OFFICER disorders procedure are in NEEDED) the results section. GLUCOSE - FASTING > Routine 08/09/2011 5:35 PM Screening for R esults for this 8 HRS FASTING CHIEF REVENUE OFFICER diabetes mellitus procedure are in the results section. documented in this encounter Results GLUCOSE - FASTING > 8 HRS FASTING (V77.1) (08/09/2011 5:35 PM CHIEF REVENUE OFFICER) P athologist Signature Glucose 81 70 - 100 [facility] mg/dl Hours Fasting 11.5 hours [employer] Specimen Anatomical Collection Method Collection Time Receive d Time (Source) Location / / Volume Laterality 08/09/2011 5:35 PM 2 5:38 CHIEF REVENUE OFFICER PM CHIEF REVENUE OFFICER Nadja Manjarrez MD LAB_1 Performing Organization Address City/State/ZIP Code Phon e Number [facility] [phone] [facility] [address] [phone] LIPID PANEL AND DIRECT LDL(IF NEEDED) (08/09/2011 5:35 PM CHIEF REVENUE OFFICER) [facility] Method Time Signature Cholesterol 187 0 - 199 [facility] mg/dl Triglyceride 68 0 - 149 [facility] mg/dl HDL 65 >40 mg/dl [facility] LDL, Calc. 108 0 - [facility] mg/dl Non HDL Chol, 122 mg/dl [facility] Calc Comment: Non HDLC goal is 30 mg/dl above the patient's desired LDLC goal. Hours Fasting 11.5 hours [facility] Specimen Anatomical Collection Method Collection Time Receive d Time (Source) Location / / Volume Laterality 08/09/2011 5:35 PM 2 5:38 CHIEF REVENUE OFFICER PM CHIEF REVENUE OFFICER Nadja Manjarrez MD LAB_1 Performing Organization Address City/State/ZIP Code Phon e Number [facility] [phone] [facility] [address] [phone] documented in this encounter Visit Diagnoses Diagnosis Screening for lipoid disorders Screening for diabetes mellitus documented in this encounter
== END 2022-02-25 16:26 | disposition home or self-care (01) ==
LOC: LKVREF 03-08 08:37
PROVIDERS: PCP Physician Assistant Medical; Visit Provider Physician Assistant Medical
DX: R10.31 Right lower quadrant pain (principal)
CPT/HCPCS: 87086

== ENCOUNTER 2022-03-05 15:34 | Outpatient (CLI) | payer OTHER, SELFPAY ==
--- NOTE | 2022-03-05 16:00 | CRLHL7_ITS ---
For Patients: As a result of the Century Cures Act, medical imaging exams and procedure reports are released immediately into your electronic medical record. You may view this report before your referring provider. If you have questions, please contact your health care provider. INDICATION: RLQ PAIN. GROIN PAIN. FLANK PAIN TECHNIQUE: A CT volumetric acquisition was performed of the abdomen and pelvis without intravenous contrast. Please note that all CT scans at this facility use dose modulation, iterative reconstruction, and/or weight-based dosing when appropriate to reduce radiation dose to as low as reasonably achievable. COMPARISON: None. FINDINGS: The CT images demonstrate normal aeration of the lung bases. There is no evidence of pleural or pericardial fluid. Within the abdomen the liver appears normal in size and density. The spleen is of normal size. There is no evidence of mass effect or inflammation within the pancreas. The gallbladder and bile ducts appear normal. The adrenal glands have normal morphology. The kidneys are of normal size and there is no evidence of a calculus within either kidney or ureter and there is no evidence of hydronephrosis. The small and large bowel loops appear normal and there are no abnormalities noted within the small bowel mesentery or greater omentum. The aorta and IVC appear normal. There is no evidence of retroperitoneal lymphadenopathy. The prostate gland and urinary bladder appear normal. There is no evidence of a ventral abdominal wall hernia. Postop changes of fusion at L5-S1. The appendix is well visualized and is normal. Incidental left pelvic phleboliths. IMPRESSION: Negative noncontrast abdominal pelvic CT. Please note that all CT scans at this facility use dose modulation, iterative reconstruction, and/or weight-based dosing when appropriate to reduce radiation dose to as low as reasonably achievable. Dictated by Tavon Ball MD @ 03/05/2022 4:13:18 PM (Electronically Signed)
== END 2022-03-05 15:35 | disposition home or self-care (01) ==
LOC: CT 15:36
PROVIDERS: PCP Physician Assistant Medical; Visit Provider Physician Assistant Medical
DX: R10.31 Right lower quadrant pain (principal)
CPT/HCPCS: 74176

== ENCOUNTER 2022-06-23 11:20 | Emergency (ER) | payer OTHER, SELFPAY ==
[2022-06-23 11:35] VITALS: BP 124/82; PULSE 79; RESP 18; TEMP 37.2; O2SAT 97
--- NOTE | 2022-06-23 12:34 | CRLHL7_ITS ---
For Patients: As a result of the Century Cures Act, medical imaging exams and procedure reports are released immediately into your electronic medical record. You may view this report before your referring provider. If you have questions, please contact your health care provider. INDICATION: Left-sided pain related to trauma COMPARISON: None TECHNIQUE: A total 4 images were acquired through the chest and 2 of the left rib cage. FINDINGS: TUBES AND LINES: None. HEART AND MEDIASTINUM: The heart size is normal. The mediastinal contour appears normal for patient age. LUNGS AND PLEURAL SPACES: The lungs appear normal.The pleural spaces are unremarkable. OSSEOUS STRUCTURES: Age-appropriate appearance. No acute focal finding.No visible rib fracture IMPRESSION: No evidence of active pulmonary disease. No visible rib fracture. Dictated by Adeel Mcclain MD @ 06/23/2022 1:54:00 PM (Electronically Signed)
--- OUTSIDE RECORDS SUMMARY | 2022-06-23 12:41 | XMS_ITS | Continuity of Care Document ---
:1975 Author Organization [facility] Address [address] [place] [address] Phone Care Team Providers Name Role Phone [...] For Visit Copied on Encounter OFFICE VISIT, [facility] right hip DepressionChronic Ny ongesa [facility] pain pain syndromePain Mildred. TELEMEDICINE Pain Rj (chief in right 2 [address] Clinic, complaint) hipPostlaminectom [address] syndrome, not [address], elsewhere 100, [place], classifiedLong [place], term (current) [place], [place], [id number] use of opiate [id number] , [place] analgesic , [place]. tel: tel: [phone] OFFICE/OUTPAT [facility] right hip Chronic pain Estefani Referring IENT VISIT, [facility] pain syndromePostlamin Adeel . Provider: [facility] Pain Rj (chief ectomy syndrome, 2 [address] Bernie h Clinic, complaint) not elsewhere [facility] [address] Lybar sultana, [address] classifiedPain in 11 [address] [place] [address], right 100, [facility] [place], hipDepressionLong [facility] [place], term (current) [place], [place], [address] h [phone] use of opiate [id number] [facility] , [place] analgesic , [place]. [place], tel: tel: [place], [phone]. [phone] tel:[phone] [facility] No Information [facility] Mildred. Pain [place] 1 [address] Clinic, [facility] [address], 100, [place], [place], [place], [place], [id number] , [place] , [place]. tel: tel: [phone] OFFICE/OUTPAT [facility] right hip Postlaminectomy Taco nicolas Referring IENT VISIT, [facility] pain syndrome, not Mildred. Pr ovider: [facility] Pain Rj (chief elsewhere 1 [address] [facility], complaint) classifiedChronic [facility] [address] L ybarger, [address] pain syndromePain 11 [address] Bradley, in right 100, [facility], hipDepressionLong [facility] [place], term (current) [place], [place], [address] [id number] use of opiate [id number] [address], , [place] analgesic[place]oun[place] , [place]. [place], tel: r for therapeutic tel: [place] , [phone]. [phone] drug level [phone] tel: monitoring [phone] OFFICE VISIT, [facility] right hip Postlaminectomy Sep-0 Nyon gesa Referring [facility] pain syndrome, not Mildred. Provid er: TELEMEDICINE Pain [place] (chief elsewhere 1 [address] [facility], complaint) classifiedChronic [facility] Waldemar J , [address] pain syndromePain [address] [place], in right 100, [facility], hipDepressionLong [facility] , [place] , [place], [place] ([place]) [place], [address]. [phone] use of opiate [phone] tel: , [place] analgesic , [place]. 805759 tel: tel: [phone] OFFICE VISIT, [facility] right hip Postlaminectomy October- Nyon gesa Referring [facility] pain syndrome, not Mildred. Provid er: TELEMEDICINE Pain [place] (chief elsewhere 1 [address] [facility], complaint) classifiedChronic [facility] Waldemar L ybalixr, [address] pain syndromePain 11 [address] Bradley, in right 100, [facility], hipDepressionLong [facility] [place], term (current) [place], [place], [address] [id number] use of opiate [id number] [address] [facility] , , [place] analgesic , [place]. [place], tel: tel: [place], [phone]. [phone] tel: [phone] OFFICE/OUTPAT [facility] right hip Postlaminectomy Aug- Nyon gesa Referring IENT VISIT, [facility] pain syndrome, not Mildred. Pr ovider: EST Pain [place] (chief elsewhere 1 [address] [facility], complaint) classifiedChronic [address], [address] pain syndromePain 11 [address] [place] Kirk, in right 100, [facility] [place], hipDepressionLong [facility] [place], term (current) [place], [place], [address] h [phone] use of opiate [phone] [facility] , analgesic , [place]. [place], tel: tel: [place], [phone]. [phone] tel: [phone] [facility] Encounter for Mar-1 [place] Referr ing [facility] therapeutic drug 0- Rachel. Provide r: Pain Center level 1 [address] [facility], monitoringPain in Melodie Bradley er, [address] right hip [place], is, [place], [facility] [place], [id number] [facility] [place], , [place]. [address] [phone] tel: [facility] , [id number] [place], tel: [place], [phone]. [phone] tel: [phone] OFFICE/OUTPAT [facility] right hip Chronic pain Mar-0 Nyonges a Referring IENT VISIT, [facility] pain syndromeEncounter Mildred. Provider: JACINTA De La Rosa (chief for screening for 1 [address] [facility], complaint) other [address] [place], [address] disorderPain in 11 Junior [place] Kirk, right 100, [facility] [place], hipDepressionEnco [facility] [place], unter for [place], [place], [address] [phone] therapeutic drug [phone] [facility] [place] [facility] , [place] level , [place]. [place], tel: monitoringPostlam tel: [place] , [phone]. [phone] inectomy [phone] tel: syndrome, not [id number] elsewhere classified Family History Family Member Type Diagnosis Age At Onset Problem Family history of spinal stenosi s Payers Payer name Insurance type Covered green party ID Authorization(s ) [facility] Individual And Family Plans CI [id number] Social History Type Description Quantity Date Captured [...] Of Treatment Date Type Action Status Goal FULLING MACHINE OPERATOR Scanned. Due on due Goal UDT. Due on due Goal HEPATOLOGY PHYSICIAN Paperwork. Due on due Goal ALT (SGPT). Due on d ue Goal Creatinine. Due on d ue Goal Order Annual PT. Due on 022 due Goal AST (SGOT). Due on d ue Goal OARS. Due on due Goal Tobacco Use. Due on due Goal Weight. Due on due Goal Update Social History. Due on due Goal PHQ-9. Due on due Goal Review Allergy List. Due on due Goal Medication Reconciliation. Due o n due Goal Height. Due on due Goal Hepatitis C screening. Due on due Goal Lipid panel. Due on due Goal Unhealthy drug use screening. Du e on due Goal Weight. Due on due Goal Tobacco Use. Due on due Goal Medication Reconciliation. Due o n due Goal Update Social History. Due on due Goal Review Allergy List. Due on due Goal PHQ-9. Due on due Goal Height. Due on due Goal HEPATOLOGY PHYSICIAN Paperwork. Due on due Goal UDT. Due on due Goal OARS. Due on due Goal Order Annual PT. Due on 022 due Goal FULLING MACHINE OPERATOR Scanned. Due on due Goal AST (SGOT). Due on d ue Goal Creatinine. Due on d ue Goal ALT (SGPT). Due on d ue Goal Order Annual PT. Due on 021 due Goal OARS. Due on due Goal UDT. Due on due Goal HEPATOLOGY PHYSICIAN Paperwork. Due on due Goal Height. Due on due Goal PHQ-9. Due on due Goal Review Allergy List. Due on due Goal Update Social History. Due on No due Goal Medication Reconciliation. Due o n due Goal Tobacco Use. Due on due Goal Weight. Due on due Goal ALT (SGPT). Due on d ue Goal Creatinine. Due on d ue Goal AST (SGOT). Due on d ue Goal FULLING MACHINE OPERATOR Scanned. Due on due Goal OARS. Due on due Goal UDT. Due on due Goal HEPATOLOGY PHYSICIAN Paperwork. Due on due Goal Height. Due on due Goal PHQ-9. Due on due Goal Review Allergy List. Due on due Goal Update Social History. Due on No due Goal Medication Reconciliation. Due o n due Goal Tobacco Use. Due on due Goal Order Annual PT. Due on due Goal FULLING MACHINE OPERATOR Scanned. Due on due Goal AST (SGOT). Due on d ue Goal Creatinine. Due on d ue Goal ALT (SGPT). Due on d ue Goal Weight. Due on due Goal Medication Reconciliation. Due o n due Goal Tobacco Use. Due on due Goal Weight. Due on due Goal ALT (SGPT). Due on d ue Goal Creatinine. Due on d ue Goal AST (SGOT). Due on d ue Goal FULLING MACHINE OPERATOR Scanned. Due on due Goal Order Annual PT. Due on due Goal OARS. Due on due Goal UDT. Due on due Goal HEPATOLOGY PHYSICIAN Paperwork. Due on due Goal Height. Due on due Goal PHQ-9. Due on due Goal Review Allergy List. Due on due Goal Update Social History. Due on due Goal Weight. Due on due Goal Order Annual PT. Due on due Goal OARS. Due on due Goal UDT. Due on due Goal HEPATOLOGY PHYSICIAN Paperwork. Due on due Goal ALT (SGPT). Due on d ue Goal Creatinine. Due on d ue Goal AST (SGOT). Due on d ue Goal FULLING MACHINE OPERATOR Scanned. Due on due Goal Height. Due on due Goal PHQ-9. Due on due Goal Review Allergy List. Due on due Goal Update Social History. Due on Ma due Goal Medication Reconciliation. Due o n due Goal Tobacco Use. Due on due History Of Present Illness Encounter Date Complaint History Of Present I everett Comments: Fabio is me eting with us virtually today for follow up and medication refill. Pt was last seen on 08/13/21. He is followed for chronic right hi p and low back pain. He has been participati ng in PT to work on mobility and [employer]. Pain has been fluctuating since la st [...] No other concerns today. right hip pain (comments) Fabio is a 45 y /o male, meeting with us today for follow up and me dication refill in the setting of chronic r ight hip and low back pain. He states his pain is worse this month and details a hitch in his step. 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 He is also trialling an ice-machine. The josefina n often causes insomnia. He states he is anxi ous and excited for his upcoming arthroscopi c repair for his R hip with Dr. Ferreira at [facility] He states he will be completing [place] in [employer] the day after his surgery. He details 15,000-20,000 steps a day at his job [employer]. Reports current medication regimen p rovides 90% pain relief and allows for incre ased functionality. Denies side effects from current medication regimen. He uses the oxycodone for days of elevated pain and de tails he is now taking #2tabs sometimes d/t pain flares. Sometimes he only takes 1/2 a tablet.No other concerns today. right hip pain Severity [...] fever. right hip pain (comments) Fabio is sharyn han with us today via [facility] Virtual Visit for llow up and medication refill. Right hip an d low back pain persists this month, but medi cation does help to some extent. He feels his pain is fairly well managed at this time . He continues to complete massage and care management specialist with benefit. [place], but he is feeling a little ext ra sore now. The pain often causes insomni a. He is looking forward to possibly scheduli ng his surgery after his 03/26/21 office visit with the surgeon. He would like to do it right before .Reports current medication regimen provides 80% pain relief [...] fever. right hip pain (comments) Fabio is sharyn han with us today via [facility] Virtual Visit for fo llowing up and [...] ticed a decrease in pain level fluctuation. H lima has been suing medical cannabis cream with benefit.No other concerns today. right hip pain Severity level is mo derate. Duration chronic. The problem is showing no change. It occurs constantly . Location of pain is right hip. The patie nt describes the pain as an ache and sharp. S ymptom is aggravated by lying down. Relievin g factors include ice, heat, supine and chi ropractic. Pertinent negatives include fe charo. right hip pain Duration chronic. Th e problem is showing no change. It occurs co nstantly. Location of pain is right low ba ck, right groin. The patient describes th e pain as an ache. Symptom is aggravate d by overuse. Relieving factors include rest , meds, chiropractic and massage. Pertinent n egatives include fever. right hip pain (comments) Fabio [...] other concer ns today. right hip pain Severity level is [...] the gym or work), scope surgery needed. [facility] orthopedics also suggested a hip inje ction. 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 This a ctivity aggravated his pain, but he would l asia to postpone the hip surgery until after his busy season. He is interested in pain m anagement until then. 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 [...] hip pain d/t labral tear. MRI reviewed. [place] orthopedi c notes reviewed, right hip scope [...] L4-L5 a nd L3-L4 foraminal stenosis. 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
--- OUTSIDE RECORDS SUMMARY | 2022-06-23 12:41 | XMS_ITS | Continuity of Care Document ---
:1975 Author Organization [facility] Address [address] [place] [address] Care Team Providers Name Role Phone [facility] Unavailable Unavailable Procedures Procedure Date NEEDLE LOCALIZATION BY XRAY DRAIN/INJECT, JOINT/BURSA Without Ultrasound Advance Directives Directive Yes / No Effective Date File Name No Information Encounters Encounter Practice Location Reason(s) Diagnoses Date Provider Provide rs Description For Visit Copied on Encounter [facility] Provider: Surgery Surgery Surgery [facility]. [place], [address] [facility] [address] [place], [place], [place], [place], [id number], [place], [address]. [id number], tel:[phone] [place]. [phone] tel:[phone] Family History Family Member Type Diagnosis Age At Onset No Information Payers Payer name Insurance type Covered libertarian ID Authorization(s ) [employer] Individual And Family Plans [id number] Social History Type Description Quantity Date Captured [...]
[2022-06-23] MEDS: ACETAMINOPHEN 500 MG TABLET 1000 MG PO (12:42)
--- NOTE | 2022-06-23 12:47 | ED.FALL ---
HPI - Fall General Date Seen: 06/23/22 Chief Complaint: Fall/Minor Trauma Stated Complaint: Fell two days ago, left side/rib pain Time Seen by Provider: 06/23/22 11:27 Source: patient and family Mode of arrival: ambulatory Limitations: no limitations History of Present Illness HPI Narrative: Patient is a 47-year-old gentleman who presents here for evaluation of a fall, he fell in the driveway on to some ice, striking the left axillary rib area, this was a fairly bad when this occurred, any improved yesterday but today's noted the pain worsening, he feels the going rate through to his back, he did not take any Tylenol ibuprofen, tells me he is on no chronic medications other than occasional buspar. Denies any shortness of breath associated with this any fevers chills, no history of head injury, neck injury numbness and tingling weakness in the hands of the feet, presents here with family. complaint: fall Onset (ago): day(s) Fall from: standing Fall witnessed: no Place fall occurred: home Loss of consciousness: No Prolonged down time: no Symptoms prior to fall: none Context: tripped/slipped Location of injury: chest Associated symptoms (after fall): denies Related Data Previous Rx's Medication Instructions Recorded bupropion HCl 150 mg 24 hr tablet, 150 mg PO QAM #90 tabs 03/25/22 extended release trazodone 50 mg tablet 50 mg PO .Bedtime as needed PRN 03/25/22 insomnia #90 tabs Allergies Allergy/AdvReac Type Severity Reaction Status Date / Time No Known Allergies Allergy Unknown Verified 06/18/22 15:46 Review of Systems Status of ROS: Reports: 10 or more systems reviewed and unremarkable except as noted in History and below [facility] Medical History Colon polyp Surgical History History of eye surgery History of facial surgery History of operative procedure on hip (2020) History of spinal fusion Family History Father Stroke, Onset Age: 64 Colon cancer, Onset Age: 59 Maternal Grandmother History of thrombocytopenia Social History Smoking Status: Former smoker Exam Narrative: Exam Narrative: Patient is seen in room 7 he is in no apparent distress, he is well tattooed, there is no evidence of any bruising I can see over the left lateral chest worry complains of the pain, his lower ribcage area, his chest excursion is normal, good air entry is noted bilaterally with no wheezing crackles or crepitus noted. Heart sounds are normal, moves extremities independently well both his upper and lower, his abdomen is otherwise soft there is no guarding no organomegaly no tenderness to palpation. Const: Vital Signs, click to edit/add: Vital Signs - 24 hr 06/23/22 11:35 Temperature 98.9 F Pulse Rate [Pulse Oximeter] 79 Respiratory Rate 18 Blood Pressure [Ri ght Upper Arm] 124/82 Pulse Oximetry 97 Oxygen Delivery Me thod Room Air Course Course Hospital Course: Reviewed with patient x-rays do not show any evidence of a cracked rib pneumothorax or anything else, he volunteered to me that he is going to [place] tomorrow just want to be safe I do think that it is still possible he may have a cracked rib, but he should just easy in this will slowly heal itself, Tylenol 1 g p.o. t.i.d. with or without ibuprofen is helpful along with ice. Rest Vital Signs Vital signs: Initial Vital Signs Temperature 98.9 F 06/23/22 11:35 Temperature Source Temporal Artery Scan 06/23/22 11:35 Pulse Rate 79 06/23/22 11:35 Pulse Rhythm 06/23/22 11:35 Respiratory Rate 18 06/23/22 11:35 Blood Pressure 124/82 06/23/22 11:35 Blood Pressure Mean 96 06/23/22 11:35 Blood Pressure Position Sitting 06/23/22 11:35 Pulse Oximetry 97 06/23/22 11:35 Oxygen Delivery Method 06/23/22 11:35 Vital Signs Temperature 98.9 F 06/23/22 11:35 Pulse Rate 79 06/23/22 11:35 Respiratory Rate 18 06/23/22 11:35 Blood Pressure 124/82 06/23/22 11:35 Pulse Oximetry 97 06/23/22 11:35 Oxygen Delivery Method 06/23/22 11:35 Temperature 98.9 F 06/23/22 11:35 Pulse Rate 79 06/23/22 11:35 Respiratory Rate 18 06/23/22 11:35 Blood Pressure 124/82 06/23/22 11:35 Pulse Oximetry 97 06/23/22 11:35 Oxygen Delivery Method 06/23/22 11:35 MDM - Fall MDM Narrative Medical decision making narrative: I discussed with the the gentleman we will get a rib x-rays will give some Tylenol we will go from there Imaging Data Chest x-ray: Attestation: I have reviewed the pertinent imaging results. My impression: No evidence of acute abnormality Radiologist's impression: Patient: [facility] Facility: [facility] Site . Site : 1975 Study: XRay Chest Left RIBS 2 VIEW-06/23/2022 1:11:28 PM Ordering Physician: Juan Pisano Final Report: INDICATION: Left-sided pain related to trauma COMPARISON: None TECHNIQUE: A total 4 images were acquired through the chest and 2 of the left rib cage. FINDINGS: TUBES AND LINES: None. HEART AND MEDIASTINUM: The heart size is normal. The mediastinal contour appears normal for patient age. LUNGS AND PLEURAL SPACES: The lungs appear normal.The pleural spaces are unremarkable. OSSEOUS STRUCTURES: Age-appropriate appearance. No acute focal finding.No visible rib fracture IMPRESSION: No evidence of active pulmonary disease. No visible rib fracture. Dictated by Adeel Mcclain MD @ 06/23/2022 1:54:00 PM (Electronic Signature) Discharge Plan Discharge Clinical Impression: Contusion of rib on left side Patient Disposition: Home w/ Parent or Adult Condition: Stable Instructions: Rib Contusion (ED) Additional Instructions: Home rest use of Tylenol 1 g p.o. t.i.d., you can use ibuprofen with this, ice is also helpful take it easy, no zip lining well in [place] or anything else other than sitting taking it easy by the pool or beach. Even if this is a cracked rib it will resolve itself using 2-3 weeks, but just be careful. Prescriptions: No Action trazodone 50 mg tablet 50 mg PO .Bedtime as needed PRN (Reason: insomnia) Qty: 90 3RF bupropion HCl 150 mg tablet extended release 24 hr 150 mg PO QAM Qty: 90 3RF Follow Up/Referrals: Maxine Rehman PA-C [Primary Care Provider] - Stand Alone Forms: [facility] Info Instructions
== END 2022-06-23 14:21 | disposition home or self-care (01) ==
PROVIDERS: Emergency Provider Family Medicine; PCP Physician Assistant Medical
DX: S20.212A Contusion of left front wall of thorax, initial encounter (principal); W00.9XXA Unspecified fall due to ice and snow, initial encounter
CPT/HCPCS: 71101; 99283; 99284; A9270

== ENCOUNTER 2022-08-06 08:30 | Outpatient (CLI) | payer OTHER, SELFPAY | END 2022-08-06 08:31 | disposition home or self-care (01) | PROVIDERS: PCP Physician Assistant Medical; Visit Provider Surgery | DX: Z12.11 Encounter for screening for malignant neoplasm of colon (principal); K63.5 Polyp of colon; Z80.0 Family history of malignant neoplasm of digestive organs; Z86.010 Personal history of colon polyps | CPT/HCPCS: 45385; 88305; J1200; J2250; J3010 ==

== ENCOUNTER 2023-05-26 09:01 | Outpatient (CLI) | payer OTHER, SELFPAY ==
--- OUTSIDE RECORDS SUMMARY | 2023-05-26 09:04 | XMS_ITS | Continuity of Care Document ---
Author Name Unknown Organization Z [facility] Address [address] [place] [address] Phone Care Team Providers Care Lithographic Stripper Name Role Phone Jose R PENALOZA, Mitra Unavailable Unavailable Medications Medication Instructions Dosage Effective Dates (start - stop) Status Comments hydrocodone-aceta minophen 5 mg-325 mg tablet take 1 - 2 Tablet by oral route every 4 - 6 hours as needed for pain 1-2 Tablet - Active [phone] rochelle BARRAGAN for MRP Procedures Procedure Date Remove Spine Fixation Device, Post Pa Assist Remove Spine Fixation Device, Post Office/Outpatient Visit,Est, Low 2011 Office/Outpatient Visit,New, Mod 2011 Office/outpatient visit,est, mod 2010 X-ray exam lower spine 2-3 views 2010 Office/outpatient visit,est, mod 2005 X-ray exam lower spine 2-3 views 2005 Advance Directives Directive Yes / No Effective Date File Name No Information Encounters Encounter Description Practice Location Reason(s) For Visit Diagnoses Date Provider Providers Copied on Encounter Z [facility], [address] [place] [address] [address], [place], [address], [place] tel:[phone] [facility] No Information 3 Jose R Leggett [facility], [address] [place] [address] [address], [place], [place], [id number], [place]. tel:[phone] [facility], [address] [place], [place] [address], [place], [place], [facility], [place] tel:[phone] [employer] [facility] No Information 2 2 Gale[place] Pb. [facility], [address], [address], [place], [place], [id number], [place]. tel:[phone] Z [facility], [address] [facility] [address], [place], [place], [facility], [place] tel:[phone] [facility] No Information 2 Gale[place] Pb. [facility], [address], [address], [place], [place], [id number], [place]. tel:[phone] Office/Outpa tient Visit,Est, Low Z [facility], [address], [place], [facility], [place] tel:[phone] [facility] No Information 0 2 [place]ale[place] Pb. [facility], [address] [place] [address], [address], [place], [place], [id number], [place]. tel:[phone] Referring Provider: Shashi Bello, [facility] [address] [place], [place] [address] [address], [place], [address] . tel:[phone] Office/Outpa tient Visit,New, Mod Z [facility], [address], [place], [place], [facility], [place] tel:[phone] [employer] No Information 2 Oneal Danielle. [facility], [address], [place], [place], [id number], [place]. tel:[phone] Office/outpa tient visit,est, mod Z [facility], [address] [facility], [place], [facility], [place] tel:[phone] [facility] [employer] [place] No Information 0 1 No Information Office/outpa tient visit,est, mod Z [facility], [address] [facility], [place], [facility], [place] tel:[phone] [facility] No Information 6 No Information Family History Family Member Type Diagnosis Age At Onset No Information Payers Payer name Insurance type Covered green party ID Manuel arciniega(s) [employer] [facility] [id number] Social History Type Description Quantity Date Captured Comments Sex Male Smoking Status No Information Chief Complaint And Reason For Visit No Information Reason For Referral Reason For Referral No Information History Of Present Illness Encounter Date Complaint History Of Prese nt Illness No Information Functional Status Date Functional Assessmen t No Information Instructions Date Instruction Additional Infor mation No Information Assessments Type Assessment Date No Information Patient Care Teams Name Effective Dates (start - stop) Status Members No Information
== END 2023-05-26 09:02 | disposition home or self-care (01) ==
PROVIDERS: PCP Physician Assistant Medical; Visit Provider Physician Assistant Medical
DX: R63.4 Abnormal weight loss (principal); R68.83 Chills (without fever); Z12.5 Encounter for screening for malignant neoplasm of prostate; Z11.3 Encounter for screening for infections with a predominantly sexual mode of transmission; Z13.6 Encounter for screening for cardiovascular disorders; Z13.0 Encounter for screening for diseases of the blood and blood-forming organs and certain disorders involving the immune mechanism; Z11.59 Encounter for screening for other viral diseases
CPT/HCPCS: 80053; 80061; 84153; 84439; 84443

== ENCOUNTER 2023-06-02 16:07 | Outpatient (CLI) | payer OTHER, SELFPAY ==
--- OUTSIDE RECORDS SUMMARY | 2023-06-02 16:12 | XMS_ITS | Continuity of Care Document ---
Author Name Unknown Organization Z [facility] Address [address] [place] [address] Phone Care Team Providers Care Direct Chill Casting Operator Name Role Phone Jose R PENALOZA, Mitra Unavailable Unavailable Medications Medication Instructions Dosage Effective Dates (start - stop) Status Comments hydrocodone-aceta minophen 5 mg-325 mg tablet take 1 - 2 Tablet by oral route every 4 - 6 hours as needed for pain 1-2 Tablet - Active [phone] rochelle BARRAGAN for MRP Procedures Procedure Date [...] Date Provider Providers Copied on Encounter Z [facility], [address] [place] [address] [address], [place], [address], [place] tel:[phone] [facility] No Information 3 Jose R Leggett [facility], [address] [place] [address] [address], [place], [place], [id number], [place]. tel:[phone] [facility], [address] [place], [place] [address], [place], [place], [facility], [place] tel:[phone] [employer] [facility] [facility] No Information 2 2 [place] Pb. [facility], [address], [place], [place], [id number], [place]. tel:[phone] Z [facility], [address] [facility] [address], [place], [facility], [place] tel:[phone] [facility] No Information 2 [place] Pb. [facility], [address], [address], [place], [place], [address], [place]. tel:[phone] Office/Outpa tient Visit,Est, Low Z [facility], [address], [place], [facility], [place] tel:[phone] [facility] No Information 0 2 [place] Pb. [facility], [address] [place] [address], [address], [place], [place], [id number], [place]. tel:[phone] Referring Provider: Shashi Bello, [facility] [address] [place], [place] [address] [address], [address] . tel:[phone] Office/Outpa tient Visit,New, Mod Z [facility], [address], [place], [place], [facility], [place] tel:[phone] [employer] No Information 2 Oneal Danielle. [facility], [address], [place], [place], [id number], [place]. tel:[phone] Office/outpa tient visit,est, mod Z [facility], [address] [facility] [address], [place], [facility], [place] tel:[phone] [facility] [place] No Information 0 1 No Information Office/outpa tient visit,est, mod Z [facility], [address] [facility], [place], [place], [facility], [place] tel:[phone] [facility] No Information 6 No Information Family History Family Member Type Diagnosis Age At Onset No Information Payers Payer name Insurance type Covered alliance party ID Manuel arciniega(s) [employer] [facility] [id number] Social History Type Description Quantity Date Captured [...]
== END 2023-06-02 16:08 | disposition home or self-care (01) ==
PROVIDERS: PCP Physician Assistant Medical; Visit Provider Physician Assistant Medical
DX: R63.4 Abnormal weight loss (principal)
CPT/HCPCS: 80053; 82306; 85651; 86592; 86618; 86703; 86803; 87468; 87469; 87484; 87798

== ENCOUNTER 2023-09-10 08:53 | Outpatient (CLI) | payer OTHER, SELFPAY ==
[2023-09-10 15:43] LABS: Chlamydia DNA Amplified* NOT DETECTED (No Detected); GC DNA Amplified* NOT DETECTED (No Detected)
== END 2023-09-10 08:54 | disposition home or self-care (01) ==
PROVIDERS: PCP Physician Assistant Medical; Visit Provider Family Medicine
DX: Z20.2 Contact with and (suspected) exposure to infections with a predominantly sexual mode of transmission (principal); K14.0 Glossitis
CPT/HCPCS: 86592; 86703; 86803; 87491; 87529; 87591

== ENCOUNTER 2024-01-21 08:33 | Outpatient (CLI) | payer OTHER, SELFPAY ==
--- OUTSIDE RECORDS SUMMARY | 2024-01-21 08:37 | XMS_ITS | Clinical Summary ---
Author Organization [facility] Address [address] [place] [address] Care Team Providers Care Corporate Communications Associate Name Role Phone Peggy Hammer MD Primary Care Provider [phone] Allergies No known active allergies Medications Medication Sig Dispensed Refills Start Date End Date Status FISH OIL Active fluticasone (FLONASE) 50 MCG/ACT nasal spray [place] 1 spray into both nostrils daily 15 mL 06/14/2019 Active acetaminophen (TYLENOL) 325 MG tabletIndications:Mu cocele of frontal sinus Take 2 tablets (650 mg) by mouth every 4 hours as needed for mild pain 50 tablet 09/10/2019 Active varenicline (CHANTIX DEBORAH) 0.5 MG X 11 & 1 MG X 42 tablet 1 wk before you stop smoking take 0.5mg daily on days 1-3, 0.5mg 2 times each day on days 4-7, then 1mg 2 times daily 09/11/2018 Active Multiple Vitamins-Minerals (MULTIVITAMIN ADULT PO) Take 1 tablet by mouth daily Active VITAMIN D, CHOLECALCIFEROL, PO Take by mouth daily Active acetaminophen (TYLENOL) 325 MG tabletIndications:S/ P nasal septoplasty Take 2 tablets (650 mg) by mouth every 4 hours as needed for other (mild pain) 100 tablet 06/02/2020 Active oxyCODONE (ROXICODONE) 5 MG tabletIndications:S/ P nasal septoplasty Take 1 tablet (5 mg) by mouth every 6 hours as needed (Moderate to Severe Pain) 15 tablet 06/05/2020 Active amoxicillin-clavulan ate (AUGMENTIN) 875-125 MG tabletIndications:Mu cocele of frontal sinus Take 1 tablet by mouth 2 times daily 20 tablet 05/15/2021 Active Active Problems Problem Noted Date Diagnosed Date 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 Overview: Added automatically from request for surgery [id number] CARDIOVASCULAR SCREENING; LDL GOAL LESS THAN 160 02/01/2011 Immunizations Name Administration Dates Next Due TDAP [...] Packs/Day Years Used Date Smoking Tobacco: Passive Smo ke Exposure - Never Smoker Cigarettes 0.5 30.1 Started: 12/28/1993 Cigars Smokeless Tobacco: Never Tobacco Cessation:Ready to Q uit: Yes Comments:weekends Alcohol Use Standard Drinks/Week Comments Yes 0 (1 standard drink = 0.6 oz pur e alcohol) 1-2 drinks a a week PHQ-2 Answer Date Recorded PHQ-2 Score 0 08/31/2020 Adolescent Education Answer Date Record ed Getting School Help Needed Not on file 04/06 Sex and Gender Information Value Date Recorded Sex Assigned at Not on file Gender Identity Not on file Sexual Orientation Not on file Last Filed Vital Signs Vital Sign Reading Time Taken Comments Blood Pressure 134/78 06/02/2020 5:51 PM FISH HATCHERY MAN Pulse 72 08/31/2020 1:40 PM FISH HATCHERY MAN Temperature 36.9 ??C (98.4 ??F) 08/31/2020 1:40 PM CS T Respiratory Rate 16 06/02/2020 5:51 PM FISH HATCHERY MAN Oxygen Saturation 98% 08/31/2020 1:40 PM FISH HATCHERY MAN Inhaled Oxygen Concentration - - Weight 83.5 kg (184 lb) 08/31/2020 1:40 PM FISH HATCHERY MAN Height 182.9 cm (6') 08/31/2020 1:40 PM FISH HATCHERY MAN Body Mass Index 24.95 08/31/2020 1:40 PM FISH HATCHERY MAN Plan of Treatment Not on file Medical Devices Implanted Type Area Venetian Blind Cleaner Device Identifier Shelf Expiration Date Model / Serial / Lot Stent Frontal Sinus [place] Lg Implanted:Qty: 1 on 09/10/2019 by Alvaro Carranza MD at [facility] Stent Left: Sinus OLYMPUS MANUEL 02/29/2024 [id number] / / [id number] Description:Left Frontal Sin us Care Teams Corporate Communications Associate Relationship Specialty Start Date End Date Peggy Hammer MD [facility] [address] [place] [address] PCP - General Family Practice 09/10/19
--- OUTSIDE RECORDS SUMMARY | 2024-01-21 08:37 | XMS_ITS | Encounter Summary ---
Author Organization [facility] Address [address], [place] [address] Care Team Providers Care Content Production Specialist Name Role Phone Nadja Manjarrez MD Primary Care Provider [phone] Encounter Details Date Type Department Care Team (Late st Contact Info) Description 06/13/2016 Scanned History External to Transferred Record, Provider [facility] Social History Tobacco Use Types Packs/Day Years Used Date Smoking Tobacco: Former Cigarettes Q uit: 03/30/2015 Smokeless Tobacco: Never Comments:4-5 cigs/month Alcohol Use Standard Drinks/Week Comments Yes 2.5 (1 standard drink = 0.6 oz p ure alcohol) Sex and Gender Information Value Date Recorded Sex Assigned at Not on file Gender Identity Not on file Sexual Orientation Not on file documented as of this encounter Plan of Treatment Not on file documented as of this encounter Visit Diagnoses Not on filedocumented in this encounter Care Teams Content Production Specialist Relationship Specialty [place] [address] [place] [address] PCP - General Family Practice 08/20/11 documented as of this encounter
--- OUTSIDE RECORDS SUMMARY | 2024-01-21 08:37 | XMS_ITS | Continuity of Care Document ---
Author Organization [facility] Address [address] [place] [address] Care Team Providers Care Small Electric Engine Technician Name Role Phone [facility] Unavailable Unav ailable Procedures Procedure Date NEEDLE LOCALIZATION BY XRAY DRAIN/INJECT, JOINT/BURSA Without Ultras ound Advance Directives Directive Yes / No Effective Date File Name No Information Encounters Encounter Description Practice Location Reason(s) For Visit Diagnoses Date Provider Providers Copied on Encounter [facility], [address] [place], [place], [id number], [facility] No Information [facility]. [address] [place], [place], [id number], . tel:[phone] Referring Provider: Rachel Soto, [address] [place], [address]. tel:[phone] Family History Family Member Type Diagnosis Age At Onset No Information Payers Payer name Insurance type Covered republican ID Authoriza tion(s) [employer] [id number] Social History Type Description Quantity Date Captured [...]
--- OUTSIDE RECORDS SUMMARY | 2024-01-21 08:37 | XMS_ITS | Encounter Summary ---
Author Organization [facility] Address [address] [place] [address] Care Team Providers Care Channel Lip Stiffener Insoles Name Role Phone Nadja Manjarrez MD Primary Care Provider [phone] Encounter Details Date Type Department Care Team (Late st Contact Info) Description 08/24/2014 Consent for Procedure/Treatme nt [facility] INFORMED CONSENT RECORD Social History Tobacco Use Types Packs/Day Years Used Date Smoking Tobacco: Former Cigarettes Q uit: 2012 Smokeless Tobacco: Never Comments:4-5 cigs/month Alcohol Use [...] on filedocumented in this encounter Care Teams Channel Lip Stiffener Insoles Relationship Specialty [place] [address] [place] [address] PCP - General Family Practice 08/20/11 documented as of this encounter
--- OUTSIDE RECORDS SUMMARY | 2024-01-21 08:37 | XMS_ITS | Clinical Summary ---
Author Organization [facility] Address [address] [place] [address] Care Team Providers Care Tomahawk Weapon System Operator Name Role Phone Nadja Manjarrez MD Primary Care Provider [phone] Source Comments You are receiving this document as you are listed as the primary care provider,follow-up provider, or the patient has been referred to you for consultation.This is in compliance with the Medicare and[facility] EHR Incentive Program,which states Providers who transition their patient to another setting of careor provider of care or refers their patient to another provider of care shouldprovide summary care record for each transition of care or referral. [facility] Allergies No known active allergies Medications Medication Sig Dispensed Refills Start Date End Date Status LORazepam (ATIVAN) 0.5 MG tabletIndications: Fear of flying (HRC) Take one tablet 30 minutes to one hour prior to travel 10 Tablet 03/19/2018 Active buPROPion (WELLBUTRIN SR) 150 MG 12 hour release tablet Take 1 Tablet by mouth two times a day. 60 Tablet 3 03/19/2018 Active traZODone (DESYREL) 50 MG tablet Take 1 Tablet by mouth at bedtime as needed. 30 Tablet 11 03/19/2018 Active omega-3 fatty acids (MAXEPA,FISHOIL) 1000 MG capsule Take 2 Capsules (2,000 mg) by mouth daily. Active Multiple Vitamins-Iron (MULTIVITAMIN/IRON OR) Active Varenicline Tartrate (CHANTIXPAK) 0.5 MG X 11 & 1 MG X 42 tablet 1 wk before you stop smoking take 0.5mg daily on days 1-3, 0.5mg 2 times each day on days 4-7, then 1mg 2 times daily 53 Tablet 09/11/2018 Active Additional Information Patient not taking.Reported on 08/04/2019 varenicline (CHANTIX) 1 MG tabletIndications: Encounter for smoking cessation counseling (HRC) Take 1 Tablet by mouth two times a day. Take after eating with a full glass of water.NOTE:Dispense as maintenance for refills only. 180 Tablet 09/10/2018 Active omeprazole (PRILOSEC) 20 MG capsule Take 1 Capsule by mouth daily for 30 days. Take 1 hour before a meal. 30 Capsule 2 10/16/2018 Active Cholecalciferol 1.25 MG (78644 UT) TABS Take by mouth. Active Probiotic Product (PROBIOTIC DAILY OR) Active sodium fluoride dental (PREVIDENT) 1.1 % gel Apply thin ribbon to teeth with toothbrush or mouthpiece tray for at least 1 minute. Spit out gel and rinse mouth thoroughly. 60 g 6 06/09/2020 Active Additional Information Patient not taking.Reported on 08/23/2023 amphetamine-dextro amphetamine (ADDERALL) 10 MG tablet Take 1 Tablet (10 mg) by mouth daily. 08/07/2023 Active Active Problems Problem Noted Date Diagnosed Date SI (sacroiliac) joint dysfunction 08/23/2016 Overview: R SI joint pain, takes norco 5# tablets sparingly for this, needs to be seen at clinic prior to further refills. Nadja Manjarrez MD 08/23/2016, 11:21 AM Folliculitis 02/23/2016 Hand dysfunction 06/15/2015 Family history of colon cancer 05/08/2015 Corneal rust ring of right eye 03/17/2015 Other musculoskeletal symptoms referable to limb s(729.89) 08/26/2014 Fear of flying 07/08/2013 Chronic low back pain 05/05/2012 Resolved Problems Problem Noted Date Diagnosed Date Resolved Date Centralized Behavioral Health Case Management 08/31/19 15 09/09/2014 Overview: Background: Diagnosis: Alcohol abuse, Chronic Low Back Pain, Tobacco Dependence Current situation: Patient agreed to behavioral health care coordination and healthy lifestyle education information. Providers outside of [facility]: [place] [facility] Goals/Recommendations: Outpatient Behavioral Health Supervisor Cigar ProcessingSmall Appliance Assembly Supervisor Information: Rachell Will [facility] Action Plan: Identify Patients behavioral health care goals, give education/coaching and resources to achieve his goals, coordinate care with providers as needed. Tobacco dependence 05/05/2012 6 Immunizations Name Administration Dates Next Due Flu Vac (3+ yrs) 03/30/2018,05/05/2012, 1 HepA Adult (19+ yrs) 06/26/2016,07/08/2013 HepB Adult (Engerix-B, 20+ y rs, 3 dose series) 07/08/2013,03/02/2013,06/12/2012 Influenza IIV4 (Quadrivalent) 0.5mL (25843) 05/31,05/08/2015 Influenza, Unspecified Formulation 05/02/2017, Td 06/30/2001 Tdap 02/01/2011 Family History Medical History Relation Name Comments Cancer, Colon Father Cancer, Colon Maternal Grandfather Cancer, Prostate Maternal Grandfather Cancer, Ovary Maternal Grandmother Bleeding Disorder Other 1 Grandmothe r not specified Cancer, Ovary Other 2 Grandmother no t specified Relation Name Status Comments Father Alive Mother Alive Brother Alive Maternal Grandfather Alive Natural Maternal Grandmother Alive Surgery Paternal Grandfather Alive Natural Paternal Grandmother Sister Alive Other 1 Other 2 Social History Tobacco Use Types Packs/Day Years Used Date Smoking Tobacco: Former Cigarettes Q uit: 04/13/2019 Smokeless Tobacco: Never Tobacco Cessation:Counseling Given: Yes Alcohol Use Standard Drinks/Week Comments Yes 2 (1 standard drink = 0.6 oz pur e alcohol) Sex and Gender Information Value Date Recorded Sex Assigned at Not on file Gender Identity Not on file Sexual Orientation Not on file Last Filed Vital Signs Vital Sign Reading Time Taken Comments Blood Pressure 130/81 09/10/2018 11:41 AM CDT Pulse 77 08/23/2023 10:15 AM LEAD PYTHON DEVELOPER Temperature 37.2 ??C (98.9 ??F) 09/10/2018 11:09 AM C DT Respiratory Rate 18 06/24/2018 8:10 AM LEAD PYTHON DEVELOPER Oxygen Saturation 99% 07/19/2015 11:35 AM LEAD PYTHON DEVELOPER Inhaled Oxygen Concentration - - Weight 86.6 kg (191 lb) 06/24/2018 8:10 AM LEAD PYTHON DEVELOPER Height 180.3 cm (5' 11) 02/27/2016 3:30 PM CDT Body Mass Index 26.64 02/27/2016 3:30 PM CDT Plan of Treatment Health Maintenance Due Date Last Done Comments Adult Preventive Visit 08/12/2012 08/12/2011 Colonoscopy 07/19/2020 07/19/2015 DTaP/Tdap/Td (2 - Tdap) 02/01/2021 02/01/2011, 06/30 Cholesterol 08/23/2021 08/23/2016, 08/09/2011 COVID-19 Vaccine ( season) 2023 Influenza (#1) 2024 04/25/2018, 06/2017, 05/02/2017, Additional history exists Zoster/Shingles (1 of 2) 2026 HepB Completed 07/08/2013, 08/2012, 06/12/2012 HepA Aged Out 06/26/2016, 07/08/2013 No lo nger eligible based on patient's age to complete this topic HIV Screening (Preventive Services) Completed 06/24/2018 Hep C Screening (Preventive Services) Completed 06/24/2018, 08/12/2011 Hib Aged Out No longer eligi ble based on patient's age to complete this topic IPV (Polio) Aged Out No longer eligi ble based on patient's age to complete this topic MCV4 Aged Out No longer eligi ble based on patient's age to complete this topic Pneumococcal Aged Out No longer eligi ble based on patient's age to complete this topic Medical Devices Implanted Type Area Limousine Rental Clerk Device Identifier Shelf Expiration Date Model / Serial / Lot [id number] - [id number] Implanted:Qty: 1 on 09/08/2014 by Meaghan Rasmussen MD at [facility] DEVICE [employer] [id number] / / [id number] Description:jean pierre gonzalez endon implant Procedures Procedure Name Priority Date/Time Associated Diagnosis Comments HIV 1/2 AG/AB 4TH GEN Routine 06/24/2018 8:31 AM LEAD PYTHON DEVELOPER Routine screening for STI (sexually transmitted infection) HEPATITIS C ANTIBODY, WITH REFLEX Routine 06/24/2018 8:31 AM LEAD PYTHON DEVELOPER Routine screening for STI (sexually transmitted infection) LIPID PANEL & DIRECT LDL (IF NEEDED) Routine 08/23/2016 11:27 AM LEAD PYTHON DEVELOPER Screening for lipid disorders COLONOSCOPY Routine 07/19/2015 11:09 AM LEAD PYTHON DEVELOPER Screen for colon cancer from Last 3 Months or Most Recently Relevant to Health Maintenance Results * HIV 1/2 Ag/Ab 4th Generation (06/24/2018 8:31 AM LEAD PYTHON DEVELOPER) HIV 1/2 AG/AB 4thGEN Negative (Non Reactive) [facility] Comment:HIV-1 p24 Ag and HIV -1/HIV-2 Ab not detected. 06/24/2018 8:31 AM LEAD PYTHON DEVELOPER 06/24/2018 8:33 AM LEAD PYTHON DEVELOPER Narrative [facility] - 06/24/2018 12:02 PM LEAD PYTHON DEVELOPER Performed at [facility], [address] [place] [address] ??[id number] Mary Ribeiro APRN, CNP LAB_1 Performing Organization Address [facility] Co de Phone Number [facility] [phone] * Hepatitis C Antibody, with Reflex (06/24/2018 8:31 AM LEAD PYTHON DEVELOPER) Pathologist [facility] Anti-HCV Negative (Non Reactive) [facility] Comment: Antibodies to HCV not detected. Does not exclude the possibility of exposure to HCV. 06/24/2018 8:31 AM LEAD PYTHON DEVELOPER 06/24/2018 8:33 AM LEAD PYTHON DEVELOPER Narrative [facility] - 06/24/2018 12:01 PM LEAD PYTHON DEVELOPER Performed at [facility], [address] [place] [address] ??[id number] Mary Ribeiro APRN, CNP LAB_1 Performing Organization Address [facility] Co de Phone Number [facility] [phone] * (ABNORMAL) Lipid Panel and Direct LDL(If Needed) (08/23/2016 11:27 AM LEAD PYTHON DEVELOPER) Hours Fasting 19 hours [facility] Cholesterol 202(H) 0 - 199 mg/dl [facility] Triglyceride 81 0 - 149 mg/dl [facility] HDL 54 >40 mg/dl [facility] LDL, Calc. 132(H) 0 - 129 mg/dl [facility] Non HDL Chol, Calc 148 mg/dl [facility] 08/23/2016 11:2 7 AM LEAD PYTHON DEVELOPER 08/23/2016 11:28 AM LEAD PYTHON DEVELOPER Narrative [facility] - 08/23/2016 3:28 PM LEAD PYTHON DEVELOPER Performed at [facility], [address] [place] [address] ??[id number] Nadja Manjarrez MD LAB_1 [facility] [phone] * COLONOSCOPY [[id number]] (07/19/2015 11:09 AM LEAD PYTHON DEVELOPER) 07/19/2015 11:0 9 AM LEAD PYTHON DEVELOPER Narrative [facility] - 07/19/2015 11:41 AM LEAD PYTHON DEVELOPER Patient Name: Fabio Hodgson Procedure Date: 07/19/2015 11:09 AM Date of : 1975 Age: 40 Gender: Male Note Status: Finalized Procedure: ? Colonoscopy Indications: ? Screening in patient at increased risk: Colorectal ? cancer in father before age 60 Providers: ? Prudencio Arango MD, Teresa Garay RN, Christel deleon ? PRIYA Cortes Referring MD: ?Nadja Manjarrez Medicines: ? Midazolam 3 mg IV, Fentanyl 150 micrograms IV Complications: ? No immediate complications. Estimated blood loss: ? None. Procedure: ? Pre-Anesthesia Assessment: ? - Prior to the procedure, a History and Physical was ? performed, and patient medications, allergies and ? sensitivities were reviewed. The patient's tolerance ? of previous anesthesia was reviewed. ? - The risks and benefits of the procedure and the ? sedation options and risks were discussed with the ? patient. All questions were answered and informed ? consent was obtained. ? - Mental Status Examination: alert and oriented. ? Airway Examination: normal oropharyngeal airway and ? neck mobility. Respiratory Examination: clear to ? auscultation. CV Examination: normal. Abdominal ? Examination: bowel sounds present, abdomen soft and ? non-tender, no masses or organomegaly noted. ? - ASA Grade Assessment: I - A normal, healthy patient. ? - After reviewing the risks and benefits, the patient ? was deemed in satisfactory condition to undergo the ? procedure. ? - The anesthesia plan was to use moderate ? sedation/analgesia (conscious sedation). ? - Immediately prior to administration of medications, ? the patient was re-assessed for adequacy to receive ? sedatives. ? - Sedation was administered by an endoscopy nurse. ? The sedation level attained was moderate. ? - The heart rate, respiratory rate, oxygen ? saturations, blood pressure, adequacy of pulmonary ? ventilation, and response to care were monitored ? throughout the procedure. ? - The physical status of the patient was re- assessed ? after the procedure. ? After I obtained informed consent, the scope was ? passed under direct vision. Prior to sedation, ? patient identity and procedure was reverified. ? Throughout the procedure, the patient's blood ? pressure, pulse, and oxygen saturations were ? monitored continuously. The [id number] was introduced ? through the anus and advanced to the terminal ileum, ? with identification of the appendiceal orifice and IC ? valve. The colonoscopy was performed without ? difficulty. The patient tolerated the procedure well. ? The quality of the bowel preparation was good. Findings: ? The terminal ileum appeared normal. ? A 5 mm polyp was found in the proximal ascending colon. The polyp was ? sessile. The polyp was removed with a hot snare. Resection and ? retrieval were complete. ? A 1 mm polyp was found in the rectum. The polyp was sessile. The ? polyp was removed with a cold biopsy forceps. Resection and retrieval ? were complete. ? External and internal hemorrhoids were found. The hemorrhoids were ? small. Impression: ?- The examined portion of the ileum was normal. ? - One 5 mm polyp in the proximal ascending colon. ? Resected and retrieved. ? - One 1 mm polyp in the rectum. Resected and ? retrieved. ? - External and internal hemorrhoids. Recommendation: ?- High fiber diet. ? - Await pathology results. ? - Repeat colonoscopy in 5 years for surveillance ? based on pathology results. ? - Return to referring physician as previously ? scheduled. Procedure Code(s): ?? --- Professional --- ? 40427, PT, Colonoscopy, flexible; with removal of ? tumor(s), polyp(s), or other lesion(s) by snare ? technique ? 82728, 59,PT, Colonoscopy, flexible; with biopsy, ? single or multiple Diagnosis Code(s): ?? --- Professional --- ? Z12.11, Encounter for screening for malignant ? neoplasm of colon ? Z80.0, Family history of malignant neoplasm of ? digestive organs ? D12.2, Benign neoplasm of ascending colon ? K62.1, Rectal polyp ? K64.8, Other hemorrhoids CPT copyright 2014 [employer]. All rights reserved. The codes documented in this report are preliminary and upon chicken and fish butcher review may be revised to meet current compliance requirements. Attending Participation: Prudencio Arango MD 07/19/2015 11:40 AM Number of Addenda: 0 Note Initiated On: 07/19/2015 11:09 AM Procedure Note Prudencio Arango MD - 07/19/2015 Patient Name: Fabio Hodgson Procedure Date: 07/19/2015 11:09 AM Date of : 1975 Age: 40 Gender: Male Note Status: Finalized Procedure: Colonoscopy Indications: Screening in patient at increased risk: Colorectal cancer in father before age 60 Providers: Prudencio Arango MD, Teresa Garay RN, Christel Cortes LPN Referring MD: Nadja Manjarrez Medicines: Midazolam 3 mg IV, Fentanyl 150 micrograms IV Complications: No immediate complications. Estimated blood loss: None. Procedure: Pre-Anesthesia Assessment: - Prior to the procedure, a History and Physical was performed, and patient medications, allergies and sensitivities were reviewed. The patient's tolerance of previous anesthesia was reviewed. - The risks and benefits of the procedure and the sedation options and risks were discussed with the patient. All questions were answered and informed consent was obtained. - Mental Status Examination: alert and oriented. Airway Examination: normal oropharyngeal airway and neck mobility. Respiratory Examination: clear to auscultation. CV Examination: normal. Abdominal Examination: bowel sounds present, abdomen soft and non-tender, no masses or organomegaly noted. - ASA Grade Assessment: I - A normal, healthypatient. - After reviewing the risks and benefits, the patient was deemed in satisfactory condition to undergo the procedure. - The anesthesia plan was to use moderate sedation/analgesia (conscious sedation). - Immediately prior to administration of medications, the patient was re-assessed for adequacy to receive sedatives. - Sedation was administered by an endoscopy nurse. The sedation level attained was moderate. - The heart rate, respiratory rate, oxygen saturations, blood pressure, adequacy of pulmonary ventilation, and response to care were monitored throughout the procedure. - The physical status of the patient was re-assessed after the procedure. After I obtained informed consent, the scope was passed under direct vision. Prior to sedation, patient identity and procedure was reverified. Throughout the procedure, the patient's blood pressure, pulse, and oxygen saturations were monitored continuously. The CF-[id number] was introduced through the anus and advanced to the terminal ileum, with identification of the appendiceal orifice and IC valve. The colonoscopy was performed without difficulty. The patient tolerated the procedure well. The quality of the bowel preparation was good. Findings: The terminal ileum appeared normal. A 5 mm polyp was found in the proximal ascending colon. The polyp was sessile. The polyp was removed with a hot snare. Resection and retrieval were complete. A 1 mm polyp was found in the rectum. The polyp was sessile. The polyp was removed with a cold biopsy forceps. Resection and retrieval were complete. External and internal hemorrhoids were found. The hemorrhoids were small. Impression: - The examined portion of the ileum was normal. - One 5 mm polyp in the proximal ascending colon. Resected and retrieved. - One 1 mm polyp in the rectum. Resected and retrieved. - External and internal hemorrhoids. Recommendation: - High fiber diet. - Await pathology results. - Repeat colonoscopy in 5 years for surveillance based on pathology results. - Return to referring physician as previously scheduled. Procedure Code(s): --- Professional --- 26003, PT, Colonoscopy, flexible; with removal of tumor(s), polyp(s), or other lesion(s) by snare technique 81926, 59,PT, Colonoscopy, flexible; with biopsy, single or multiple Diagnosis Code(s): --- Professional --- Z12.11, Encounter for screening for malignant neoplasm of colon Z80.0, Family history of malignant neoplasm of digestive organs D12.2, Benign neoplasm of ascending colon K62.1, Rectal polyp K64.8, Other hemorrhoids CPT copyright 2014 [employer]. All rights reserved. The codes documented in this report are preliminary and upon chicken and fish butcher review may be revised to meet current compliance requirements. Attending Participation: Prudencio Arango MD 07/19/2015 11:40 AM Number of Addenda: 0 Note Initiated On: 07/19/2015 11:09 AM Prudencio Arango MD [facility] [place], [place] from Last 3 Months or Most Recently Relevant to Health Maintenance Care Teams Tomahawk Weapon System Operator Relationship Specialty [place] [address] [place] [address] PCP - General Family Practice 08/20/11
--- OUTSIDE RECORDS SUMMARY | 2024-01-21 08:37 | XMS_ITS | Encounter Summary ---
[facility] Organization [facility] Address [address] [address] Care Team Providers Care Neighborhood Coordinator Name Role Phone Nadja Manjarrez MD Primary Care Provider [phone] Encounter Details Date Type Department Care Team (Late st Contact Info) Description 05/19/2014 Scanned History External to Transferred Record, Provider [facility] Social History Tobacco Use Types Packs/Day [...] on filedocumented in this encounter Care Teams Neighborhood Coordinator Relationship Specialty Start [place] [address] [place] [address] PCP - General Family Practice 08/20/11 documented as of this encounter
--- OUTSIDE RECORDS SUMMARY | 2024-01-21 08:37 | XMS_ITS | Encounter Summary ---
Author Organization [facility] Address [address], [place] [address] Care Team Providers Care Rag Shredder Name Role Phone Nadja Manjarrez MD Primary Care Provider [phone] Encounter Details Date Type Department Care Team (Late st Contact Info) Description 11/09/2014 Correspondence External to [facility] EVALUATION [...] on filedocumented in this encounter Care Teams Rag Shredder Relationship Specialty Start [place] [address] [place] [address] PCP - General Family Practice 08/20/11 documented as of this encounter
--- OUTSIDE RECORDS SUMMARY | 2024-01-21 08:37 | XMS_ITS | Encounter Summary ---
Author Organization [place] Address [address] [place] [address]. [place] [address] Care Team Providers Care Front Attendant Name Role Phone Peggy Hammer MD Primary Care Provider [phone] Alvaro Denise MD Unavailable Reason for Visit * Reason Onset Date Comments Refill Request 06/05/2020 oxyCODONE (ROXIC ODONE) 5 MG tablet Encounter Details Date Type Department Care Team (Late st Contact Info) Description 06/05/2020 Telephone [facility] [place] [address] [facility] [address] [place] [address] Alvaro Denise MD [address] [facility] [address] [place] [address] Refill Request (oxyCODONE (ROXICODONE) 5 MG tablet ) Social History Tobacco Use Types Packs/Day Years Used Date Smoking Tobacco: Passive Smo ke Exposure - Never Smoker Cigarettes 0.5 30.1 Started: 12/28/1993 Cigars Smokeless Tobacco: Never Comments:weekends Alcohol Use Standard Drinks/Week Comments Yes 0 (1 standard drink = 0.6 oz pur e alcohol) 1-2 drinks a a week PHQ-2 Answer Date Recorded PHQ-2 Score 0 07/08/2019 Sex and Gender Information Value Date Recorded Sex Assigned at Not on file Gender Identity Not on file Sexual Orientation Not on file COVID-19 Exposure Response Date Recorded In the last month, have you been in contact with someone who was confirmed or suspected to have Coronavirus / COVID-19? 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 Yes Name of medication being requested: oxyCODONE (ROXICODONE) 5 MG tablet Provider who prescribed the medication: Jose Godfrey MD Pharmacy: [id number] [place], [place] - [address] [facility] Date medication is needed: HEATHER Pt called stating he is still in some pain and was wondering if he could get this Rx refilled. Please advise, thank you! Action Taken: Message routed to: [facility] E[facility] Travel Screening: Not Applicable L MOLDING ROLLER BLAST OPERATOR documented in this encounter Plan of Treatment Not on file documented as of this encounter Visit Diagnoses Not on filedocumented in this encounter Care Teams Front Attendant Relationship Specialty Start Date End Date Peggy Hammer MD [facility] [address] [place] [address] PCP - General Family Practice 09/10/19 Alvaro Denise MD [address] [place] [address] [address] [place] [address] Assigned Surgical Provider 04/21/2003/06/22 documented as of this encounter
--- OUTSIDE RECORDS SUMMARY | 2024-01-21 08:37 | XMS_ITS | Encounter Summary ---
Author Organization [facility] Address [address], [place] [address] Care Team Providers Care Document Design Specialist Name Role Phone Nadja Manjarrez MD Primary Care Provider Encounter Details Date Type Department Care Team (Late st Contact Info) Description 05/04/2014 Scanned History External to Transferred Record, Provider [facility] Social History Tobacco Use Types [...] on filedocumented in this encounter Care Teams Document Design Specialist Relationship Specialty Start [place] [address] [place] [address] PCP - General Family Practice 08/20/11 documented as of this encounter
--- OUTSIDE RECORDS SUMMARY | 2024-01-21 08:37 | XMS_ITS | Encounter Summary ---
[facility] Address [address] [place] [address] Care Team Providers Care Drum Drier Operator Name Role Phone Nadja Manjarrez MD Primary Care Provider [phone] Encounter Details Date Type Department Care Team (Late st Contact Info) Description 09/08/2014 Consent for Procedure/Treatme nt [facility] INFORMED [...] on filedocumented in this encounter Care Teams Drum Drier Operator Relationship Specialty [place] [address] [place] [address] PCP - General Family Practice 08/20/11 documented as of this encounter
--- OUTSIDE RECORDS SUMMARY | 2024-01-21 08:37 | XMS_ITS | Clinical Summary ---
Author Organization [facility] Address [place], [place] [address] Care Team Providers Care Prescriptionist Name Role Phone Nadja Manjarrez MD Primary Care Provider [phone] Allergies No known active allergies Medications Medication Sig Dispensed Refills Start Date End Date Status buPROPion (WELLBUTRIN SR; ZYBAN) 150 mg Sustained-Release tabletIndications :smoking cessation Take 150 mg by mouth 2 times daily. Indications: SMOKING CESSATION Active gabapentin (NEURONTIN) 100 mg capsule Take 1 capsule by mouth 3 times daily 30 capsule 06/12/2019 Active ibuprofen (ADVIL; MOTRIN) 600 mg tablet Take 1 tablet by mouth 3 times daily with food 60 tablet 1 06/12/2019 Active multivitamin (MVI) tablet Active omega 5-zqo-rll-fish oil (FISH OIL) 100-160-1,000 mg cap by Not Applicable route. Active varenicline (CHANTIX) 1 mg tablet Take 1 mg by mouth. 09/10/2018 Activ e HYDROcodone-aceta minophen, 5-325 mg, (NORCO) per tabletIndications :Acute myofascial strain of lumbar region, initial encounter,Strain of right psoas muscle, initial encounter Take 1 tablet at bedtime as needed for severe back pain. Max acetaminophen dose: 4000 mg in 24 hrs. 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 Tobacco use disorder 02/04/2008 Hypospadias 02/04/2008 Immunizations Name Administration Dates Next Due Td (Age >=7 Years) 06/30/2001 Family History Medical History Relation Name Comments Hypertension Maternal Grandfather Cancer-prostate Paternal Grandfather pros stephenie removed-70 Relation Name Status Comments Maternal Grandfather Paternal Grandfather Social History Tobacco Use Types Packs/Day Years Used Date Smoking Tobacco: Every Day Cigarettes Last attempted to quit: 05/30/2012 Smokeless Tobacco: Never Tobacco Cessation:Ready to Q uit: No Comments:advised to quit Alcohol Use Standard Drinks/Week Comments Yes 0 (1 standard drink = 0.6 oz pur e alcohol) once every two weeks-rare Social Connections Answer Date Recorded Frequency of Communication with Friends and Fami ly Not on file 06/30/2021 Financial Resource Strain Answer Date R ecorded Difficulty of Paying Living Expenses Not on file 06/30/2021 Difficulty of Paying Living Expenses Not on file 06/30/2021 Sex and Gender Information Value Date Recorded Sex Assigned at Not on file Gender Identity Not on file Sexual Orientation Not on file Obstetrics History Last Filed Vital Signs Vital Sign Reading Time Taken Comments Blood Pressure 122/78 09/09/2018 9:55 AM CDT Pulse 74 09/09/2018 9:55 AM CDT Temperature 37.1 ??C (98.7 ??F) 09/09/2018 9:55 AM CD T Respiratory Rate 18 05/27/2018 12:2 2 PM CYLINDER TESTER Oxygen Saturation 98% 09/09/2018 9:55 AM CDT Inhaled Oxygen Concentration - - Weight 86.5 kg (190 lb 12.8 oz) 018 12:22 PM CYLINDER TESTER Height 180.3 cm (5' 11) 05/27/2018 12: 22 PM CYLINDER TESTER Body Mass Index 26.61 05/27/2018 12:22 PM CYLINDER TESTER Plan of Treatment Health Maintenance Due Date Last Done Comments Tdap 1987 Depression screening for age 12+ 1988 Tetanus booster 06/30/2011 06/30/2001 BMI (ht and wt on same day) for age 18+ 05/27/2019 05/27/2018 Colonoscopy through age 75 2021 Lipids for age 45-75 2021 02/04/2008, 02/04/2008, 07/23/2006, Additional history exists COVID-19 vaccine series ( season) 2023 Influenza for age 9-49 02/29/2024 HIV for age 15-65 Completed 02/04/2008 Hepatitis C screening for age 18-79 Completed 02/09/2008, 02/04/2008, 02/04/2008 Pneumococcal series for age 6-64 Aged Out No longer eligible based on patient's age to complete this topic Procedures Procedure Name Priority Date/Time Associated Diagnosis Comments HCV RNA QUANT Routine 02/09/2008 12:55 PM CDT VIRAL HEPATITIS c positive antibody ANTI HIV 1/2 Routine 02/04/2008 1:03 PM CDT Screening Exam Venereal Disease CHOLESTEROL,TOTAL Routine 02/04/2008 1:0 3 PM CDT Screening Lipid Disorders from Last 3 Months or Most Recently Relevant to Health Maintenance Results * HCV RNA RT-PCR,QNT [id number] (02/09/2008 12:55 PM CDT) SOURCE Blood [facility] Blood specimen (specimen) BLOOD SPECIMEN / Unknown 02/09/2008 12:55 PM CDT 02/09/2008 12:50 PM CDT Narrative [facility] - 02/09/2008 2:22 PM CDT This test measures HCV RNA using the Tyrell real-time Polymerase Chain Reaction (PCR) assay. ??The assay was developed and its performance characteristics were determined by [employer]. ??It has not been cleared or approved by the U.S. Food and Drug Administration. ??The FDA has determined that such clearance or approval is not necessary. ??This is used for clinical purposes. ??It should not be regarded as investigational or for research. QHC Canceled, laboratory error. Fina Wise MD SEND OUTS [facility] INTERNAL ZIP [address] [id number] * CHOLESTEROL,TOTAL (02/04/2008 1:03 PM CDT) CHOLESTEROL,TO SHARRI 172 110 - 199 mg/dL [facility] Blood specimen (specimen) BLOOD SPECIMEN / Unknown 02/04/2008 1:03 PM CDT 02/04/2008 1:02 PM CDT Fina Wise MD CHEMISTRY [facility] INTERNAL ZIP [address] [address] * ANTI HIV 1/2 (02/04/2008 1:03 PM CDT) ANTI HIV 1/2 Non-reacti ve [facility] Blood specimen (specimen) BLOOD SPECIMEN / Unknown 02/04/2008 1:03 PM CDT 02/04/2008 1:02 PM CDT Fina Wise MD SEND OUTS [facility] INTERNAL ZIP [address] [place] [id number] from Last 3 Months or Most Recently Relevant to Health Maintenance Advance Directives * Full Code (Latest Code Status on File) Date Activated Date Inactivated Comments 06/17/2012 6:07 AM 06/24/2012 4:24 PM Care Teams Prescriptionist Relationship Specialty Start Date End Date Nadja Manjarrez MD PCP - General 06/15/12
--- OUTSIDE RECORDS SUMMARY | 2024-01-21 08:37 | XMS_ITS | Encounter Summary ---
Author [facility] Address [address], [place] [address] Care Team Providers Care Armored Car Driver Name Role Phone Nadja Manjarrez MD Primary Care Provider [phone] Encounter Details Date Type Department Care Team (Late st Contact Info) Description 05/04/2014 Scanned History External to Transferred Record, Provider [facility] Social History Tobacco Use Types [...] on filedocumented in this encounter Care Teams Armored Car Driver Relationship Specialty [place] [address] [place] [address] PCP - General Family Practice 08/20/11 documented as of this encounter
--- OUTSIDE RECORDS SUMMARY | 2024-01-21 08:37 | XMS_ITS | Encounter Summary ---
Author Organization [facility] Address [address], [place] [address] Care Team Providers Care Rubber Cutter And Shape Carver Name Role Phone Nadja Manjarrez MD Primary Care Provider [phone] Encounter Details Date Type Department Care Team (Late st Contact Info) Description 05/19/2014 Scanned History External to Transferred Record, Provider [facility] Social History Tobacco Use Types Packs/Day [...] on filedocumented in this encounter Care Teams Rubber Cutter And Shape Carver Relationship Specialty [place] [address] [place] [address] PCP - General Family Practice 08/20/11 documented as of this encounter
--- OUTSIDE RECORDS SUMMARY | 2024-01-21 08:37 | XMS_ITS | Encounter Summary ---
Author Organization [facility] Address [address] [place] [address] Care Team Providers Care Sanitarian Aide Name Role Phone Nadja Manjarrez MD Primary Care Provider [phone] Encounter Details Date Type Department Care Team (Late st Contact Info) Description 06/14/2015 Consent for Procedure/Treatme nt [facility] INFORMED CONSENT RECORD Social History Tobacco Use Types Packs/Day Years Used Date Smoking Tobacco: Some Days Cigarettes Last attempted to quit: 2012 Smokeless Tobacco: Never Comments:4-5 cigs/month Alcohol [...] on filedocumented in this encounter Care Teams Sanitarian Aide Relationship Specialty [place] [address] [place] [address] PCP - General Family Practice 08/20/11 documented as of this encounter
--- OUTSIDE RECORDS SUMMARY | 2024-01-21 08:37 | XMS_ITS | Encounter Summary ---
Author Organization [facility] include [facility] beds at [facility] Address [address] [address] Care Team Providers Care Tempering Oven Operator Name Role Phone Nadja Manjarrez MD Primary Care Provider [phone] Encounter Details Date Type Department Care Team (Late st Contact Info) Description 02/27/2016 Correspondence [facility] Occupational Medicine [address] [place] [address] [place] [id number] Jay Ernst MD MEDICAL EXAM REPORT FORMS Social History Tobacco Use Types Packs/Day Years [...] on filedocumented in this encounter Care Teams Tempering Oven Operator Relationship Specialty [place] [address] [place], [place] [id number] PCP - General Family Practice 08/20/11 documented as of this encounter
--- OUTSIDE RECORDS SUMMARY | 2024-01-21 08:37 | XMS_ITS | Encounter Summary ---
Author Organization [facility] Address [address], [place] [address] Care Team Providers Care Tug Hand Name Role Phone Nadja Manjarrez MD Primary Care Provider [phone] Encounter Details Date Type Department Care Team (Late st Contact Info) Description 04/21/2015 [facility] [address] [facility] [address] [facility]. [place], [place] [id number] Meaghan Rasmussen MD [address] [place] [address] [facility] Social History Tobacco Use Types Packs/Day Years [...] on filedocumented in this encounter Care Teams Tug Hand Relationship Specialty [place] [address] [place] [address] PCP - General Family Practice 08/20/11 documented as of this encounter
--- OUTSIDE RECORDS SUMMARY | 2024-01-21 08:37 | XMS_ITS | Encounter Summary ---
Author Organization [facility] Address [address], [place] [address] Care Team Providers Care Manager Intensive Care Name Role Phone Nadja Manjarrez MD Primary Care Provider [phone] Encounter Details Date Type Department Care Team (Late st Contact Info) Description 12/19/2014 [facility] [address] [facility] [address] [facility]. [place], [place] [phone] Meaghan Rasmussen MD [address] [place] [phone] [facility] Social History Tobacco Use Types Packs/Day [...] filedocumented in this encounter Care Teams Manager Intensive Care Relationship Specialty Start [place] [address] [place] [address] PCP - General Family Practice 08/20/11 documented as of this encounter
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
--- OUTSIDE RECORDS SUMMARY | 2024-01-21 08:37 | XMS_ITS | Encounter Summary ---
Author Organization [facility] Address [address], [place] [address] Care Team Providers Care Tap Builder Name Role Phone Nadja Manjarrez MD Primary Care Provider [phone] Encounter Details Date Type Department Care Team (Late st Contact Info) Description 06/13/2016 Scanned History External to Transferred Record, Provider [facility] Social History Tobacco Use Types Packs/Day Years [...] on filedocumented in this encounter Care Teams Tap Builder Relationship Specialty [place] [address] [place] [address] PCP - General Family Practice 08/20/11 documented as of this encounter
--- OUTSIDE RECORDS SUMMARY | 2024-01-21 08:37 | XMS_ITS | Referral Summary ---
Author Organization [facility] Address [address] [place] [address] Care Team Providers Care Supervising Nurse Name Role Phone Peggy Hammer MD Primary Care Provider [phone] Allergies No known active allergies Medications Medication Sig Dispensed Refills Start Date End Date Status FISH OIL Active fluticasone (FLONASE) 50 MCG/ACT nasal spray [place] 1 spray into both nostrils daily 15 [...] Overview: Added automatically from request for surgery [id number] CARDIOVASCULAR SCREENING; LDL GOAL LESS THAN 160 02/01/2011 Immunizations Name Administration Dates Next Due TDAP Vaccine (Adacel) 02/01/2011 Social History Tobacco Use Types Packs/Day Years [...] Comments Blood Pressure 134/78 06/02/2020 5:51 PM FLIGHT MECHANIC Pulse 72 08/31/2020 1:40 PM FLIGHT MECHANIC Temperature 36.9 ??C (98.4 ??F) 08/31/2020 1:40 PM CS T Respiratory Rate 16 06/02/2020 5:51 PM FLIGHT MECHANIC Oxygen Saturation 98% 08/31/2020 1:40 PM FLIGHT MECHANIC Inhaled Oxygen Concentration - - Weight 83.5 kg (184 lb) 08/31/2020 1:40 PM FLIGHT MECHANIC Height 182.9 cm (6') 08/31/2020 1:40 PM FLIGHT MECHANIC Body Mass Index 24.95 08/31/2020 1:40 PM FLIGHT MECHANIC Plan of Treatment Not on file Medical Devices Implanted Type Area Choral Director Device Identifier Shelf Expiration Date Model / Serial / Lot Stent Frontal Sinus Foard Lg Implanted:Qty: 1 on 09/10/2019 by Alvaro Carranza MD at [facility] Stent Left: Sinus OLYMPUS MANUEL 02/29/2024 [id number] / / [id number] Description:Left Frontal Sin us Care Teams Supervising Nurse Relationship Specialty Start Date End Date Peggy Hammer MD [facility] [address] [place] [address] PCP - General Family Practice 09/10/19
--- OUTSIDE RECORDS SUMMARY | 2024-01-21 08:37 | XMS_ITS | Encounter Summary ---
Author Organization [facility] Address [address] [place] [address] Care Team Providers Care Swing Frame Grinder Operator Name Role Phone No Ref-Primary, Physician Primary Care Provider Peggy Hammer MD Primary Care Provider [phone] Alvaro Denise MD Unavailable Encounter Details Date Type Department Care Team (Late st Contact Info) Description 06/15/2019 [facility] [place] [facility] [address] [facility] 4th [place] [address] Ni Castro Social History Tobacco Use Types Packs/Day Years Used Date Smoking Tobacco: Passive Smo ke Exposure - Never Smoker Cigarettes Smokeless Tobacco: Never Comments:weekends Alcohol Use Standard [...] on filedocumented in this encounter Care Teams Swing Frame Grinder Operator Relationship Specialty Start Date End Date No Ref-Primary, Physician PCP - General 06/13/19 09/09/19 Peggy Hammer MD [facility] [address] [place] [address] PCP - General Family Practice 09/10/19 Alvaro Denise MD [address] [place] [address] Assigned Surgical Provider 04/21/2003/06/22 documented as of this encounter
--- OUTSIDE RECORDS SUMMARY | 2024-01-21 08:37 | XMS_ITS | Continuity of Care Document ---
Author Organization [facility] Address [address] [place] [address] Phone Care Team Providers Care Gathering Machine Feeder Name Role Phone Jose R PENALOZA, Mitra Unavailable Unavailable Medications Medication Instructions Dosage Effective Dates (start - stop) Status Comments hydrocodone-aceta minophen 5 mg-325 mg tablet take 1 - 2 Tablet by oral route every 4 - 6 hours as needed for pain 1-2 Tablet - Active [phone] rochelle BARRAGAN for MRP Procedures Procedure Date [...] Date Provider Providers Copied on Encounter [facility], [address] [place] [address], [address], [place] tel:[phone] [facility] No Information 3 Jose R Leggett [facility], [address], [place], [id number], [place]. tel:[phone] [facility], [address] [place], [place] [address], [place], [facility], [place] tel:[phone] [facility] No Information 2 2 Galeana Pb. [facility], [address], [address], [place], [place], [address], [place]. tel:[phone] [facility], [address], [place], [address], [place] tel:[phone] [facility] No Information 2 Galeana Pb. [facility], [address], [address], [place], [place], [id number], [place]. tel:[phone] Office/Outpa tient Visit,Est, Low [facility], [address] [facility], [place], [place], [facility], [place] tel:[phone] [facility] No Information 0 2 Gale[place] Pb. [facility], [address] [place] [address], [address], [place], [place], [id number], [place]. tel:[phone] Referring Provider: Shashi Bello, [facility] [address] [place], [place] [address] [address], [address] . tel:[phone] Office/Outpa tient Visit,New, Mod [facility], [address], [place], [place], [facility], [place] tel:[phone] [facility] No Information 2 Oneal Danielle. [facility], [address], [place], [place], [address], [place]. tel:[phone] Office/outpa tient visit,est, mod [facility], [address], [place], [place], [facility], [place] tel:[phone] [facility] No Information 1 No Information Office/outpa tient visit,est, mod [facility], [address], [place], [place], [facility], [place] tel:[phone] [facility] No Information No Information Family History Family Member Type Diagnosis Age At Onset No Information Payers Payer name Insurance type Covered constitution party ID Simóndebo demian(s) [employer] [facility] [id number] Social History Type Description Quantity Date Captured [...]
--- OUTSIDE RECORDS SUMMARY | 2024-01-21 08:37 | XMS_ITS | Encounter Summary ---
Author Organization [facility] Address [address] [place] [address]. [place] [address] Care Team Providers Care Molding Fitter Name Role Phone Burak Reynolds MD Primary Care Provider + [phone] No Ref-Primary, Physician Primary Care Provider Peggy Hammer MD Primary Care Provider [phone] Ayesha-Alvaro Hammond MD Unavailable Encounter Details Date Type Department Care Team (Late st Contact Info) Description 02/04/2011 [facility] [place] [address] [address] [place] [address] [place] [address] Social History Tobacco Use Types Packs/Day Years [...] on filedocumented in this encounter Care Teams Molding Fitter Relationship Specialty Start Date End Date Burak Reynolds MD PCP - General Family Practice 01/30/11 06/12/19 No Ref-Primary, Physician PCP - General 06/13/19 09/09/19 Peggy Hammer MD [facility] [address] [place] [address] PCP - General Family Practice 09/10/19 Alvaro Denise MD [address] [place], [place] [address] Assigned Surgical Provider 04/21/2003/06/22 documented as of this encounter
--- OUTSIDE RECORDS SUMMARY | 2024-01-21 08:37 | XMS_ITS | Encounter Summary ---
Author Organization [facility] Address [address] [place] [address] Care Team Providers Care Pharmacy Helper Name Role Phone Nadja Manjarrez MD Primary Care Provider Encounter Details Date Type Department Care Team (Late st Contact Info) Description 07/19/2015 Consent for Procedure/Treatme nt [facility] Department INFORMED CONSENT RECORD Social History Tobacco [...] filedocumented in this encounter Care Teams Pharmacy Helper Relationship Specialty [place] [address] [place] [address] PCP - General Family Practice 08/20/11 documented as of this encounter
--- OUTSIDE RECORDS SUMMARY | 2024-01-21 08:38 | XMS_ITS | Continuity of Care Document ---
Author Organization [facility] Address [address] [place] [address] Care Team Providers Care Oceanographic Meteorologist Name Role Phone NILAY DOMINIQUE Primary Care Provider [phone] Assessment No assessment recorded. Plan of Treatment Reminders Order Date Submit Date Provider Last Modified By Organization Details Last Modified Time Details Appointments None recorded. Lab urinalysis , dipstick 2023 024 [facility], [address], [place], [address], 16:15:41 Referral None recorded. Procedures None recorded. Surgeries None recorded. Imaging CT, abdomen + pelvis, w/o contrast - NO PREV 2023 024 [facility] , [address], [place], [address], 4 11:41:51 Medication Orders None recorded. Patient TargetsNo targets recorded. Patient InstructionsNo instructions recorded. Reason for Referral None Reported. Results Created Date Observation Date Name Description Value Unit Range Abnormal Flag LastModifiedBy Organization Detail LastModifiedTime 11/06/19 24 11/06/2023 urina lysis , dipst ick Color-Status Yellow Not Available [facility] [address], [place], [address], 11/06/2023 16:14:58 11/06/19 24 11/06/2023 urina lysis , dipst ick Clarity-Stat us Clear Not Available [facility] [address], [place], [address], 11/06/2023 16:14:58 11/06/19 24 11/06/2023 urina lysis , dipst ick Ketones-Stat us 40 Not Available [facility] [address], [place], [address], 11/06/2023 16:14:58 11/06/19 24 11/06/2023 urina lysis , dipst ick pH-Status 5.5 Not Available [facility] [address], [place], [address], 11/06/2023 16:14:58 11/06/19 24 11/06/2023 urina lysis , dipst ick Blood-Status Trace Not Available [facility] [address], [place], [address], 11/06/2023 16:14:58 11/11/19 24 11/10/2023 CT, abdom en + pelvi s, w/o contr ast EXAM: CT, ABDOME N + PELVIS , W/O CONTRA ST LOCATI ON: [facility] DATE: 024 INDICA TION: Person al histor y of urinar y calcul i. COMPAR ANUM: None. TECHNI QUE: CT scan of the abdome n and pelvis was perfor med withou t IV contra st. Multip lanar reform ats were obtain ed. Dose reduct ion techni ques were used. CONTRA ST: None. FINDIN GS: LOWER CHEST: No infilt rates or effusi ons. HEPATO BILIAR Y: No signif icant mass or bile duct dilata tion. No calcif ied gallst ones. PANCRE : No signif icant mass, duct dilata tion, or inflam matory change . SPLEEN : Normal size. ADRENA L GLANDS : No signif icant nodule s. KIDNEY S/BLAD AUDREY: No signif icant mass, stone, or hydron ephros is. BOWEL: No obstru ction or inflam matory change . LYMPH NODES: No adenop athy demons trated in the absenc e of contra st. VASCUL ATURE: No abdomi nal aortic aneury sm. PELVIC ORGANS : No pelvic masses . MUSCUL OSKELE SHARRI: No frankl y destru ctive bony lesion s. IMPRES DEL: 1. No renal, ureter al, or bladde r stones . This report was electr onical ly interp reted by: Robert chance MD on 2023 at 10:39 [id number] [facility] [place] [address], [place], [address], 11/12/2023 16:50:04 Result Notes None recorded. Procedures Surgical History Date Name Laterality Status Provider Name and Address Organization Details Recorded Time Cystoscopy- male completed Shashi Nielsen MD [address], [place], [address], [facility] 08/30/2020 13:07:11 Bladder Scan completed Bethany mackey [facility] 08/30/2020 12:18:36 Colonoscopy completed Annie mackey [facility] 08/30/2020 12:12:20 Imaging Results None recorded. Procedure Notes None recorded. Medical Equipment None Reported. Allergies No known drug allergies Medications Name Sig Start Date Stop Date Status Note LastModified by Organization Details LastModified Time cyclobenzap rine 10 mg tablet TAKE 1/2 1 TABLET BY MOUTH THREE TIMES DAILY NEEDED 08/30 completed Not Available Not Available Not Available bupropion HCl SR 150 mg tablet,12 hr sustained-r elease TAKE 1 TABLET BY MOUTH TWICE DAILY 11/05 completed Not Available Not Available Not Available nystatin 100,000 unit/mL oral suspension SWISH AND SPIT [id number] units (5 mL) buccally three times a day for 1 week* 11/05 completed Not Available Not Available Not Available prednisone 10 mg tablet PLEASE SEE ATTACHED FOR DETAILED DIRECTION S 08/30 completed Not Available Not Available Not Available trazodone 50 mg tablet Take 1 tablet (50mg) by mouth at bedtime as needed for insomnia* active Not Available Not Available No t Available valacyclovi r 1 gram tablet TAKE ONE TABLET BY MOUTH TWICE DAILY for 7 days for an outbreak* 11/05 completed Not Available Not Available Not Available hydrocodone 5 mg-acetamin ophen 325 mg tablet TAKE 1 TABLET AT BEDTIME NEEDED FOR SEVERE BACK PAIN. MAX ACETAMINO PHEN DOSE 4000 MG IN 24 HRS. 08/30 completed Not Available Not Available Not Available minocycline 100 mg capsule TAKE 1 CAPSULE BY MOUTH TWICE A DAY 08/30 completed Not Available Not Available Not Available meloxicam 15 mg tablet TAKE ONE TABLET BY MOUTH ONE TIME DAILY* active Not Available Not Available No t Available dextroamphe tamine-amph etamine 10 mg tablet TAKE ONE TABLET BY MOUTH ONE TIME DAILY* active Not Available Not Available No t Available valacyclovi r 500 mg tablet TAKE ONE TABLET BY MOUTH ONE TIME DAILY* active Not Available Not Available No t Available tamsulosin 0.4 mg capsule TAKE 1 CAPSULE BY MOUTH EVERY DAY 08/30 completed Not Available Not Available Not Available cephalexin 500 mg capsule TAKE 1 CAPSULE 4 TIMES A DAY (IF CONCERN FOR CELLULITI S) 08/30 completed Not Available Not Available Not Available Cipro 500 mg tablet Take 1 tablet every 12 hours by oral route. 11/05 completed Not Available Not Available Not Available gabapentin 300 mg capsule TAKE ONE CAPSULE BY MOUTH THREE TIMES DAILY* active Not Available Not Available No t Available dextroamphe tamine-amph etamine ER 10 mg 24hr capsule,ext end release TAKE ONE CAPSULE BY MOUTH daily IN THE MORNING* 11/05 completed Not Available Not Available Not Available mupirocin 2 % topical ointment APPLY TO AFFECTED AREA 3 TIMES A DAY 08/30 completed Not Available Not Available Not Available ondansetron 4 mg disintegrat ing tablet 08/30 completed Not Available Not Available Not Available amoxicillin 875 mg-potassiu m clavulanate 125 mg tablet TAKE ONE TABLET BY MOUTH TWICE DAILY FOR 10 DAYS* 11/05 completed Not Available Not Available Not Available oxycodone 5 mg tablet TAKE 1 TABLET (5 MG) BY MOUTH EVERY 6 HOURS NEEDED (MODERATE TO SEVERE PAIN) 08/30 completed Not Available Not Available Not Available dextroamphe tamine-amph etamine ER 15 mg 24hr capsule,ext end release TAKE ONE CAPSULE BY MOUTH IN THE MORNING* active Not Available Not Available No t Available dextroamphe tamine-amph etamine ER 25 mg 24hr capsule,ext end release Take 1 capsule by mouth daily in the morning* active Not Available Not Available No t Available DentaGel 1.1 % PLEASE SEE ATTACHED FOR DETAILED DIRECTION S 08/30 completed Not Available Not Available Not Available atomoxetine 40 mg capsule TAKE ONE CAPSULE BY MOUTH EVERY DAY IN THE MORNING.* active Not Available Not Available No t Available bupropion HCl XL 150 mg 24 hr tablet, extended release 150 mg orally every morning* active Not Available Not Available No t Available Fish Oil active Not Available Not Avai lable Not Available Vitamin D active Not Available Not Chela ilable Not Available multivitami n active Not Available Not Available Not Available Chantix Continuing Month Box 1 mg tablet TAKE 1 TABLET BY MOUTH TWICE A DAY 08/30 completed Not Available Not Available Not Available Chantix Starting Month Box 0.5 mg (11)-1 mg (42) tablets in dose pack TAKE 1 TABLET BY MOUTH DIRECTED BY PACKAGING 08/30 completed Not Available Not Available Not Available Vitals Date Recorded Body height Body mass index (BMI) Body weight Provider Name and Address Organization Details Last Updated DateTime 11/06/2023 182.88 cm 24.4 kg/m2 24429.63 g Bethany Vernon [facility] 11/06/2023 16:13:39 Social History Question Answer Notes LastModified by Organizat ion Details LastModified Time Tobacco Smoking Status Former Smoker Quit May 2019 Annie mackey [facility] 08/30/2020 12:13:09 What Was The Date Of Your Most Recent Tobacco Screening? 11/06/2023 michelle Information not available 11/06/2023 Sex: Unknown Functional Status None recorded. Mental Status None recorded. Family History Relationship Description Onset Age of this Age Resolved Age Notes Father Family history of cancer of colon Also a grandfather Mother Family history of neoplasm of ovary Unspecified Relation Family history of malignant neoplasm of prostate A grandfather an d uncle Medical History Condition Response Other N High Blood Pressure N Kidney Stones N Lung Disease N Depression N GERD/Acid Reflux N Sexually Transmitted Infection N Diabetes N Bleeding Disorder N Cancer N High Cholesterol N Heart Disease N Past Encounters Encounter ID Performer Location Encounter Start Date Encounter Closed Date Diagnosis/Indication Diagnosis SNOMED-CT Code [id number] JUDY BRANCH [facility] [address] [place] [address] 11/06/2023 15:50:56 11/07/2023 14:19:36 Pain in testicle [id number] History of calculus of kidney 533889046 Microscopic hematuria 19 [id number] Varicocele 53859731 Slowing of urinary stream 54913464 Health Concerns Section Related Observation LastModified by Organization Detai ls LastModified Time None Recorded Concern Status LastModified by Organization Details LastModified Time None Recorded Payers Encounter Date Sequence Insurance Name Policy Number Policy Coffey Covered Member ID Coffey Member ID Guarantor Name 11/06/2023 1 [facility] (HMO) Fabio Hodgson [id number] Fabio Hodgson Notes Date Note Type Note Provider Name and Address Organization Details Recorded Time 11/06/2023 text/html HPI Notes: 1 (Dr. Nielsen): New patient referred by JUDY Vogt from [facility] for chronic history of obstructive urinary symptoms and recent onset of retrograde ejaculation after starting tamsulosin. I reviewed Ms. Dominique's clinic notes from 07/17/2020 and I also reviewed laboratory results including PSA 0.58 on 07/17/2020 and normal urine analysis from 07/17/2020. He also tested negative for chlamydia and gonorrhea. Patient reports urinary intermittency, straining to empty and weak stream. He has a normal urinary frequency of about every 3-4 hours and does not have significant urgency. Nocturia x0-1. He tried tamsulosin but this caused some occasional dizziness and bothersome retrograde ejaculation and so he stopped. The medication did not help him a great deal with his symptoms. He does not take in excessive amounts of caffeine. Postvoid residual 0 mL. AUA symptom score 25, bother 3. He has a history of hypospadias but did not have to have surgical repair of this or any other urethral surgeries. 11/06/23: Here today for ongoing LLQ abdominal and pelvic pain since late August, notes the pain travels down into the left scrotum as well. The pain is intermittent, worse with prolonged sitting and increased activity. NSAIDs prn have not been helpful. Also notes hx of passing a kidney stone several years ago, no imaging completed at that time. Denies any urinary sx, denies fevers. States he follows routinely with his PCP, annually checks prostate health with MONICA and PSA- no concerns. Ongoing issues with difficulty voiding, this is not new. Saw Dr. Nielsen in 2020 (see above), cysto with mild lateral lobe prostate enlargement without significant obstruction. Opted against intervention. Scrotal US from 10/06/23- notable for left varicocele and right epididymal head cyst UA trace blood JUDY BRANCH [address] [place] [address],[address], [place], [address], [place] [facility] 11/06/2023 22:45:27
--- OUTSIDE RECORDS SUMMARY | 2024-01-21 08:38 | XMS_ITS | Encounter Summary ---
Author Organization [facility] Address [address] [place] [address] Care Team Providers Care Fitness Floor Attendant Name Role Phone Nadja Manjarrez MD Primary Care Provider [phone] Encounter Details Date Type Department Care Team (Late st Contact Info) Description 09/24/2013 Correspondence [facility] [address] [place] [address] [phone] [place] [id number] [place] [address] [phone] MEDICAL EQUIPMENT PROOF OF DELIVERY Social History Tobacco Use Types Packs/Day Years [...] documented as of this encounter Progress Notes * Nadja Manjarrez MD - 09/24/2013 12:00 AM CDT documented in this encounter Plan of Treatment Not on file documented as of this encounter Visit Diagnoses Not on filedocumented in this encounter Care Teams Fitness Floor Attendant Relationship Specialty Start Date [place]rez [place] [id number] [place] [address] PCP - General Family Practice 08/20/11 documented as of this encounter
--- OUTSIDE RECORDS SUMMARY | 2024-01-21 08:38 | XMS_ITS | Encounter Summary ---
Author Organization [facility] Address [address] [place] [address] Care Team Providers Care Pasting Inspector Name Role Phone Nadja Manjarrez MD Primary Care Provider [phone] Encounter Details Date Type Department Care Team (Late st Contact Info) Description 06/17/2012 Outside Hospital External to [facility] [...] as of this encounter Progress Notes * ENRICO HUFFMAN, PROVIDER - 06/17/2012 12:00 AM CST RIDGE ASSEMBLER documented in this encounter Plan of Treatment Not on file documented as of this encounter Visit Diagnoses Not on filedocumented in this encounter Care Teams Pasting Inspector Relationship Specialty Start [place] [address] [place] [address] PCP - General Family Practice 08/20/11 documented as of this encounter
== END 2024-01-21 08:34 | disposition home or self-care (01) ==
PROVIDERS: PCP Physician Assistant Medical; Visit Provider Physician Assistant Medical
DX: M25.50 Pain in unspecified joint (principal); R63.4 Abnormal weight loss
CPT/HCPCS: 80053; 82306; 82550; 82607; 84550; 86140; 86618; 87468; 87469; 87484; 87798